=== PATIENT | female | born 1945 | race Caucasian/White ===

== ENCOUNTER → 2017-06-29 08:40 | Outpatient (CLI) | payer MEDICARE, OTHER, SELFPAY ==
--- NOTE | 2017-06-29 09:06 | XR_ITS ---
XR chest 2V Ordering Physician: Adrian Jones MD Patient Age: 72 years: Female HISTORY: ITS.REASON: CHEST PAIN, COPD, HTNPA and lateral chest Short of breath. Chest pain 1.5 week. Smoker. TECHNIQUE: PA and lateral chest COMPARISON :June 02, 2016 CXR also May 2015 & April 2014. Chest wall intact. Scant pleural thickening at the lateral left mid chest. FINDINGS . Overall appearance is very similar to the May 2015 study when today's slightly higher contrast digital technique is considered . I see no definitive focal pneumonia slight interstitial coarsening bilaterally with likely similar to previous chest film. No definitive CHF or definitive interstitial infiltrate. Heart upper normal in size. Calcified aortic knob. Postsurgical changes lower C-spine. IMPRESSION: Stable chest nothing definitely acute,... When technique is considered Mild hyperexpansion with mild chronic changes.
[2017-06-29 09:17] LABS: Basophils % 0.5 % (0.1-2.0); Eosinophils # 0.1 K/mm3 (0.0-0.4); Eosinophils % 1.7 % (0.1-12.0); Hematocrit 49.1 % (37.0-47.0); Hemoglobin 16.1 g/dL (12.2-16.2); Lymphocytes # 2.5 K/mm3 (0.7-4.5); Lymphocytes % 29.8 K/mm3 (10-50); Mean Corpuscular HGB Conc 32.8 g/dL (31.8-35.4); Mean Corpuscular Hemoglobin 30.3 pg (27.0-31.2); Mean Corpuscular Volume 92.5 fl (81-99); Mean Platelet Volume 7.7 fl (7.4-10.4); Monocytes # 0.6 K/mm3 (0.1-1.0); Monocytes % 6.9 % (1.7-9.3); Neutrophils # 5.1 K/mm3 (1.8-7.8); Platelet Count 225 K/mm3 (142-424); Red Blood Count 5.31 M/mm3 (4.20-5.40); Red Cell Distribution Width 13.4 % (11.5-17.5); White Blood Count 8.3 K/mm3 (4.8-10.8)
[2017-06-29 10:35] LABS: Alanine Aminotransferase 22 U/L (12-78); Albumin Level 3.5 gm/dL (3.4-5.0); Albumin/Globulin Ratio 1.1 (1.1-1.8); Alkaline Phosphatase 106 U/L (46-116); Anion Gap 13.3 mEq/L (5-15); Aspartate Amino Transferase 16 U/L (15-37); Bilirubin,Total 0.3 mg/dL (0.2-1.0); Blood Urea Nitrogen 18 mg/dL (7-18); Calcium 8.9 mg/dL (8.5-10.1); Carbon Dioxide 30 mmol/L (21.0-32.0); Chloride 103 mmol/L (98-107); Chol/HDL Ratio 3.4 (1-3.5); Cholesterol 191 mg/dL (140-200); Creatinine,Serum 0.89 mg/dL (0.55-1.02); Estimated Glomerular Filt Rate 62 ml/min (>60); GFR (African American) 75 ML/MIN (>60); Globulin 3.2 gm/dl (1.3-3.2); Glucose 100 mg/dL (74-106); HDL Cholesterol 56 mg/dL (29-89); LDL Cholesterol 117 mg/dL (0-130); Potassium 4.3 mmoL/L (3.5-5.1); Sodium 142 mmol/L (136-145); Thyroid Stimulating Hormone 2.04 uIU/ml (0.358-3.740); Total Protein,Serum 6.7 gm/dL (6.4-8.2); Triglycerides 89 mg/dL (30-200); VLDL Cholesterol 18 mg/dL (0-40)
== END ==
PROVIDERS: PCP Family Medicine; Visit Provider Family Medicine
DX: R07.9 Chest pain, unspecified (principal); E03.9 Hypothyroidism, unspecified; E78.5 Hyperlipidemia, unspecified; I10 Essential (primary) hypertension; J44.9 Chronic obstructive pulmonary disease, unspecified
CPT/HCPCS: 36415; 71046; 80053; 80061; 84443; 85025; 93005

== ENCOUNTER → 2017-07-02 13:29 | Outpatient (CLI) | payer MEDICARE, OTHER, SELFPAY ==
--- NOTE | 2017-07-02 13:39 | CT_ITS ---
EXAM: CT LUNG LOW DOSE WO CONTRAST COMPARISON: None HISTORY: 72-year-old female with 45 pack-year smoking history , asymptomatic ORDERING PHYSICIAN: Adrian Jones MD PATIENT AGE: 72 years TECHNIQUE: The exam was performed on a GE Light Speed [address] scanner using 2.94 mGy CTDI. A low dose helical CT CHEST was performed on a multi-detector scanner The LDCT was performed in a facility that meets the criteria for the screening program. Data regarding this exam was submitted to ACR which is an approved registry. The order for this exam indicates that it came as a result of a lung cancer screening counseling shard decision-making visit that included all the elements required of such a visit including smoking cessation. The radiologist interpreting this exam meets the [facility] criteria for the LDCT lung cancer screening program. The exam is reported using the Lung-RADS classification scale and reported to the ACR registry. NOTE: This study was performed for the specific purposes of lung cancer screening and is not an alternative to diagnostic chest CT. RADIATION DOSE: CTDI vol(CT dose Index-volume) = 2.94mG DLP (Dose Length Product) = 103.20 mGcm FINDINGS: Diffuse centrilobular emphysematous changes are present along with scattered areas of pulmonary fibrosis. Calcified nodule right lower lobe. Volume loss is present along the posterior aspect of the lingula along the major fissure and in the anterior aspect of the lingula. Coronary artery calcifications are present and minimal thickening of the pericardium anteriorly. Adrenal glands are slightly enlarged bilaterally nonspecific IMPRESSION: 1. Lung RADS Category: 2, benign 2. Other findings: Coronary artery disease. Centrilobular emphysema. Bilateral enlarged adrenal glands isodense slightly hypodense and may be due to adenomas or adrenal hyperplasia. Follow-up may confirm stability RECOMMENDATIONS: 12 month screening of the CT
== END ==
PROVIDERS: Family Provider Family Medicine; PCP Family Medicine; Visit Provider Family Medicine
DX: Z12.2 Encounter for screening for malignant neoplasm of respiratory organs (principal); Z87.891 Personal history of nicotine dependence

== ENCOUNTER 2017-09-20 19:49 | Inpatient (IN) ==
[2017-09-20 20:14] LABS: ABG HCO3 24.1 mmhg (22.0-26.0); ABG Oxygen Saturation 86 % (90-100); ABG PCO2 47.9 mmhg (35.0-45.0); ABG PH 7.32 mmol/L (7.35-7.45); ABG PO2 53.1 mmhg (80-100); ABG TCO2 25.6 mmhg (23-27); Allen's Test Y; Oxygen 4 %
[2017-09-20 20:27] LABS: Basophils % 0.3 % (0.1-2.0); Eosinophils % 0.1 % (0.1-12.0); Hematocrit 42.9 % (37.0-47.0); Lymphocytes # 1.1 K/mm3 (0.7-4.5); Lymphocytes % 12.4 K/mm3 (10-50); Mean Corpuscular HGB Conc 32.7 g/dL (31.8-35.4); Mean Corpuscular Hemoglobin 30.6 pg (27.0-31.2); Mean Corpuscular Volume 93.4 fl (81-99); Mean Platelet Volume 8.1 fl (7.4-10.4); Monocytes # 1.1 K/mm3 (0.1-1.0); Monocytes % 11.7 % (1.7-9.3); Neutrophils # 6.9 K/mm3 (1.8-7.8); Neutrophils % 75.6 % (37.0-80.0); Platelet Count 185 K/mm3 (142-424); Red Blood Count 4.59 M/mm3 (4.20-5.40); Red Cell Distribution Width 13.1 % (11.5-17.5); White Blood Count 9.1 K/mm3 (4.8-10.8)
[2017-09-20 20:52] LABS: Anion Gap 13.3 mEq/L (5-15); Blood Urea Nitrogen 19 mg/dL (7-18); Carbon Dioxide 27 mmol/L (21.0-32.0); Chloride 99 mmol/L (98-107); Creatine Kinase 651 U/L (26-192); Glucose 124 mg/dL (74-106); Potassium 4.3 mmoL/L (3.5-5.1); Sodium 135 mmol/L (136-145)
--- NOTE | 2017-09-20 21:33 | Emergency Department Note ---
ED Disposition Clinical Impression: Acute exacerbation of chronic obstructive airways disease CAP (community acquired pneumonia) Qualifiers: Laterality: right Lung location: lower lobe of lung Qualified Code(s): J18.1 - Lobar pneumonia, unspecified organism Disposition: Admitted as Observation Condition on Discharge: Good Referrals: Adrian Jones MD [Primary Care Provider] - - Critical Care Critical Care Time: No Attestation: On 09/20/17, the high probability of a clinically significant, sudden or life threatening deterioration of the following system(s) required my full and direct attention, intervention and personal management. The time I documented below is in addition to time spent performing reported procedures but includes the following listed in this critical care notation. Medical Decision Making - Medical Records Medical records reviewed: Yes: I reviewed the patient's medical records. - Domingo Inquiry Pt receiving controlled substance: No Vital Signs: 09/20/17 19:50 09/20/17 20:00 09/20/17 20:10 Temperature 99.7 F H Temperature Source Oral Pulse Rate 83 85 Pulse Rate [Right Radial] 110 H Respiratory Rate 20 Blood Pressure [Right Arm] 159/72 Blood Pressure Mean [Right Arm] 101 Blood Pressure Source [Right Arm] Automatic Cuff Blood Pressure Position [Right Arm] Supine 02 Sat by Pulse Oximetry 93 L Oxygen Delivery Method Nasal Cannula Oxygen Flow Rate (LPM) 4 - Lab Data Lab results reviewed: Yes: I reviewed the patient's lab results. Lab Results 09/20/17 20:10: WBC 9.1, RBC 4.59, Hgb 14.0, Hct 42.9, MCV 93.4, MCH 30.6, MCHC 32.7, RDW 13.1, Plt Count 185, MPV 8.1, Neut % (Auto) 75.6, Lymph % (Auto) 12.4 , Gilmer % (Auto) 11.7 H, Eos % (Auto) 0.1, Baso % (Auto) 0.3, Neut # (Auto) 6.9, Lymph # (Auto) 1.1, Gilmer # (Auto) 1.1 H, Eos # (Auto) 0.0, Baso # (Auto) 0.0 09/20/17 20:10: Sodium 135 L, Potassium 4.3, Chloride 99, Carbon Dioxide 27, Anion Gap 13.3, BUN 19 H, Creatinine 1.14 H, Estimated Creat Clear 50, Estimated GFR 47 L, Est GFR ( Amer) 57 L, Glucose 124 H, Total Creatine Kinase 651 H*, CK-MB (CK-2) 7.7 H, CK-MB (CK-2) Rel Index 1.2, Troponin I < 0.02 09/20/17 20:10: Lactic Acid 1.6 09/20/17 20:10: B-Natriuretic Peptide 84 09/20/17 20:12: Specimen Source R/r, O2 % 4, ABG pH 7.32 L, ABG pCO2 47.9 H, ABG pO2 53.1 L, ABG HCO3 24.1, ABG Total CO2 25.6, ABG O2 Saturation 86 L*, ABG Base Excess -2.0, Darian Test Y Result diagrams: 09/20/17 20:10 09/20/17 20:10 Orders (Tests/Meds): ED MEDICATIONS Discontinued Medications Generic Name Dose Route Start Last Admin Trade Name Freq PRN Reason Stop Dose Admin Albuterol/Ipratropium 3 ml 09/20/17 20:06 09/20/17 20:00 Duoneb 3ml Neb IH 09/20/17 20:07 3 ml ONCE ONE Administration Methylprednisolone Sodium Succinate 125 mg 09/20/17 20:06 09/20/17 20:10 Solu-Medrol 125mg/2ml Vial IV 09/20/17 20:07 125 mg ONCE ONE Administration ORDERS Category Date Time Status XR chest portable Stat Exams 09/20/17 20:06 Taken Blood Culture Stat Micro 09/20/17 20:10 Received Arterial Blood Gas Stat RT 09/20/17 20:15 Ordered - Radiology Data #1 Image(s): Chest Image Reviewed: Yes I reviewed the patient's radiology image Preliminary Findings: Abnormal (changes rt base) - ECG Data Tracing #1 I reviewed this ECG and interpreted as documented below: Normal Sinus Rhythm: Yes Ischemic changes: non-specific ST-T wave changes - Physician Consults Physician Consulted: abram Reason -: Admission Resp/SOB HPI - General Chief Complaint: Shortness of Breath/Dyspnea Stated Complaint: short of breath Time Seen by Provider: 09/20/17 20:00 Mode of Arrival: EMS Limitations: No Limitations Description of Symptoms (Recalled from ER Triage Doc. by RN): pt reports dx of cold and started on meds by dr valverde, ems transport with no treatment - History of Present Illness pt with copd with hx of tob use and presents with inc sob - saw pcp yesterday but has not responded to op treatment - no hemoptysis MD Complaint: shortness of breath, cough Onset (ago): day(s) Context: recent illness Severity: moderate Consistency/Duration: intermittent Known history of: COPD Treatment prior to arrival: oxygen - Related Data Home oxygen amount: 2 liters Home Medications Medication Instructions Recorded Confirmed albuterol sulfate 2.5 mg/3 mL 2.5 mg INHALATION ONCE 07/27/17 09/20/17 (0.083 %) solution for nebulization amlodipine 10 mg tablet 10 mg PO DAILY 90 Days tab 07/27/17 09/20/17 aspirin 81 mg tablet,delayed 81 mg PO ONCE 07/27/17 09/20/17 release benazepril 20 mg tablet 20 mg PO ONCE 07/27/17 09/20/17 cholecalciferol (vitamin D3) 2,000 2,000 unit PO ONCE 07/27/17 09/20/17 unit capsule diazepam 5 mg tablet 5 mg PO DAILY 30 Days tab 07/27/17 09/20/17 fluoxetine 40 mg capsule 40 mg PO DAILY 90 Days cap 07/27/17 09/20/17 furosemide 40 mg tablet 40 mg PO ONCE 07/27/17 09/20/17 ipratropium-albuterol 0.5 mg-3 3 ml INHALATION Q8H 07/27/17 09/20/17 mg(2.5 mg base)/3 mL nebulization soln levothyroxine 100 mcg tablet 100 mcg PO DAILY 90 Days tab 07/27/17 09/20/17 meclizine 12.5 mg tablet 12.5 mg PO ONCE 07/27/17 09/20/17 metoclopramide 10 mg tablet 10 mg PO QID 30 Days tab 07/27/17 09/20/17 nitroglycerin 0.4 mg sublingual 0.4 mg SUBLINGUAL Q5-15M PRN 07/27/17 09/20/17 tablet potassium chloride ER 10 mEq 2 tab PO DAILY 90 Days #180 07/27/17 09/20/17 tablet,extended release pravastatin 40 mg tablet 40 mg PO QHS 07/27/17 09/20/17 Benzonatate [Benzonatate 200mg Cap] 200 mg PO TID 09/20/17 09/20/17 Cefdinir [Omnicef 300mg Capsule] 1 cap PO BID 09/20/17 09/20/17 predniSONE [Prednisone 5mg 5 mg PO DAILY 09/20/17 09/20/17 Tab] Allergies Allergy/AdvReac Type Severity Reaction Status Date / Time codeine [CODEINE] Allergy Mild Verified 09/20/17 20:05 penicillin G [PENICILLIN G] Allergy Mild Verified 09/20/17 20:05 povidone-iodine Allergy Mild Verified 09/20/17 20:05 [From BETADINE] [facility] History I have reviewed the patient's past medical history: Yes Medical History: Reports:: Chronic Obstructive Pulmonary Disease (COPD), Gastroesophageal Reflux Disease(GERD), Hyperlipidemia, Hypertension Denies:: Cancer, Congestive Heart Failure, Diabetes Mellitus Type 1, Diabetes Mellitus Type 2, Migraine, MRSA, Renal Disease, Renal Insufficiency Other Medical History: Reports: Arthritis, Hypothyroidism. Denies: Thyroid Disease Laterality Cases: Bilateral: Tonsillectomy Other Surgeries: Yes: Tubal Ligation Amputation: No Fractures: No Comment: cholecystectomy, lasik surgery, disk removed and replaced in neck - Social History Smoking Status: Current every day smoker Tobacco Type: cigarettes Alcohol Intake: never Alcohol Intake Frequency:: other Occupational Status: retired - Psychiatric History Expresses thoughts of harming self/others: None Suicide Plan Description: No Plan Family Hx:: Cancer, Diabetes ROS Obtained: Yes All systems reviewed & no additional complaints - Constitutional Constitutional: Denies fever(s) - Eyes Eyes: Denies change in vision - ENT Ears, Nose, Mouth, and Throat: Denies sore throat - Cardiovascular Cardiovascular: Denies chest pain at rest - Respiratory Respiratory: Yes cough, Yes dyspnea, No coughing up blood - Gastrointestinal Gastrointestingal: Denies: diarrhea, vomiting - Genitourinary Female Genitourinary: Denies hematuria - Musculoskeletal Musculoskeletal: Denies joint swelling - Integumentary/Breasts Skin/Breast: Denies rash - Neurologic Neurologic: Denies seizure-like activity Physical Exam - General General appearance: in no apparent distress - Head Head exam: normocephalic - Eye Eye exam: Present: PERRL, EOMI - ENT ENT exam: Present: mucous membranes dry - Neck Neck exam: Present: trachea midline - Respiratory Respiratory exam: Present: wheezes, prolonged expiratory phase. Absent: respiratory distress - Cardiovascular Cardiovascular exam: Present: regular rate, systolic murmur, +S4 - Abdominal Exam Abdominal exam: Present: soft - Extremities Exam Extremities exam: Absent: calf tenderness - Neurological Exam Neurological exam: Present: alert, oriented X3, CN II-XII intact - Psychiatric Psychiatric exam: Present: normal affect - Skin Skin exam: Absent: rash
[2017-09-21 07:47] LABS: Basophils % 0.2 % (0.1-2.0); Eosinophils % 0.2 % (0.1-12.0); Hematocrit 45.3 % (37.0-47.0); Hemoglobin 14.7 g/dL (12.2-16.2); Lymphocytes # 0.7 K/mm3 (0.7-4.5); Mean Corpuscular HGB Conc 32.3 g/dL (31.8-35.4); Mean Corpuscular Hemoglobin 30.6 pg (27.0-31.2); Mean Corpuscular Volume 94.5 fl (81-99); Mean Platelet Volume 8.3 fl (7.4-10.4); Monocytes # 0.2 K/mm3 (0.1-1.0); Monocytes % 3.3 % (1.7-9.3); Neutrophils # 5.4 K/mm3 (1.8-7.8); Neutrophils % 85.3 % (37.0-80.0); Platelet Count 183 K/mm3 (142-424); Red Blood Count 4.79 M/mm3 (4.20-5.40); Red Cell Distribution Width 13.1 % (11.5-17.5); White Blood Count 6.4 K/mm3 (4.8-10.8)
--- NOTE | 2017-09-21 08:07 | Pharmacy Consult Notes ---
[facility] Pharmacy VTE Monitoring - Patient Demographics Admission date: 09/20/17 Report Date: 09/21/17 Time: 08:06 Allergies/Adverse Reactions: Patient Allergies codeine [CODEINE] Allergy (Mild, Verified 09/20/17 20:05) penicillin G [PENICILLIN G] Allergy (Mild, Verified 09/20/17 20:05) povidone-iodine [From BETADINE] Allergy (Mild, Verified 09/20/17 20:05) Height: 1.57 m Weight: 69.456 kg Patient Problems: Current Active Problems Acute exacerbation of chronic obstructive airways disease (Acute) CAP (community acquired pneumonia) (Acute) - VTE Risk Labs: VTE Related Lab Results Hgb 14.7 g/dL (12.2-16.2) 09/21/17 06:20 Hct 45.3 % (37.0-47.0) 09/21/17 06:20 Plt Count 183 K/mm3 (142-424) 09/21/17 06:20 BUN 19 mg/dL (7-18) H 09/20/17 20:10 Creatinine 1.14 mg/dL (0.55-1.02) H 09/20/17 20:10 Estimated Creat Clear 50 mL/min (0-300) 09/20/17 20:10 Was VTE Risk Assessment Performed: Yes VTE Score: 5 VTE Risk Level: Low Risk - Prophylaxis VTE Prophylaxis Ordered?: Yes Types of VTE Prophylaxis: TEDS Knee High Location of Applied Device: Bilateral Lower Extremeties - VTE Diagnosis Confirmed Treatment or plan recommended: Continue Current Treatment
[2017-09-21 08:50] LABS: Anion Gap 16.8 mEq/L (5-15); Blood Urea Nitrogen 19 mg/dL (7-18); Carbon Dioxide 25 mmol/L (21.0-32.0); Chloride 101 mmol/L (98-107); Glucose 145 mg/dL (74-106); Potassium 4.8 mmoL/L (3.5-5.1); Sodium 138 mmol/L (136-145)
[2017-09-21 09:14] LABS: Lymphocytes % 2 % (10-50); Monocytes % 2 % (2-9); Neutrophils % 94 % (42-76); RBC Morphology Normal; Total Cells Counted 100
--- NOTE | 2017-09-21 09:22 | History & Physical Report ---
*Admission Date: 09/20/17 <Brianna Mcleod 09/21/17 09:35> *Chief complaint: Shortness of breath <Brianna Mcleod 09/21/17 09:35> *History of present illness: Ms. Chu is a 72-year-old female with a history of oxygen dependent COPD, hypothyroidism, hypertension, and hiatal hernia who presented to [facility] emergency room with progressive shortness of breath. She was seen in the office of [facility] on 09/19/2017 and started on Ceftinir and Tessalon Perles. CBC at that time showed a white blood cell count of 7100. He was also started on prednisone 5 mg with descending dosages. She states she was having to use her neb treatments for 5 times during the day. She states they did help. Cough was a dry cough. She denies chest pain. She denies fever. She was evaluated in the emergency room and felt to have pneumonia. She was admitted for further evaluation and treatment. This a.m. she does not feel much better. She had little sleep. She denies chest pain. She is still somewhat short of breath. <Brianna Mcleod 09/21/17 09:35> [facility] History Medical History: Reports:: Chronic Obstructive Pulmonary Disease (COPD), Gastroesophageal Reflux Disease(GERD), Hyperlipidemia, Hypertension Denies:: Cancer, Congestive Heart Failure, Diabetes Mellitus Type 1, Diabetes Mellitus Type 2, Migraine, MRSA, Renal Disease, Renal Insufficiency < Brianna Mcleod 09/21/17 09:35> Other Medical History: Reports: Arthritis, Hypothyroidism. Denies: Thyroid Disease <Brianna Mcleod 09/21/17 09:35> Laterality Cases: Bilateral: Tonsillectomy <Brianna Mcleod 09/21/17 09:35> Other Surgeries: Yes: Cholecystectomy, Thyroidectomy, Tubal Ligation, Other ( Neck - bone spur removal) <Brianna Mcleod 09/21/17 09:35> Amputation: No <Brianna Mcleod 09/21/17 09:35> Fractures: No <Brianna Mcleod 09/21/17 09:35> Comment: Parotid gland removed per Dr. Frazier 06/2014; discectomy; Lasix surgery both eyes; cyst removed from eyelids 3. <Brianna Mcleod 09/21/17 09:35> - *Social History Educational Level: Completed High School <Brianna Mcleod 09/21/17 09:35> Smoking Status: Current every day smoker <Brianna Mcleod 09/21/17 09:35> Tobacco Type: cigarettes <Brianna Mcleod 09/21/17 09:35> #Yrs smoked (if former smoker): 50 <ShaniBrianna 09/21/17 09:35> Alcohol Intake: never <ShaniBrianna Johnnie 09/21/17 09:35> Alcohol Intake Frequency:: other <ShaniBrianna Johnnie 09/21/17 09:35> Occupational Status: retired <ShaniBrianna Johnnie 09/21/17 09:35> Housing: house <ShaniBrianna 09/21/17 09:35> Household Members: spouse <ShaniBrianna 09/21/17 09:35> - Psychiatric History Expresses thoughts of harming self/others: None <ShaniBrianna - 09/21/17 09: 35> Suicide Plan Description: No Plan <Brianna Mcleod Johnnie 09/21/17 09:35> *Family Hx:: Cancer, Diabetes <McleodBrianna 09/21/17 09:35> Review of Systems - Constitutional Reports weakness, Denies body ache(s) <McleodBrianna 09/21/17 09:35> - ENT Denies ear pain, Denies headache(s), Denies sore throat <ShaniBrianna Johnnie 09/21 09:35> - *Cardiovascular Denies chest pain <ShaniBrianna 09/21/17 09:35> Comments: Regular rate and rhythm with occasional ectopy. <Mcleod,Brianna 09/21/17 09:35> - *Respiratory Reports cough (Dry), Reports shortness of breath, Denies coughing up blood, Denies pain on inspiration <Brianna Mcleod 09/21/17 09:35> - *Gastrointestinal Denies abdominal pain, Denies constipation, Denies nausea, Denies vomiting < Brianna Mcleod 09/21/17 09:35> - *Genitourinary Denies difficulty urinating <Brianna Mcleod 09/21/17 09:35> - *Musculoskeletal Denies abnormal walking <Brianna cMleod - 09/21/17 09:35> - *Neurologic Denies confusion, Denies headache(s), Denies seizure-like activity <Brianna Mcleod - 09/21/17 09:35> Meds Home Medications Medication Instructions Recorded Confirmed Type albuterol sulfate 2.5 mg/3 mL 2.5 mg INHALATION ONCE 07/27/17 09/21/17 History (0.083 %) solution for nebulization amlodipine 10 mg tablet 10 mg PO DAILY 90 Days tab 07/27/17 09/21/17 History aspirin 81 mg tablet,delayed 81 mg PO ONCE 07/27/17 09/21/17 History release benazepril 20 mg tablet 20 mg PO ONCE 07/27/17 09/21/17 History cholecalciferol (vitamin D3) 2,000 2,000 unit PO ONCE 07/27/17 09/21/17 History unit capsule diazepam 5 mg tablet 5 mg PO DAILY 30 Days tab 07/27/17 09/21/17 History fluoxetine 40 mg capsule 40 mg PO DAILY 90 Days cap 07/27/17 09/21/17 History furosemide 40 mg tablet 40 mg PO ONCE 07/27/17 09/21/17 History ipratropium-albuterol 0.5 mg-3 3 ml INHALATION Q8H 07/27/17 09/21/17 History mg(2.5 mg base)/3 mL nebulization soln levothyroxine 100 mcg tablet 100 mcg PO DAILY 90 Days tab 07/27/17 09/21/17 History meclizine 12.5 mg tablet 12.5 mg PO ONCE 07/27/17 09/21/17 History metoclopramide 10 mg tablet 10 mg PO QID 30 Days tab 07/27/17 09/21/17 History nitroglycerin 0.4 mg sublingual 0.4 mg SUBLINGUAL Q5-15M PRN 07/27/17 09/20/17 History tablet potassium chloride ER 10 mEq 2 tab PO DAILY 90 Days #180 07/27/17 09/21/17 History tablet,extended release pravastatin 40 mg tablet 40 mg PO QHS 07/27/17 09/21/17 History Benzonatate [Benzonatate 200mg Cap] 200 mg PO TID 09/20/17 09/21/17 History Cefdinir [Omnicef 300mg Capsule] 1 cap PO BID 09/20/17 09/21/17 History predniSONE [Prednisone 5mg 5 mg PO DAILY 09/20/17 09/21/17 History Tab] <Adrian Jones - 09/21/17 09:41> Allergies Allergy/AdvReac Type Severity Reaction Status Date / Time codeine [CODEINE] Allergy Mild Verified 09/20/17 20:05 penicillin G [PENICILLIN G] Allergy Mild Verified 09/20/17 20:05 povidone-iodine Allergy Mild Verified 09/20/17 20:05 [From BETADINE] <Adrian Jones - 09/21/17 09:41> Exam Vital signs and Labs for Last 24 Hours: Temp Pulse Resp BP Pulse Ox 98.1 F 112 H 20 127/65 84 L 09/21/17 04:00 09/21/17 06:10 09/21/17 04:00 09/21/17 04:00 09/21/17 06:10 Laboratory Results - last 24 hr 09/20/17 20:10: WBC 9.1, RBC 4.59, Hgb 14.0, Hct 42.9, MCV 93.4, MCH 30.6, MCHC 32.7, RDW 13.1, Plt Count 185, MPV 8.1, Neut % (Auto) 75.6, Lymph % (Auto) 12.4 , Hyde % (Auto) 11.7 H, Eos % (Auto) 0.1, Baso % (Auto) 0.3, Neut # (Auto) 6.9, Lymph # (Auto) 1.1, Hyde # (Auto) 1.1 H, Eos # (Auto) 0.0, Baso # (Auto) 0.0 09/20/17 20:10: Sodium 135 L, Potassium 4.3, Chloride 99, Carbon Dioxide 27, Anion Gap 13.3, BUN 19 H, Creatinine 1.14 H, Estimated Creat Clear 50, Estimated GFR 47 L, Est GFR ( Amer) 57 L, Glucose 124 H, Total Creatine Kinase 651 H*, CK-MB (CK-2) 7.7 H, CK-MB (CK-2) Rel Index 1.2, Troponin I < 0.02 09/20/17 20:10: Lactic Acid 1.6 09/20/17 20:10: B-Natriuretic Peptide 84 09/20/17 20:12: Specimen Source R/r, O2 % 4, ABG pH 7.32 L, ABG pCO2 47.9 H, ABG pO2 53.1 L, ABG HCO3 24.1, ABG Total CO2 25.6, ABG O2 Saturation 86 L*, ABG Base Excess -2.0, Darian Test Y 09/21/17 06:20: WBC 6.4 D, RBC 4.79, Hgb 14.7, Hct 45.3, MCV 94.5, MCH 30.6, MCHC 32.3, RDW 13.1, Plt Count 183, MPV 8.3, Neut % (Auto) 85.3 H, Lymph % (Auto ) 11.0, Hyde % (Auto) 3.3, Eos % (Auto) 0.2, Baso % (Auto) 0.2, Neut # (Auto) 5.4, Lymph # (Auto) 0.7, Hyde # (Auto) 0.2, Eos # (Auto) 0.0, Baso # (Auto) 0.0 , Total Counted 100, Neutrophils % (Manual) 94 H, Band Neutrophils % 2.0, Lymphocytes % (Manual) 2 L, Monocytes % (Manual) 2, Platelet Estimate Normal, RBC Morphology Normal 09/21/17 06:20: Sodium 138, Potassium 4.8, Chloride 101, Carbon Dioxide 25, Anion Gap 16.8 H, BUN 19 H, Creatinine 1.03 H, Estimated Creat Clear 54, Estimated GFR 53 L, Est GFR ( Amer) 64, Glucose 145 H, Magnesium 2.2, Troponin I < 0.02 <RobertAdrian Juan David - 09/21/17 09:41> Temp Pulse Resp BP Pulse Ox 98.1 F 112 H 20 127/65 84 L 09/21/17 04:00 09/21/17 06:10 09/21/17 04:00 09/21/17 04:00 09/21/17 06:10 Laboratory Results - last 24 hr 09/20/17 20:10: WBC 9.1, RBC 4.59, Hgb 14.0, Hct 42.9, MCV 93.4, MCH 30.6, MCHC 32.7, RDW 13.1, Plt Count 185, MPV 8.1, Neut % (Auto) 75.6, Lymph % (Auto) 12.4 , Hyde % (Auto) 11.7 H, Eos % (Auto) 0.1, Baso % (Auto) 0.3, Neut # (Auto) 6.9, Lymph # (Auto) 1.1, Hyde # (Auto) 1.1 H, Eos # (Auto) 0.0, Baso # (Auto) 0.0 09/20/17 20:10: Sodium 135 L, Potassium 4.3, Chloride 99, Carbon Dioxide 27, Anion Gap 13.3, BUN 19 H, Creatinine 1.14 H, Estimated Creat Clear 50, Estimated GFR 47 L, Est GFR ( Amer) 57 L, Glucose 124 H, Total Creatine Kinase 651 H*, CK-MB (CK-2) 7.7 H, CK-MB (CK-2) Rel Index 1.2, Troponin I < 0.02 09/20/17 20:10: Lactic Acid 1.6 09/20/17 20:10: B-Natriuretic Peptide 84 09/20/17 20:12: Specimen Source R/r, O2 % 4, ABG pH 7.32 L, ABG pCO2 47.9 H, ABG pO2 53.1 L, ABG HCO3 24.1, ABG Total CO2 25.6, ABG O2 Saturation 86 L*, ABG Base Excess -2.0, Darian Test Y 09/21/17 06:20: WBC 6.4 D, RBC 4.79, Hgb 14.7, Hct 45.3, MCV 94.5, MCH 30.6, MCHC 32.3, RDW 13.1, Plt Count 183, MPV 8.3, Neut % (Auto) 85.3 H, Lymph % (Auto ) 11.0, Hyde % (Auto) 3.3, Eos % (Auto) 0.2, Baso % (Auto) 0.2, Neut # (Auto) 5.4, Lymph # (Auto) 0.7, Hyde # (Auto) 0.2, Eos # (Auto) 0.0, Baso # (Auto) 0.0 , Total Counted 100, Neutrophils % (Manual) 94 H, Band Neutrophils % 2.0, Lymphocytes % (Manual) 2 L, Monocytes % (Manual) 2, Platelet Estimate Normal, RBC Morphology Normal 09/21/17 06:20: Sodium 138, Potassium 4.8, Chloride 101, Carbon Dioxide 25, Anion Gap 16.8 H, BUN 19 H, Creatinine 1.03 H, Estimated Creat Clear 54, Estimated GFR 53 L, Est GFR ( Amer) 64, Glucose 145 H, Magnesium 2.2, Troponin I < 0.02 <ShaniBrianna 09/21/17 09:35> I & O for Last 24 hours: Intake & Output 09/18/17 09/19/17 09/20/17 09/21/17 11:59 11:59 11:59 11:59 Intake Total 846 / 846 Output Total 600 / 600 Balance 246 / 246 Weight 153 lb 2 oz <RobertAdrian Juan David - 09/21/17 09:41> Intake & Output 09/18/17 09/19/17 09/20/17 09/21/17 11:59 11:59 11:59 11:59 Intake Total 846 / 846 Output Total 600 / 600 Balance 246 / 246 Weight 153 lb 2 oz <Mcleod,Brianna 09/21/17 09:35> Radiology Reports for the Last 24 Hours: 09/20/2017 chest x-ray MPRESSION: No acute finding <ShaniBrianna 09/21/17 09:35> - Constitutional no acute distress <ShaniBrianna - 09/21/17 09:35> - *Routine HEENT Exam Head: Present: normocephalic, atraumatic <Brianna Mcleod 09/21/17 09:35> Eye: Present: PERRL. Absent: conjunctival icterus, scleral injection <Brianna Mcleod 09/21/17 09:35> ENT: Present: mucous membranes moist, oropharynx clear <Brianna Mcleod 09:35> - *Routine Neck Exam Present: supple. Absent: carotid bruit, lymphadenopathy, thyromegaly <Brianna Mcleod 09/21/17 09:35> - *Routine Respiratory Exam Present: decreased breath sounds (Posteriorly) <Brianna Mcleod 09/21/17 09:35 > - *Routine Cardiovascular Exam Present: RRR <Brianna Mcleod - 09/21/17 09:35> - *Routine Abdominal Exam Present: soft, normoactive bowel sounds. Absent: tenderness, guarding < Brianna Mcleod - 09/21/17 09:35> - *Routine Extremities Exam Absent: edema, calf tenderness <Brianna Mcleod - 09/21/17 09:35> - *Routine Neurological Exam Present: alert, oriented X3 <Brianna Mcleod - 09/21/17 09:35> H&P: Result - Labs Labs: Short CBC 09/20/17 09/21/17 Range/Units 20:10 06:20 WBC 9.1 6.4 D (4.8-10.8) K/mm3 Hgb 14.0 14.7 (12.2-16.2) g/dL Hct 42.9 45.3 (37.0-47.0) % Plt Count 185 183 (142-424) K/mm3 [facility] 09/20/17 09/21/17 20:10 06:20 Sodium 135 L 138 Potassium 4.3 4.8 Chloride 99 101 Carbon Dioxide 27 25 BUN 19 H 19 H Creatinine 1.14 H 1.03 H Glucose 124 H 145 H Cardiac Enzymes 09/20/17 09/21/17 Range/Units 20:10 06:20 Total Creatine Kinase 651 H* (26-192) U/L CK-MB (CK-2) 7.7 H (0.0-3.6) ng/ml Troponin I < 0.02 < 0.02 (0.00-0.06) ng/ml <RobertAdrian rivera Juan David - 09/21/17 09:41> Short CBC 09/20/17 09/21/17 Range/Units 20:10 06:20 WBC 9.1 6.4 D (4.8-10.8) K/mm3 Hgb 14.0 14.7 (12.2-16.2) g/dL Hct 42.9 45.3 (37.0-47.0) % Plt Count 185 183 (142-424) K/mm3 [facility] 09/20/17 09/21/17 20:10 06:20 Sodium 135 L 138 Potassium 4.3 4.8 Chloride 99 101 Carbon Dioxide 27 25 BUN 19 H 19 H Creatinine 1.14 H 1.03 H Glucose 124 H 145 H Cardiac Enzymes 09/20/17 09/21/17 Range/Units 20:10 06:20 Total Creatine Kinase 651 H* (26-192) U/L CK-MB (CK-2) 7.7 H (0.0-3.6) ng/ml Troponin I < 0.02 < 0.02 (0.00-0.06) ng/ml <Brianna Mcleod - 09/21/17 09:35> Assessment and Plan (1) Acute exacerbation of chronic obstructive airways disease Current visit: Yes Status: Acute Category: Medical Code(s): J44.1 - Chronic obstructive pulmonary disease with (acute) exacerbation (2) Hypothyroidism Current visit: Yes Status: Chronic Category: Medical Code(s): E03.9 - Hypothyroidism, unspecified (3) Hypertension Current visit: Yes Status: Chronic Category: Medical Code(s): I10 - Essential (primary) hypertension (4) Tobacco use disorder Current visit: Yes Status: Chronic Category: Medical Code(s): F17.200 - Nicotine dependence, unspecified, uncomplicated <Adrian Jones - 09/21/17 09:41> (1) Hypothyroidism Current visit: Yes Status: Chronic Category: Medical Code(s): E03.9 - Hypothyroidism, unspecified (2) Hypertension Current visit: Yes Status: Chronic Category: Medical Code(s): I10 - Essential (primary) hypertension (3) Tobacco use disorder Current visit: Yes Status: Chronic Category: Medical Code(s): F17.200 - Nicotine dependence, unspecified, uncomplicated <Brianna Mcleod - 09/21/17 09:19> - Assessment and plan all Dx Assessment and Plan for all problems:: Patient seen and examined. Still dyspneic with exertion. No chest pain. She is being covered for possible pneumonia although initial CXR was negative. Will repeat CXR today after hydration and check PCR resp panel. <Adrian Jones - 09/21/17 09:41> Will repeat chest x-ray today. Continue with Xopenex nebs and antibiotics. <Brianna Mcleod 09/21/17 09:35>
[2017-09-21 09:53] LABS: Coronavirus 229E Not Detected (NotDetected); Coronavirus NL63 Not Detected (NotDetected); Coronavirus OC43 Not Detected (NotDetected); Coronovirus HKU1,PCR Not Detected (NotDetected)
[2017-09-22 08:00] LABS: Basophils % 0.2 % (0.1-2.0); Eosinophils % 0.4 % (0.1-12.0); Hematocrit 43.8 % (37.0-47.0); Hemoglobin 14.1 g/dL (12.2-16.2); Lymphocytes # 0.7 K/mm3 (0.7-4.5); Lymphocytes % 8.3 K/mm3 (10-50); Mean Corpuscular HGB Conc 32.2 g/dL (31.8-35.4); Mean Corpuscular Hemoglobin 30.3 pg (27.0-31.2); Mean Corpuscular Volume 94.2 fl (81-99); Mean Platelet Volume 8.1 fl (7.4-10.4); Monocytes # 0.5 K/mm3 (0.1-1.0); Monocytes % 6.4 % (1.7-9.3); Neutrophils # 6.7 K/mm3 (1.8-7.8); Neutrophils % 84.6 % (37.0-80.0); Platelet Count 188 K/mm3 (142-424); Red Blood Count 4.65 M/mm3 (4.20-5.40); White Blood Count 7.9 K/mm3 (4.8-10.8)
--- NOTE | 2017-09-22 08:39 | Progress Note ---
<Brianna Mcleod - Last Filed: 09/22/17 08:35> Internal Medicine - PN: Subj *Date: 09/22/17 *Time: 08:35 Interval history: Did not have very good night last night. She was short of breath throughout. O2 sats decreased and she was placed on a Ventimask. She also received extra duo nebs and IV Lasix. She did diurese after this. This a.m. she does not feel any better. She denies chest pain but continues to be short of breath. Currently she is on nasal O2. She denies cough. She is trying to eat. White blood cell count is normal this time. CPK has decreased. Exam Vital signs and Labs for Last 24 Hours: Temp Pulse Resp BP Pulse Ox 97.3 F L 111 H 24 150/66 91 L 09/22/17 08:00 09/22/17 08:00 09/22/17 08:00 09/22/17 08:00 09/22/17 08:00 Laboratory Results - last 24 hr 09/21/17 06:20: Total Counted 100, Neutrophils % (Manual) 94 H, Band Neutrophils % 2.0, Lymphocytes % (Manual) 2 L, Monocytes % (Manual) 2, Platelet Estimate Normal, RBC Morphology Normal 09/21/17 06:20: Sodium 138, Potassium 4.8, Chloride 101, Carbon Dioxide 25, Anion Gap 16.8 H, BUN 19 H, Creatinine 1.03 H, Estimated Creat Clear 54, Estimated GFR 53 L, Est GFR ( Amer) 64, Glucose 145 H, Magnesium 2.2, Troponin I < 0.02 09/21/17 09:30: Chlamy pneumoniae PCR Not detected, Adenovirus (PCR) Not detected, B.parapertussis DNA PCR Not detected, Coronavirus OC43 (PCR) Not detected, Coronavirus HKU1 (PCR) Not detected, Coronavirus 229E (PCR) Not detected, Coronavirus NL63 (PCR) Not detected, Human Metapneumovir PCR Not detected, Influenza A (H1) PCR Not detected, Influ A (H1N1/09) PCR Not detected , Influenza A (H3) PCR Not detected, Influenza Type A (PCR) Not detected, Influenza Type B (PCR) Not detected, M. pneumoniae (PCR) Not detected, Parainfluenza 1 (PCR) Not detected, Parainfluenza 2 (PCR) Not detected, Parainfluenza 3 (PCR) Not detected, Parainfluenza 4 (PCR) Not detected, RSV (PCR ) Not detected, Entero/Rhino (PCR) Not detected 09/22/17 06:55: WBC 7.9, RBC 4.65, Hgb 14.1, Hct 43.8, MCV 94.2, MCH 30.3, MCHC 32.2, RDW 13.0, Plt Count 188, MPV 8.1, Neut % (Auto) 84.6 H, Lymph % (Auto) 8.3 L, Bradford % (Auto) 6.4, Eos % (Auto) 0.4, Baso % (Auto) 0.2, Neut # (Auto) 6.7 , Lymph # (Auto) 0.7, Bradford # (Auto) 0.5, Eos # (Auto) 0.0, Baso # (Auto) 0.0 09/22/17 06:55: Sodium 139, Potassium 4.0, Chloride 101, Carbon Dioxide 30, Anion Gap 12.0, BUN 20 H, Creatinine 0.90, Estimated Creat Clear 55, Estimated GFR 62, Est GFR ( Amer) 74, Glucose 150 H, Total Creatine Kinase 306 H D I & O for Last 24 hours: Intake & Output 09/19/17 09/20/17 09/21/17 09/22/17 11:59 11:59 11:59 11:59 Intake Total 846 / 846 1857 / 1857 Output Total 600 / 600 2049 / 2049 Balance 246 / 246 -193 / -193 Weight 153 lb 2 oz 152 lb Microbiology Reports for the Last 24 Hours: Microbiology 09/21/17 11:00 Sputum - Expectorated Sputum Gram Stain - Final 09/21/17 11:00 Sputum - Expectorated Sputum Sputum Culture - Preliminary 09/20/17 20:10 Blood Blood Culture - Preliminary NO GROWTH AFTER 24 HOURS 09/20/17 20:10 Blood Blood Culture - Preliminary NO GROWTH AFTER 24 HOURS Radiology Reports for the Last 24 Hours: Chest x-ray 09/21/2017 MPRESSION: COPD with possible patchy infiltrate in the right middle lobe - Constitutional Comments: Sitting up in bed trying to eat her breakfast. She is on nasal O2. She short of breath with conversing. - *Routine Respiratory Exam Present: decreased breath sounds, wheezes (Throughout anteriorly and posteriorly ) - *Routine Cardiovascular Exam Present: RRR - *Routine Abdominal Exam Present: soft, normoactive bowel sounds. Absent: tenderness, guarding - *Routine Extremities Exam Absent: edema, calf tenderness - *Routine Neurological Exam Present: alert, oriented X3 Assessment and Plan (1) Acute exacerbation of chronic obstructive airways disease Current visit: Yes Status: Acute Category: Medical Code(s): J44.1 - Chronic obstructive pulmonary disease with (acute) exacerbation (2) Hypothyroidism Current visit: Yes Status: Chronic Category: Medical Code(s): E03.9 - Hypothyroidism, unspecified (3) Hypertension Current visit: Yes Status: Chronic Category: Medical Code(s): I10 - Essential (primary) hypertension (4) Tobacco use disorder Current visit: Yes Status: Chronic Category: Medical Code(s): F17.200 - Nicotine dependence, unspecified, uncomplicated (5) Hypoxia Current visit: Yes Status: Acute Category: Medical Code(s): R09.02 - Hypoxemia (6) CAP (community acquired pneumonia) Current visit: Yes Status: Acute Qualifiers: Laterality: right Lung location: lower lobe of lung Qualified Code(s): J18.1 - Lobar pneumonia, unspecified organism Category: Medical Code(s): J18.9 - Pneumonia, unspecified organism - Assessment and plan all Dx Assessment and Plan for all problems:: Continue with duo nebs and antibiotics. Will increase steroids. <Adrian Jones - Last Filed: 09/22/17 18:46> Internal Medicine - PN: Subj *Date: 09/22/17 *Time: 18:43 Exam Vital signs and Labs for Last 24 Hours: Temp Pulse Resp BP Pulse Ox 99.1 F 89 28 H 162/74 94 L 09/22/17 16:00 09/22/17 18:22 09/22/17 16:00 09/22/17 16:00 09/22/17 16:00 Laboratory Results - last 24 hr 09/22/17 06:55: WBC 7.9, RBC 4.65, Hgb 14.1, Hct 43.8, MCV 94.2, MCH 30.3, MCHC 32.2, RDW 13.0, Plt Count 188, MPV 8.1, Neut % (Auto) 84.6 H, Lymph % (Auto) 8.3 L, Bradford % (Auto) 6.4, Eos % (Auto) 0.4, Baso % (Auto) 0.2, Neut # (Auto) 6.7 , Lymph # (Auto) 0.7, Bradford # (Auto) 0.5, Eos # (Auto) 0.0, Baso # (Auto) 0.0 09/22/17 06:55: Sodium 139, Potassium 4.0, Chloride 101, Carbon Dioxide 30, Anion Gap 12.0, BUN 20 H, Creatinine 0.90, Estimated Creat Clear 55, Estimated GFR 62, Est GFR ( Amer) 74, Glucose 150 H, Total Creatine Kinase 306 H D 09/22/17 18:11: Specimen Source R/r, O2 % 35, ABG pH 7.32 L, ABG pCO2 54.8 H, ABG pO2 65.0 L, ABG HCO3 27.8 H, ABG Total CO2 29.5 H, ABG O2 Saturation 92, ABG Base Excess 1.7, Darian Test Y I & O for Last 24 hours: Intake & Output 09/20/17 09/21/17 09/22/17 09/23/17 11:59 11:59 11:59 11:59 Intake Total 846 / 846 1857 / 1857 120 / 120 Output Total 600 / 600 2275 / 2275 200 / 200 Balance 246 / 246 -418 / -418 -80 / -80 Weight 153 lb 2 oz 152 lb Microbiology Reports for the Last 24 Hours: Microbiology 09/21/17 11:00 Sputum - Expectorated Sputum Gram Stain - Final 09/21/17 11:00 Sputum - Expectorated Sputum Sputum Culture - Preliminary 09/20/17 20:10 Blood Blood Culture - Preliminary NO GROWTH AFTER 24 HOURS 09/20/17 20:10 Blood Blood Culture - Preliminary NO GROWTH AFTER 24 HOURS Assessment and Plan (1) CAP (community acquired pneumonia) Current visit: Yes Status: Acute Qualifiers: Laterality: right Lung location: lower lobe of lung Qualified Code(s): J18.1 - Lobar pneumonia, unspecified organism Category: Medical Code(s): J18.9 - Pneumonia, unspecified organism (2) Acute exacerbation of chronic obstructive airways disease Current visit: Yes Status: Acute Category: Medical Code(s): J44.1 - Chronic obstructive pulmonary disease with (acute) exacerbation (3) Hypothyroidism Current visit: Yes Status: Chronic Category: Medical Code(s): E03.9 - Hypothyroidism, unspecified (4) Hypertension Current visit: Yes Status: Chronic Category: Medical Code(s): I10 - Essential (primary) hypertension (5) Tobacco use disorder Current visit: Yes Status: Chronic Category: Medical Code(s): F17.200 - Nicotine dependence, unspecified, uncomplicated (6) Hypoxia Current visit: Yes Status: Acute Category: Medical Code(s): R09.02 - Hypoxemia - Assessment and plan all Dx Assessment and Plan for all problems:: Patient seen and examined this AM. Clinically about the same. Will increase steroids.
[2017-09-22 18:13] LABS: ABG Base Excess 1.7 mmol/L (-2.4-2.3); ABG HCO3 27.8 mmhg (22.0-26.0); ABG Oxygen Saturation 92 % (90-100); ABG PH 7.32 mmol/L (7.35-7.45); ABG TCO2 29.5 mmhg (23-27); Oxygen 35 %
[2017-09-22 18:14] LABS: ABG PCO2 54.8 mmhg (35.0-45.0); Allen's Test Y
[2017-09-23 07:05] LABS: Basophils % 0.1 % (0.1-2.0); Eosinophils % 0.3 % (0.1-12.0); Hematocrit 43.8 % (37.0-47.0); Hemoglobin 13.9 g/dL (12.2-16.2); Lymphocytes # 0.8 K/mm3 (0.7-4.5); Lymphocytes % 10.1 K/mm3 (10-50); Mean Corpuscular HGB Conc 31.8 g/dL (31.8-35.4); Mean Corpuscular Hemoglobin 30.5 pg (27.0-31.2); Monocytes # 0.4 K/mm3 (0.1-1.0); Monocytes % 5.1 % (1.7-9.3); Neutrophils # 6.8 K/mm3 (1.8-7.8); Neutrophils % 84.5 % (37.0-80.0); Platelet Count 200 K/mm3 (142-424); Red Blood Count 4.56 M/mm3 (4.20-5.40); Red Cell Distribution Width 13.4 % (11.5-17.5)
[2017-09-23 07:20] LABS: Albumin/Globulin Ratio 0.9 (1.1-1.8); Anion Gap 9.4 mEq/L (5-15); Bilirubin,Total 0.1 mg/dL (0.2-1.0); Globulin 3.5 gm/dl (1.3-3.2); Potassium 4.4 mmoL/L (3.5-5.1); Total Protein,Serum 6.5 gm/dL (6.4-8.2)
--- NOTE | 2017-09-23 08:10 | Progress Note ---
<Brianna Mcleod - Last Filed: 09/23/17 08:07> Internal Medicine - PN: Subj *Date: 09/23/17 *Time: 08:07 Interval history: Patient was short of breath most of yesterday. This worsened in the evening. ABG showed a respiratory acidosis with a PO2 in the 60s. She was placed on BiPAP at that time. Patient states she did well during the night and was able to sleep. Per nursing: Patient to sleep. O2 sats remained good while on BiPAP. Exam Vital signs and Labs for Last 24 Hours: Temp Pulse Resp BP Pulse Ox 97.6 F 70 22 109/51 97 09/23/17 04:00 09/23/17 06:44 09/23/17 04:00 09/23/17 04:00 09/23/17 04:00 Laboratory Results - last 24 hr 09/22/17 06:55: Sodium 139, Potassium 4.0, Chloride 101, Carbon Dioxide 30, Anion Gap 12.0, BUN 20 H, Creatinine 0.90, Estimated Creat Clear 55, Estimated GFR 62, Est GFR ( Amer) 74, Glucose 150 H, Total Creatine Kinase 306 H D 09/22/17 18:11: Specimen Source R/r, O2 % 35, ABG pH 7.32 L, ABG pCO2 54.8 H, ABG pO2 65.0 L, ABG HCO3 27.8 H, ABG Total CO2 29.5 H, ABG O2 Saturation 92, ABG Base Excess 1.7, Darian Test Y 09/23/17 06:11: WBC 8.0, RBC 4.56, Hgb 13.9, Hct 43.8, MCV 96.0, MCH 30.5, MCHC 31.8, RDW 13.4, Plt Count 200, MPV 8.0, Neut % (Auto) 84.5 H, Lymph % (Auto) 10.1, [place] % (Auto) 5.1, Eos % (Auto) 0.3, Baso % (Auto) 0.1, Neut # (Auto) 6.8 , Lymph # (Auto) 0.8, [place] # (Auto) 0.4, Eos # (Auto) 0.0, Baso # (Auto) 0.0 09/23/17 06:33: Sodium 140, Potassium 4.4, Chloride 103, Carbon Dioxide 32, Anion Gap 9.4, BUN 28 H D, Creatinine 1.02, Estimated Creat Clear 54, Estimated GFR 53 L, Est GFR ( Amer) 64, Glucose 151 H, Calcium 9.0, Total Bilirubin 0.1 L, AST 29, ALT 35, Alkaline Phosphatase 78, Total Protein 6.5, Albumin 3.0 L, Globulin 3.5 H, Albumin/Globulin Ratio 0.9 L I & O for Last 24 hours: Intake & Output 09/20/17 09/21/17 09/22/17 09/23/17 11:59 11:59 11:59 11:59 Intake Total 846 / 846 1857 / 1857 120 / 120 Output Total 600 / 600 2275 / 2275 400 / 400 Balance 246 / 246 -418 / -418 -280 / -280 Weight 153 lb 2 oz 152 lb 151 lb Microbiology Reports for the Last 24 Hours: Microbiology 09/21/17 11:00 Sputum - Expectorated Sputum Gram Stain - Final 09/21/17 11:00 Sputum - Expectorated Sputum Sputum Culture - Final Normal Respiratory Hannah 09/20/17 20:10 Blood Blood Culture - Preliminary NO GROWTH AFTER 48 HOURS 09/20/17 20:10 Blood Blood Culture - Preliminary NO GROWTH AFTER 48 HOURS - Constitutional no acute distress Comments: Awakened for exam. Patient remains on BiPAP. - *Routine Respiratory Exam Present: wheezes (Minimal: Better air exchange bilaterally). Absent: accessory muscle use - *Routine Cardiovascular Exam Present: RRR Comments: Monitor showing sinus rhythm - *Routine Abdominal Exam Present: soft, normoactive bowel sounds. Absent: tenderness - *Routine Extremities Exam Absent: edema, calf tenderness - *Routine Neurological Exam Present: alert (Oriented) Assessment and Plan (1) CAP (community acquired pneumonia) Current visit: Yes Status: Acute Qualifiers: Laterality: right Lung location: lower lobe of lung Qualified Code(s): J18.1 - Lobar pneumonia, unspecified organism Category: Medical Code(s): J18.9 - Pneumonia, unspecified organism (2) Acute exacerbation of chronic obstructive airways disease Current visit: Yes Status: Acute Category: Medical Code(s): J44.1 - Chronic obstructive pulmonary disease with (acute) exacerbation (3) Hypothyroidism Current visit: Yes Status: Chronic Category: Medical Code(s): E03.9 - Hypothyroidism, unspecified (4) Hypertension Current visit: Yes Status: Chronic Category: Medical Code(s): I10 - Essential (primary) hypertension (5) Tobacco use disorder Current visit: Yes Status: Chronic Category: Medical Code(s): F17.200 - Nicotine dependence, unspecified, uncomplicated (6) Hypoxia Current visit: Yes Status: Acute Category: Medical Code(s): R09.02 - Hypoxemia - Assessment and plan all Dx Assessment and Plan for all problems:: Continue with current care. BiPAP as needed. <Adrian Jones - Last Filed: 09/23/17 10:12> Internal Medicine - PN: Subj *Date: 09/23/17 *Time: 10:10 Exam Vital signs and Labs for Last 24 Hours: Temp Pulse Resp BP Pulse Ox 97.5 F L 87 24 145/61 86 L 09/23/17 08:00 09/23/17 08:00 09/23/17 08:00 09/23/17 08:00 09/23/17 08:00 Laboratory Results - last 24 hr 09/22/17 18:11: Specimen Source R/r, O2 % 35, ABG pH 7.32 L, ABG pCO2 54.8 H, ABG pO2 65.0 L, ABG HCO3 27.8 H, ABG Total CO2 29.5 H, ABG O2 Saturation 92, ABG Base Excess 1.7, Darian Test Y 09/23/17 06:11: WBC 8.0, RBC 4.56, Hgb 13.9, Hct 43.8, MCV 96.0, MCH 30.5, MCHC 31.8, RDW 13.4, Plt Count 200, MPV 8.0, Neut % (Auto) 84.5 H, Lymph % (Auto) 10.1, [place] % (Auto) 5.1, Eos % (Auto) 0.3, Baso % (Auto) 0.1, Neut # (Auto) 6.8 , Lymph # (Auto) 0.8, [place] # (Auto) 0.4, Eos # (Auto) 0.0, Baso # (Auto) 0.0 09/23/17 06:33: Sodium 140, Potassium 4.4, Chloride 103, Carbon Dioxide 32, Anion Gap 9.4, BUN 28 H D, Creatinine 1.02, Estimated Creat Clear 54, Estimated GFR 53 L, Est GFR ( Amer) 64, Glucose 151 H, Calcium 9.0, Total Bilirubin 0.1 L, AST 29, ALT 35, Alkaline Phosphatase 78, Total Protein 6.5, Albumin 3.0 L, Globulin 3.5 H, Albumin/Globulin Ratio 0.9 L I & O for Last 24 hours: Intake & Output 09/20/17 09/21/17 09/22/17 09/23/17 11:59 11:59 11:59 11:59 Intake Total 846 / 846 1857 / 1857 120 / 120 Output Total 600 / 600 2275 / 2275 400 / 400 Balance 246 / 246 -418 / -418 -280 / -280 Weight 153 lb 2 oz 152 lb 151 lb Microbiology Reports for the Last 24 Hours: Microbiology 09/21/17 11:00 Sputum - Expectorated Sputum Gram Stain - Final 09/21/17 11:00 Sputum - Expectorated Sputum Sputum Culture - Final Normal Respiratory Hannah 09/20/17 20:10 Blood Blood Culture - Preliminary NO GROWTH AFTER 48 HOURS 09/20/17 20:10 Blood Blood Culture - Preliminary NO GROWTH AFTER 48 HOURS Assessment and Plan (1) CAP (community acquired pneumonia) Current visit: Yes Status: Acute Qualifiers: Laterality: right Lung location: lower lobe of lung Qualified Code(s): J18.1 - Lobar pneumonia, unspecified organism Category: Medical Code(s): J18.9 - Pneumonia, unspecified organism (2) Acute exacerbation of chronic obstructive airways disease Current visit: Yes Status: Acute Category: Medical Code(s): J44.1 - Chronic obstructive pulmonary disease with (acute) exacerbation (3) Hypothyroidism Current visit: Yes Status: Chronic Category: Medical Code(s): E03.9 - Hypothyroidism, unspecified (4) Hypertension Current visit: Yes Status: Chronic Category: Medical Code(s): I10 - Essential (primary) hypertension (5) Tobacco use disorder Current visit: Yes Status: Chronic Category: Medical Code(s): F17.200 - Nicotine dependence, unspecified, uncomplicated (6) Hypoxia Current visit: Yes Status: Acute Category: Medical Code(s): R09.02 - Hypoxemia - Assessment and plan all Dx Assessment and Plan for all problems:: Patient seen and examined. As noted, she is tolerating the BiPAP OK and seems comfortable and less anxious. VSS improved with less tachycardia. Sputum culture showing normal hannah. Will repeat CXR today
[2017-09-24 06:20] LABS: Anion Gap 8.7 mEq/L (5-15); Potassium 4.7 mmoL/L (3.5-5.1)
--- NOTE | 2017-09-24 09:19 | Progress Note ---
Internal Medicine - PN: Subj *Date: 09/24/17 *Time: 09:18 Exam Vital signs and Labs for Last 24 Hours: Temp Pulse Resp BP Pulse Ox 98.0 F 89 20 157/66 93 L 09/24/17 07:59 09/24/17 07:59 09/24/17 07:59 09/24/17 07:59 09/24/17 07:59 Laboratory Results - last 24 hr 09/24/17 06:00: Sodium 143, Potassium 4.7, Chloride 107, Carbon Dioxide 32, Anion Gap 8.7, BUN 35 H, Creatinine 0.88, Estimated Creat Clear 55, Estimated GFR 63, Est GFR ( Amer) 76, Glucose 160 H I & O for Last 24 hours: Intake & Output 09/21/17 09/22/17 09/23/17 09/24/17 23:59 23:59 23:59 23:59 Intake Total 2078 / 2078 445 / 445 480 / 480 1125 / 1125 Output Total 1600 / 1600 1675 / 1675 750 / 750 300 / 300 Balance 478 / 478 -1230 / -1230 -270 / -270 825 / 825 Weight 69.456 kg 68.946 kg 68.492 kg 68.039 kg Microbiology Reports for the Last 24 Hours: Microbiology 09/20/17 20:10 Blood Blood Culture - Preliminary NO GROWTH AFTER 72 HOURS 09/20/17 20:10 Blood Blood Culture - Preliminary NO GROWTH AFTER 72 HOURS 09/21/17 11:00 Sputum - Expectorated Sputum Gram Stain - Final 09/21/17 11:00 Sputum - Expectorated Sputum Sputum Culture - Final Normal Respiratory [place] Assessment and Plan (1) CAP (community acquired pneumonia) Current visit: Yes Status: Acute Qualifiers: Laterality: right Lung location: lower lobe of lung Qualified Code(s): J18.1 - Lobar pneumonia, unspecified organism Category: Medical Code(s): J18.9 - Pneumonia, unspecified organism (2) Acute exacerbation of chronic obstructive airways disease Current visit: Yes Status: Acute Category: Medical Code(s): J44.1 - Chronic obstructive pulmonary disease with (acute) exacerbation (3) Hypothyroidism Current visit: Yes Status: Chronic Category: Medical Code(s): E03.9 - Hypothyroidism, unspecified (4) Hypertension Current visit: Yes Status: Chronic Category: Medical Code(s): I10 - Essential (primary) hypertension (5) Tobacco use disorder Current visit: Yes Status: Chronic Category: Medical Code(s): F17.200 - Nicotine dependence, unspecified, uncomplicated (6) Hypoxia Current visit: Yes Status: Acute Category: Medical Code(s): R09.02 - Hypoxemia The patient's infection will respond to the chosen ABx?: Yes Is the patient receiving the right drug, dose, and route?: Yes Could a more targeted ABx be ordered?: No
--- NOTE | 2017-09-24 12:21 | Progress Note ---
<LinkTalia - Last Filed: 09/24/17 12:18> Internal Medicine - PN: Subj *Date: 09/24/17 *Time: 12:18 Interval history: Pt still not feeling much better today. Rested off and on last night. Still SOA and still with BIPAP. Exam Vital signs and Labs for Last 24 Hours: Temp Pulse Resp BP Pulse Ox 98.2 F 84 22 158/62 92 L 09/24/17 08:00 09/24/17 11:32 09/24/17 08:00 09/24/17 08:00 09/24/17 11:32 Laboratory Results - last 24 hr 09/24/17 06:00: Sodium 143, Potassium 4.7, Chloride 107, Carbon Dioxide 32, Anion Gap 8.7, BUN 35 H, Creatinine 0.88, Estimated Creat Clear 55, Estimated GFR 63, Est GFR ( Amer) 76, Glucose 160 H I & O for Last 24 hours: Intake & Output 09/22/17 09/23/17 09/24/17 09/25/17 11:59 11:59 11:59 11:59 Intake Total 1857 / 1857 120 / 120 1605 / 1605 Output Total 2275 / 2275 400 / 400 1500 / 1500 Balance -418 / -418 -280 / -280 105 / 105 Weight 152 lb 151 lb 150 lb Microbiology Reports for the Last 24 Hours: Microbiology 09/20/17 20:10 Blood Blood Culture - Preliminary NO GROWTH AFTER 72 HOURS 09/20/17 20:10 Blood Blood Culture - Preliminary NO GROWTH AFTER 72 HOURS - Constitutional no acute distress - *Routine Respiratory Exam Present: wheezes (minimal, better air movement) - *Routine Cardiovascular Exam Present: RRR - *Routine Abdominal Exam Present: soft, normoactive bowel sounds. Absent: tenderness - *Routine Extremities Exam Absent: edema Assessment and Plan (1) CAP (community acquired pneumonia) Current visit: Yes Status: Acute Qualifiers: Laterality: right Lung location: lower lobe of lung Qualified Code(s): J18.1 - Lobar pneumonia, unspecified organism Category: Medical Code(s): J18.9 - Pneumonia, unspecified organism (2) Acute exacerbation of chronic obstructive airways disease Current visit: Yes Status: Acute Category: Medical Code(s): J44.1 - Chronic obstructive pulmonary disease with (acute) exacerbation (3) Hypothyroidism Current visit: Yes Status: Chronic Category: Medical Code(s): E03.9 - Hypothyroidism, unspecified (4) Hypertension Current visit: Yes Status: Chronic Category: Medical Code(s): I10 - Essential (primary) hypertension (5) Tobacco use disorder Current visit: Yes Status: Chronic Category: Medical Code(s): F17.200 - Nicotine dependence, unspecified, uncomplicated (6) Hypoxia Current visit: Yes Status: Acute Category: Medical Code(s): R09.02 - Hypoxemia - Assessment and plan all Dx Assessment and Plan for all problems:: Will try to wean BIPAP today. <Adrian Jones - Last Filed: 09/24/17 13:44> Internal Medicine - PN: Subj *Date: 09/24/17 *Time: 13:42 Exam Vital signs and Labs for Last 24 Hours: Temp Pulse Resp BP Pulse Ox 98.2 F 84 22 158/62 92 L 09/24/17 08:00 09/24/17 11:32 09/24/17 08:00 09/24/17 08:00 09/24/17 11:32 Laboratory Results - last 24 hr 09/24/17 06:00: Sodium 143, Potassium 4.7, Chloride 107, Carbon Dioxide 32, Anion Gap 8.7, BUN 35 H, Creatinine 0.88, Estimated Creat Clear 55, Estimated GFR 63, Est GFR ( Amer) 76, Glucose 160 H I & O for Last 24 hours: Intake & Output 09/22/17 09/23/17 09/24/17 09/25/17 11:59 11:59 11:59 11:59 Intake Total 1857 / 1857 120 / 120 1605 / 1605 Output Total 2275 / 2275 400 / 400 1500 / 1500 Balance -418 / -418 -280 / -280 105 / 105 Weight 152 lb 151 lb 150 lb Microbiology Reports for the Last 24 Hours: Microbiology 09/20/17 20:10 Blood Blood Culture - Preliminary NO GROWTH AFTER 72 HOURS 09/20/17 20:10 Blood Blood Culture - Preliminary NO GROWTH AFTER 72 HOURS Assessment and Plan (1) CAP (community acquired pneumonia) Current visit: Yes Status: Acute Qualifiers: Laterality: right Lung location: lower lobe of lung Qualified Code(s): J18.1 - Lobar pneumonia, unspecified organism Category: Medical Code(s): J18.9 - Pneumonia, unspecified organism (2) Acute exacerbation of chronic obstructive airways disease Current visit: Yes Status: Acute Category: Medical Code(s): J44.1 - Chronic obstructive pulmonary disease with (acute) exacerbation (3) Hypothyroidism Current visit: Yes Status: Chronic Category: Medical Code(s): E03.9 - Hypothyroidism, unspecified (4) Hypertension Current visit: Yes Status: Chronic Category: Medical Code(s): I10 - Essential (primary) hypertension (5) Tobacco use disorder Current visit: Yes Status: Chronic Category: Medical Code(s): F17.200 - Nicotine dependence, unspecified, uncomplicated (6) Hypoxia Current visit: Yes Status: Acute Category: Medical Code(s): R09.02 - Hypoxemia - Assessment and plan all Dx Assessment and Plan for all problems:: Daughter reports to me she slept at intervals last night. She is tolerating the BiPAP and was able to remove it to eat this AM. Gets SOA with minimal exertion and after getting up to BSC, she requested to be put back on the BiPAP. CXR from [facility] shows improvement in her pneumonia. Will begin weaning BiPAP as tolerated today
--- NOTE | 2017-09-25 08:07 | Progress Note ---
<Talia Maza - Last Filed: 09/25/17 08:04> Internal Medicine - PN: Subj *Date: 09/25/17 *Time: 08:04 Interval history: Patient states she slept with BiPAP last night and has been on nasal oxygen at 4 L this a.m. She states she has been short of breath ever since. States she got up to go to the bedside commode and this caused the SOA. She denies any pain. She states she did rest off and on last night. Exam Vital signs and Labs for Last 24 Hours: Temp Pulse Resp BP Pulse Ox 97.7 F 77 16 150/59 91 L 09/25/17 04:00 09/25/17 07:01 09/25/17 04:00 09/25/17 04:00 09/25/17 07:01 I & O for Last 24 hours: Intake & Output 09/22/17 09/23/17 09/24/17 09/25/17 11:59 11:59 11:59 11:59 Intake Total 1857 / 1857 120 / 120 1605 / 1605 525 / 525 Output Total 2275 / 2275 400 / 400 1500 / 1500 Balance -418 / -418 -280 / -280 105 / 105 525 / 525 Weight 152 lb 151 lb 150 lb Microbiology Reports for the Last 24 Hours: Microbiology 09/20/17 20:10 Blood Blood Culture - Preliminary NO GROWTH AFTER 4 DAYS 09/20/17 20:10 Blood Blood Culture - Preliminary NO GROWTH AFTER 4 DAYS - Constitutional no acute distress - *Routine Respiratory Exam Present: decreased breath sounds (but moving air better this am) - *Routine Cardiovascular Exam Present: RRR - *Routine Abdominal Exam Present: soft, normoactive bowel sounds. Absent: tenderness - *Routine Extremities Exam Absent: edema Assessment and Plan (1) CAP (community acquired pneumonia) Current visit: Yes Status: Acute Qualifiers: Laterality: right Lung location: lower lobe of lung Qualified Code(s): J18.1 - Lobar pneumonia, unspecified organism Category: Medical Code(s): J18.9 - Pneumonia, unspecified organism (2) Acute exacerbation of chronic obstructive airways disease Current visit: Yes Status: Acute Category: Medical Code(s): J44.1 - Chronic obstructive pulmonary disease with (acute) exacerbation (3) Hypothyroidism Current visit: Yes Status: Chronic Category: Medical Code(s): E03.9 - Hypothyroidism, unspecified (4) Hypertension Current visit: Yes Status: Chronic Category: Medical Code(s): I10 - Essential (primary) hypertension (5) Tobacco use disorder Current visit: Yes Status: Chronic Category: Medical Code(s): F17.200 - Nicotine dependence, unspecified, uncomplicated (6) Hypoxia Current visit: Yes Status: Acute Category: Medical Code(s): R09.02 - Hypoxemia - Assessment and plan all Dx Assessment and Plan for all problems:: Sputum showed normal respiratory hannah. Will continue current treatment and try to keep patient on nasal oxygen. The BiPAP mask is in the room just in case she needs it. <Adrian Jones - Last Filed: 09/25/17 08:29> Internal Medicine - PN: Subj *Date: 09/25/17 *Time: 08:25 Exam Vital signs and Labs for Last 24 Hours: Temp Pulse Resp BP Pulse Ox 97.4 F L 94 H 24 167/59 90 L 09/25/17 08:00 09/25/17 08:00 09/25/17 08:00 09/25/17 08:00 09/25/17 08:00 I & O for Last 24 hours: Intake & Output 09/22/17 09/23/17 09/24/17 09/25/17 11:59 11:59 11:59 11:59 Intake Total 1857 / 1857 120 / 120 1605 / 1605 825 / 825 Output Total 2275 / 2275 400 / 400 1500 / 1500 Balance -418 / -418 -280 / -280 105 / 105 825 / 825 Weight 152 lb 151 lb 150 lb Microbiology Reports for the Last 24 Hours: Microbiology 09/20/17 20:10 Blood Blood Culture - Preliminary NO GROWTH AFTER 4 DAYS 09/20/17 20:10 Blood Blood Culture - Preliminary NO GROWTH AFTER 4 DAYS Assessment and Plan (1) CAP (community acquired pneumonia) Current visit: Yes Status: Acute Qualifiers: Laterality: right Lung location: lower lobe of lung Qualified Code(s): J18.1 - Lobar pneumonia, unspecified organism Category: Medical Code(s): J18.9 - Pneumonia, unspecified organism (2) Acute exacerbation of chronic obstructive airways disease Current visit: Yes Status: Acute Category: Medical Code(s): J44.1 - Chronic obstructive pulmonary disease with (acute) exacerbation (3) Hypothyroidism Current visit: Yes Status: Chronic Category: Medical Code(s): E03.9 - Hypothyroidism, unspecified (4) Hypertension Current visit: Yes Status: Chronic Category: Medical Code(s): I10 - Essential (primary) hypertension (5) Tobacco use disorder Current visit: Yes Status: Chronic Category: Medical Code(s): F17.200 - Nicotine dependence, unspecified, uncomplicated (6) Hypoxia Current visit: Yes Status: Acute Category: Medical Code(s): R09.02 - Hypoxemia (7) Acute respiratory failure Current visit: Yes Status: Acute Category: Medical Code(s): J96.00 - Acute respiratory failure, unspecified whether with hypoxia or hypercapnia - Assessment and plan all Dx Assessment and Plan for all problems:: Pt seen and examined. She feels weak and is very dyspneic when out of bed. Will encourage increased activity. Begin weaning steroids.
--- NOTE | 2017-09-26 08:34 | Progress Note ---
Internal Medicine - PN: Subj *Date: 09/26/17 *Time: 20:01 Interval history: Had good day yesterday. She tolerated sitting up in chair several hours and ate a little better. SHe slept most of the night without the BiPAP. Got SOA when up to BR early this AM with sats dropping to 84% and is now back on the BiPAP. Exam Vital signs and Labs for Last 24 Hours: Temp Pulse Resp BP Pulse Ox 98.8 F 94 H 20 122/56 90 L 09/26/17 07:52 09/26/17 07:52 09/26/17 07:52 09/26/17 07:52 09/26/17 07:52 I & O for Last 24 hours: Intake & Output 09/23/17 09/24/17 09/25/17 09/26/17 11:59 11:59 11:59 11:59 Intake Total 120 / 120 1605 / 1605 945 / 945 1775 / 1775 Output Total 400 / 400 1500 / 1500 1250 / 1250 Balance -280 / -280 105 / 105 945 / 945 525 / 525 Weight 151 lb 150 lb 159 lb 2 oz Microbiology Reports for the Last 24 Hours: Microbiology 09/20/17 20:10 Blood Blood Culture - Final NO GROWTH AFTER 5 DAYS 09/20/17 20:10 Blood Blood Culture - Final NO GROWTH AFTER 5 DAYS - Constitutional Comments: she is sitting up in chair with BiPAP and is comfortable at present - *Routine Respiratory Exam Comments: coarse BS, no wheezes - *Routine Cardiovascular Exam Present: RRR - *Routine Extremities Exam Absent: edema Assessment and Plan (1) CAP (community acquired pneumonia) Current visit: Yes Status: Acute Qualifiers: Laterality: right Lung location: lower lobe of lung Qualified Code(s): J18.1 - Lobar pneumonia, unspecified organism Category: Medical Code(s): J18.9 - Pneumonia, unspecified organism (2) Acute exacerbation of chronic obstructive airways disease Current visit: Yes Status: Acute Category: Medical Code(s): J44.1 - Chronic obstructive pulmonary disease with (acute) exacerbation (3) Acute respiratory failure Current visit: Yes Status: Acute Category: Medical Code(s): J96.00 - Acute respiratory failure, unspecified whether with hypoxia or hypercapnia (4) Hypothyroidism Current visit: Yes Status: Chronic Category: Medical Code(s): E03.9 - Hypothyroidism, unspecified (5) Hypertension Current visit: Yes Status: Chronic Category: Medical Code(s): I10 - Essential (primary) hypertension (6) Tobacco use disorder Current visit: Yes Status: Chronic Category: Medical Code(s): F17.200 - Nicotine dependence, unspecified, uncomplicated (7) Hypoxia Current visit: Yes Status: Acute Category: Medical Code(s): R09.02 - Hypoxemia - Assessment and plan all Dx Assessment and Plan for all problems:: Continue per orders. Encourage OOB activity. Continue to wean steroids.
--- NOTE | 2017-09-27 08:32 | Progress Note ---
Internal Medicine - PN: Subj *Date: 09/27/17 *Time: 09:30 Interval history: After using BiPAP early yesterday morning, did not requires it any more. Slept with NC. FiO2 weaned to 2 liters this AM. C/o constipation. Still very MOSER Exam Vital signs and Labs for Last 24 Hours: Temp Pulse Resp BP Pulse Ox 98.3 F 79 16 150/56 92 L 09/27/17 08:00 09/27/17 08:00 09/27/17 08:00 09/27/17 08:00 09/27/17 08:00 I & O for Last 24 hours: Intake & Output 09/24/17 09/25/17 09/26/17 09/27/17 11:59 11:59 11:59 11:59 Intake Total 1605 / 1605 945 / 945 1775 / 1775 1196 / 1196 Output Total 1500 / 1500 1250 / 1250 1999 / 1999 Balance 105 / 105 945 / 945 525 / 525 -804 / -804 Weight 150 lb 159 lb 2 oz 161 lb - Constitutional Comments: awakened from sleep. NAD FLat affect - *Routine Respiratory Exam Comments: generally diminished BS. Very faint wheezes - *Routine Extremities Exam Absent: edema Assessment and Plan (1) CAP (community acquired pneumonia) Current visit: Yes Status: Acute Qualifiers: Laterality: right Lung location: lower lobe of lung Qualified Code(s): J18.1 - Lobar pneumonia, unspecified organism Category: Medical Code(s): J18.9 - Pneumonia, unspecified organism (2) Acute exacerbation of chronic obstructive airways disease Current visit: Yes Status: Acute Category: Medical Code(s): J44.1 - Chronic obstructive pulmonary disease with (acute) exacerbation (3) Acute respiratory failure Current visit: Yes Status: Acute Category: Medical Code(s): J96.00 - Acute respiratory failure, unspecified whether with hypoxia or hypercapnia (4) Hypothyroidism Current visit: Yes Status: Chronic Category: Medical Code(s): E03.9 - Hypothyroidism, unspecified (5) Hypertension Current visit: Yes Status: Chronic Category: Medical Code(s): I10 - Essential (primary) hypertension (6) Tobacco use disorder Current visit: Yes Status: Chronic Category: Medical Code(s): F17.200 - Nicotine dependence, unspecified, uncomplicated (7) Hypoxia Current visit: Yes Status: Acute Category: Medical Code(s): R09.02 - Hypoxemia - Assessment and plan all Dx Assessment and Plan for all problems:: Continue to advance activity Wean steroids
--- NOTE | 2017-09-28 08:20 | Progress Note ---
<Brianna Mcleod - Last Filed: 09/28/17 08:17> Internal Medicine - PN: Subj *Date: 09/28/17 *Time: 08:17 Interval history: Patient feels she is improving. She is short of breath with activity. She has a dry nonproductive cough. She is getting up and out of bed. She is eating some but still has no appetite. She did have a large stool yesterday. She is voiding without difficulty. She denies chest pain. States she has swelling her legs. Exam Vital signs and Labs for Last 24 Hours: Temp Pulse Resp BP Pulse Ox 98.5 F 81 22 157/64 92 L 09/28/17 07:27 09/28/17 07:27 09/28/17 07:27 09/28/17 07:27 09/28/17 07:27 I & O for Last 24 hours: Intake & Output 09/25/17 09/26/17 09/27/17 09/28/17 11:59 11:59 11:59 11:59 Intake Total 945 / 945 1775 / 1775 1196 / 1196 1758 / 1758 Output Total 1250 / 1250 1999 / 1999 850 / 850 Balance 945 / 945 525 / 525 -804 / -804 908 / 908 Weight 159 lb 2 oz 161 lb 160 lb - Constitutional no acute distress Comments: Sitting in chair at bedside and appears comfortable. Has just completed breakfast. - *Routine Respiratory Exam Comments: No wheezing noted. Clear to auscultation bilaterally A&P. Breath sounds posteriorly are diminished but improved. - *Routine Cardiovascular Exam Present: RRR - *Routine Abdominal Exam Present: soft, normoactive bowel sounds. Absent: tenderness - *Routine Extremities Exam Present: edema - *Routine Neurological Exam Present: alert, oriented X3 Assessment and Plan (1) CAP (community acquired pneumonia) Current visit: Yes Status: Acute Qualifiers: Laterality: right Lung location: lower lobe of lung Qualified Code(s): J18.1 - Lobar pneumonia, unspecified organism Category: Medical Code(s): J18.9 - Pneumonia, unspecified organism (2) Acute exacerbation of chronic obstructive airways disease Current visit: Yes Status: Acute Category: Medical Code(s): J44.1 - Chronic obstructive pulmonary disease with (acute) exacerbation (3) Acute respiratory failure Current visit: Yes Status: Acute Category: Medical Code(s): J96.00 - Acute respiratory failure, unspecified whether with hypoxia or hypercapnia (4) Hypothyroidism Current visit: Yes Status: Chronic Category: Medical Code(s): E03.9 - Hypothyroidism, unspecified (5) Hypertension Current visit: Yes Status: Chronic Category: Medical Code(s): I10 - Essential (primary) hypertension (6) Tobacco use disorder Current visit: Yes Status: Chronic Category: Medical Code(s): F17.200 - Nicotine dependence, unspecified, uncomplicated (7) Hypoxia Current visit: Yes Status: Acute Category: Medical Code(s): R09.02 - Hypoxemia - Assessment and plan all Dx Assessment and Plan for all problems:: Continue current care. Possibly home soon. <Adrian Jones - Last Filed: 09/28/17 19:00> Internal Medicine - PN: Subj *Date: 09/28/17 *Time: 08:20 Exam Vital signs and Labs for Last 24 Hours: Temp Pulse Resp BP Pulse Ox 98.5 F 80 20 144/70 94 L 09/28/17 15:44 09/28/17 16:47 09/28/17 15:44 09/28/17 15:44 09/28/17 15:44 I & O for Last 24 hours: Intake & Output 09/26/17 09/27/17 09/28/17 09/29/17 11:59 11:59 11:59 11:59 Intake Total 1775 / 1775 1196 / 1196 1758 / 1758 1230 / 1230 Output Total 1250 / 1250 1999 / 1999 850 / 850 1100 / 1100 Balance 525 / 525 -804 / -804 908 / 908 130 / 130 Weight 159 lb 2 oz 161 lb 160 lb 160 lb 0.008 oz Assessment and Plan (1) CAP (community acquired pneumonia) Current visit: Yes Status: Acute Qualifiers: Laterality: right Lung location: lower lobe of lung Qualified Code(s): J18.1 - Lobar pneumonia, unspecified organism Category: Medical Code(s): J18.9 - Pneumonia, unspecified organism (2) Acute exacerbation of chronic obstructive airways disease Current visit: Yes Status: Acute Category: Medical Code(s): J44.1 - Chronic obstructive pulmonary disease with (acute) exacerbation (3) Acute respiratory failure Current visit: Yes Status: Acute Category: Medical Code(s): J96.00 - Acute respiratory failure, unspecified whether with hypoxia or hypercapnia (4) Hypothyroidism Current visit: Yes Status: Chronic Category: Medical Code(s): E03.9 - Hypothyroidism, unspecified (5) Hypertension Current visit: Yes Status: Chronic Category: Medical Code(s): I10 - Essential (primary) hypertension (6) Tobacco use disorder Current visit: Yes Status: Chronic Category: Medical Code(s): F17.200 - Nicotine dependence, unspecified, uncomplicated (7) Hypoxia Current visit: Yes Status: Acute Category: Medical Code(s): R09.02 - Hypoxemia - Assessment and plan all Dx Assessment and Plan for all problems:: Patient seen and examined. SHe has been nearly 48 hours without BiPAP. Spending more time up in chair and tolerating OK. O2 weaned to 2 liters. She is on Day 8 of IV antibiotics. Likely discharge home tomorrow
[2017-09-29 07:49] VITALS: BP 139/59
--- NOTE | 2017-09-29 08:24 | Progress Note ---
<Brianna Mcleod - Last Filed: 09/29/17 08:22> Internal Medicine - PN: Subj *Date: 09/29/17 *Time: 08:22 Interval history: Patient states she is ready to go home. Her breathing is still good. She still continues to have a dry cough. She did well yesterday, set up in a chair , walked in the hallways, and was able to eat a little bit more. She did not sleep last night. She denies chest pain. Bowels did move 2 additional times yesterday. Exam Vital signs and Labs for Last 24 Hours: Temp Pulse Resp BP Pulse Ox 97.6 F 81 20 139/59 97 09/29/17 07:47 09/29/17 07:47 09/29/17 07:47 09/29/17 07:47 09/29/17 07:47 I & O for Last 24 hours: Intake & Output 09/26/17 09/27/17 09/28/17 09/29/17 11:59 11:59 11:59 11:59 Intake Total 1775 / 1775 1196 / 1196 1758 / 1758 1710 / 1710 Output Total 1250 / 1250 1999 / 1999 850 / 850 2150 / 2150 Balance 525 / 525 -804 / -804 908 / 908 -440 / -440 Weight 159 lb 2 oz 161 lb 160 lb 158 lb 3 oz - Constitutional no acute distress Comments: Sitting on the bedside. Appears comfortable. - *Routine Respiratory Exam Present: diminished air movement. Absent: wheezes - *Routine Cardiovascular Exam Present: RRR - *Routine Abdominal Exam Present: soft, normoactive bowel sounds - *Routine Extremities Exam Absent: edema - *Routine Neurological Exam Present: alert, oriented X3 Assessment and Plan (1) CAP (community acquired pneumonia) Status: Acute Qualifiers: Laterality: right Lung location: lower lobe of lung Qualified Code(s): J18.1 - Lobar pneumonia, unspecified organism Category: Medical Code(s): J18.9 - Pneumonia, unspecified organism (2) Acute exacerbation of chronic obstructive airways disease Status: Acute Category: Medical Code(s): J44.1 - Chronic obstructive pulmonary disease with (acute) exacerbation (3) Acute respiratory failure Status: Acute Category: Medical Code(s): J96.00 - Acute respiratory failure , unspecified whether with hypoxia or hypercapnia (4) Hypothyroidism Status: Chronic Category: Medical Code(s): E03.9 - Hypothyroidism, unspecified (5) Hypertension Status: Chronic Category: Medical Code(s): I10 - Essential (primary) hypertension (6) Tobacco use disorder Status: Chronic Category: Medical Code(s): F17.200 - Nicotine dependence, unspecified, uncomplicated (7) Hypoxia Status: Acute Category: Medical Code(s): R09.02 - Hypoxemia - Assessment and plan all Dx Assessment and Plan for all problems:: Patient to be discharged home today. Discussed smoking cessation with patient. She is not going to smoke when she goes home. Family has discarded all cigarettes and smoking materials. She will have a smoke-free environment. <Adrian Jones - Last Filed: 09/29/17 17:49> Internal Medicine - PN: Subj *Date: 09/29/17 *Time: 17:45 Exam Vital signs and Labs for Last 24 Hours: Temp Pulse Resp BP Pulse Ox 97.6 F 81 20 139/59 97 09/29/17 07:47 09/29/17 07:47 09/29/17 07:47 09/29/17 07:47 09/29/17 07:47 I & O for Last 24 hours: Intake & Output 09/27/17 09/28/17 09/29/17 09/30/17 11:59 11:59 11:59 11:59 Intake Total 1196 / 1196 1758 / 1758 1710 / 1710 Output Total 1999 850 / 850 2150 / 2150 Balance -804 / -804 908 / 908 -440 / -440 Weight 161 lb 160 lb 158 lb 3 oz Assessment and Plan (1) CAP (community acquired pneumonia) Status: Acute Qualifiers: Laterality: right Lung location: lower lobe of lung Qualified Code(s): J18.1 - Lobar pneumonia, unspecified organism Category: Medical Code(s): J18.9 - Pneumonia, unspecified organism (2) Acute exacerbation of chronic obstructive airways disease Status: Acute Category: Medical Code(s): J44.1 - Chronic obstructive pulmonary disease with (acute) exacerbation (3) Acute respiratory failure Status: Acute Category: Medical Code(s): J96.00 - Acute respiratory failure , unspecified whether with hypoxia or hypercapnia (4) Hypothyroidism Status: Chronic Category: Medical Code(s): E03.9 - Hypothyroidism, unspecified (5) Hypertension Status: Chronic Category: Medical Code(s): I10 - Essential (primary) hypertension (6) Tobacco use disorder Status: Chronic Category: Medical Code(s): F17.200 - Nicotine dependence, unspecified, uncomplicated (7) Hypoxia Status: Acute Category: Medical Code(s): R09.02 - Hypoxemia (8) Supplemental oxygen dependent Status: Acute Category: Medical Code(s): Z99.81 - Dependence on supplemental oxygen - Assessment and plan all Dx Assessment and Plan for all problems:: Patient seen and examined. Concur with plan for discharge. Her IV has infiltrated and she does not want it restarted, so will give dose of Rocephin IM today and will return as outpt tomorrow for last dose of Rocephin. Will schedule outpt appt with Dr. Mack and f/u with [facility] in 1 week.
--- NOTE | 2017-09-29 11:05 | Discharge Summary ---
General - General Admission date:: 09/21/17 Discharge date: 09/29/17 HPI HPI: Ms. Chu is a 72-year-old female with a history of oxygen dependent COPD, hypothyroidism, hypertension, and hiatal hernia who presented to [facility] emergency room with progressive shortness of breath. She was seen in the office of [facility] on 09/19/2017 and started on Cefdinir and Tessalon Perles. CBC at that time showed a white blood cell count of 7100. She was also started on prednisone 5 mg with descending dosages. She states she was having to use her neb treatments 5 times during the day. She states they did help. Cough was a dry cough. She denies chest pain. She denies fever. She was evaluated in the emergency room and felt to have pneumonia. She was admitted for further evaluation and treatment. Hospital Course Hospital Course: Her initial CXR showed nothing acute, however she was covered for pneumonia with abx and xopenex nebs. A repeat CXR was ordered as was a PCR respiratory panel. The CXR showed COPD with a patchy infiltrate in the RML. The PCR panel was negative. Her Oxygen decreased and she had to be placed on a ventimask. She was given extra nebs and some lasix. Her steroids were increased. Her CPK was initally elevated, but decreased. She became more SOA and her ABG showed a respiratory acidosis with a PO2 in the 60s. She was placed on BiPAP. Her sputum cx showed normal hannah. A repeat CXR showed improvement in her pneumonia. Her BiPAP was weaned and her steroids were weaned. She continued to get SOA when up and moving and had to be placed back on BIPAP when sats dropped into the 80's. Her BIPAP was weaned again and she was able to get up and in the chair. Her nasal O2 was weaned to 2 liters. By 09/29/17, she had improved and was stable to be discharged. Dr. Jones discussed smoking cessation with the patient. She will f/u in the office. Objective Vital signs: Temp Pulse Resp BP Pulse Ox 97.6 F 81 20 139/59 97 09/29/17 07:47 09/29/17 07:47 09/29/17 07:47 09/29/17 07:47 09/29/17 07:47 Narrative: - Constitutional no acute distress - *Routine HEENT Exam Head: Present: normocephalic, atraumatic Eye: Present: PERRL. Absent: conjunctival icterus, scleral injection ENT: Present: mucous membranes moist, oropharynx clear - *Routine Neck Exam Present: supple. Absent: carotid bruit, lymphadenopathy, thyromegaly - *Routine Respiratory Exam Present: decreased breath sounds (Posteriorly) - *Routine Cardiovascular Exam Present: RRR - *Routine Abdominal Exam Present: soft, normoactive bowel sounds. Absent: tenderness, guarding - *Routine Extremities Exam Absent: edema, calf tenderness - *Routine Neurological Exam Present: alert, oriented X3 DS: Diagnosis - Discharge Diagnosis (1) CAP (community acquired pneumonia) Status: Acute (2) Acute exacerbation of chronic obstructive airways disease Status: Acute (3) Acute respiratory failure Status: Acute (4) Hypothyroidism Status: Chronic (5) Hypertension Status: Chronic (6) Tobacco use disorder Status: Chronic (7) Hypoxia Status: Acute Discharge Plan - Patient Discharge Instructions ACTIVITY: Continue current activity DIET: low salt diet Patient Instructions: Pneumonia-Adult, Hypothyroidism, Chronic Obstructive Pulmonary Disease, Nicotine Addiction, High Blood Pressure, DI for Chronic Obstructive Pulmonary Disease, DI for Pneumonia -- Adult, DI for Hypoxia, How to Quit Tobacco Products - Follow up Plan Follow up with: Adrian Jones MD [Primary Care Provider] - 1 week Mehul Mack MD [Consulting Physician] - 2 weeks Disposition: Home, Self-Shelter Medications: Home Medications Medication Instructions Recorded Confirmed Type amlodipine 10 mg tablet 10 mg PO DAILY 90 Days tab 07/27/17 09/21/17 History aspirin 81 mg tablet,delayed 81 mg PO DAILY 07/27/17 09/21/17 History release benazepril 20 mg tablet 20 mg PO DAILY 07/27/17 09/21/17 History diazepam 5 mg tablet 5 mg PO DAILY 30 Days tab 07/27/17 09/21/17 History fluoxetine 40 mg capsule 40 mg PO DAILY 90 Days cap 07/27/17 09/21/17 History furosemide 40 mg tablet 40 mg PO DAILY 07/27/17 09/21/17 History levothyroxine 100 mcg tablet 100 mcg PO DAILY 90 Days tab 07/27/17 09/21/17 History meclizine 12.5 mg tablet 12.5 mg PO TIDP PRN 07/27/17 09/21/17 History metoclopramide 10 mg tablet 10 mg PO ACHS 30 Days tab 07/27/17 09/21/17 History nitroglycerin 0.4 mg sublingual 0.4 mg SUBLINGUAL Q5-15M PRN 07/27/17 09/20/17 History tablet pravastatin 40 mg tablet 40 mg PO HS 07/27/17 09/22/17 History Benzonatate [Benzonatate 200mg Cap] 200 mg PO TIDP PRN 09/20/17 09/21/17 History Albuterol Sulfate [Albuterol 2.5 mg IH NEEDED PRN 09/21/17 09/21/17 History 0.083% 2.5mg/3mL neb] Cholecalciferol (Vitamin D3) 2,000 unit PO DAILY 09/21/17 09/21/17 History [Vitamin D3] Ipratropium/Albuterol Sulfate 3 ml IH TID 09/21/17 09/21/17 History [Duoneb 3mL neb] Lactobacillus Acidophilus 1 cap PO DAILY 09/21/17 09/21/17 History [Probiotic] Potassium Chloride [Klor-Con 10mEq 20 meq PO DAILY 09/21/17 09/21/17 History tab] Prescriptions/Medication Reconciliation: New methylPREDNISolone [Medrol] 4 mg PO DIRECTED #1 tab.ds.pk Ondansetron HCl [Zofran 4mg Tab] 4 mg PO Q6HP PRN #20 tab PRN Reason: Nausea Continue amlodipine 10 mg tablet 10 mg PO DAILY 90 Days tab fluoxetine 40 mg capsule 40 mg PO DAILY 90 Days cap metoclopramide 10 mg tablet 10 mg PO ACHS 30 Days tab pravastatin 40 mg tablet 40 mg PO HS furosemide 40 mg tablet 40 mg PO DAILY diazepam 5 mg tablet 5 mg PO DAILY 30 Days tab nitroglycerin 0.4 mg sublingual tablet 0.4 mg SUBLINGUAL Q5-15M PRN PRN Reason: Chest Pain benazepril 20 mg tablet 20 mg PO DAILY meclizine 12.5 mg tablet 12.5 mg PO TIDP PRN PRN Reason: Dizziness aspirin 81 mg tablet,delayed release 81 mg PO DAILY levothyroxine 100 mcg tablet 100 mcg PO DAILY 90 Days tab Benzonatate [Benzonatate 200mg Cap] 200 mg PO TIDP PRN PRN Reason: Cough Lactobacillus Acidophilus [Probiotic] 1 cap PO DAILY Cholecalciferol (Vitamin D3) [Vitamin D3] 2,000 unit PO DAILY Ipratropium/Albuterol Sulfate [Duoneb 3mL neb] 3 ml IH TID Albuterol Sulfate [Albuterol 0.083% 2.5mg/3mL neb] 2.5 mg IH NEEDED PRN PRN Reason: Shortness Of Breath Potassium Chloride [Klor-Con 10mEq tab] 20 meq PO DAILY Discontinued predniSONE [Prednisone 5mg Tab] 5 mg PO DAILY Cefdinir [Omnicef 300mg Capsule] 1 cap PO BID
== END 2017-09-29 09:41 | disposition home or self-care (01) ==
LOC: ER 19:49 → ICU 19:49 → 2ND 09-24 21:04
PROVIDERS: ADMIT Family Medicine; ATTEND Family Medicine

== ENCOUNTER 2017-09-30 10:50 | Outpatient (CLI) | payer MEDICARE, OTHER, SELFPAY ==
[2017-09-30 11:25] VITALS: BP 142/63; PULSE 75; RESP 20; TEMP 36.4
== END 2017-09-30 11:45 | disposition home or self-care (01) ==
LOC: INF 10:50
PROVIDERS: Family Provider Family Medicine; PCP Family Medicine; Visit Provider Family Medicine
DX: J18.9 Pneumonia, unspecified organism (principal); F17.210 Nicotine dependence, cigarettes, uncomplicated
CPT/HCPCS: 96372

== ENCOUNTER → 2017-10-20 12:58 | Outpatient (CLI) | payer MEDICARE, OTHER, SELFPAY ==
[2017-10-20 14:53] VITALS: PULSE 78; PULSE 83
== END ==
PROVIDERS: Family Provider Family Medicine; PCP Family Medicine; Visit Provider Family Medicine
DX: J44.9 Chronic obstructive pulmonary disease, unspecified (principal)
CPT/HCPCS: 94060; 94640; 94726; 94729

== ENCOUNTER 2017-11-17 09:56 | Outpatient (RCR) | payer MEDICARE, OTHER, SELFPAY | END 2018-01-07 15:07 | disposition home or self-care (01) | LOC: PT 09:56 | PROVIDERS: Family Provider Family Medicine; PCP Family Medicine; Visit Provider Family Medicine | DX: J44.1 Chronic obstructive pulmonary disease with (acute) exacerbation (principal) | CPT/HCPCS: G0424 ==

== ENCOUNTER → 2018-02-02 09:18 | Outpatient (POV) | payer MEDICARE, OTHER, SELFPAY ==
[2018-02-03 10:24] LABS: Alpha-1-Antitrypsin 165 mg/dL (90-200)
== END ==
PROVIDERS: Family Provider Family Medicine; PCP Family Medicine; Visit Provider Internal Medicine
DX: J43.9 Emphysema, unspecified (principal); E27.8 Other specified disorders of adrenal gland
CPT/HCPCS: 36415; 82103; 82104; 82533

== ENCOUNTER → 2018-02-10 09:49 | Outpatient (CLI) | payer MEDICARE, OTHER, SELFPAY ==
[2018-02-10 10:42] LABS: Blood Urea Nitrogen 13 mg/dL (7-18); Creatinine,Serum 0.98 mg/dL (0.55-1.02); Estimated Glomerular Filt Rate 56 ml/min (>60); GFR (African American) 68 ML/MIN (>60)
--- NOTE | 2018-02-10 10:50 | CT_ITS ---
CT abdomen wo/w con CLINICAL INDICATION: Follow-up enlarged adrenal glands ITS.REASON: ADRENAL HYPERPLASIA ORDERING PHYSICIAN: Mehul Mack MD PATIENT AGE: 72 years COMPARISON: 09/25/2017 TECHNIQUE: Axial images are obtained without and with contrast and with routine minimal delayed imaging. Axial images obtained with sagittal and coronal reformats. All CT scans at the facility use one or more dose reduction, viz: automated exposure control, ma/kV adjustment per patient size (including targeted exams where dose is matched to indication, i.e. head), or iterative reconstruction technique. PROCEDURE: Oral Contrast: None IV Contrast: 75 mL of [id number]. FINDINGS: Lung bases: Centrilobular emphysema with some scattered fibrotic changes. There is mild thickening of the pericardium nonspecific Low density changes along the falciform ligament of the liver previously described are not apparent on today's study likely due to focal fatty infiltration. There is an ill-defined low-density lesion within the left hepatic lobe superiorly at 2.2 x 1.5 cm. This shows uniform contrast enhancement on the 1 minute images but is isointense to surrounding liver on the delayed images. A subcentimeter isodense is present in the hepatic dome cyst The liver has an otherwise unremarkable appearance. There is been prior cholecystectomy with ectasia of the biliary tree. There is a small hiatal hernia. The spleen and pancreas have an unremarkable appearance. There is bilateral adrenal enlargement. The density of the right adrenal gland measures up to -15 Hounsfield units and the density of the left adrenal gland measured of the -10 Hounsfield units. This is consistent with bilateral adrenal adenomatous involvement not significant changed. No renal calculi. There is a 1.9 cm isodense lesion projecting off the lateral aspect of the left kidney near 20 Hounsfield units without significant enhancement and may be due to a complex cyst not significantly changed. There is a small umbilical hernia containing fat. Atherosclerotic changes involve the aorta. IMPRESSION: 1. Stable bilateral adrenal enlargement consistent with bilateral adrenal adenomas. 2. Enhancing 2 cm lesion in the left hepatic lobe as described above. Differential diagnosis would include flash filling hemangioma, hepatic adenoma/focal nodular hyperplasia versus hepatocellular carcinoma or metastatic disease. Consider ultrasound for further evaluation. 3. Complex left renal cyst unchanged
== END ==
PROVIDERS: PCP Family Medicine; Visit Provider Internal Medicine
DX: E27.8 Other specified disorders of adrenal gland (principal); J43.9 Emphysema, unspecified
CPT/HCPCS: 36415; 74170; 82565; 84520; Q9967

== ENCOUNTER → 2018-02-25 07:47 | Outpatient (CLI) | payer MEDICARE, OTHER, SELFPAY ==
--- NOTE | 2018-02-25 07:49 | US_ITS ---
US liver HISTORY: Follow-up liver lesion ITS.REASON: LIVER LESION ORDERING PHYSICIAN: Adrian Jones MD PATIENT AGE: 72 years COMPARISON: 02/10/2018 FINDINGS: PANCREAS:Unremarkable. No obvious mass or abnormal fluid collection. No ductal dilatation LIVER:No focal liver lesions demonstrated. Homogeneous echogenicity. No intrahepatic biliary ductal dilatation evident. There is an ill-defined 2.5 x 2.7 cm mostly isoechoic nodule in the left lobe of the liver superiorly corresponding to the CT abdomen. This shows some increase echogenicity with some decreased echogenicity centrally and could represent a small hemangioma. No other liver lesions are evident. Common hepatic duct is prominent at 7 mm. RIGHT KIDNEY:Unremarkable. Normal size and echogenicity. No hydronephrosis GALLBLADDER:Status post cholecystectomy. IMPRESSION: Ill-defined isoechoic lesion of the left hepatic lobe 2.5 x 2.7 cm corresponding to the CT abnormality possibly due to a hemangioma. Consider 3 month follow-up to confirm stability.
== END ==
PROVIDERS: PCP Family Medicine; Visit Provider Family Medicine
DX: K76.9 Liver disease, unspecified (principal)
CPT/HCPCS: 76705

== ENCOUNTER 2018-04-08 22:28 | Inpatient (IN) ==
[2018-04-08 22:53] LABS: ABG Base Excess 4.7 mmol/L (-2.4-2.3); ABG Oxygen Saturation 93 % (90-100); ABG PCO2 44.6 mmhg (35.0-45.0); ABG PH 7.43 mmol/L (7.35-7.45); ABG PO2 61.4 mmhg (80-100); ABG TCO2 30.4 mmhg (23-27)
[2018-04-08 22:54] LABS: Allen's Test Acceptable
[2018-04-08 23:11] LABS: Basophils % 0.4 % (0.1-2.0); Eosinophils # 0.2 K/mm3 (0.0-0.4); Eosinophils % 2.4 % (0.1-12.0); Hematocrit 45.4 % (37.0-47.0); Hemoglobin 14.7 g/dL (12.2-16.2); Lymphocytes # 2.1 K/mm3 (0.7-4.5); Mean Corpuscular HGB Conc 32.3 g/dL (31.8-35.4); Mean Corpuscular Hemoglobin 29.6 pg (27.0-31.2); Mean Corpuscular Volume 91.6 fl (81-99); Mean Platelet Volume 7.2 fl (7.4-10.4); Monocytes # 0.7 K/mm3 (0.1-1.0); Monocytes % 7.5 % (1.7-9.3); Neutrophils # 6.4 K/mm3 (1.8-7.8); Neutrophils % 67.7 % (37.0-80.0); Platelet Count 236 K/mm3 (142-424); Red Blood Count 4.96 M/mm3 (4.20-5.40); Red Cell Distribution Width 13.4 % (11.5-17.5); White Blood Count 9.4 K/mm3 (4.8-10.8)
[2018-04-08 23:23] LABS: Alanine Aminotransferase 21 U/L (12-78); Albumin Level 3.6 gm/dL (3.4-5.0); Alkaline Phosphatase 114 U/L (46-116); Anion Gap 13.5 mEq/L (5-15); Aspartate Amino Transferase 17 U/L (15-37); Bilirubin,Total 0.2 mg/dL (0.2-1.0); Blood Urea Nitrogen 10 mg/dL (7-18); Carbon Dioxide 30 mmol/L (21.0-32.0); Chloride 98 mmol/L (98-107); Globulin 3.7 gm/dl (1.3-3.2); Glucose 132 mg/dL (74-106); Potassium 3.5 mmoL/L (3.5-5.1); Sodium 138 mmol/L (136-145); Total Protein,Serum 7.3 gm/dL (6.4-8.2)
--- NOTE | 2018-04-08 23:42 | Emergency Department Note ---
ED Disposition Clinical Impression: Acute exacerbation of chronic obstructive airways disease, Tobacco use disorder Hypothyroidism Qualifiers: Hypothyroidism type: unspecified Qualified Code(s): E03.9 - Hypothyroidism, unspecified Disposition: Admitted as Observation Condition on Discharge: Good - Critical Care Critical Care Time: No Attestation: On 04/08/18, the high probability of a clinically significant, sudden or life threatening deterioration of the following system(s) required my full and direct attention, intervention and personal management. The time I documented below is in addition to time spent performing reported procedures but includes the following listed in this critical care notation. Medical Decision Making - Medical Records Medical records reviewed: Yes: I reviewed the patient's medical records. - [place] Inquiry Pt receiving controlled substance: No Vital Signs: 04/08/18 22:31 04/08/18 23:07 04/08/18 23:09 Temperature 98.0 F Temperature Source Oral Pulse Rate 112 H Pulse Rate [Right Radial] 129 H 104 H Respiratory Rate 28 H 24 Blood Pressure [Right Arm] 166/118 H 140/60 Blood Pressure Mean [Right Arm] 134 86 Blood Pressure Source [Right Arm] Automatic Cuff Blood Pressure Position [Right Arm] Supine 02 Sat by Pulse Oximetry 85 L 91 L Oxygen Delivery Method Nasal Cannula Nasal Cannula Oxygen Flow Rate (LPM) 3 3 04/08/18 23:30 04/09/18 00:00 Temperature Temperature Source Pulse Rate Pulse Rate [Right Radial] 98 H 110 H Respiratory Rate 18 26 H Blood Pressure [Right Arm] 144/59 H 158/80 H Blood Pressure Mean [Right Arm] 87 106 Blood Pressure Source [Right Arm] Automatic Cuff Automatic Cuff Blood Pressure Position [Right Arm] Supine Supine 02 Sat by Pulse Oximetry 90 L 93 L Oxygen Delivery Method Nasal Cannula Nasal Cannula Oxygen Flow Rate (LPM) 3 3 - Lab Data Lab results reviewed: Yes: I reviewed the patient's lab results. Lab Results 04/08/18 00:05: Specimen Source Left radial, O2 % 32%, 3lpm nc., ABG pH 7.43, ABG pCO2 44.6, ABG pO2 61.4 L, ABG HCO3 29.0 H, ABG Total CO2 30.4 H, ABG O2 Saturation 93, ABG Base Excess 4.7 H, Darian Test Acceptable 04/08/18 22:50: WBC 9.4, RBC 4.96, Hgb 14.7, Hct 45.4, MCV 91.6, MCH 29.6, MCHC 32.3, RDW 13.4, Plt Count 236, MPV 7.2 L, Neut % (Auto) 67.7, Lymph % (Auto) 22.0, [place] % (Auto) 7.5, Eos % (Auto) 2.4, Baso % (Auto) 0.4, Neut # (Auto) 6.4, Lymph # (Auto) 2.1, [place] # (Auto) 0.7, Eos # (Auto) 0.2, Baso # (Auto) 0.0 04/08/18 22:50: Sodium 138, Potassium 3.5, Chloride 98, Carbon Dioxide 30, Anion Gap 13.5, BUN 10, Creatinine 0.96, Estimated Creat Clear 54, Estimated GFR 57 L, Est GFR ( Amer) 69, Glucose 132 H, Calcium 9.0, Total Bilirubin 0.2, AST 17, ALT 21, Alkaline Phosphatase 114, Troponin I < 0.02, Total Protein 7.3, Albumin 3.6, Globulin 3.7 H, Albumin/Globulin Ratio 1.0 L 04/08/18 22:50: Lactate 1.2 Result diagrams: 04/08/18 22:50 04/08/18 22:50 Orders (Tests/Meds): ED MEDICATIONS Discontinued Medications Generic Name Dose Route Start Last Admin Trade Name Freq PRN Reason Stop Dose Admin Albuterol/Ipratropium 3 ml 04/08/18 22:40 04/08/18 22:56 Duoneb 3ml Neb IH 04/08/18 22:41 3 ml ONCE ONE Administration Methylprednisolone Sodium Succinate 125 mg 04/08/18 22:40 04/08/18 22:59 Solu-Medrol 125mg/2ml Vial IV 04/08/18 22:41 125 mg ONCE ONE Administration ORDERS Category Date Time Status XR chest 2V Stat Exams 04/08/18 22:39 Taken Blood Culture Stat Micro 04/09/18 00:05 Ordered Blood Culture Stat Micro 04/09/18 00:05 Ordered Blood Culture Stat Micro 04/09/18 00:05 Ordered Arterial Blood Gas Stat RT 04/09/18 00:05 Ordered Arterial Blood Gas Stat RT 04/09/18 00:05 Ordered - Radiology Data #1 Image(s): Chest Image Reviewed: Yes I reviewed the patient's radiology image Preliminary Findings: Abnormal (copd) - ECG Data Tracing #1 I reviewed this ECG and interpreted as documented below: Normal Sinus Rhythm: Yes Ischemic changes: non-specific ST-T wave changes - Physician Consults Physician Consulted: sound Reason -: Admission Resp/SOB HPI - General Chief Complaint: Shortness of Breath/Dyspnea Stated Complaint: SOB Time Seen by Provider: 04/08/18 22:40 Mode of Arrival: Wheelchair Source of Information: Patient, Relative, Medical Record Limitations: No Limitations Description of Symptoms (Recalled from ER Triage Doc. by RN): pt presents with c/o hypoxia at home with low o2 sats, shortness of breath and severe wheezing. denies fever. pt states she is having a productive cough. - History of Present Illness pt with hx of o2 dep copd and does smoke with inc sob and wheezing tonight despite at home meds and treatments - MD Complaint: shortness of breath Onset (ago): hour(s) Severity: moderate Known history of: COPD Associated symptoms: cough Treatment prior to arrival: oxygen, bronchodilator - Related Data Home oxygen amount: 2 liters Home Medications Medication Instructions Recorded Confirmed amlodipine 10 mg tablet 10 mg PO DAILY 90 Days tab 07/27/17 04/08/18 aspirin 81 mg tablet,delayed 81 mg PO DAILY 07/27/17 04/08/18 release benazepril 20 mg tablet 20 mg PO DAILY 07/27/17 04/08/18 diazepam 5 mg tablet 5 mg PO DAILY 30 Days tab 07/27/17 04/08/18 fluoxetine 40 mg capsule 40 mg PO DAILY 90 Days cap 07/27/17 04/08/18 furosemide 40 mg tablet 40 mg PO DAILY 07/27/17 04/08/18 levothyroxine 100 mcg tablet 100 mcg PO DAILY 90 Days tab 07/27/17 04/08/18 meclizine 12.5 mg tablet 12.5 mg PO TIDP PRN 07/27/17 04/08/18 metoclopramide 10 mg tablet 10 mg PO ACHS 30 Days tab 07/27/17 04/08/18 nitroglycerin 0.4 mg sublingual 0.4 mg SUBLINGUAL Q5-15M PRN 07/27/17 04/08/18 tablet pravastatin 40 mg tablet 40 mg PO HS 07/27/17 04/08/18 Albuterol Sulfate [Albuterol 2.5 mg IH NEEDED PRN 09/21/17 04/08/18 0.083% 2.5mg/3mL neb] Cholecalciferol (Vitamin D3) 2,000 unit PO DAILY 09/21/17 04/08/18 [Vitamin D3] Ipratropium/Albuterol Sulfate 3 ml IH TID 09/21/17 04/08/18 [Duoneb 3mL neb] Lactobacillus Acidophilus 1 cap PO DAILY 09/21/17 04/08/18 [Probiotic] Potassium Chloride [Klor-Con 10mEq 20 meq PO DAILY 09/21/17 04/08/18 tab] Biotin 5,000 mcg PO DAILY 04/08/18 04/08/18 Glycopyrrolate/Formoterol Fum 2 puffs INHALATION BID 04/08/18 04/08/18 [Bevespi Aerosphere Inhaler] Previous Rx's Medication Instructions Recorded Ondansetron HCl [Zofran 4mg Tab] 4 mg PO Q6HP PRN #20 tab 09/29/17 Allergies Allergy/AdvReac Type Severity Reaction Status Date / Time codeine [CODEINE] Allergy Mild Verified 04/08/18 22:39 penicillin G [PENICILLIN G] Allergy Mild Verified 04/08/18 22:39 povidone-iodine Allergy Mild Verified 04/08/18 22:39 [From BETADINE] [facility] [place] History I have reviewed the patient's past medical history: Yes Medical History: Reports:: Chronic Obstructive Pulmonary Disease (COPD), Gastroesophageal Reflux Disease(GERD), Hyperlipidemia, Hypertension Denies:: Cancer, Congestive Heart Failure, Diabetes Mellitus Type 1, Diabetes Mellitus Type 2, Migraine, MRSA, Renal Disease, Renal Insufficiency Other Medical History: Reports: Arthritis, Hypothyroidism. Denies: Thyroid Disease Laterality Cases: Bilateral: Tonsillectomy Other Surgeries: Yes: Cholecystectomy, Thyroidectomy, Tubal Ligation, Other Amputation: No Fractures: No Comment: Parotid gland removed per Dr. Frazier 06/2014; discectomy; Lasix surgery both eyes; cyst removed from eyelids 3. - Social History Smoking Status: Current every day smoker Tobacco Type: cigarettes # Packs/Day (cigarettes): 1 #Yrs smoked (if former smoker): 50 Alcohol Intake: never Alcohol Intake Frequency:: other Occupational Status: retired Housing: house Household Members: spouse - Psychiatric History Expresses thoughts of harming self/others: None Suicide Plan Description: No Plan Family Hx:: Cancer, Diabetes ROS Obtained: Yes All systems reviewed & no additional complaints - Constitutional Constitutional: Denies fever(s) - Eyes Eyes: Denies change in vision - ENT Ears, Nose, Mouth, and Throat: Denies sore throat - Cardiovascular Cardiovascular: Denies chest pain - Respiratory Respiratory: Yes as per HPI, Yes cough, Yes non-productive cough, No coughing up blood, No pain on inspiration - Gastrointestinal Gastrointestingal: Denies: abdominal pain, vomiting - Genitourinary Female Genitourinary: Denies hematuria - Musculoskeletal Musculoskeletal: Denies joint pain, Denies joint swelling - Integumentary/Breasts Skin/Breast: Denies rash - Neurologic Neurologic: Denies headache(s), Denies seizure-like activity Physical Exam - General General appearance: alert, in no apparent distress - Head Head exam: normocephalic - Eye Eye exam: Present: PERRL, EOMI - ENT ENT exam: Present: mucous membranes dry - Neck Neck exam: Present: trachea midline - Respiratory Respiratory exam: Present: wheezes. Absent: respiratory distress - Cardiovascular Cardiovascular exam: Present: regular rate, systolic murmur, +S4 - Abdominal Exam Abdominal exam: Present: soft - Extremities Exam Extremities exam: Absent: calf tenderness - Neurological Exam Neurological exam: Present: alert, oriented X3, CN II-XII intact - Psychiatric Psychiatric exam: Present: normal affect - Skin Skin exam: Absent: rash
[2018-04-09 05:50] LABS: Basophils % 0.1 % (0.1-2.0); Eosinophils % 0.1 % (0.1-12.0); Hematocrit 43.2 % (37.0-47.0); Hemoglobin 13.8 g/dL (12.2-16.2); Lymphocytes # 0.6 K/mm3 (0.7-4.5); Lymphocytes % 6.2 % (10-50); Mean Corpuscular HGB Conc 31.9 g/dL (31.8-35.4); Mean Corpuscular Hemoglobin 29.4 pg (27.0-31.2); Mean Corpuscular Volume 92.1 fl (81-99); Mean Platelet Volume 7.1 fl (7.4-10.4); Monocytes # 0.1 K/mm3 (0.1-1.0); Neutrophils # 8.7 K/mm3 (1.8-7.8); Neutrophils % 92.5 % (37.0-80.0); Platelet Count 229 K/mm3 (142-424); Red Blood Count 4.69 M/mm3 (4.20-5.40); Red Cell Distribution Width 13.4 % (11.5-17.5); White Blood Count 9.4 K/mm3 (4.8-10.8)
[2018-04-09 06:03] LABS: Anion Gap 13.2 mEq/L (5-15); Calcium 8.9 mg/dL (8.5-10.1); Potassium 4.2 mmoL/L (3.5-5.1)
--- NOTE | 2018-04-09 08:43 | Pharmacy Consult Notes ---
[facility] Pharmacy VTE Monitoring - Patient Demographics Admission date: 04/08/18 Report Date: 04/09/18 Time: 08:43 Allergies/Adverse Reactions: Patient Allergies codeine [CODEINE] Allergy (Mild, Verified 04/08/18 22:39) penicillin G [PENICILLIN G] Allergy (Mild, Verified 04/08/18 22:39) povidone-iodine [From BETADINE] Allergy (Mild, Verified 04/08/18 22:39) Height: 1.57 m Weight: 67.67 kg Patient Problems: Current Active Problems Acute exacerbation of chronic obstructive airways disease (Acute) Hypothyroidism (Chronic) Tobacco use disorder (Chronic) - VTE Risk Labs: VTE Related Lab Results Hgb 13.8 g/dL (12.2-16.2) 04/09/18 05:05 Hct 43.2 % (37.0-47.0) 04/09/18 05:05 Plt Count 229 K/mm3 (142-424) 04/09/18 05:05 BUN 10 mg/dL (7-18) 04/09/18 05:05 Creatinine 0.87 mg/dL (0.55-1.02) 04/09/18 05:05 Estimated Creat Clear 54 mL/min (50-200) 04/09/18 05:05 Was VTE Risk Assessment Performed: Yes VTE Risk Level: Low Risk - Prophylaxis VTE Prophylaxis Ordered?: Yes Types of VTE Prophylaxis: TEDS Knee High Location of Applied Device: Bilateral Lower Extremeties - VTE Diagnosis Confirmed Treatment or plan recommended: Continue Current Treatment
--- NOTE | 2018-04-09 09:26 | History & Physical Report ---
*Admission Date: 04/08/18 <Talia Maza 04/09/18 09:29> *Chief complaint: Shortness of breath <Talia Maza 04/09/18 09:29> *History of present illness: Ms. Chu is a 73-year-old female with a history of COPD who continues to smoke. She does have oxygen at home. She states she began having trouble breathing yesterday. She took extra nebulizer treatments and extra puffs off of her inhaler but she continued to remain short of breath. Her brought her to the emergency room. While in the ER, she was given nebs and steroids and began feeling better. She feels slightly better this morning but is still short of breath and wheezing. 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) <Talia Maza 04/09/18 09:29> Laterality Cases: Bilateral: Tonsillectomy <Talia Maza 04/09/18 09:29> Other Surgeries: Yes: Cardiac Catheterization, Cholecystectomy, Colonoscopy, Thyroidectomy, Tubal Ligation, Other <Talia Maza 04/09/18 09:29> Amputation: No <Talia Maza 04/09/18 09:29> Fractures: No <Talia Maza 04/09/18 09:29> Comment: cysts removed from eyelids, Lasik eye surgery, parotid gland removed, discetomy <Talia Maza 04/09/18 09:29> - *Social History Educational Level: Completed High School <Talia Maza 04/09/18 09:29> Smoking Status: Current every day smoker <Talia Maza 04/09/18 09:29> Tobacco Type: cigarettes <Talia Maza 04/09/18 09:29> # Packs/Day (cigarettes): 1 <Talia Maza 04/09/18 09:29> #Yrs smoked (if former smoker): 50 <Talia Maza 04/09/18 09:29> Alcohol Intake: current <Talia Maza 04/09/18 09:29> Alcohol Intake Frequency:: holidays/special occasions only <Talia Maza 04/09/18 09:29> Occupational Status: retired <Talia Maza 04/09/18 09:29> Housing: house <Talia Maza 04/09/18 09:29> Household Members: spouse <Talia Maza 04/09/18 09:29> - Psychiatric History Expresses thoughts of harming self/others: None <Talia Maza 04/09/18 09:29> Suicide Plan Description: No Plan <Talia Maza 04/09/18 09:29> *Family Hx:: Cancer, Diabetes, Hypertension, Stroke <Talia Maza 04/09/18 09:29> Review of Systems - Constitutional Reports weakness, Denies chills, Denies fever(s) <Talia Maza 04/09/18 09:29> - Eyes Denies blurry vision <Talia Maza 04/09/18 09:29> - ENT Reports nasal congestion, Denies sore throat <Talia Maza 04/09/18 09:29> - *Cardiovascular Reports rapid, pounding, or irregular heartbeat, Denies chest pain <Talia Maza 04/09/18 09:29> - *Respiratory Reports cough, Reports shortness of breath, Reports wheezing <Talia Maza 04/09/18 09:29> - *Gastrointestinal Denies abdominal pain, Denies loose stools, Denies nausea, Denies vomiting <Talia Maza 04/09/18 09:29> - *Genitourinary Denies difficulty urinating, Denies painful urination <Talia Maza 04/09/18 09:29> - *Musculoskeletal Reports back pain, Denies joint pain <Talia Maza 04/09/18 09:29> - *Neurologic Reports weakness, Denies headache(s), Denies seizure-like activity, Denies dizziness <Talia Maza - 04/09/18 09:29> Meds Home Medications Medication Instructions Recorded Confirmed Type amlodipine 10 mg tablet 10 mg PO DAILY 90 Days tab 07/27/17 04/08/18 History aspirin 81 mg tablet,delayed 81 mg PO DAILY 07/27/17 04/08/18 History release diazepam 5 mg tablet 5 mg PO HS 30 Days tab 07/27/17 04/09/18 History fluoxetine 40 mg capsule 40 mg PO DAILY 90 Days cap 07/27/17 04/09/18 History furosemide 40 mg tablet 40 mg PO DAILY 07/27/17 04/09/18 History levothyroxine 100 mcg tablet 100 mcg PO DAILY 90 Days tab 07/27/17 04/09/18 History meclizine 12.5 mg tablet 12.5 mg PO TIDP PRN 07/27/17 04/08/18 History metoclopramide 10 mg tablet 10 mg PO ACHS 30 Days tab 07/27/17 04/09/18 History nitroglycerin 0.4 mg sublingual 0.4 mg SUBLINGUAL Q5-15M PRN 07/27/17 04/08/18 History tablet pravastatin 40 mg tablet 40 mg PO HS 07/27/17 04/09/18 History Albuterol Sulfate [Albuterol 2.5 mg IH NEEDED PRN 09/21/17 04/09/18 History 0.083% 2.5mg/3mL neb] Cholecalciferol (Vitamin D3) 2,000 unit PO DAILY 09/21/17 04/08/18 History [Vitamin D3] Ipratropium/Albuterol Sulfate 3 ml IH TID 09/21/17 04/09/18 History [Duoneb 3mL neb] Lactobacillus Acidophilus 1 cap PO DAILY 09/21/17 04/08/18 History [Probiotic] Potassium Chloride [Klor-Con 10mEq 20 meq PO DAILY 09/21/17 04/08/18 History tab] Biotin 5,000 mcg PO DAILY 04/08/18 04/08/18 History Glycopyrrolate/Formoterol Fum 2 puffs INHALATION BID 04/08/18 04/08/18 History [Bevespi Aerosphere Inhaler] Benazepril HCl 20 mg PO DAILY 04/09/18 04/09/18 History <Adrian Jones - 04/09/18 13:26> Allergies Allergy/AdvReac Type Severity Reaction Status Date / Time codeine [CODEINE] Allergy Mild Verified 04/08/18 22:39 penicillin G [PENICILLIN G] Allergy Mild Verified 04/08/18 22:39 povidone-iodine Allergy Mild Verified 04/08/18 22:39 [From BETADINE] <Adrian Jones - 04/09/18 13:26> Exam Vital signs and Labs for Last 24 Hours: Temp Pulse Resp BP Pulse Ox 968.5 F H 98 H 21 154/71 H 90 L 04/09/18 11:59 04/09/18 11:59 04/09/18 11:59 04/09/18 11:59 04/09/18 11:59 Laboratory Results - last 24 hr 04/08/18 00:05: Specimen Source Left radial, O2 % 32%, 3lpm nc., ABG pH 7.43, ABG pCO2 44.6, ABG pO2 61.4 L, ABG HCO3 29.0 H, ABG Total CO2 30.4 H, ABG O2 Saturation 93, ABG Base Excess 4.7 H, Darian Test Acceptable 04/08/18 22:50: WBC 9.4, RBC 4.96, Hgb 14.7, Hct 45.4, MCV 91.6, MCH 29.6, MCHC 32.3, RDW 13.4, Plt Count 236, MPV 7.2 L, Neut % (Auto) 67.7, Lymph % (Auto) 22.0, [place] % (Auto) 7.5, Eos % (Auto) 2.4, Baso % (Auto) 0.4, Neut # (Auto) 6.4, Lymph # (Auto) 2.1, [place] # (Auto) 0.7, Eos # (Auto) 0.2, Baso # (Auto) 0.0 04/08/18 22:50: Sodium 138, Potassium 3.5, Chloride 98, Carbon Dioxide 30, Anion Gap 13.5, BUN 10, Creatinine 0.96, Estimated Creat Clear 54, Estimated GFR 57 L, Est GFR ( Amer) 69, Glucose 132 H, Calcium 9.0, Total Bilirubin 0.2, AST 17, ALT 21, Alkaline Phosphatase 114, Troponin I < 0.02, Total Protein 7.3, Albumin 3.6, Globulin 3.7 H, Albumin/Globulin Ratio 1.0 L 04/08/18 22:50: Lactate 1.2 04/09/18 05:05: Troponin I < 0.02 04/09/18 05:05: WBC 9.4, RBC 4.69, Hgb 13.8, Hct 43.2, MCV 92.1, MCH 29.4, MCHC 31.9, RDW 13.4, Plt Count 229, MPV 7.1 L, Neut % (Auto) 92.5 H, Lymph % (Auto) 6.2 L, [place] % (Auto) 1.0 L, Eos % (Auto) 0.1, Baso % (Auto) 0.1, Neut # (Auto) 8.7 H, Lymph # (Auto) 0.6 L, [place] # (Auto) 0.1, Eos # (Auto) 0.0, Baso # (Auto) 0.0, Total Counted 100, Neutrophils % (Manual) 95 H, Lymphocytes % (Manual) 3 L, Atypical Lymphs % 1.0, Monocytes % (Manual) 1 L, Platelet Estimate Normal 04/09/18 05:05: Sodium 137, Potassium 4.2, Chloride 100, Carbon Dioxide 28, Anion Gap 13.2, BUN 10, Creatinine 0.87, Estimated Creat Clear 54, Estimated GFR 64, Est GFR ( Amer) 77, Glucose 172 H D, Calcium 8.9, Magnesium 2.0 04/09/18 08:00: Troponin I < 0.02 <Adrian Jones - 04/09/18 13:26> Temp Pulse Resp BP Pulse Ox 98.2 F 111 H 19 128/57 L 91 L 04/09/18 08:00 04/09/18 08:00 04/09/18 08:00 04/09/18 08:00 04/09/18 08:00 Laboratory Results - last 24 hr 04/08/18 00:05: Specimen Source Left radial, O2 % 32%, 3lpm nc., ABG pH 7.43, ABG pCO2 44.6, ABG pO2 61.4 L, ABG HCO3 29.0 H, ABG Total CO2 30.4 H, ABG O2 Saturation 93, ABG Base Excess 4.7 H, Darian Test Acceptable 04/08/18 22:50: WBC 9.4, RBC 4.96, Hgb 14.7, Hct 45.4, MCV 91.6, MCH 29.6, MCHC 32.3, RDW 13.4, Plt Count 236, MPV 7.2 L, Neut % (Auto) 67.7, Lymph % (Auto) 22.0, [place] % (Auto) 7.5, Eos % (Auto) 2.4, Baso % (Auto) 0.4, Neut # (Auto) 6.4, Lymph # (Auto) 2.1, [place] # (Auto) 0.7, Eos # (Auto) 0.2, Baso # (Auto) 0.0 04/08/18 22:50: Sodium 138, Potassium 3.5, Chloride 98, Carbon Dioxide 30, Anion Gap 13.5, BUN 10, Creatinine 0.96, Estimated Creat Clear 54, Estimated GFR 57 L, Est GFR ( Amer) 69, Glucose 132 H, Calcium 9.0, Total Bilirubin 0.2, AST 17, ALT 21, Alkaline Phosphatase 114, Troponin I < 0.02, Total Protein 7.3, Albumin 3.6, Globulin 3.7 H, Albumin/Globulin Ratio 1.0 L 04/08/18 22:50: Lactate 1.2 04/09/18 05:05: Troponin I < 0.02 04/09/18 05:05: WBC 9.4, RBC 4.69, Hgb 13.8, Hct 43.2, MCV 92.1, MCH 29.4, MCHC 31.9, RDW 13.4, Plt Count 229, MPV 7.1 L, Neut % (Auto) 92.5 H, Lymph % (Auto) 6.2 L, [place] % (Auto) 1.0 L, Eos % (Auto) 0.1, Baso % (Auto) 0.1, Neut # (Auto) 8.7 H, Lymph # (Auto) 0.6 L, [place] # (Auto) 0.1, Eos # (Auto) 0.0, Baso # (Auto) 0.0 04/09/18 05:05: Sodium 137, Potassium 4.2, Chloride 100, Carbon Dioxide 28, Anion Gap 13.2, BUN 10, Creatinine 0.87, Estimated Creat Clear 54, Estimated GFR 64, Est GFR ( Amer) 77, Glucose 172 H D, Calcium 8.9, Magnesium 2.0 04/09/18 08:00: Troponin I < 0.02 <Talia Maza - 04/09/18 09:29> I & O for Last 24 hours: Intake & Output 04/07/18 04/08/18 04/09/18 04/10/18 11:59 11:59 11:59 11:59 Intake Total 240 / 240 Output Total 1000 / 1000 Balance -760 / -760 Weight 149 lb 3 oz <Adrian Jones - 04/09/18 13:26> Intake & Output 04/06/18 04/07/18 04/08/18 04/09/18 11:59 11:59 11:59 11:59 Intake Total 240 / 240 Output Total 500 / 500 Balance -260 / -260 Weight 149 lb 3 oz <Talia Maza - 04/09/18 09:29> Microbiology Reports for the Last 24 Hours: Microbiology 04/09/18 02:00 Sputum - Expectorated Sputum Gram Stain - Final <Adrian Jones - 04/09/18 13:26> - Constitutional no acute distress <Talia Maza - 04/09/18 09:29> - *Routine HEENT Exam Head: Present: normocephalic <Talia Maza - 04/09/18 09:29> Eye: Present: EOMI, PERRL <Talia Maza - 04/09/18 09:29> ENT: Present: mucous membranes dry <Talia Maza - 04/09/18 09:29> - *Routine Neck Exam Present: supple. Absent: lymphadenopathy <Talia Maza - 04/09/18 09:29> - *Routine Respiratory Exam Present: rhonchi, wheezes, diminished air movement. Absent: crackles <Talia Maza - 04/09/18 09:29> - *Routine Cardiovascular Exam Present: tachycardia <Talia Maza 04/09/18 09:29> - *Routine Abdominal Exam Present: soft, normoactive bowel sounds. Absent: tenderness <Talia Maza - 04/09/18 09:29> - *Routine Extremities Exam Absent: cyanosis, clubbing, edema <Talia Maza - 04/09/18 09:29> - *Routine Skin Exam Present: warm. Absent: rash <Talia Maza 04/09/18 09:29> - *Routine Neurological Exam Present: alert, oriented X3 <Talia Maza - 04/09/18 09:29> H&P: Result - Impressions CXr - COPD with a nodular densities in the right upper lobe and right lower lobe which could be inflammatory/infectious or due to neoplasm. Follow-up recommended. <Talia Maza - 04/09/18 09:29> Assessment and Plan (1) Acute exacerbation of chronic obstructive airways disease Current visit: Yes Status: Acute Category: Medical Code(s): J44.1 - Chronic obstructive pulmonary disease with (acute) exacerbation (2) Abnormal chest xray Current visit: Yes Status: Acute Category: Medical Code(s): R93.89 - Abnormal findings on diagnostic imaging of other specified body structures (3) Hypothyroidism Current visit: Yes Status: Chronic Qualifiers: Hypothyroidism type: unspecified Qualified Code(s): E03.9 - Hypothyroidism, unspecified Category: Medical Code(s): E03.9 - Hypothyroidism, unspecified (4) Tobacco use disorder Current visit: Yes Status: Chronic Category: Medical Code(s): F17.200 - Nicotine dependence, unspecified, uncomplicated (5) Supplemental oxygen dependent Current visit: No Status: Chronic Category: Medical Code(s): Z99.81 - Dependence on supplemental oxygen (6) Hypertension Current visit: No Status: Chronic Category: Medical Code(s): I10 - Essential (primary) hypertension <Talia Maza - 04/09/18 09:23> (1) Acute exacerbation of chronic obstructive airways disease Current visit: Yes Status: Acute Category: Medical Code(s): J44.1 - Chronic obstructive pulmonary disease with (acute) exacerbation (2) Abnormal chest xray Current visit: Yes Status: Acute Category: Medical Code(s): R93.89 - Abnormal findings on diagnostic imaging of other specified body structures (3) Hypothyroidism Current visit: Yes Status: Chronic Qualifiers: Hypothyroidism type: unspecified Qualified Code(s): E03.9 - Hypothyroidism, unspecified Category: Medical Code(s): E03.9 - Hypothyroidism, unspecified (4) Tobacco use disorder Current visit: Yes Status: Chronic Category: Medical Code(s): F17.200 - Nicotine dependence, unspecified, uncomplicated (5) Supplemental oxygen dependent Current visit: No Status: Chronic Category: Medical Code(s): Z99.81 - Dependence on supplemental oxygen (6) Hypertension Current visit: No Status: Chronic Category: Medical Code(s): I10 - Essential (primary) hypertension (7) Tachycardia Current visit: Yes Status: Acute Category: Medical Code(s): R00.0 - Tachycardia, unspecified <Adrian Jones - 04/09/18 13:26> - Assessment and plan all Dx Assessment and Plan for all problems:: Patient seen and examined. She is more comfortable with her breathing. She reports her heart rate has been elevated at home. No chest pain or palpitations. Will obtain CT of chest and start on Bisoprolol. Continue steroids and fluids. <Adrian Jones - 04/09/18 13:26> We will continue oxygen, nebs, and steroids. We will get a CT of the chest today due to her abnormal chest x-ray. <Talia Maza - 04/09/18 09:29>
[2018-04-09 12:43] LABS: Lymphocytes % 3 % (10-50); Monocytes % 1 % (2-9); Neutrophils % 95 % (42-76); Total Cells Counted 100
--- NOTE | 2018-04-10 09:04 | Progress Note ---
<Talia Maza - Last Filed: 04/10/18 09:02> Internal Medicine - PN: Subj *Date: 04/10/18 *Time: 09:02 Interval history: Patient states she is feeling much better today. She is still coughing and short of breath but it has improved slightly. She is still wheezing. She states she was able to rest well last night and ate breakfast this morning. Exam Vital signs and Labs for Last 24 Hours: Temp Pulse Resp BP Pulse Ox 97.8 F 93 H 20 135/55 L 93 L 04/10/18 08:00 04/10/18 08:00 04/10/18 08:00 04/10/18 08:00 04/10/18 08:00 Laboratory Results - last 24 hr 04/09/18 05:05: Total Counted 100, Neutrophils % (Manual) 95 H, Lymphocytes % (Manual) 3 L, Atypical Lymphs % 1.0, Monocytes % (Manual) 1 L, Platelet Estimate Normal I & O for Last 24 hours: Intake & Output 04/07/18 04/08/18 04/09/18 04/10/18 11:59 11:59 11:59 11:59 Intake Total 240 / 240 2137 / 2137 Output Total 1000 / 1000 750 / 750 Balance -760 / -760 1387 / 1387 Weight 149 lb 3 oz 151 lb Microbiology Reports for the Last 24 Hours: Microbiology 04/09/18 02:00 Sputum - Expectorated Sputum Gram Stain - Final 04/09/18 02:00 Sputum - Expectorated Sputum Sputum Culture - Preliminary Gram Negative Rods Gram Negative Rods#2 - Constitutional no acute distress - *Routine Respiratory Exam Present: decreased breath sounds, wheezes - *Routine Cardiovascular Exam Present: RRR - *Routine Abdominal Exam Present: soft, normoactive bowel sounds. Absent: tenderness - *Routine Extremities Exam Absent: cyanosis, clubbing, edema Assessment and Plan (1) Acute exacerbation of chronic obstructive airways disease Current visit: Yes Status: Acute Category: Medical Code(s): J44.1 - Chroni c obstructive pulmonary disease with (acute) exacerbation (2) Abnormal chest xray Current visit: Yes Status: Acute Category: Medical Code(s): R93.89 - Abnormal findings on diagnostic imaging of other specified body structures (3) Hypothyroidism Current visit: Yes Status: Chronic Qualifiers: Hypothyroidism type: unspecified Qualified Code(s): E03.9 - Hypothyroidism, unspecified Category: Medical Code(s): E03.9 - Hypothyroidism, unspecified (4) Tobacco use disorder Current visit: Yes Status: Chronic Category: Medical Code(s): F17.200 - Nicotine dependence, unspecified, uncomplicated (5) Supplemental oxygen dependent Current visit: No Status: Chronic Category: Medical Code(s): Z99.81 - Dependence on supplemental oxygen (6) Hypertension Current visit: No Status: Chronic Category: Medical Code(s): I10 - Essential (primary) hypertension (7) Tachycardia Current visit: Yes Status: Acute Category: Medical Code(s): R00.0 - Tachycardia, unspecified - Assessment and plan all Dx Assessment and Plan for all problems:: Patient's sputum is growing gram-negative rods. Will likely need to add some antibiotics. Will discuss with Dr. Jones. <Adrian Jones - Last Filed: 04/10/18 09:21> Exam Vital signs and Labs for Last 24 Hours: Temp Pulse Resp BP Pulse Ox 97.8 F 93 H 20 135/55 L 93 L 04/10/18 08:00 04/10/18 08:00 04/10/18 08:00 04/10/18 08:00 04/10/18 08:00 Laboratory Results - last 24 hr 04/09/18 05:05: Total Counted 100, Neutrophils % (Manual) 95 H, Lymphocytes % (Manual) 3 L, Atypical Lymphs % 1.0, Monocytes % (Manual) 1 L, Platelet Estimate Normal I & O for Last 24 hours: Intake & Output 04/07/18 04/08/18 04/09/18 04/10/18 11:59 11:59 11:59 11:59 Intake Total 240 / 240 2137 / 2137 Output Total 1000 / 1000 750 / 750 Balance -760 / -760 1387 / 1387 Weight 149 lb 3 oz 151 lb Microbiology Reports for the Last 24 Hours: Microbiology 04/09/18 02:00 Sputum - Expectorated Sputum Gram Stain - Final 04/09/18 02:00 Sputum - Expectorated Sputum Sputum Culture - Preliminary Gram Negative Rods Gram Negative Rods#2 Assessment and Plan (1) Acute exacerbation of chronic obstructive airways disease Current visit: Yes Status: Acute Category: Medical Code(s): J44.1 - Chronic obstructive pulmonary disease with (acute) exacerbation (2) Abnormal chest xray Current visit: Yes Status: Acute Category: Medical Code(s): R93.89 - Abnormal findings on diagnostic imaging of other specified body structures (3) Hypothyroidism Current visit: Yes Status: Chronic Qualifiers: Hypothyroidism type: unspecified Qualified Code(s): E03.9 - Hypothyroidism, unspecified Category: Medical Code(s): E03.9 - Hypothyroidism, unspecified (4) Tobacco use disorder Current visit: Yes Status: Chronic Category: Medical Code(s): F17.200 - Nicotine dependence, unspecified, uncomplicated (5) Supplemental oxygen dependent Current visit: No Status: Chronic Category: Medical Code(s): Z99.81 - Dependence on supplemental oxygen (6) Hypertension Current visit: No Status: Chronic Category: Medical Code(s): I10 - Essential (primary) hypertension (7) Tachycardia Current visit: Yes Status: Acute Category: Medical Code(s): R00.0 - Tachycardia, unspecified - Assessment and plan all Dx Assessment and Plan for all problems:: Patient seen and examined. SHe slept well and feels better but has not been out of bed much. Persists with cough occasionally productive. Still wheezing. Sputum growing Gm(-) dipak. Will start antibiotics pending final culture report.
[2018-04-11 08:40] LABS: Basophils % 0.1 % (0.1-2.0); Eosinophils % 0.1 % (0.1-12.0); Hematocrit 40.5 % (37.0-47.0); Hemoglobin 13.4 g/dL (12.2-16.2); Lymphocytes # 0.7 K/mm3 (0.7-4.5); Lymphocytes % 6.8 % (10-50); Mean Corpuscular Volume 93.8 fl (81-99); Mean Platelet Volume 8.2 fl (7.4-10.4); Monocytes # 0.3 K/mm3 (0.1-1.0); Neutrophils # 9.5 K/mm3 (1.8-7.8); Platelet Count 240 K/mm3 (142-424); Red Blood Count 4.32 M/mm3 (4.20-5.40); Red Cell Distribution Width 13.5 % (11.5-17.5); White Blood Count 10.6 K/mm3 (4.8-10.8)
--- NOTE | 2018-04-11 08:48 | Progress Note ---
Internal Medicine - PN: Subj *Date: 04/11/18 *Time: 08:45 Interval history: Less responsive but does attempt to answer questions. Tolerating tube feedings. Exam Vital signs and Labs for Last 24 Hours: Temp Pulse Resp BP Pulse Ox 98.3 F 90 20 124/67 91 L 04/11/18 04:00 04/11/18 05:39 04/11/18 04:00 04/11/18 04:00 04/11/18 05:39 Laboratory Results - last 24 hr 04/11/18 08:28: WBC 10.6, RBC 4.32, Hgb 13.4, Hct 40.5, MCV 93.8, MCH 31.0, MCHC 33.0, RDW 13.5, Plt Count 240, MPV 8.2, Neut % (Auto) 90.0 H, Lymph % (Auto) 6.8 L, [place] % (Auto) 3.0, Eos % (Auto) 0.1, Baso % (Auto) 0.1, Neut # (Auto) 9.5 H, Lymph # (Auto) 0.7, [place] # (Auto) 0.3, Eos # (Auto) 0.0, Baso # (Auto) 0.0 I & O for Last 24 hours: Intake & Output 04/08/18 04/09/18 04/10/18 04/11/18 11:59 11:59 11:59 11:59 Intake Total 240 / 240 2617 / 2617 2348 / 2348 Output Total 1000 / 1000 1550 / 1550 1800 / 1800 Balance -760 / -760 1067 / 1067 548 / 548 Weight 149 lb 3 oz 151 lb 153 lb 8 oz Microbiology Reports for the Last 24 Hours: Microbiology 04/08/18 00:05 Blood Blood Culture - Preliminary NO GROWTH AFTER 48 HOURS 04/08/18 00:05 Blood Blood Culture - Preliminary NO GROWTH AFTER 48 HOURS 04/09/18 02:00 Sputum - Expectorated Sputum Gram Stain - Final 04/09/18 02:00 Sputum - Expectorated Sputum Sputum Culture - Preliminary Gram Negative Rods Gram Negative Rods#2 - Constitutional Comments: resting with eyes closed. Breathing comfortably. Assessment and Plan (1) Acute exacerbation of chronic obstructive airways disease Current visit: Yes Status: Acute Category: Medical Code(s): J44.1 - Chronic obstructive pulmonary disease with (acute) exacerbation (2) Abnormal chest xray Current visit: Yes Status: Acute Category: Medical Code(s): R93.89 - Abnormal findings on diagnostic imaging of other specified body structures (3) Hypothyroidism Current visit: Yes Status: Chronic Qualifiers: Hypothyroidism type: unspecified Qualified Code(s): E03.9 - Hypothyroidism, unspecified Category: Medical Code(s): E03.9 - Hypothyroidism, unspecified (4) Tobacco use disorder Current visit: Yes Status: Chronic Category: Medical Code(s): F17.200 - Nicotine dependence, unspecified, uncomplicated (5) Supplemental oxygen dependent Current visit: No Status: Chronic Category: Medical Code(s): Z99.81 - Dependence on supplemental oxygen (6) Hypertension Current visit: No Status: Chronic Category: Medical Code(s): I10 - Essential (primary) hypertension (7) Tachycardia Current visit: Yes Status: Acute Category: Medical Code(s): R00.0 - Tachycardia, unspecified
--- NOTE | 2018-04-11 09:12 | Progress Note ---
Internal Medicine - PN: Subj *Date: 04/11/18 *Time: 09:09 Interval history: She slept well again last night. She is still dyspneic on exertion. Cough has decreased. Exam Vital signs and Labs for Last 24 Hours: Temp Pulse Resp BP Pulse Ox 97.6 F 98 H 22 156/61 H 91 L 04/11/18 08:00 04/11/18 08:00 04/11/18 08:00 04/11/18 08:00 04/11/18 08:00 Laboratory Results - last 24 hr 04/11/18 08:28: WBC 10.6, RBC 4.32, Hgb 13.4, Hct 40.5, MCV 93.8, MCH 31.0, MCHC 33.0, RDW 13.5, Plt Count 240, MPV 8.2, Neut % (Auto) 90.0 H, Lymph % (Auto) 6.8 L, [place] % (Auto) 3.0, Eos % (Auto) 0.1, Baso % (Auto) 0.1, Neut # (Auto) 9.5 H, Lymph # (Auto) 0.7, [place] # (Auto) 0.3, Eos # (Auto) 0.0, Baso # (Auto) 0.0 I & O for Last 24 hours: Intake & Output 04/08/18 04/09/18 04/10/18 04/11/18 11:59 11:59 11:59 11:59 Intake Total 240 / 240 2617 / 2617 2348 / 2348 Output Total 1000 / 1000 1550 / 1550 1800 / 1800 Balance -760 / -760 1067 / 1067 548 / 548 Weight 149 lb 3 oz 151 lb 153 lb 8 oz Microbiology Reports for the Last 24 Hours: Microbiology 04/08/18 00:05 Blood Blood Culture - Preliminary NO GROWTH AFTER 48 HOURS 04/08/18 00:05 Blood Blood Culture - Preliminary NO GROWTH AFTER 48 HOURS 04/09/18 02:00 Sputum - Expectorated Sputum Gram Stain - Final 04/09/18 02:00 Sputum - Expectorated Sputum Sputum Culture - Preliminary Gram Negative Rods Gram Negative Rods#2 - Constitutional Comments: resting comfortably in bed. - *Routine Respiratory Exam Comments: BS generally diminished with bilateral faint wheezes - *Routine Cardiovascular Exam Present: RRR - *Routine Extremities Exam Absent: edema Assessment and Plan (1) Acute exacerbation of chronic obstructive airways disease Current visit: Yes Status: Acute Category: Medical Code(s): J44.1 - Chronic obstructive pulmonary disease with (acute) exacerbation (2) Acute bronchitis Current visit: Yes Status: Acute Category: Medical Code(s): J20.9 - Acute bronchitis, unspecified (3) Abnormal chest xray Current visit: Yes Status: Acute Category: Medical Code(s): R93.89 - Abnormal findings on diagnostic imaging of other specified body structures (4) Hypothyroidism Current visit: Yes Status: Chronic Qualifiers: Hypothyroidism type: unspecified Qualified Code(s): E03.9 - Hypothyroidism, unspecified Category: Medical Code(s): E03.9 - Hypothyroidism, unspecified (5) Tobacco use disorder Current visit: Yes Status: Chronic Category: Medical Code(s): F17.200 - Nicotine dependence, unspecified, uncomplicated (6) Supplemental oxygen dependent Current visit: No Status: Chronic Category: Medical Code(s): Z99.81 - Dependence on supplemental oxygen (7) Hypertension Current visit: No Status: Chronic Category: Medical Code(s): I10 - Essential (primary) hypertension (8) Tachycardia Current visit: Yes Status: Acute Category: Medical Code(s): R00.0 - Tachycardia, unspecified - Assessment and plan all Dx Assessment and Plan for all problems:: Still awaiting final culture report. Will d/c IVF and change to oral steroids. Encourage OOB activity. Possible discharge home in AM.
[2018-04-11 09:23] LABS: Lymphocytes % 6 % (10-50); Monocytes % 5 % (2-9); Neutrophils % 86 % (42-76); RBC Morphology Normal; Total Cells Counted 100
--- NOTE | 2018-04-12 08:24 | Progress Note ---
Internal Medicine - PN: Subj Interval history: She tolerated activity in the room yesterday with dyspnea at baseline. Still has some cough. Eager to go home. Exam Vital signs and Labs for Last 24 Hours: Temp Pulse Resp BP Pulse Ox 98.4 F 88 20 157/80 H 95 04/12/18 08:00 04/12/18 08:00 04/12/18 08:00 04/12/18 08:00 04/12/18 05:54 Laboratory Results - last 24 hr 04/11/18 08:28: WBC 10.6, RBC 4.32, Hgb 13.4, Hct 40.5, MCV 93.8, MCH 31.0, MCHC 33.0, RDW 13.5, Plt Count 240, MPV 8.2, Neut % (Auto) 90.0 H, Lymph % (Auto) 6.8 L, [place] % (Auto) 3.0, Eos % (Auto) 0.1, Baso % (Auto) 0.1, Neut # (Auto) 9.5 H, Lymph # (Auto) 0.7, [place] # (Auto) 0.3, Eos # (Auto) 0.0, Baso # (Auto) 0.0, Total Counted 100, Neutrophils % (Manual) 86 H, Band Neutrophils % 2.0, Lymphocytes % (Manual) 6 L, Atypical Lymphs % 1.0, Monocytes % (Manual) 5, Platelet Estimate Normal, RBC Morphology Normal I & O for Last 24 hours: Intake & Output 04/09/18 04/10/18 04/11/18 04/12/18 11:59 11:59 11:59 11:59 Intake Total 240 / 240 2617 / 2617 2828 / 2828 1240 / 1240 Output Total 1000 / 1000 1550 / 1550 1800 / 1800 400 / 400 Balance -760 / -760 1067 / 1067 1028 / 1028 840 / 840 Weight 149 lb 3 oz 151 lb 153 lb 8 oz 153 lb 4 oz Microbiology Reports for the Last 24 Hours: Microbiology 04/09/18 02:00 Sputum - Expectorated Sputum Gram Stain - Final 04/09/18 02:00 Sputum - Expectorated Sputum Sputum Culture - Preliminary Gram Negative Rods Gram Negative Rods#2 - Constitutional no acute distress - *Routine Respiratory Exam Comments: improved breath sounds. Few upper airway wheezes - *Routine Cardiovascular Exam Present: RRR - *Routine Extremities Exam Absent: edema Assessment and Plan (1) Acute exacerbation of chronic obstructive airways disease Status: Acute Category: Medical Code(s): J44.1 - Chronic obstructive pulmonary disease with (acute) exacerbation (2) Acute bronchitis Status: Acute Category: Medical Code(s): J20.9 - Acute bronchitis, unspecified (3) Abnormal chest xray Status: Acute Category: Medical Code(s): R93.89 - Abnormal findings on diagnostic imaging of other specified body structures (4) Hypothyroidism Status: Chronic Qualifiers: Hypothyroidism type: unspecified Qualified Code(s): E03.9 - Hypothyroidism, unspecified Category: Medical Code(s): E03.9 - Hypothyroidism, unspecified (5) Tobacco use disorder Status: Chronic Category: Medical Code(s): F17.200 - Nicotine dependence, unspecified, uncomplicated (6) Supplemental oxygen dependent Status: Chronic Category: Medical Code(s): Z99.81 - Dependence on supplemental oxygen (7) Hypertension Status: Chronic Category: Medical Code(s): I10 - Essential (primary) hypertension (8) Tachycardia Status: Acute Category: Medical Code(s): R00.0 - Tachycardia, unspecified - Assessment and plan all Dx Assessment and Plan for all problems:: Discharge home on continued antibiotic regimen and steroids. F/u in 4 days.
--- NOTE | 2018-04-12 15:26 | Discharge Summary ---
General - General Admission date:: 04/09/18 <RobertAdrian Juan David - 04/23/18 12:48> 04/09/18 <Talia Maza - 04/12/18 15:26> Discharge date: 04/12/18 <Talia Maza - 04/12/18 15:26> HPI HPI: Ms. Chu is a 73-year-old female with a history of COPD who continues to smoke. She does have oxygen at home. She states she began having trouble breathing yesterday. She took extra nebulizer treatments and extra puffs off of her inhaler but she continued to remain short of breath. Her brought her to the emergency room. While in the ER, she was given nebs and steroids and began feeling better. She feels slightly better this morning but is still short of breath and wheezing. <Talia Maza - 04/12/18 15:26> Hospital Course Hospital Course: The patient's CXR showed COPD with a nodular densities in the right upper lobe and right lower lobe which could be inflammatory/infectious or due to neoplasm. A CT of chest was ordered and the patient was started on Bisoprolol d/t tachycardia. The CT showed an atypical appearing nodular density in the right upper lobe posteriorly measuring approximately 9 x 12 mm having a Y shaped and contiguous with the pulmonary artery as well as COPD. The patient was continued on steroids and fluids. Her sputum was growing Gm(-) rods. She was started on antibiotics pending final culture report. Her IVF's were discontinued and she was started on oral steroids. She was stable to be discharged home on continued antibiotics and steroids. She will f/u in the office in 4 days. <Talia Maza - 04/12/18 15:26> Objective Vital signs: Temp Pulse Resp BP Pulse Ox 98.4 F 88 20 157/80 H 96 04/12/18 08:00 04/12/18 08:00 04/12/18 08:00 04/12/18 08:00 04/12/18 08:00 <RobertAdrian french - 04/23/18 12:48> Temp Pulse Resp BP Pulse Ox 98.4 F 88 20 157/80 H 95 04/12/18 08:00 04/12/18 08:00 04/12/18 08:00 04/12/18 08:00 04/12/18 05:54 <Talia Maza - 04/12/18 15:26> Narrative: - Constitutional no acute distress - *Routine HEENT Exam Head: Present: normocephalic Eye: Present: EOMI, PERRL ENT: Present: mucous membranes dry - *Routine Neck Exam Present: supple. Absent: lymphadenopathy - *Routine Respiratory Exam Present: rhonchi, wheezes, diminished air movement. Absent: crackles - *Routine Cardiovascular Exam Present: tachycardia - *Routine Abdominal Exam Present: soft, normoactive bowel sounds. Absent: tenderness - *Routine Extremities Exam Absent: cyanosis, clubbing, edema - *Routine Skin Exam Present: warm. Absent: rash - *Routine Neurological Exam Present: alert, oriented X3 <Talia Maza - 04/12/18 15:26> Results Labs on day of discharge: Preliminary micro results at discharge 04/09/18 02:00 Sputum Culture - Preliminary Sputum - Expectorated Sputum Gram Negative Rods Gram Negative Rods#2 04/08/18 00:05 Blood Culture - Preliminary Blood NO GROWTH AFTER 48 HOURS 04/08/18 00:05 Blood Culture - Preliminary Blood NO GROWTH AFTER 48 HOURS <Talia Maza - 04/12/18 15:26> DS: Diagnosis - Discharge Diagnosis (1) Acute exacerbation of chronic obstructive airways disease Status: Acute (2) Acute bronchitis Status: Acute (3) Abnormal chest xray Status: Acute (4) Hypothyroidism Status: Chronic (5) Tobacco use disorder Status: Chronic (6) Supplemental oxygen dependent Status: Chronic (7) Hypertension Status: Chronic (8) Tachycardia Status: Acute <Talia Maza - 04/12/18 15:16> (1) Acute exacerbation of chronic obstructive airways disease Status: Acute (2) Acute bronchitis Status: Acute (3) Abnormal chest xray Status: Acute (4) Hypothyroidism Status: Chronic (5) Tobacco use disorder Status: Chronic (6) Supplemental oxygen dependent Status: Chronic (7) Hypertension Status: Chronic (8) Tachycardia Status: Acute <Adrian Jones - 04/23/18 12:48> Discharge Plan - Patient Discharge Instructions ACTIVITY: Continue current activity <Talia Maza - 04/12/18 15:26> DIET: continue same diet <Talia Maza - 04/12/18 15:26> Patient Instructions: DI for Chronic Obstructive Pulmonary Disease <Adrian Jones - 04/23/18 12:48> Forms: <Adrian Jones - 04/23/18 12:48> - Follow up Plan Follow up with: Adrian Jones MD [Primary Care Provider] - 04/16/18 <Adrian Jones - 04/23/18 12:48> Disposition: Home, Self-Care <Adrian Jones - 04/23/18 12:48> Home Medications: Home Medications Medication Instructions Recorded Confirmed Type amlodipine 10 mg tablet 10 mg PO DAILY 90 Days tab 07/27/17 04/08/18 History aspirin 81 mg tablet,delayed 81 mg PO DAILY 07/27/17 04/08/18 History release diazepam 5 mg tablet 5 mg PO HS 30 Days tab 07/27/17 04/09/18 History fluoxetine 40 mg capsule 40 mg PO DAILY 90 Days cap 07/27/17 04/09/18 History furosemide 40 mg tablet 40 mg PO DAILY 07/27/17 04/09/18 History levothyroxine 100 mcg tablet 100 mcg PO DAILY 90 Days tab 07/27/17 04/09/18 History meclizine 12.5 mg tablet 12.5 mg PO TIDP PRN 07/27/17 04/08/18 History metoclopramide 10 mg tablet 10 mg PO ACHS 30 Days tab 07/27/17 04/09/18 History nitroglycerin 0.4 mg sublingual 0.4 mg SUBLINGUAL Q5-15M PRN 07/27/17 04/08/18 History tablet pravastatin 40 mg tablet 40 mg PO HS 07/27/17 04/09/18 History RX: Albuterol Sulfate [Albuterol 2.5 mg IH NEEDED PRN 09/21/17 04/09/18 History 0.083% 2.5mg/3mL neb] RX: Cholecalciferol (Vitamin D3) 2,000 unit PO DAILY 09/21/17 04/08/18 History [Vitamin D3] RX: Ipratropium/Albuterol Sulfate 3 ml IH TID 09/21/17 04/09/18 History [Duoneb 3mL neb] RX: Lactobacillus Acidophilus 1 cap PO DAILY 09/21/17 04/08/18 History [Probiotic] RX: Potassium Chloride [Klor-Con 20 meq PO DAILY 09/21/17 04/08/18 History 10mEq tab] RX: Biotin 5,000 mcg PO DAILY 04/08/18 04/08/18 History RX: Glycopyrrolate/Formoterol Fum 2 puffs INHALATION BID 04/08/18 04/08/18 History [Bevespi Aerosphere Inhaler] RX: Benazepril HCl 20 mg PO DAILY 04/09/18 04/09/18 History <Adrian Jones - 04/23/18 12:48> Prescriptions/Medication Reconciliation: New RX: cefUROXime axetil [Ceftin 500mg Tab (GEQ)] 500 mg PO BID #14 tab RX: predniSONE [Deltasone 20mg tablet] 20 mg PO BID #10 tab Azithromycin [Zithromax 500mg Tab] 500 mg PO DAILY #3 tab Continue amlodipine 10 mg tablet 10 mg PO DAILY 90 Days tab fluoxetine 40 mg capsule 40 mg PO DAILY 90 Days cap metoclopramide 10 mg tablet 10 mg PO ACHS 30 Days tab pravastatin 40 mg tablet 40 mg PO HS furosemide 40 mg tablet 40 mg PO DAILY diazepam 5 mg tablet 5 mg PO HS 30 Days tab nitroglycerin 0.4 mg sublingual tablet 0.4 mg SUBLINGUAL Q5-15M PRN PRN Reason: Chest Pain meclizine 12.5 mg tablet 12.5 mg PO TIDP PRN PRN Reason: Dizziness aspirin 81 mg tablet,delayed release 81 mg PO DAILY levothyroxine 100 mcg tablet 100 mcg PO DAILY 90 Days tab RX: Lactobacillus Acidophilus [Probiotic] 1 cap PO DAILY RX: Cholecalciferol (Vitamin D3) [Vitamin D3] 2,000 unit PO DAILY RX: Ondansetron HCl [Zofran 4mg Tab] 4 mg PO Q6HP PRN #20 tab PRN Reason: Nausea RX: Glycopyrrolate/Formoterol Fum [Bevespi Aerosphere Inhaler] 2 puffs INHA LATION BID RX: Ipratropium/Albuterol Sulfate [Duoneb 3mL neb] 3 ml IH TID RX: Albuterol Sulfate [Albuterol 0.083% 2.5mg/3mL neb] 2.5 mg IH NEEDED PRN PRN Reason: Shortness Of Breath RX: Potassium Chloride [Klor-Con 10mEq tab] 20 meq PO DAILY RX: Biotin 5,000 mcg PO DAILY RX: Benazepril HCl 20 mg PO DAILY <Adrian Jones - 04/23/18 12:48> - Additional Information Additional Information: Concur with plan for discharge. <Adrian Jones - 04/23/18 12:48>
== END 2018-04-12 09:04 | disposition home or self-care (01) ==
LOC: ER 22:28 → 2ND 04-09 00:24
PROVIDERS: ADMIT Emergency Medicine; ATTEND Family Medicine
CPT/HCPCS: 36415; 71020; 71046; 71250; 80048; 80053; 82803; 83605; 83735; 84484; 85007; 85025; 87040; 87070; 87077; 87186; 87205; 93005; 94640; 94760; 94761; 96374; 99285; J0456

== ENCOUNTER 2018-05-19 03:45 | Observation (INO) ==
[2018-05-19 04:10] LABS: ABG Base Excess 3.4 mmol/L (-2.4-2.3); ABG HCO3 28.6 mmhg (22.0-26.0); ABG Oxygen Saturation 92 % (90-100); ABG PCO2 50.1 mmhg (35.0-45.0); ABG PH 7.37 mmol/L (7.35-7.45); ABG PO2 59.9 mmhg (80-100); ABG TCO2 30.1 mmhg (23-27); Allen's Test Y; Oxygen 3 %
[2018-05-19 04:13] LABS: Basophils # 0.1 K/mm3 (0-0.2); Basophils % 0.5 % (0.1-2.0); Eosinophils # 0.1 K/mm3 (0.0-0.4); Hematocrit 42.9 % (37.0-47.0); Lymphocytes # 1.3 K/mm3 (0.7-4.5); Lymphocytes % 12.4 % (10-50); Mean Corpuscular HGB Conc 32.5 g/dL (31.8-35.4); Mean Corpuscular Hemoglobin 29.6 pg (27.0-31.2); Mean Corpuscular Volume 91.1 fl (81-99); Mean Platelet Volume 7.7 fl (7.4-10.4); Monocytes # 0.7 K/mm3 (0.1-1.0); Monocytes % 7.2 % (1.7-9.3); Platelet Count 232 K/mm3 (142-424); Red Blood Count 4.71 M/mm3 (4.20-5.40); Red Cell Distribution Width 13.7 % (11.5-17.5); White Blood Count 10.1 K/mm3 (4.8-10.8)
[2018-05-19 04:24] LABS: Albumin Level 3.5 gm/dL (3.4-5.0); Anion Gap 15.3 mEq/L (5-15); Bilirubin,Total 0.2 mg/dL (0.2-1.0); Calcium 8.9 mg/dL (8.5-10.1); Globulin 3.6 gm/dl (1.3-3.2); Potassium 3.3 mmoL/L (3.5-5.1); Total Protein,Serum 7.1 gm/dL (6.4-8.2)
--- NOTE | 2018-05-19 04:59 | Emergency Department Note ---
ED Disposition Clinical Impression: Acute exacerbation of chronic obstructive airways disease Acute bronchitis Qualifiers: Bronchitis organism: unspecified organism Qualified Code(s): J20.9 - Acute bronchitis, unspecified Disposition: Admitted as Observation Condition on Discharge: Good Referrals: Adrian Jones MD [Primary Care Provider] - - Critical Care Critical Care Time: No Attestation: On 05/19/18, the high probability of a clinically significant, sudden or life threatening deterioration of the following system(s) required my full and direct attention, intervention and personal management. The time I documented below is in addition to time spent performing reported procedures but includes the following listed in this critical care notation. Medical Decision Making - Medical Records Medical records reviewed: Yes: I reviewed the patient's medical records. - Domingo Inquiry Pt receiving controlled substance: No Vital Signs: 05/19/18 03:48 05/19/18 04:01 05/19/18 04:04 Temperature 97.7 F Temperature Source Oral Pulse Rate [Right Brachial] 111 H Respiratory Rate 26 H Blood Pressure [Right Arm] 144/65 H Blood Pressure Mean [Right Arm] 91 Blood Pressure Source [Right Arm] Automatic Cuff 02 Sat by Pulse Oximetry 85 L 93 L Oxygen Delivery Method Nasal Cannula Nasal Cannula Oxygen Flow Rate (LPM) 2.5 3 - Lab Data Lab results reviewed: Yes: I reviewed the patient's lab results. Lab Results 05/19/18 04:00: WBC 10.1, RBC 4.71, Hgb 14.0, Hct 42.9, MCV 91.1, MCH 29.6, MCHC 32.5, RDW 13.7, Plt Count 232, MPV 7.7, Neut % (Auto) 79.0, Lymph % (Auto) 12.4, [place] % (Auto) 7.2, Eos % (Auto) 1.0, Baso % (Auto) 0.5, Neut # (Auto) 8.0 H, Lymph # (Auto) 1.3, [place] # (Auto) 0.7, Eos # (Auto) 0.1, Baso # (Auto) 0.1 05/19/18 04:00: Sodium 137, Potassium 3.3 L, Chloride 98, Carbon Dioxide 27, Anion Gap 15.3 H, BUN 13, Creatinine 1.24 H, Estimated Creat Clear 43, Estimated GFR 42 L, Est GFR ( Amer) 51 L, Glucose 161 H, Calcium 8.9, Total Bilirubin 0.2, AST 16, ALT 23, Alkaline Phosphatase 94, Total Protein 7.1, Albumin 3.5, Globulin 3.6 H, Albumin/Globulin Ratio 1.0 L 05/19/18 04:00: Lactate 0.9 05/19/18 04:08: Specimen Source R/r, O2 % 3, ABG pH 7.37, ABG pCO2 50.1 H, ABG pO2 59.9 L, ABG HCO3 28.6 H, ABG Total CO2 30.1 H, ABG O2 Saturation 92, ABG Base Excess 3.4 H, Darian Test Y Result diagrams: 05/19/18 04:00 05/19/18 04:00 Orders (Tests/Meds): ED MEDICATIONS Discontinued Medications Generic Name Dose Route Start Last Admin Trade Name Freq PRN Reason Stop Dose Admin Albuterol/Ipratropium 3 ml 05/19/18 04:01 05/19/18 04:03 Duoneb 3ml Neb IH 05/19/18 04:02 3 ml ONCE ONE Administration Methylprednisolone Sodium Succinate 125 mg 05/19/18 04:01 05/19/18 04:03 Solu-Medrol 125mg/2ml Vial IV 05/19/18 04:02 125 mg ONCE ONE Administration ORDERS Category Date Time Status XR chest portable Stat Exams 05/19/18 04:00 Taken Blood Culture Stat Micro 05/19/18 04:00 Received ABG [Arterial Blood Gas] Stat RT 05/19/18 04:00 Ordered - Radiology Data #1 Image(s): Chest Image Reviewed: Yes I reviewed the patient's radiology image Preliminary Findings: Abnormal (copd) - ECG Data Tracing #1 I reviewed this ECG and interpreted as documented below: Arrhythmias present: wandering atrial pacemaker Ischemic changes: non-specific ST-T wave changes - Physician Consults Physician Consulted: chico Reason -: Admission Resp/SOB HPI - General Chief Complaint: Shortness of Breath/Dyspnea Stated Complaint: SOB Time Seen by Provider: 05/19/18 04:05 Mode of Arrival: Wheelchair Source of Information: Patient, Spouse, Medical Record Limitations: No Limitations Description of Symptoms (Recalled from ER Triage Doc. by RN): SHORTNESS OF BREATH X 2 DAYS WITH PRODUCTIVE COUGH (CLEAR SPUTUM), WHEEZING - History of Present Illness progressive sob over the last 2 days with no fever but has prod sputum - no rash and no hemoptysis and progressive wheezing and son despite home o2 and nebulizer - no chest pain MD Complaint: shortness of breath, cough Onset (ago): day(s) Severity: moderate Known history of: COPD Associated symptoms: denies other symptoms Treatment prior to arrival: oxygen, bronchodilator - Related Data Home oxygen amount: 2 liters Home Medications Medication Instructions Recorded Confirmed amlodipine 10 mg tablet 10 mg PO DAILY 90 Days tab 07/27/17 05/19/18 aspirin 81 mg tablet,delayed 81 mg PO DAILY 07/27/17 05/19/18 release diazepam 5 mg tablet 5 mg PO HS 30 Days tab 07/27/17 05/19/18 fluoxetine 40 mg capsule 40 mg PO DAILY 90 Days cap 07/27/17 05/19/18 furosemide 40 mg tablet 40 mg PO DAILY 07/27/17 05/19/18 levothyroxine 100 mcg tablet 100 mcg PO DAILY 90 Days tab 07/27/17 05/19/18 meclizine 12.5 mg tablet 12.5 mg PO TIDP PRN 07/27/17 05/19/18 metoclopramide 10 mg tablet 10 mg PO BID 30 Days tab 07/27/17 05/19/18 nitroglycerin 0.4 mg sublingual 0.4 mg SUBLINGUAL Q5-15M PRN 07/27/17 05/19/18 tablet pravastatin 40 mg tablet 40 mg PO HS 07/27/17 05/19/18 Cholecalciferol (Vitamin D3) 2,000 unit PO DAILY 09/21/17 05/19/18 [Vitamin D3] Ipratropium/Albuterol Sulfate 3 ml IH TID 09/21/17 05/19/18 [Duoneb 3mL neb] Lactobacillus Acidophilus 1 cap PO DAILY 09/21/17 05/19/18 [Probiotic] Potassium Chloride [Klor-Con 10mEq 20 meq PO DAILY 09/21/17 05/19/18 tab] Biotin 5,000 mcg PO DAILY 04/08/18 05/19/18 Glycopyrrolate/Formoterol Fum 2 puffs INHALATION BID 04/08/18 05/19/18 [Bevespi Aerosphere Inhaler] Benazepril HCl 20 mg PO DAILY 04/09/18 05/19/18 Previous Rx's Medication Instructions Recorded Ondansetron HCl [Zofran 4mg Tab] 4 mg PO Q6HP PRN #20 tab 09/29/17 Allergies Allergy/AdvReac Type Severity Reaction Status Date / Time codeine [CODEINE] Allergy Mild Verified 04/08/18 22:39 penicillin G [PENICILLIN G] Allergy Mild Verified 04/08/18 22:39 povidone-iodine Allergy Mild Verified 04/08/18 22:39 [From BETADINE] [facility] History - Hepatitis A Screen Drug use history?: No High risk sexual behaviors?: No History of sexually transmitted infection?: No Currently employed?: No Childcare worker?: No Do you have indoor plumbing?: Yes Do you have electricity?: Yes Attestation statement:: This patient has been screened for Hepatitis A risk factors. 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) Laterality Cases: Bilateral: Tonsillectomy Other Surgeries: Yes: Cardiac Catheterization, Cholecystectomy, Colonoscopy, Thyroidectomy, Tubal Ligation, Other Amputation: No Fractures: No Comment: cysts removed from eyelids, Lasik eye surgery, parotid gland removed, discetomy - Social History Smoking Status: Current every day smoker Tobacco Type: cigarettes # Packs/Day (cigarettes): 1 #Yrs smoked (if former smoker): 50 Alcohol Intake: never Alcohol Intake Frequency:: holidays/special occasions only Occupational Status: retired Housing: house Household Members: spouse - Psychiatric History Expresses thoughts of harming self/others: None Suicide Plan Description: No Plan Family Hx:: Cancer, Diabetes, Hypertension, Stroke ROS Obtained: Yes All systems reviewed & no additional complaints - Constitutional Constitutional: Denies fever(s) - Eyes Eyes: Denies change in vision - ENT Ears, Nose, Mouth, and Throat: Denies sore throat - Cardiovascular Cardiovascular: Denies chest pain, Reports dyspnea - Respiratory Respiratory: Yes as per HPI, Yes cough, Yes dyspnea, No coughing up blood, Yes wheezing - Gastrointestinal Gastrointestingal: Denies: abdominal pain - Genitourinary Female Genitourinary: Denies dysuria - Musculoskeletal Musculoskeletal: Denies joint pain, Denies neck pain - Integumentary/Breasts Skin/Breast: Denies rash - Neurologic Neurologic: Denies seizure-like activity Physical Exam - General General appearance: alert - Head Head exam: normocephalic - Eye Eye exam: Present: PERRL, EOMI - ENT ENT exam: Present: mucous membranes dry - Neck Neck exam: Present: trachea midline - Respiratory Respiratory exam: Present: wheezes, prolonged expiratory phase. Absent: respiratory distress - Cardiovascular Cardiovascular exam: Present: regular rate, systolic murmur, +S4 - Abdominal Exam Abdominal exam: Present: soft - Extremities Exam Extremities exam: Absent: calf tenderness - Neurological Exam Neurological exam: Present: alert, oriented X3, CN II-XII intact - Psychiatric Psychiatric exam: Present: normal affect - Skin Skin exam: Absent: rash
--- NOTE | 2018-05-19 07:31 | Pharmacy Consult Notes ---
[facility] VTE Monitoring - Patient Demographics Admission date: 05/19/18 Report Date: 05/19/18 Time: 07:31 Allergies/Adverse Reactions: Patient Allergies codeine [CODEINE] Allergy (Mild, Verified 04/08/18 22:39) penicillin G [PENICILLIN G] Allergy (Mild, Verified 04/08/18 22:39) povidone-iodine [From BETADINE] Allergy (Mild, Verified 04/08/18 22:39) Height: 1.57 m Weight: 67.642 kg Patient Problems: Current Active Problems Acute exacerbation of chronic obstructive airways disease (Acute) Acute bronchitis (Acute) - VTE Risk Labs: VTE Related Lab Results Hgb 14.0 g/dL (12.2-16.2) 05/19/18 04:00 Hct 42.9 % (37.0-47.0) 05/19/18 04:00 Plt Count 232 K/mm3 (142-424) 05/19/18 04:00 BUN 13 mg/dL (7-18) 05/19/18 04:00 Creatinine 1.24 mg/dL (0.55-1.02) H 05/19/18 04:00 Estimated Creat Clear 43 mL/min (50-200) 05/19/18 04:00 Was VTE Risk Assessment Performed: Yes VTE Score: 7 VTE Risk Level: Moderate Risk Clinical Trial Participant: No - Prophylaxis VTE Prophylaxis Ordered?: Yes Types of VTE Prophylaxis: TEDS Knee High Location of Applied Device: Refused
--- NOTE | 2018-05-19 08:36 | History & Physical Report ---
*Admission Date: 05/19/18 <Talia Maza 05/19/18 08:41> *Chief complaint: Shortness of breath <Talia Maza 05/19/18 08:41> *History of present illness: Ms. Chu is a 73-year-old female with a history of oxygen dependent COPD who was recently discharged from [facility] after an admission for pneumonia. She states she was doing well until the past few days when she began getting progressively more short of breath. She states she had a nebulizer at home and was using this as well as her inhaler. She states she normally stays on 2-1/2 L of oxygen and thought about turning it up, but decided against this due to CO2 retention. She was unable to breathe this morning and presented to the emergency room for evaluation and treatment. She was felt to have a COPD exacerbation in the ER and was given steroids, nebulizer treatments, abx, and was placed on oxygen at 4 L. She was admitted for further evaluation and treatment. At this time she is feeling slightly better. 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) <Talia Maza 05/19/18 08:41> Laterality Cases: Bilateral: Tonsillectomy <Talia Maza 05/19/18 08:41> Other Surgeries: Yes: Cardiac Catheterization, Cholecystectomy, Colonoscopy, Thyroidectomy, Tubal Ligation, Other <Talia Maza 05/19/18 08:41> Amputation: No <Talia Maza 05/19/18 08:41> Fractures: No <Talia Maza 05/19/18 08:41> - *Social History Educational Level: Completed High School <Talia Maza 05/19/18 08:41> Smoking Status: Current every day smoker <Talia Maza 05/19/18 08:41> Tobacco Type: cigarettes <Talia Maza 05/19/18 08:41> # Packs/Day (cigarettes): 1 <Talia Maza 05/19/18 08:41> #Yrs smoked (if former smoker): 50 <Talia Maza 05/19/18 08:41> Alcohol Intake: never <Talia Maza 05/19/18 08:41> Alcohol Intake Frequency:: holidays/special occasions only <Talia Maza 05/19/18 08:41> Occupational Status: retired <Talia Maza 05/19/18 08:41> Housing: house <Talia Maza 05/19/18 08:41> Household Members: spouse <Talia Maza 05/19/18 08:41> - Psychiatric History Expresses thoughts of harming self/others: None <Talia Maza 05/19/18 08:41> Suicide Plan Description: No Plan <Talia Maza 05/19/18 08:41> *Family Hx:: Cancer, Diabetes, Hyperlipidemia, Hypertension, Stroke, Thyroid Disorder <Talia Maza 05/19/18 08:41> Review of Systems - Constitutional Reports weakness, Denies body ache(s), Denies chills <Talia Maza 05/19/18 08:41> - Eyes Denies blurry vision, Denies double vision <Talia Maza 05/19/18 08:41> - ENT Reports nasal congestion, Denies sore throat <Talia Maza 05/19/18 08:41> - *Cardiovascular Reports shortness of breath, Denies chest pain, Denies rapid, pounding, or irregular heartbeat <Talia Maza 05/19/18 08:41> - *Respiratory Reports chest congestion, Reports cough, Reports shortness of breath <[facility] 05/19/18 08:41> - *Gastrointestinal Denies abdominal pain, Denies loose stools, Denies nausea, Denies vomiting <Talia Maza 05/19/18 08:41> - *Genitourinary Denies difficulty urinating, Denies painful urination <Talia Maza - 05/19/18 08:41> - *Musculoskeletal Denies joint pain, Denies body aches <Talia Maza - 05/19/18 08:41> - *Neurologic Reports weakness, Denies dizziness, Denies headache(s), Denies seizure-like activity, Denies dizziness <Talia Maza - 05/19/18 08:41> Meds Home Medications Medication Instructions Recorded Confirmed Type amlodipine 10 mg tablet 10 mg PO DAILY 90 Days tab 07/27/17 05/19/18 History aspirin 81 mg tablet,delayed 81 mg PO DAILY 07/27/17 05/19/18 History release diazepam 5 mg tablet 5 mg PO HS 30 Days tab 07/27/17 05/19/18 History fluoxetine 40 mg capsule 40 mg PO DAILY 90 Days cap 07/27/17 05/19/18 History furosemide 40 mg tablet 40 mg PO DAILY 07/27/17 05/19/18 History levothyroxine 100 mcg tablet 100 mcg PO DAILY 90 Days tab 07/27/17 05/19/18 History meclizine 12.5 mg tablet 12.5 mg PO TIDP PRN 07/27/17 05/19/18 History metoclopramide 10 mg tablet 10 mg PO BID 30 Days tab 07/27/17 05/19/18 History nitroglycerin 0.4 mg sublingual 0.4 mg SUBLINGUAL Q5-15M PRN 07/27/17 05/19/18 History tablet pravastatin 40 mg tablet 40 mg PO HS 07/27/17 05/19/18 History Cholecalciferol (Vitamin D3) 2,000 unit PO DAILY 09/21/17 05/19/18 History [Vitamin D3] Ipratropium/Albuterol Sulfate 3 ml IH TID 09/21/17 05/19/18 History [Duoneb 3mL neb] Lactobacillus Acidophilus 1 cap PO DAILY 09/21/17 05/19/18 History [Probiotic] Potassium Chloride [Klor-Con 10mEq 20 meq PO DAILY 09/21/17 05/19/18 History tab] Biotin 5,000 mcg PO DAILY 04/08/18 05/19/18 History Glycopyrrolate/Formoterol Fum 2 puffs INHALATION BID 04/08/18 05/19/18 History [Bevespi Aerosphere Inhaler] Benazepril HCl 20 mg PO DAILY 04/09/18 05/19/18 History <Adrian Jones - 05/19/18 10:02> Allergies Allergy/AdvReac Type Severity Reaction Status Date / Time codeine [CODEINE] Allergy Mild Verified 04/08/18 22:39 penicillin G [PENICILLIN G] Allergy Mild Verified 04/08/18 22:39 povidone-iodine Allergy Mild Verified 04/08/18 22:39 [From BETADINE] <Adrian Jones - 05/19/18 10:02> Exam Vital signs and Labs for Last 24 Hours: Temp Pulse Resp BP Pulse Ox 98.0 F 100 H 18 140/61 91 L 05/19/18 07:56 05/19/18 09:07 05/19/18 07:56 05/19/18 07:56 05/19/18 09:07 Laboratory Results - last 24 hr 05/19/18 04:00: WBC 10.1, RBC 4.71, Hgb 14.0, Hct 42.9, MCV 91.1, MCH 29.6, MCHC 32.5, RDW 13.7, Plt Count 232, MPV 7.7, Neut % (Auto) 79.0, Lymph % (Auto) 12.4, [place] % (Auto) 7.2, Eos % (Auto) 1.0, Baso % (Auto) 0.5, Neut # (Auto) 8.0 H, Lymph # (Auto) 1.3, [place] # (Auto) 0.7, Eos # (Auto) 0.1, Baso # (Auto) 0.1 05/19/18 04:00: Sodium 137, Potassium 3.3 L, Chloride 98, Carbon Dioxide 27, Anion Gap 15.3 H, BUN 13, Creatinine 1.24 H, Estimated Creat Clear 43, Estimated GFR 42 L, Est GFR ( Amer) 51 L, Glucose 161 H, Calcium 8.9, Total Bilirubin 0.2, AST 16, ALT 23, Alkaline Phosphatase 94, Total Protein 7.1, Albumin 3.5, Globulin 3.6 H, Albumin/Globulin Ratio 1.0 L 05/19/18 04:00: Lactate 0.9 05/19/18 04:00: Troponin I < 0.02 05/19/18 04:08: Specimen Source R/r, O2 % 3, ABG pH 7.37, ABG pCO2 50.1 H, ABG pO2 59.9 L, ABG HCO3 28.6 H, ABG Total CO2 30.1 H, ABG O2 Saturation 92, ABG Base Excess 3.4 H, Darian Test Y <Adrian Jones - 05/19/18 10:02> Temp Pulse Resp BP Pulse Ox 98.0 F 117 H 18 140/61 91 L 05/19/18 07:56 05/19/18 07:56 05/19/18 07:56 05/19/18 07:56 05/19/18 07:56 Laboratory Results - last 24 hr 05/19/18 04:00: WBC 10.1, RBC 4.71, Hgb 14.0, Hct 42.9, MCV 91.1, MCH 29.6, MCHC 32.5, RDW 13.7, Plt Count 232, MPV 7.7, Neut % (Auto) 79.0, Lymph % (Auto) 12.4, [place] % (Auto) 7.2, Eos % (Auto) 1.0, Baso % (Auto) 0.5, Neut # (Auto) 8.0 H, Lymph # (Auto) 1.3, [place] # (Auto) 0.7, Eos # (Auto) 0.1, Baso # (Auto) 0.1 05/19/18 04:00: Sodium 137, Potassium 3.3 L, Chloride 98, Carbon Dioxide 27, Anion Gap 15.3 H, BUN 13, Creatinine 1.24 H, Estimated Creat Clear 43, Estimated GFR 42 L, Est GFR ( Amer) 51 L, Glucose 161 H, Calcium 8.9, Total Bilirubin 0.2, AST 16, ALT 23, Alkaline Phosphatase 94, Total Protein 7.1, Albumin 3.5, Globulin 3.6 H, Albumin/Globulin Ratio 1.0 L 05/19/18 04:00: Lactate 0.9 05/19/18 04:00: Troponin I < 0.02 05/19/18 04:08: Specimen Source R/r, O2 % 3, ABG pH 7.37, ABG pCO2 50.1 H, ABG pO2 59.9 L, ABG HCO3 28.6 H, ABG Total CO2 30.1 H, ABG O2 Saturation 92, ABG Base Excess 3.4 H, Darian Test Y <Talia Maza 05/19/18 08:41> I & O for Last 24 hours: Intake & Output 05/16/18 05/17/18 05/18/18 05/19/18 11:59 11:59 11:59 11:59 Weight 149 lb 2 oz <Adrian Jones - 05/19/18 10:02> Intake & Output 05/16/18 05/17/18 05/18/18 05/19/18 11:59 11:59 11:59 11:59 Weight 149 lb 2 oz <Talia Maza 05/19/18 08:41> - Constitutional no acute distress <ShermanvaniTalia 05/19/18 08:41> - *Routine HEENT Exam Head: Present: normocephalic <LinkTalia 05/19/18 08:41> Eye: Present: EOMI, PERRL <LinkTalia 05/19/18 08:41> ENT: Present: mucous membranes moist <ShermanvaniTalia 05/19/18 08:41> - *Routine Neck Exam Present: supple. Absent: lymphadenopathy <LinkTalia 05/19/18 08:41> - *Routine Respiratory Exam Present: diminished air movement <ShermanvaniTalia 05/19/18 08:41> - *Routine Cardiovascular Exam Present: RRR <LinkTalia 05/19/18 08:41> - *Routine Abdominal Exam Present: soft, normoactive bowel sounds. Absent: tenderness <LinkTalia 05/19/18 08:41> - *Routine Extremities Exam Absent: cyanosis, clubbing, edema <LinkTalia 05/19/18 08:41> - *Routine Skin Exam Present: warm. Absent: rash <LinkTalia 05/19/18 08:41> - *Routine Neurological Exam Present: alert, oriented X3 <LinkTalia 05/19/18 08:41> H&P: Result - Impressions Awaiting CXR report <Talia Maza 05/19/18 08:41> Assessment and Plan (1) Acute exacerbation of chronic obstructive airways disease Current visit: Yes Status: Acute Category: Medical Code(s): J44.1 - Chronic obstructive pulmonary disease with (acute) exacerbation (2) Hypokalemia Current visit: Yes Status: Acute Category: Medical Code(s): E87.6 - Hypokalemia (3) Hypertension Current visit: No Status: Chronic Category: Medical Code(s): I10 - Essential (primary) hypertension (4) Hypothyroidism Current visit: No Status: Chronic Qualifiers: Hypothyroidism type: unspecified Qualified Code(s): E03.9 - Hypothyroidism, unspecified Category: Medical Code(s): E03.9 - Hypothyroidism, unspecified (5) Supplemental oxygen dependent Current visit: No Status: Chronic Category: Medical Code(s): Z99.81 - Dependence on supplemental oxygen (6) Tobacco use disorder Current visit: No Status: Chronic Category: Medical Code(s): F17.200 - Nicotine dependence, unspecified, uncomplicated <Talia Maza - 05/19/18 08:33> (1) Acute exacerbation of chronic obstructive airways disease Current visit: Yes Status: Acute Category: Medical Code(s): J44.1 - Chronic obstructive pulmonary disease with (acute) exacerbation (2) Hypokalemia Current visit: Yes Status: Acute Category: Medical Code(s): E87.6 - Hypokalemia (3) Hypertension Current visit: No Status: Chronic Category: Medical Code(s): I10 - Essential (primary) hypertension (4) Hypothyroidism Current visit: No Status: Chronic Qualifiers: Hypothyroidism type: unspecified Qualified Code(s): E03.9 - Hypothyroidism, unspecified Category: Medical Code(s): E03.9 - Hypothyroidism, unspecified (5) Supplemental oxygen dependent Current visit: No Status: Chronic Category: Medical Code(s): Z99.81 - Dependence on supplemental oxygen (6) Tobacco use disorder Current visit: No Status: Chronic Category: Medical Code(s): F17.200 - Nicotine dependence, unspecified, uncomplicated <Adrian Jones - 05/19/18 10:02> - Assessment and plan all Dx Assessment and Plan for all problems:: Patient seen and examined. She is already feeling much better. Will d/c IVF and continue current plan pending review of CXR. Will attempt to wean to her home FiO2 of 2liters <Adrian Jones - 05/19/18 10:02> Some of her home medications have been continued. We will continue steroids, nebs, antibiotics, and supplemental oxygen. Will try to wean her oxygen back down to 2-1/2 L. Will await chest x-ray report. Will saline lock today. <Talia Maza - 05/19/18 08:41>
--- NOTE | 2018-05-20 22:13 | Discharge Summary ---
General - General Admission date:: 05/19/18 Discharge date: 05/19/18 HPI HPI: Ms. Chu is a 73-year-old female with a history of oxygen dependent COPD who was recently discharged from [facility] after an admission for pneumonia. She states she was doing well until the past few days when she began getting progressively more short of breath. She states she had a nebulizer at home and was using this as well as her inhaler. She states she normally stays on 2-1/2 L of oxygen and thought about turning it up, but decided against this due to CO2 retention. She was unable to breathe this morning and presented to the emergency room for evaluation and treatment. She was felt to have a COPD exacerbation in the ER and was given steroids, nebulizer treatments, abx, and was placed on oxygen at 4 L. She was admitted for further evaluation and treatment. At this time she is feeling slightly better. Hospital Course Hospital Course: The patient was saline locked and her oxygen was weaned down to 2.5L of nasal oxygen with sats in the mid 90's. Her CXR showed COPD with obscuration of the right lung base that could be related to underlying infiltrate. It also showed an increasing parenchymal opacity in the right midline. Radiology felt the patient would need a chest CT. She felt better and was adamant about going home. Her WBC was normal. She had received abx, nebs, and steroids while in the hospital. She was stable to be discharged home on steroids. She has nebs at home. She will need close f/u in 2 days and an outpatient chest CT. Objective Vital signs: Temp Pulse Resp BP Pulse Ox 98.0 F 100 H 18 140/61 91 L 05/19/18 07:56 05/19/18 09:07 05/19/18 07:56 05/19/18 07:56 05/19/18 09:07 Narrative: - Constitutional no acute distress - *Routine HEENT Exam Head: Present: normocephalic Eye: Present: EOMI, PERRL ENT: Present: mucous membranes moist - *Routine Neck Exam Present: supple. Absent: lymphadenopathy - *Routine Respiratory Exam Present: diminished air movement - *Routine Cardiovascular Exam Present: RRR - *Routine Abdominal Exam Present: soft, normoactive bowel sounds. Absent: tenderness - *Routine Extremities Exam Absent: cyanosis, clubbing, edema - *Routine Skin Exam Present: warm. Absent: rash - *Routine Neurological Exam Present: alert, oriented X3 Results Labs on day of discharge: Preliminary micro results at discharge 05/19/18 09:30 Sputum Culture - Preliminary Sputum - Expectorated Sputum DS: Diagnosis - Discharge Diagnosis (1) Acute exacerbation of chronic obstructive airways disease Status: Acute (2) Hypokalemia Status: Acute (3) Hypertension Status: Chronic (4) Hypothyroidism Status: Chronic (5) Supplemental oxygen dependent Status: Chronic (6) Tobacco use disorder Status: Chronic Discharge Plan - Patient Discharge Instructions ACTIVITY: Limited activity DIET: continue same diet Patient Instructions: DI for Chronic Obstructive Pulmonary Disease - Follow up Plan Follow up with: Adrian Jones MD [Primary Care Provider] - 05/21/18 Disposition: Home, Self-Skilled Nursing Medications: Home Medications Medication Instructions Recorded Confirmed Type amlodipine 10 mg tablet 10 mg PO DAILY 90 Days tab 07/27/17 05/19/18 History aspirin 81 mg tablet,delayed 81 mg PO DAILY 07/27/17 05/19/18 History release diazepam 5 mg tablet 5 mg PO BID 30 Days tab 07/27/17 05/19/18 History fluoxetine 40 mg capsule 40 mg PO DAILY 90 Days cap 07/27/17 05/19/18 History furosemide 40 mg tablet 40 mg PO DAILY 07/27/17 05/19/18 History levothyroxine 100 mcg tablet 100 mcg PO DAILY 90 Days tab 07/27/17 05/19/18 History meclizine 12.5 mg tablet 12.5 mg PO TIDP PRN 07/27/17 05/19/18 History metoclopramide 10 mg tablet 10 mg PO ACHS 30 Days tab 07/27/17 05/19/18 History nitroglycerin 0.4 mg sublingual 0.4 mg SUBLINGUAL Q5MINP PRN 07/27/17 05/20/18 History tablet pravastatin 40 mg tablet 40 mg PO HS 07/27/17 05/19/18 History Cholecalciferol (Vitamin D3) 2,000 unit PO DAILY 09/21/17 05/19/18 History [Vitamin D3] Ipratropium/Albuterol Sulfate 3 ml IH TID 09/21/17 05/19/18 History [Duoneb 3mL neb] Lactobacillus Acidophilus 1 cap PO DAILY 09/21/17 05/19/18 History [Probiotic] Potassium Chloride [Klor-Con 10mEq 20 meq PO DAILY 09/21/17 05/19/18 History tab] Ondansetron HCl [Zofran 4mg Tab] 4 mg PO Q6HP PRN #20 tab 09/29/17 05/19/18 Rx Biotin 5,000 mcg PO DAILY 04/08/18 05/19/18 History Glycopyrrolate/Formoterol Fum 2 puffs INHALATION BID 04/08/18 05/19/18 History [Bevespi Aerosphere Inhaler] Benazepril HCl 20 mg PO DAILY 04/09/18 05/19/18 History predniSONE [Prednisone 20mg 20 mg PO BID 05/19/18 05/19/18 History Tab] Prescriptions/Medication Reconciliation: Continue amlodipine 10 mg tablet 10 mg PO DAILY 90 Days tab fluoxetine 40 mg capsule 40 mg PO DAILY 90 Days cap metoclopramide 10 mg tablet 10 mg PO ACHS 30 Days tab pravastatin 40 mg tablet 40 mg PO HS furosemide 40 mg tablet 40 mg PO DAILY diazepam 5 mg tablet 5 mg PO BID 30 Days tab nitroglycerin 0.4 mg sublingual tablet 0.4 mg SUBLINGUAL Q5MINP PRN PRN Reason: Chest Pain meclizine 12.5 mg tablet 12.5 mg PO TIDP PRN PRN Reason: Dizziness aspirin 81 mg tablet,delayed release 81 mg PO DAILY levothyroxine 100 mcg tablet 100 mcg PO DAILY 90 Days tab Lactobacillus Acidophilus [Probiotic] 1 cap PO DAILY Cholecalciferol (Vitamin D3) [Vitamin D3] 2,000 unit PO DAILY Ondansetron HCl [Zofran 4mg Tab] 4 mg PO Q6HP PRN #20 tab PRN Reason: Nausea Glycopyrrolate/Formoterol Fum [Bevespi Aerosphere Inhaler] 2 puffs INHALATION BID Ipratropium/Albuterol Sulfate [Duoneb 3mL neb] 3 ml IH TID Potassium Chloride [Klor-Con 10mEq tab] 20 meq PO DAILY Biotin 5,000 mcg PO DAILY Benazepril HCl 20 mg PO DAILY No Action predniSONE [Prednisone 20mg Tab] 20 mg PO BID
== END 2018-05-19 11:45 | disposition home or self-care (01) ==
LOC: ER 03:45 → 2ND 03:45
PROVIDERS: ADMIT Family Medicine; ATTEND Family Medicine
DX: J44.1 Chronic obstructive pulmonary disease with (acute) exacerbation
CPT/HCPCS: 71010; 71045; 80053; 82803; 83605; 84484; 85025; 87040; 87070; 87205; 93005; 94640; 96365; 96375; 99284; G0378; J1956

== ENCOUNTER 2018-05-19 21:57 | Inpatient (IN) ==
[2018-05-19 22:18] LABS: Basophils % 0.2 % (0.1-2.0); Eosinophils % 0.5 % (0.1-12.0); Hematocrit 43.5 % (37.0-47.0); Hemoglobin 14.2 g/dL (12.2-16.2); Lymphocytes # 0.8 K/mm3 (0.7-4.5); Mean Corpuscular HGB Conc 32.6 g/dL (31.8-35.4); Mean Corpuscular Hemoglobin 29.6 pg (27.0-31.2); Mean Corpuscular Volume 90.8 fl (81-99); Mean Platelet Volume 7.6 fl (7.4-10.4); Monocytes # 0.4 K/mm3 (0.1-1.0); Neutrophils # 5.7 K/mm3 (1.8-7.8); Neutrophils % 82.3 % (37.0-80.0); Platelet Count 260 K/mm3 (142-424); Red Blood Count 4.78 M/mm3 (4.20-5.40); Red Cell Distribution Width 13.7 % (11.5-17.5)
[2018-05-19 22:31] LABS: Albumin Level 3.6 gm/dL (3.4-5.0); Albumin/Globulin Ratio 0.9 (1.1-1.8); Anion Gap 15.8 mEq/L (5-15); Bilirubin,Total 0.2 mg/dL (0.2-1.0); Calcium 9.1 mg/dL (8.5-10.1); Globulin 3.8 gm/dl (1.3-3.2); Potassium 3.8 mmoL/L (3.5-5.1); Total Protein,Serum 7.4 gm/dL (6.4-8.2)
--- NOTE | 2018-05-20 00:03 | Emergency Department Note ---
ED Disposition Clinical Impression: Acute exacerbation of chronic obstructive airways disease CAP (community acquired pneumonia) Qualifiers: Laterality: right Lung location: lower lobe of lung Qualified Code(s): J18.1 - Lobar pneumonia, unspecified organism Disposition: Admitted as Observation Condition on Discharge: Good Referrals: Adrian Jones MD [Primary Care Provider] - - Critical Care Critical Care Time: No Attestation: On 05/19/18, the high probability of a clinically significant, sudden or life threatening deterioration of the following system(s) required my full and direct attention, intervention and personal management. The time I documented below is in addition to time spent performing reported procedures but includes the following listed in this critical care notation. Medical Decision Making - Medical Records Medical records reviewed: Yes: I reviewed the patient's medical records. - Domingo Inquiry Pt receiving controlled substance: No Vital Signs: 05/19/18 21:57 05/19/18 22:03 05/19/18 22:13 Temperature 98.2 F Temperature Source Oral Pulse Rate 118 H Pulse Rate [Right Brachial] 125 H 130 H Respiratory Rate 22 24 Blood Pressure [Right Arm] 181/76 H 181/76 H Blood Pressure Mean [Right Arm] 111 111 Blood Pressure Source [Right Arm] Automatic Cuff Automatic Cuff Blood Pressure Position [Right Arm] Sitting Sitting 02 Sat by Pulse Oximetry 88 L 85 L Oxygen Delivery Method Nasal Cannula Nasal Cannula Oxygen Flow Rate (LPM) 3 2 05/19/18 22:27 05/19/18 22:57 05/19/18 23:45 Temperature Temperature Source Pulse Rate Pulse Rate [Right Brachial] 122 H 109 H 113 H Respiratory Rate 22 24 22 Blood Pressure [Right Arm] 144/67 H 142/77 H 170/92 H Blood Pressure Mean [Right Arm] 92 98 118 Blood Pressure Source [Right Arm] Automatic Cuff Automatic Cuff Automatic Cuff Blood Pressure Position [Right Arm] Sitting Sitting Sitting 02 Sat by Pulse Oximetry 88 L 88 L 90 L Oxygen Delivery Method Nasal Cannula Nasal Cannula Nasal Cannula Oxygen Flow Rate (LPM) 2 2 2 - Lab Data Lab results reviewed: Yes: I reviewed the patient's lab results. Lab Results 05/19/18 22:05: WBC 7.0 D, RBC 4.78, Hgb 14.2, Hct 43.5, MCV 90.8, MCH 29.6, MCHC 32.6, RDW 13.7, Plt Count 260, MPV 7.6, Neut % (Auto) 82.3 H, Lymph % (Auto) 12.0, Dent % (Auto) 5.0, Eos % (Auto) 0.5, Baso % (Auto) 0.2, Neut # (Auto) 5.7, Lymph # (Auto) 0.8, Dent # (Auto) 0.4, Eos # (Auto) 0.0, Baso # (Auto) 0.0 05/19/18 22:05: Sodium 137, Potassium 3.8, Chloride 99, Carbon Dioxide 26, Anion Gap 15.8 H, BUN 16, Creatinine 1.10 H, Estimated Creat Clear 49, Estimated GFR 49 L, Est GFR ( Amer) 59, Glucose 181 H, Calcium 9.1, Total Bilirubin 0.2, AST 13 L, ALT 24, Alkaline Phosphatase 96, Total Protein 7.4, Albumin 3.6, Globulin 3.8 H, Albumin/Globulin Ratio 0.9 L 05/19/18 22:05: Lactate 2.0 Result diagrams: 05/19/18 22:05 05/19/18 22:05 Orders (Tests/Meds): ED MEDICATIONS Generic Name Dose Route Start Last Admin Trade Name Freq PRN Reason Stop Dose Admin Sodium Chloride 10 ml 05/19/18 22:05 Saline Flush 10ml Syringe IV 06/18/18 22:04 NEEDED PRN Maintain IV Site Discontinued Medications Generic Name Dose Route Start Last Admin Trade Name Freq PRN Reason Stop Dose Admin Albuterol/Ipratropium 3 ml 05/19/18 22:06 05/19/18 22:12 Duoneb 3ml Neb IH 05/19/18 22:07 3 ml ONCE ONE Administration ORDERS Category Date Time Status XR chest 2V Stat Exams 05/19/18 22:04 Taken - Radiology Data #1 Image(s): Chest Image Reviewed: Yes I reviewed the patient's radiology image Preliminary Findings: Abnormal (copd) - Physician Consults Physician Consulted: abram Reason -: Admission Resp/SOB HPI - General Chief Complaint: Shortness of Breath/Dyspnea Stated Complaint: SOA Time Seen by Provider: 05/19/18 23:57 Mode of Arrival: Family Vehicle Source of Information: Patient, Spouse, Medical Record Limitations: No Limitations Description of Symptoms (Recalled from ER Triage Doc. by RN): Pt states she is having SOA, no other symptoms at this time. - History of Present Illness pt was seen earlier today and admitted but felt better and was d/c around noon but started with sob and no relief with o2 and home nebulizer and presented back to ed this pm - no fever or hemoptysis- has used meds but inc ward - Complaint: shortness of breath, cough Onset (ago): hour(s) Context: recent illness Severity: moderate Known history of: COPD Associated symptoms: cough Treatment prior to arrival: oxygen, bronchodilator - Related Data Home oxygen amount: 2 liters Home Medications Medication Instructions Recorded Confirmed amlodipine 10 mg tablet 10 mg PO DAILY 90 Days tab 07/27/17 05/19/18 aspirin 81 mg tablet,delayed 81 mg PO DAILY 07/27/17 05/19/18 release diazepam 5 mg tablet 5 mg PO BID 30 Days tab 07/27/17 05/19/18 fluoxetine 40 mg capsule 40 mg PO DAILY 90 Days cap 07/27/17 05/19/18 furosemide 40 mg tablet 40 mg PO DAILY 07/27/17 05/19/18 levothyroxine 100 mcg tablet 100 mcg PO DAILY 90 Days tab 07/27/17 05/19/18 meclizine 12.5 mg tablet 12.5 mg PO TIDP PRN 07/27/17 05/19/18 metoclopramide 10 mg tablet 10 mg PO ACHS 30 Days tab 07/27/17 05/19/18 nitroglycerin 0.4 mg sublingual 0.4 mg SUBLINGUAL Q5-15M PRN 07/27/17 05/19/18 tablet pravastatin 40 mg tablet 40 mg PO HS 07/27/17 05/19/18 Cholecalciferol (Vitamin D3) 2,000 unit PO DAILY 09/21/17 05/19/18 [Vitamin D3] Ipratropium/Albuterol Sulfate 3 ml IH TID 09/21/17 05/19/18 [Duoneb 3mL neb] Lactobacillus Acidophilus 1 cap PO DAILY 09/21/17 05/19/18 [Probiotic] Potassium Chloride [Klor-Con 10mEq 20 meq PO DAILY 09/21/17 05/19/18 tab] Biotin 5,000 mcg PO DAILY 04/08/18 05/19/18 Glycopyrrolate/Formoterol Fum 2 puffs INHALATION BID 04/08/18 05/19/18 [Bevespi Aerosphere Inhaler] Benazepril HCl 20 mg PO DAILY 04/09/18 05/19/18 predniSONE [Prednisone 20mg 20 mg PO BID 05/19/18 05/19/18 Tab] Previous Rx's Medication Instructions Recorded Ondansetron HCl [Zofran 4mg Tab] 4 mg PO Q6HP PRN #20 tab 09/29/17 Allergies Allergy/AdvReac Type Severity Reaction Status Date / Time codeine [CODEINE] Allergy Mild Verified 05/19/18 22:02 penicillin G [PENICILLIN G] Allergy Mild Verified 05/19/18 22:02 povidone-iodine Allergy Mild Verified 05/19/18 22:02 [From BETADINE] [facility] History - Hepatitis A Screen Drug use history?: No High risk sexual behaviors?: No History of sexually transmitted infection?: No Currently employed?: No Childcare worker?: No Do you have indoor plumbing?: Yes Do you have electricity?: Yes Attestation statement:: This patient has been screened for Hepatitis A risk factors. 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) Laterality Cases: Bilateral: Tonsillectomy Other Surgeries: Yes: Cardiac Catheterization, Cholecystectomy, Colonoscopy, Thy roidectomy, Tubal Ligation, Other Amputation: No Fractures: No Comment: cysts removed from eyelids, Lasik eye surgery, parotid gland removed, discetomy - Social History Smoking Status: Current every day smoker Tobacco Type: cigarettes # Packs/Day (cigarettes): 1 #Yrs smoked (if former smoker): 50 Alcohol Intake: never Alcohol Intake Frequency:: holidays/special occasions only Occupational Status: retired Housing: house Household Members: spouse - Psychiatric History Expresses thoughts of harming self/others: None Suicide Plan Description: No Plan Family Hx:: Cancer, Diabetes, Hyperlipidemia, Hypertension, Stroke, Thyroid Disorder ROS Obtained: Yes All systems reviewed & no additional complaints - Constitutional Constitutional: Denies fever(s) - Eyes Eyes: Denies change in vision - ENT Ears, Nose, Mouth, and Throat: Denies sore throat - Cardiovascular Cardiovascular: Denies chest pain, Denies dyspnea - Respiratory Respiratory: Yes as per HPI, Yes cough, Yes non-productive cough, No coughing up blood - Gastrointestinal Gastrointestingal: Denies: abdominal pain - Genitourinary Female Genitourinary: Denies dysuria - Musculoskeletal Musculoskeletal: Denies joint pain, Denies joint swelling - Integumentary/Breasts Skin/Breast: Denies rash - Neurologic Neurologic: Denies dizziness, Denies seizure-like activity Physical Exam - General General appearance: alert - Head Head exam: normocephalic - Eye Eye exam: Present: PERRL, EOMI. Absent: scleral icterus - ENT ENT exam: Present: mucous membranes dry - Neck Neck exam: Present: trachea midline - Respiratory Respiratory exam: Absent: respiratory distress - Cardiovascular Cardiovascular exam: Present: systolic murmur, +S4. Absent: regular rate - Abdominal Exam Abdominal exam: Present: soft - Extremities Exam Extremities exam: Absent: calf tenderness - Neurological Exam Neurological exam: Present: oriented X3, CN II-XII intact - Psychiatric Psychiatric exam: Present: normal affect - Skin Skin exam: Absent: rash
[2018-05-20 05:36] LABS: ABG Base Excess 3.9 mmol/L (-2.4-2.3); ABG HCO3 28.5 mmhg (22.0-26.0); ABG Oxygen Saturation 95 % (90-100); ABG PCO2 45.4 mmhg (35.0-45.0); ABG PH 7.42 mmol/L (7.35-7.45); ABG PO2 70.2 mmhg (80-100); ABG TCO2 29.9 mmhg (23-27)
[2018-05-20 05:38] LABS: Allen's Test Acceptable; Oxygen 35% %
[2018-05-20 06:50] LABS: Basophils % 0.1 % (0.1-2.0); Hemoglobin 13.8 g/dL (12.2-16.2); Lymphocytes # 0.7 K/mm3 (0.7-4.5); Lymphocytes % 8.3 % (10-50); Mean Corpuscular HGB Conc 32.8 g/dL (31.8-35.4); Mean Corpuscular Hemoglobin 29.8 pg (27.0-31.2); Mean Corpuscular Volume 90.9 fl (81-99); Mean Platelet Volume 7.6 fl (7.4-10.4); Monocytes # 0.3 K/mm3 (0.1-1.0); Monocytes % 3.6 % (1.7-9.3); Neutrophils # 7.3 K/mm3 (1.8-7.8); Platelet Count 250 K/mm3 (142-424); Red Blood Count 4.62 M/mm3 (4.20-5.40); Red Cell Distribution Width 13.7 % (11.5-17.5); White Blood Count 8.3 K/mm3 (4.8-10.8)
[2018-05-20 06:55] LABS: Anion Gap 15.7 mEq/L (5-15); Blood Urea Nitrogen 16 mg/dL (7-18); Calcium 8.9 mg/dL (8.5-10.1); Carbon Dioxide 27 mmol/L (21.0-32.0); Chloride 100 mmol/L (98-107); Glucose 168 mg/dL (74-106); Potassium 3.7 mmoL/L (3.5-5.1); Sodium 139 mmol/L (136-145)
--- NOTE | 2018-05-20 07:58 | Pharmacy Consult Notes ---
[facility] Pharmacy VTE Monitoring - Patient Demographics Admission date: 05/19/18 Report Date: 05/20/18 Time: 07:58 Allergies/Adverse Reactions: Patient Allergies codeine [CODEINE] Allergy (Mild, Verified 05/19/18 22:02) penicillin G [PENICILLIN G] Allergy (Mild, Verified 05/19/18 22:02) povidone-iodine [From BETADINE] Allergy (Mild, Verified 05/19/18 22:02) Height: 1.6 m Weight: 65.317 kg Patient Problems: Current Active Problems Acute exacerbation of chronic obstructive airways disease (Acute) CAP (community acquired pneumonia) (Acute) - VTE Risk Labs: VTE Related Lab Results Hgb 13.8 g/dL (12.2-16.2) 05/20/18 06:16 Hct 42.0 % (37.0-47.0) 05/20/18 06:16 Plt Count 250 K/mm3 (142-424) 05/20/18 06:16 BUN 16 mg/dL (7-18) 05/20/18 06:16 Creatinine 0.99 mg/dL (0.55-1.02) 05/20/18 06:16 Estimated Creat Clear 52 mL/min (50-200) 05/20/18 06:16 Was VTE Risk Assessment Performed: Yes VTE Score: 7 VTE Risk Level: Moderate Risk - Prophylaxis VTE Prophylaxis Ordered?: Yes Types of VTE Prophylaxis: TEDS Knee High Location of Applied Device: Bilateral Lower Extremeties - VTE Diagnosis Confirmed Treatment or plan recommended: Continue Current Treatment
--- NOTE | 2018-05-20 08:20 | History & Physical Report ---
*Admission Date: 05/19/18 <Talia Maza 05/20/18 08:24> *Chief complaint: Shortness of breath <Talia Maza 05/20/18 08:24> *History of present illness: Ms. Chu is a 73-year-old female who was just discharged from [facility] yesterday after a COPD exacerbation. She states she got home and was feeling well until about 4 PM when she began getting more short of breath. She used her home nebulizer and her inhaler with no relief. She had her bring her back to [facility] ER. Her oxygen was in the 80s and her chest x-ray showed an indeterminate nodular density in the right upper lobe and COPD with suspected pneumonia in the right lower lobe. She was therefore admitted and started on antibiotics, oxygen, nebs, and steroids. 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) <Talia Maza 05/20/18 08:24> Laterality Cases: Bilateral: Tonsillectomy <Talia Maza 05/20/18 08:24> Other Surgeries: Yes: Cardiac Catheterization, Cholecystectomy, Colonoscopy, Thyroidectomy, Tubal Ligation, Other <Talia Maza 05/20/18 08:24> Amputation: No <Talia Maza 05/20/18 08:24> Fractures: No <Talia Maza 05/20/18 08:24> - *Social History Educational Level: Completed High School <Talia Maza 05/20/18 08:24> Smoking Status: Current every day smoker <Talia Mzaa 05/20/18 08:24> Tobacco Type: cigarettes <Talia Maza 05/20/18 08:24> # Packs/Day (cigarettes): 1 <Talia Maza 05/20/18 08:24> #Yrs smoked (if former smoker): 60 <Alex Mazaa 05/20/18 08:24> Alcohol Intake: never <Alex Mazaa 05/20/18 08:24> Alcohol Intake Frequency:: holidays/special occasions only <Talia Maza 05/20/18 08:24> Occupational Status: retired <Talia Maza 05/20/18 08:24> Housing: house <Alex Mazaa 05/20/18 08:24> Household Members: spouse <LinkTalia 05/20/18 08:24> - Psychiatric History Expresses thoughts of harming self/others: None <Talia Maza 05/20/18 08:24> Suicide Plan Description: No Plan <Talia Maza 05/20/18 08:24> *Family Hx:: Cancer, Diabetes, Hyperlipidemia, Hypertension, Stroke, Thyroid Disorder <Talia Maza 05/20/18 08:24> Review of Systems - Constitutional Reports weakness, Denies body ache(s), Denies chills, Denies headache(s) <LinkTalia - 05/20/18 08:24> - Eyes Denies blurry vision, Denies double vision [facility] 05/20/18 08:24> - ENT Denies nasal congestion, Denies sore throat <Alex Mazaa 05/20/18 08:24> - *Cardiovascular Reports fast heart rate, Denies chest pain <Alex Mazaa 05/20/18 08:24> - *Respiratory Reports cough, Reports shortness of breath <[facility] 05/20/18 08:24> - *Gastrointestinal Reports nausea, Denies abdominal pain, Denies loose stools, Denies vomiting <[facility] 05/20/18 08:24> - *Genitourinary Denies difficulty urinating, Denies painful urination <LinkTalia 05/20/18 08:24> - *Musculoskeletal Denies joint pain, Denies body aches <Alex Mazaa 05/20/18 08:24> - *Neurologic Denies dizziness, Denies headache(s), Denies seizure-like activity <Talia Maza - 05/20/18 08:24> Meds Home Medications Medication Instructions Recorded Confirmed Type amlodipine 10 mg tablet 10 mg PO DAILY 90 Days tab 07/27/17 05/19/18 History aspirin 81 mg tablet,delayed 81 mg PO DAILY 07/27/17 05/19/18 History release diazepam 5 mg tablet 5 mg PO BID 30 Days tab 07/27/17 05/19/18 History fluoxetine 40 mg capsule 40 mg PO DAILY 90 Days cap 07/27/17 05/19/18 History furosemide 40 mg tablet 40 mg PO DAILY 07/27/17 05/19/18 History levothyroxine 100 mcg tablet 100 mcg PO DAILY 90 Days tab 07/27/17 05/19/18 History meclizine 12.5 mg tablet 12.5 mg PO TIDP PRN 07/27/17 05/19/18 History metoclopramide 10 mg tablet 10 mg PO ACHS 30 Days tab 07/27/17 05/19/18 History nitroglycerin 0.4 mg sublingual 0.4 mg SUBLINGUAL Q5MINP PRN 07/27/17 05/20/18 History tablet pravastatin 40 mg tablet 40 mg PO HS 07/27/17 05/19/18 History Cholecalciferol (Vitamin D3) 2,000 unit PO DAILY 09/21/17 05/19/18 History [Vitamin D3] Ipratropium/Albuterol Sulfate 3 ml IH TID 09/21/17 05/19/18 History [Duoneb 3mL neb] Lactobacillus Acidophilus 1 cap PO DAILY 09/21/17 05/19/18 History [Probiotic] Potassium Chloride [Klor-Con 10mEq 20 meq PO DAILY 09/21/17 05/19/18 History tab] Ondansetron HCl [Zofran 4mg Tab] 4 mg PO Q6HP PRN #20 tab 09/29/17 05/19/18 Rx Biotin 5,000 mcg PO DAILY 04/08/18 05/19/18 History Glycopyrrolate/Formoterol Fum 2 puffs INHALATION BID 04/08/18 05/19/18 History [Bevespi Aerosphere Inhaler] Benazepril HCl 20 mg PO DAILY 04/09/18 05/19/18 History predniSONE [Prednisone 20mg 20 mg PO BID 05/19/18 05/19/18 History Tab] <Adrian Jones - 05/20/18 17:46> Allergies Allergy/AdvReac Type Severity Reaction Status Date / Time codeine [CODEINE] Allergy Mild Verified 05/19/18 22:02 penicillin G [PENICILLIN G] Allergy Mild Verified 05/19/18 22:02 povidone-iodine Allergy Mild Verified 05/19/18 22:02 [From BETADINE] <Adrian Jones - 05/20/18 17:46> Exam Vital signs and Labs for Last 24 Hours: Temp Pulse Resp BP Pulse Ox 98.6 F 100 H 22 145/61 H 95 05/20/18 16:00 05/20/18 16:00 05/20/18 16:00 05/20/18 16:00 05/20/18 16:00 Laboratory Results - last 24 hr 05/19/18 22:05: WBC 7.0 D, RBC 4.78, Hgb 14.2, Hct 43.5, MCV 90.8, MCH 29.6, MCHC 32.6, RDW 13.7, Plt Count 260, MPV 7.6, Neut % (Auto) 82.3 H, Lymph % (Auto) 12.0, Weakley % (Auto) 5.0, Eos % (Auto) 0.5, Baso % (Auto) 0.2, Neut # (Auto) 5.7, Lymph # (Auto) 0.8, Weakley # (Auto) 0.4, Eos # (Auto) 0.0, Baso # (Auto) 0.0 05/19/18 22:05: Sodium 137, Potassium 3.8, Chloride 99, Carbon Dioxide 26, Anion Gap 15.8 H, BUN 16, Creatinine 1.10 H, Estimated Creat Clear 49, Estimated GFR 49 L, Est GFR ( Amer) 59, Glucose 181 H, Calcium 9.1, Total Bilirubin 0.2, AST 13 L, ALT 24, Alkaline Phosphatase 96, Total Protein 7.4, Albumin 3.6, Globulin 3.8 H, Albumin/Globulin Ratio 0.9 L 05/19/18 22:05: Lactate 2.0 05/19/18 22:05: Troponin I < 0.02 05/20/18 03:15: Troponin I < 0.02 05/20/18 05:10: Specimen Source Left radial, O2 % 35%, ABG pH 7.42, ABG pCO2 45.4 H, ABG pO2 70.2 L, ABG HCO3 28.5 H, ABG Total CO2 29.9 H, ABG O2 Saturation 95, ABG Base Excess 3.9 H, Darian Test Acceptable 05/20/18 06:16: WBC 8.3, RBC 4.62, Hgb 13.8, Hct 42.0, MCV 90.9, MCH 29.8, MCHC 32.8, RDW 13.7, Plt Count 250, MPV 7.6, Neut % (Auto) 88.0 H, Lymph % (Auto) 8.3 L, Weakley % (Auto) 3.6, Eos % (Auto) 0.0 L, Baso % (Auto) 0.1, Neut # (Auto) 7.3, Lymph # (Auto) 0.7, Weakley # (Auto) 0.3, Eos # (Auto) 0.0, Baso # (Auto) 0.0, Total Counted 100, Neutrophils % (Manual) 89 H, Lymphocytes % (Manual) 7 L, Atypical Lymphs % 1.0, Monocytes % (Manual) 3, Platelet Estimate Normal 05/20/18 06:16: Sodium 139, Potassium 3.7, Chloride 100, Carbon Dioxide 27, Anion Gap 15.7 H, BUN 16, Creatinine 0.99, Estimated Creat Clear 52, Estimated GFR 55 L, Est GFR ( Amer) 67, Glucose 168 H, Calcium 8.9, Magnesium 1.8, Troponin I < 0.02 <Adrian Jones - 05/20/18 17:46> Temp Pulse Resp BP Pulse Ox 97.5 F L 124 H 26 H 167/89 H 94 L 05/20/18 04:00 05/20/18 04:00 05/20/18 04:00 05/20/18 04:00 05/20/18 04:00 Laboratory Results - last 24 hr 05/19/18 22:05: WBC 7.0 D, RBC 4.78, Hgb 14.2, Hct 43.5, MCV 90.8, MCH 29.6, MCHC 32.6, RDW 13.7, Plt Count 260, MPV 7.6, Neut % (Auto) 82.3 H, Lymph % (Auto) 12.0, Weakley % (Auto) 5.0, Eos % (Auto) 0.5, Baso % (Auto) 0.2, Neut # (Auto) 5.7, Lymph # (Auto) 0.8, Weakley # (Auto) 0.4, Eos # (Auto) 0.0, Baso # (Auto) 0.0 05/19/18 22:05: Sodium 137, Potassium 3.8, Chloride 99, Carbon Dioxide 26, Anion Gap 15.8 H, BUN 16, Creatinine 1.10 H, Estimated Creat Clear 49, Estimated GFR 49 L, Est GFR ( Amer) 59, Glucose 181 H, Calcium 9.1, Total Bilirubin 0.2, AST 13 L, ALT 24, Alkaline Phosphatase 96, Total Protein 7.4, Albumin 3.6, Globulin 3.8 H, Albumin/Globulin Ratio 0.9 L 05/19/18 22:05: Lactate 2.0 05/19/18 22:05: Troponin I < 0.02 05/20/18 03:15: Troponin I < 0.02 05/20/18 05:10: Specimen Source Left radial, O2 % 35%, ABG pH 7.42, ABG pCO2 45.4 H, ABG pO2 70.2 L, ABG HCO3 28.5 H, ABG Total CO2 29.9 H, ABG O2 Saturation 95, ABG Base Excess 3.9 H, Darian Test Acceptable 05/20/18 06:16: WBC 8.3, RBC 4.62, Hgb 13.8, Hct 42.0, MCV 90.9, MCH 29.8, MCHC 32.8, RDW 13.7, Plt Count 250, MPV 7.6, Neut % (Auto) 88.0 H, Lymph % (Auto) 8.3 L, Weakley % (Auto) 3.6, Eos % (Auto) 0.0 L, Baso % (Auto) 0.1, Neut # (Auto) 7.3, Lymph # (Auto) 0.7, Weakley # (Auto) 0.3, Eos # (Auto) 0.0, Baso # (Auto) 0.0 05/20/18 06:16: Sodium 139, Potassium 3.7, Chloride 100, Carbon Dioxide 27, Anion Gap 15.7 H, BUN 16, Creatinine 0.99, Estimated Creat Clear 52, Estimated GFR 55 L, Est GFR ( Amer) 67, Glucose 168 H, Calcium 8.9, Magnesium 1.8, Troponin I < 0.02 <Talia Maza - 05/20/18 08:24> I & O for Last 24 hours: Intake & Output 05/18/18 05/19/18 05/20/18 05/21/18 11:59 11:59 11:59 11:59 Intake Total 501 / 501 Output Total 1275 / 1275 Balance -774 / -774 Weight 144 lb <Adrian Jones - 05/20/18 17:46> Intake & Output 05/17/18 05/18/18 05/19/18 05/20/18 11:59 11:59 11:59 11:59 Intake Total 381 / 381 Output Total 775 / 775 Balance -394 / -394 Weight 144 lb <ShermanvaniTalia 05/20/18 08:24> - Constitutional no acute distress <Alex [facility] 05/20/18 08:24> - *Routine HEENT Exam Head: Present: normocephalic <[facility] 05/20/18 08:24> Eye: Present: EOMI, PERRL <ShermanvaniTalia 05/20/18 08:24> ENT: Present: mucous membranes moist <ShermanvaniTalia 05/20/18 08:24> - *Routine Neck Exam Present: supple. Absent: lymphadenopathy <LinkTalia 05/20/18 08:24> - *Routine Respiratory Exam Present: wheezes (on the left), diminished air movement <LinkTalia 05/20/18 08:24> - *Routine Cardiovascular Exam Present: tachycardia <LinkTalia 05/20/18 08:24> - *Routine Abdominal Exam Present: soft, normoactive bowel sounds. Absent: tenderness <LinkTalia 05/20/18 08:24> - *Routine Extremities Exam Absent: cyanosis, clubbing, edema <LinkTalia 05/20/18 08:24> - *Routine Skin Exam Present: warm. Absent: rash <Talia Maza - 05/20/18 08:24> - *Routine Neurological Exam Present: alert, oriented X3 <Talia Maza 05/20/18 08:24> H&P: Result - Impressions CXR 1. Indeterminate nodular density right upper lobe. 2. COPD with suspected pneumonia in the right lower lobe overall not significantly changed <Alex Mazaa 05/20/18 08:24> Assessment and Plan (1) Acute exacerbation of chronic obstructive airways disease Current visit: Yes Status: Acute Category: Medical Code(s): J44.1 - Chronic obstructive pulmonary disease with (acute) exacerbation (2) Abnormal chest xray Current visit: No Status: Acute Category: Medical Code(s): R93.89 - Abnormal findings on diagnostic imaging of other specified body structures (3) Tachycardia Current visit: No Status: Acute Category: Medical Code(s): R00.0 - Tachycardia, unspecified (4) Hypertension Current visit: No Status: Chronic Category: Medical Code(s): I10 - Essential (primary) hypertension (5) Hypothyroidism Current visit: No Status: Chronic Qualifiers: Hypothyroidism type: unspecified Qualified Code(s): E03.9 - Hypothyroidism, unspecified Category: Medical Code(s): E03.9 - Hypothyroidism, unspecified (6) Supplemental oxygen dependent Current visit: No Status: Chronic Category: Medical Code(s): Z99.81 - Dependence on supplemental oxygen (7) Tobacco use disorder Current visit: No Status: Chronic Category: Medical Code(s): F17.200 - Nicotine dependence, unspecified, uncomplicated <Talia Maza - 05/20/18 08:17> (1) Acute exacerbation of chronic obstructive airways disease Current visit: Yes Status: Acute Category: Medical Code(s): J44.1 - Chronic obstructive pulmonary disease with (acute) exacerbation (2) Abnormal chest xray Current visit: No Status: Acute Category: Medical Code(s): R93.89 - Abnormal findings on diagnostic imaging of other specified body structures (3) Tachycardia Current visit: No Status: Acute Category: Medical Code(s): R00.0 - Tachycardia, unspecified (4) Hypertension Current visit: No Status: Chronic Category: Medical Code(s): I10 - Essential (primary) hypertension (5) Hypothyroidism Current visit: No Status: Chronic Qualifiers: Hypothyroidism type: unspecified Qualified Code(s): E03.9 - Hypothyroidism, unspecified Category: Medical Code(s): E03.9 - Hypothyroidism, unspecified (6) Supplemental oxygen dependent Current visit: No Status: Chronic Category: Medical Code(s): Z99.81 - Dependence on supplemental oxygen (7) Tobacco use disorder Current visit: No Status: Chronic Category: Medical Code(s): F17.200 - Nicotine dependence, unspecified, uncomplicated <Adrian Jones - 05/20/18 17:46> - Assessment and plan all Dx Assessment and Plan for all problems:: Patient seen and examined. Concur with assessment and plan. <Adrian Jones - 05/20/18 17:46> Patient will be started on bisoprolol for her tachycardia. We will get an echo and will also get a chest CT due to her abnormal chest x-ray. Will continue antibiotics, oxygen, nebs, and steroids. <Talia Maza - 05/20/18 08:24>
[2018-05-20 08:36] LABS: Lymphocytes % 7 % (10-50); Monocytes % 3 % (2-9); Neutrophils % 89 % (42-76); Total Cells Counted 100
[2018-05-21 07:14] LABS: Anion Gap 8.9 mEq/L (5-15); Basophils % 0.1 % (0.1-2.0); Calcium 8.2 mg/dL (8.5-10.1); Hematocrit 39.4 % (37.0-47.0); Hemoglobin 12.3 g/dL (12.2-16.2); Lymphocytes # 0.9 K/mm3 (0.7-4.5); Lymphocytes % 6.6 % (10-50); Mean Corpuscular HGB Conc 31.3 g/dL (31.8-35.4); Mean Corpuscular Hemoglobin 29.4 pg (27.0-31.2); Mean Platelet Volume 7.4 fl (7.4-10.4); Monocytes # 0.6 K/mm3 (0.1-1.0); Monocytes % 4.6 % (1.7-9.3); Neutrophils # 11.6 K/mm3 (1.8-7.8); Neutrophils % 88.6 % (37.0-80.0); Platelet Count 248 K/mm3 (142-424); Potassium 3.9 mmoL/L (3.5-5.1); Red Blood Count 4.19 M/mm3 (4.20-5.40); Red Cell Distribution Width 13.8 % (11.5-17.5)
--- NOTE | 2018-05-21 08:03 | Progress Note ---
<Talia Maza - Last Filed: 05/21/18 08:01> Internal Medicine - PN: Subj *Date: 05/21/18 *Time: 08:01 Interval history: Patient states she is tired this morning, she was still sleeping. She denies any pain. She states she is still short of breath. She has not eaten any breakfast yet this morning. Exam Vital signs and Labs for Last 24 Hours: Temp Pulse Resp BP Pulse Ox 97.3 F L 84 22 137/71 95 05/21/18 04:00 05/21/18 06:30 05/21/18 04:00 05/21/18 04:00 05/21/18 06:30 Laboratory Results - last 24 hr 05/20/18 06:16: Total Counted 100, Neutrophils % (Manual) 89 H, Lymphocytes % (Manual) 7 L, Atypical Lymphs % 1.0, Monocytes % (Manual) 3, Platelet Estimate Normal 05/21/18 06:46: WBC 13.0 H D, RBC 4.19 L, Hgb 12.3, Hct 39.4, MCV 94.0, MCH 29.4, MCHC 31.3 L, RDW 13.8, Plt Count 248, MPV 7.4, Neut % (Auto) 88.6 H, Lymph % (Auto) 6.6 L, [place] % (Auto) 4.6, Eos % (Auto) 0.0 L, Baso % (Auto) 0.1, Neut # (Auto) 11.6 H, Lymph # (Auto) 0.9, Lee # (Auto) 0.6, Eos # (Auto) 0.0, Baso # (Auto) 0.0 05/21/18 06:46: Sodium 138, Potassium 3.9, Chloride 103, Carbon Dioxide 30, Anion Gap 8.9, BUN 22 H D, Creatinine 0.89, Estimated Creat Clear 53, Estimated GFR 62, Est GFR ( Amer) 75, Glucose 156 H, Calcium 8.2 L I & O for Last 24 hours: Intake & Output 05/18/18 05/19/18 05/20/18 05/21/18 11:59 11:59 11:59 11:59 Intake Total 501 / 501 1122 / 1122 Output Total 1275 / 1275 200 / 200 Balance -774 / -774 922 / 922 Weight 144 lb 148 lb 4 oz Radiology Reports for the Last 24 Hours: Chest CT 1. The right upper lobe nodule is slightly larger compared to 04/09/2018 the nodule has somewhat unusual shape and there is some minimal enhancement but not as intense enhancement as one would expect for a varix however, delayed imaging was not performed as suggested on the CT chest of 04/09/2018. Neoplasm cannot be excluded based on these imaging findings. Would recommend CT angiogram with dynamic imaging through this area to ensure this does not represent a varix before any type of biopsy biopsy is contemplated. 2. COPD/centrilobular emphysema. Atelectatic changes are present in the lower lobes and lingula - Constitutional no acute distress - *Routine Respiratory Exam Present: decreased breath sounds, wheezes - *Routine Cardiovascular Exam Present: RRR - *Routine Abdominal Exam Present: soft, normoactive bowel sounds. Absent: tenderness - *Routine Extremities Exam Absent: cyanosis, clubbing, edema Assessment and Plan (1) Acute exacerbation of chronic obstructive airways disease Current visit: Yes Status: Acute Category: Medical Code(s): J44.1 - Chronic obstructive pulmonary disease with (acute) exacerbation (2) Abnormal chest xray Current visit: No Status: Acute Category: Medical Code(s): R93.89 - Abnormal findings on diagnostic imaging of other specified body structures (3) Tachycardia Current visit: No Status: Acute Category: Medical Code(s): R00.0 - Tachycardia, unspecified (4) Hypertension Current visit: No Status: Chronic Category: Medical Code(s): I10 - Essential (primary) hypertension (5) Hypothyroidism Current visit: No Status: Chronic Qualifiers: Hypothyroidism type: unspecified Qualified Code(s): E03.9 - Hypothyroidism, unspecified Category: Medical Code(s): E03.9 - Hypothyroidism, unspecified (6) Supplemental oxygen dependent Current visit: No Status: Chronic Category: Medical Code(s): Z99.81 - Dependence on supplemental oxygen (7) Tobacco use disorder Current visit: No Status: Chronic Category: Medical Code(s): F17.200 - Nicotine dependence, unspecified, uncomplicated - Assessment and plan all Dx Assessment and Plan for all problems:: Will continue current treatment. Patient's heart rate has improved. She does have slightly better air movement today. Will discuss chest CT and further imaging with Dr. Jones. <Adrian Jones - Last Filed: 05/21/18 08:44> Exam Vital signs and Labs for Last 24 Hours: Temp Pulse Resp BP Pulse Ox 97.2 F L 85 18 123/51 L 96 05/21/18 08:00 05/21/18 08:00 05/21/18 08:00 05/21/18 08:00 05/21/18 08:00 Laboratory Results - last 24 hr 05/21/18 06:46: WBC 13.0 H D, RBC 4.19 L, Hgb 12.3, Hct 39.4, MCV 94.0, MCH 29.4, MCHC 31.3 L, RDW 13.8, Plt Count 248, MPV 7.4, Neut % (Auto) 88.6 H, Lymph % (Auto) 6.6 L, [place] % (Auto) 4.6, Eos % (Auto) 0.0 L, Baso % (Auto) 0.1, Neut # (Auto) 11.6 H, Lymph # (Auto) 0.9, Lee # (Auto) 0.6, Eos # (Auto) 0.0, Baso # (Auto) 0.0 05/21/18 06:46: Sodium 138, Potassium 3.9, Chloride 103, Carbon Dioxide 30, Anion Gap 8.9, BUN 22 H D, Creatinine 0.89, Estimated Creat Clear 53, Estimated GFR 62, Est GFR ( Amer) 75, Glucose 156 H, Calcium 8.2 L I & O for Last 24 hours: Intake & Output 05/18/18 05/19/18 05/20/18 05/21/18 11:59 11:59 11:59 11:59 Intake Total 501 / 501 1122 / 1122 Output Total 1275 / 1275 200 / 200 Balance -774 / -774 922 / 922 Weight 144 lb 148 lb 4 oz Assessment and Plan (1) Acute exacerbation of chronic obstructive airways disease Current visit: Yes Status: Acute Category: Medical Code(s): J44.1 - Chronic obstructive pulmonary disease with (acute) exacerbation (2) Abnormal chest xray Current visit: No Status: Acute Category: Medical Code(s): R93.89 - Abnor mal findings on diagnostic imaging of other specified body structures (3) Tachycardia Current visit: No Status: Acute Category: Medical Code(s): R00.0 - Tachycardia, unspecified (4) Hypertension Current visit: No Status: Chronic Category: Medical Code(s): I10 - Essential (primary) hypertension (5) Hypothyroidism Current visit: No Status: Chronic Qualifiers: Hypothyroidism type: unspecified Qualified Code(s): E03.9 - Hypothyroidism, unspecified Category: Medical Code(s): E03.9 - Hypothyroidism, unspecified (6) Supplemental oxygen dependent Current visit: No Status: Chronic Category: Medical Code(s): Z99.81 - Dependence on supplemental oxygen (7) Tobacco use disorder Current visit: No Status: Chronic Category: Medical Code(s): F17.200 - Nicotine dependence, unspecified, uncomplicated - Assessment and plan all Dx Assessment and Plan for all problems:: Patient seen and examined. She is still very dyspneic with slightest exertion. Minimal cough. No chest pain. Appetite fair. Discussed findings on CT scan. Will consider additional imaging as outpt. Sputum culture from initial 05/19/18 admission showing no growth. Will continue current antibiotics and steroids.
[2018-05-21 10:50] LABS: Lymphocytes % 7 % (10-50); Monocytes % 4 % (2-9); Neutrophils % 89 % (42-76); RBC Morphology Normal; Total Cells Counted 100
--- NOTE | 2018-05-22 08:45 | Progress Note ---
Internal Medicine - PN: Subj Interval history: She rested fairly well through the night. However, she was up to the bathroom early this morning and while getting back to bed states that she started having a funny feeling in her throat and then developed a coughing spell. She became extremely short of breath and dropped her sats to the mid 80s. She described a burning type pain in her chest. She coughed up very little. At the time of my exam she is no longer coughing but remains short of breath. Her sats are in the low 90s. She appears dyspneic and anxious. Exam Vital signs and Labs for Last 24 Hours: Temp Pulse Resp BP Pulse Ox 97.5 F L 84 26 H 170/68 H 85 L 05/22/18 08:00 05/22/18 08:26 05/22/18 08:00 05/22/18 08:00 05/22/18 08:26 Laboratory Results - last 24 hr 05/21/18 06:46: Total Counted 100, Neutrophils % (Manual) 89 H, Lymphocytes % (Manual) 7 L, Monocytes % (Manual) 4, Platelet Estimate Normal, RBC Morphology Normal I & O for Last 24 hours: Intake & Output 05/19/18 05/20/18 05/21/18 05/22/18 11:59 11:59 11:59 11:59 Intake Total 501 / 501 1222 / 1222 2256 / 2256 Output Total 1275 / 1275 200 / 200 Balance -774 / -774 1022 / 1022 2256 / 2256 Weight 144 lb 148 lb 3.997 oz 153 lb 2 oz Narrative: She is lying in bed with O2 in place. She is anxious and dyspneic. Chest reveals bilateral tight wheezes. Heart is regular with no ectopy. No chest wall tenderness. Abdomen is soft and slightly distended. No unusual masses. Extremities show no edema. Assessment and Plan (1) Acute exacerbation of chronic obstructive airways disease Current visit: Yes Status: Acute Category: Medical Code(s): J44.1 - Chronic obstructive pulmonary disease with (acute) exacerbation (2) Abnormal chest xray Current visit: No Status: Acute Category: Medical Code(s): R93.89 - Abnormal findings on diagnostic imaging of other specified body structures (3) Tachycardia Current visit: No Status: Acute Category: Medical Code(s): R00.0 - Tachycardia, unspecified (4) Hypertension Current visit: No Status: Chronic Category: Medical Code(s): I10 - Essential (primary) hypertension (5) Hypothyroidism Current visit: No Status: Chronic Qualifiers: Hypothyroidism type: unspecified Qualified Code(s): E03.9 - Hypothyroidism, unspecified Category: Medical Code(s): E03.9 - Hypothyroidism, unspecified (6) Supplemental oxygen dependent Current visit: No Status: Chronic Category: Medical Code(s): Z99.81 - Dependence on supplemental oxygen (7) Tobacco use disorder Current visit: No Status: Chronic Category: Medical Code(s): F17.200 - Nicotine dependence, unspecified, uncomplicated - Assessment and plan all Dx Assessment and Plan for all problems:: Because of the chest pain, will check an EKG and cardiac enzymes. We will get a stat chest x-ray and ABGs.
[2018-05-22 09:17] LABS: Basophils % 0.1 % (0.1-2.0); Eosinophils % 0.3 % (0.1-12.0); Hematocrit 40.8 % (37.0-47.0); Lymphocytes # 0.6 K/mm3 (0.7-4.5); Lymphocytes % 5.4 % (10-50); Mean Corpuscular HGB Conc 31.8 g/dL (31.8-35.4); Mean Corpuscular Hemoglobin 29.7 pg (27.0-31.2); Mean Corpuscular Volume 93.4 fl (81-99); Mean Platelet Volume 7.6 fl (7.4-10.4); Monocytes # 0.3 K/mm3 (0.1-1.0); Neutrophils # 10.4 K/mm3 (1.8-7.8); Neutrophils % 91.3 % (37.0-80.0); Platelet Count 254 K/mm3 (142-424); Red Blood Count 4.37 M/mm3 (4.20-5.40); Red Cell Distribution Width 13.7 % (11.5-17.5); White Blood Count 11.4 K/mm3 (4.8-10.8)
[2018-05-22 09:20] LABS: ABG Base Excess -0.5 mmol/L (-2.4-2.3); ABG Oxygen Saturation 93 % (90-100); ABG PO2 69.3 mmhg (80-100); ABG TCO2 27.6 mmhg (23-27)
[2018-05-22 09:22] LABS: ABG PCO2 54.2 mmhg (35.0-45.0); Allen's Test Acceptable; Oxygen 32% %
[2018-05-22 09:26] LABS: Anion Gap 8.1 mEq/L (5-15); Blood Urea Nitrogen 20 mg/dL (7-18); Carbon Dioxide 28 mmol/L (21.0-32.0); Chloride 103 mmol/L (98-107); Sodium 139 mmol/L (136-145)
[2018-05-22 09:27] LABS: Calcium 7.9 mg/dL (8.5-10.1); Glucose 223 mg/dL (74-106)
[2018-05-22 09:40] LABS: Lymphocytes % 5 % (10-50); Monocytes % 3 % (2-9); Neutrophils % 92 % (42-76); Total Cells Counted 100
[2018-05-22 09:41] LABS: Creatine Kinase 76 U/L (26-192)
--- NOTE | 2018-05-22 12:45 | Progress Note ---
Internal Medicine - PN: Subj *Date: 05/22/18 *Time: 12:43 Interval history: Further to my note from this morning, she breath. She is sitting on the side of the bed eating her lunch. EKG and cardiac enzymes showed no acute changes. Chest x-ray also was unchanged. ABGs showed acidosis with a pH of 7 30. Her O2 sats are running in the upper 80s. Exam Vital signs and Labs for Last 24 Hours: Temp Pulse Resp BP Pulse Ox 97.7 F 87 24 152/74 H 90 L 05/22/18 11:04 05/22/18 11:09 05/22/18 11:04 05/22/18 11:04 05/22/18 11:09 Laboratory Results - last 24 hr 05/22/18 08:44: Specimen Source Left radial, O2 % 32%, ABG pH 7.30 L, ABG pCO2 54.2 H, ABG pO2 69.3 L, ABG HCO3 26.0, ABG Total CO2 27.6 H, ABG O2 Saturation 93, ABG Base Excess -0.5, Darian Test Acceptable 05/22/18 09:10: WBC 11.4 H, RBC 4.37, Hgb 13.0, Hct 40.8, MCV 93.4, MCH 29.7, MCHC 31.8, RDW 13.7, Plt Count 254, MPV 7.6, Neut % (Auto) 91.3 H, Lymph % (Auto) 5.4 L, [place] % (Auto) 3.0, Eos % (Auto) 0.3, Baso % (Auto) 0.1, Neut # (Auto) 10.4 H, Lymph # (Auto) 0.6 L, [place] # (Auto) 0.3, Eos # (Auto) 0.0, Baso # (Auto) 0.0, Total Counted 100, Neutrophils % (Manual) 92 H, Lymphocytes % (Manual) 5 L, Monocytes % (Manual) 3, Platelet Estimate Normal 05/22/18 09:10: Sodium 139, Potassium 4.0, Chloride 103, Carbon Dioxide 28, Anion Gap 8.1, BUN 20 H, Creatinine 1.00, Estimated Creat Clear 55, Estimated GFR 54 L, Est GFR ( Amer) 66, Glucose 223 H, Calcium 7.9 L, Total Creatine Kinase 76, CK-MB (CK-2) 2.9 D, CK-MB (CK-2) Rel Index 3.8, Troponin I < 0.02 I & O for Last 24 hours: Intake & Output 05/20/18 05/21/18 05/22/18 05/23/18 11:59 11:59 11:59 11:59 Intake Total 501 / 501 1222 / 1222 2256 / 2256 360 / 360 Output Total 1275 / 1275 200 / 200 Balance -774 / -774 1022 / 1022 2256 / 2256 360 / 360 Weight 144 lb 148 lb 3.997 oz 153 lb 2 oz Assessment and Plan (1) Acute exacerbation of chronic obstructive airways disease Current visit: Yes Status: Acute Category: Medical Code(s): J44.1 - [employer] jennifer obstructive pulmonary disease with (acute) exacerbation (2) Abnormal chest xray Current visit: No Status: Acute Category: Medical Code(s): R93.89 - Abnormal findings on diagnostic imaging of other specified body structures (3) Tachycardia Current visit: No Status: Acute Category: Medical Code(s): R00.0 - Tachycardia, unspecified (4) Hypertension Current visit: No Status: Chronic Category: Medical Code(s): I10 - Essential (primary) hypertension (5) Hypothyroidism Current visit: No Status: Chronic Qualifiers: Hypothyroidism type: unspecified Qualified Code(s): E03.9 - Hypothyroidism, unspecified Category: Medical Code(s): E03.9 - Hypothyroidism, unspecified (6) Supplemental oxygen dependent Current visit: No Status: Chronic Category: Medical Code(s): Z99.81 - Dependence on supplemental oxygen (7) Tobacco use disorder Current visit: No Status: Chronic Category: Medical Code(s): F17.200 - Nicotine dependence, unspecified, uncomplicated - Assessment and plan all Dx Assessment and Plan for all problems:: We will give a trial of Vapotherm.
--- NOTE | 2018-05-23 08:22 | Progress Note ---
Internal Medicine - PN: Subj *Date: 05/23/18 *Time: 08:19 Interval history: She is breathing better since initiating the Vapotherm yesterday. She slept well last night. No further chest pain. Exam Vital signs and Labs for Last 24 Hours: Temp Pulse Resp BP Pulse Ox 98.0 F 79 17 123/54 L 96 05/23/18 07:58 05/23/18 07:58 05/23/18 07:58 05/23/18 07:58 05/23/18 08:00 Laboratory Results - last 24 hr 05/22/18 08:44: Specimen Source Left radial, O2 % 32%, ABG pH 7.30 L, ABG pCO2 54.2 H, ABG pO2 69.3 L, ABG HCO3 26.0, ABG Total CO2 27.6 H, ABG O2 Saturation 93, ABG Base Excess -0.5, Darian Test Acceptable 05/22/18 09:10: WBC 11.4 H, RBC 4.37, Hgb 13.0, Hct 40.8, MCV 93.4, MCH 29.7, MCHC 31.8, RDW 13.7, Plt Count 254, MPV 7.6, Neut % (Auto) 91.3 H, Lymph % (Auto) 5.4 L, [place] % (Auto) 3.0, Eos % (Auto) 0.3, Baso % (Auto) 0.1, Neut # (Auto) 10.4 H, Lymph # (Auto) 0.6 L, [place] # (Auto) 0.3, Eos # (Auto) 0.0, Baso # (Auto) 0.0, Total Counted 100, Neutrophils % (Manual) 92 H, Lymphocytes % (Manual) 5 L, Monocytes % (Manual) 3, Platelet Estimate Normal 05/22/18 09:10: Sodium 139, Potassium 4.0, Chloride 103, Carbon Dioxide 28, Anion Gap 8.1, BUN 20 H, Creatinine 1.00, Estimated Creat Clear 55, Estimated GFR 54 L, Est GFR ( Amer) 66, Glucose 223 H, Calcium 7.9 L, Total Creatine Kinase 76, CK-MB (CK-2) 2.9 D, CK-MB (CK-2) Rel Index 3.8, Troponin I < 0.02 I & O for Last 24 hours: Intake & Output 05/20/18 05/21/18 05/22/18 05/23/18 11:59 11:59 11:59 11:59 Intake Total 501 / 501 1222 / 1222 2356 / 2356 1324 / 1324 Output Total 1275 / 1275 200 / 200 600 / 600 Balance -774 / -774 1022 / 1022 2356 / 2356 724 / 724 Weight 144 lb 148 lb 3.997 oz 153 lb 2 oz 155 lb Narrative: Breathing is much less labored this morning. Color is good. Breath sounds are more clear with much fewer wheezes heart is regular. Extremities no edema. Assessment and Plan (1) Acute exacerbation of chronic obstructive airways disease Current visit: Yes Status: Acute Category: Medical Code(s): J44.1 - Chronic obstructive pulmonary disease with (acute) exacerbation (2) Acute bronchitis Current visit: Yes Status: Acute Category: Medical Code(s): J20.9 - Acute bronchitis, unspecified (3) Tachycardia Current visit: No Status: Acute Category: Medical Code(s): R00.0 - Tachycardia, unspecified (4) Hypertension Current visit: No Status: Chronic Category: Medical Code(s): I10 - Essent ial (primary) hypertension (5) Hypothyroidism Current visit: No Status: Chronic Qualifiers: Hypothyroidism type: unspecified Qualified Code(s): E03.9 - Hypothyroidism, unspecified Category: Medical Code(s): E03.9 - Hypothyroidism, unspecified (6) Supplemental oxygen dependent Current visit: No Status: Chronic Category: Medical Code(s): Z99.81 - Dependence on supplemental oxygen (7) Tobacco use disorder Current visit: No Status: Chronic Category: Medical Code(s): F17.200 - Nicotine dependence, unspecified, uncomplicated - Assessment and plan all Dx Assessment and Plan for all problems:: Continue Vapotherm today. Discontinue primary IV fluids. Begin weaning steroids. Encourage out of bed activity.
--- NOTE | 2018-05-23 09:47 | Progress Note ---
Internal Medicine - PN: Subj *Date: 05/23/18 *Time: 09:46 Exam Vital signs and Labs for Last 24 Hours: Temp Pulse Resp BP Pulse Ox 98.0 F 79 17 123/54 L 96 05/23/18 07:58 05/23/18 07:58 05/23/18 07:58 05/23/18 07:58 05/23/18 08:00 I & O for Last 24 hours: Intake & Output 05/20/18 05/21/18 05/22/18 05/23/18 23:59 23:59 23:59 23:59 Intake Total 841 / 841 2275 / 2275 2286 / 2286 0 / 0 Output Total 1475 / 1475 200 / 200 400 / 400 Balance -634 / -634 6 / 6 2086 / 208 -400 / -400 Weight 65.317 kg 67.245 kg 69.456 kg 70.307 kg Assessment and Plan (1) Acute exacerbation of chronic obstructive airways disease Current visit: Yes Status: Acute Category: Medical Code(s): J44.1 - Chronic obstructive pulmonary disease with (acute) exacerbation (2) Acute bronchitis Current visit: Yes Status: Acute Category: Medical Code(s): J20.9 - Acute bronchitis, unspecified (3) Tachycardia Current visit: No Status: Acute Category: Medical Code(s): R00.0 - Tachycardia, unspecified (4) Hypertension Current visit: No Status: Chronic Category: Medical Code(s): I10 - Essential (primary) hypertension (5) Hypothyroidism Current visit: No Status: Chronic Qualifiers: Hypothyroidism type: unspecified Qualified Code(s): E03.9 - Hypothyroidism, unspecified Category: Medical Code(s): E03.9 - Hypothyroidism, unspecified (6) Supplemental oxygen dependent Current visit: No Status: Chronic Category: Medical Code(s): Z99.81 - Dependence on supplemental oxygen (7) Tobacco use disorder Current visit: No Status: Chronic Category: Medical Code(s): F17.200 - Nicotine dependence, unspecified, uncomplicated The patient's infection will respond to the chosen ABx?: Yes Is the patient receiving the right drug, dose, and route?: Yes Could a more targeted ABx be ordered?: No
--- NOTE | 2018-05-24 08:21 | Progress Note ---
<Lauren Perez - Last Filed: 05/24/18 08:18> Internal Medicine - PN: Subj *Date: 05/24/18 *Time: 08:00 Interval history: The patient is sitting up at the side of bed eating breakfast. She denies any complaint, denies pain. She reports she does have increased SOB when up to the bathroom with assist. Exam Vital signs and Labs for Last 24 Hours: Temp Pulse Resp BP Pulse Ox 98.1 F 79 18 139/59 L 98 05/24/18 07:51 05/24/18 07:51 05/24/18 07:51 05/24/18 07:51 05/24/18 07:59 I & O for Last 24 hours: Intake & Output 05/21/18 05/22/18 05/23/18 05/24/18 11:59 11:59 11:59 11:59 Intake Total 1222 / 1222 2356 / 2356 1324 / 1324 1160 / 1160 Output Total 200 / 200 600 / 600 800 / 800 Balance 1022 / 1022 2356 / 2356 724 / 724 360 / 360 Weight 148 lb 3.997 oz 153 lb 2 oz 155 lb 156 lb - Constitutional no acute distress - *Routine Respiratory Exam Comments: diminished throughout with bibasilar rales, mildly increased WOB - *Routine Cardiovascular Exam Present: RRR - *Routine Abdominal Exam Present: soft, normoactive bowel sounds. Absent: tenderness, distended, rebound, guarding, organomegaly, mass - *Routine Extremities Exam Present: full ROM, pulses intact. Absent: calf tenderness Comments: trace bilateral pedal/ankle edema - *Routine Neurological Exam Present: alert, oriented X3, moving all extremities, normal speech Assessment and Plan (1) Acute exacerbation of chronic obstructive airways disease Current visit: Yes Status: Acute Category: Medical Code(s): J44.1 - Chronic obstructive pulmonary disease with (acute) exacerbation (2) Acute bronchitis Current visit: Yes Status: Acute Category: Medical Code(s): J20.9 - Acute bronchitis, unspecified (3) Tachycardia Current visit: No Status: Acute Category: Medical Code(s): R00.0 - Tachycardia, unspecified (4) Hypertension Current visit: No Status: Chronic Category: Medical Code(s): I10 - Essential (primary) hypertension (5) Hypothyroidism Current visit: No Status: Chronic Qualifiers: Hypothyroidism type: unspecified Qualified Code(s): E03.9 - Hypothyroidism, unspecified Category: Medical Code(s): E03.9 - Hypothyroidism, unspecified (6) Supplemental oxygen dependent Current visit: No Status: Chronic Category: Medical Code(s): Z99.81 - Dependence on supplemental oxygen (7) Tobacco use disorder Current visit: No Status: Chronic Category: Medical Code(s): F17.200 - Nicotine dependence, unspecified, uncomplicated - Assessment and plan all Dx Assessment and Plan for all problems:: Plan to wean vapotherm today. <Adrian Jones - Last Filed: 05/24/18 08:36> Exam Vital signs and Labs for Last 24 Hours: Temp Pulse Resp BP Pulse Ox 98.1 F 79 18 139/59 L 98 05/24/18 07:51 05/24/18 07:51 05/24/18 07:51 05/24/18 07:51 05/24/18 07:59 I & O for Last 24 hours: Intake & Output 05/21/18 05/22/18 05/23/18 05/24/18 11:59 11:59 11:59 11:59 Intake Total 1222 / 1222 2356 / 2356 1324 / 1324 1160 / 1160 Output Total 200 / 200 600 / 600 800 / 800 Balance 1022 / 1022 2356 / 2356 724 / 724 360 / 360 Weight 148 lb 3.997 oz 153 lb 2 oz 155 lb 156 lb Assessment and Plan (1) Acute exacerbation of chronic obstructive airways disease Current visit: Yes Status: Acute Category: Medical Code(s): J44.1 - Chronic obstructive pulmonary disease with (acute) exacerbation (2) Acute bronchitis Current visit: Yes Status: Acute Category: Medical Code(s): J20.9 - Acute bronchitis, unspecified (3) Tachycardia Current visit: No Status: Acute Category: Medical Code(s): R00.0 - Tachycardia, unspecified (4) Hypertension Current visit: No Status: Chronic Category: Medical Code(s): I10 - Essential (primary) hypertension (5) Hypothyroidism Current visit: No Status: Chronic Qualifiers: Hypothyroidism type: unspecified Qualified Code(s): E03.9 - Hypothyroidism, unspecified Category: Medical Code(s): E03.9 - Hypothyroidism, unspecified (6) Supplemental oxygen dependent Current visit: No Status: Chronic Category: Medical Code(s): Z99.81 - Dependence on supplemental oxygen (7) Tobacco use disorder Current visit: No Status: Chronic Category: Medical Code(s): F17.200 - Nicotine dependence, unspecified, uncomplicated - Assessment and plan all Dx Assessment and Plan for all problems:: She was up in chair all afternoon yesterday and tolerated well. SHe has done well on Vapotherm. Slept well last night. Plan to wean Vapotherm to nasal cannula and discharge home tomorrow.
--- NOTE | 2018-05-25 10:53 | Discharge Summary ---
General - General Admission date:: 05/20/18 Discharge date: 05/25/18 HPI HPI: Ms. Chu is a 73-year-old female who was just discharged from [facility] yesterday after a COPD exacerbation. She states she got home and was feeling well until about 4 PM when she began getting more short of breath. She used her home nebulizer and her inhaler with no relief. She had her bring her back to [facility] ER. Her oxygen was in the 80s and her chest x-ray showed an indeterminate nodular density in the right upper lobe and COPD with suspected pneumonia in the right lower lobe. She was therefore admitted and started on antibiotics, oxygen, nebs, and steroids. Hospital Course Hospital Course: Patient was admitted to the hospital for COPD exacerbation. Patient was started on Vapotherm for her acute on chronic hypoxic respiratory failure. Over the weekend and her hospital stay patient stabilized back to 2.5 L of oxygen, which is what she is on at home. It is important to note that patient also had elevated blood pressure during the hospital stay. She was started on bisoprolol 5 mg p.o. daily which controlled her blood pressure in the hospital. She was also getting a Levaquin 500 mg p.o. daily and steroids during her hospital stay. On 05/25/2018, patient was tolerating her baseline oxygen of 2.5 L at rest and upon exertion. So she was discharged home with the antibiotics (Levaquin), prednisone 40 mg daily, bisoprolol 5 mg p.o. daily, and DuoNeb treatments. She was advised to follow-up with Dr. Jones in 2-3 days in clinic. As today is [place], all of patient's today's medication was given to her in the hospital prior to discharge. Paper scripts were given to her to get her medications either today but no later than tomorrow morning. Objective Vital signs: Temp Pulse Resp BP Pulse Ox 98.2 F 80 18 149/56 H 92 L 05/25/18 07:46 05/25/18 07:46 05/25/18 10:08 05/25/18 07:46 05/25/18 10:27 - *Routine HEENT Exam Head: Present: normocephalic Eye: Present: EOMI, PERRL ENT: Present: mucous membranes moist - *Routine Neck Exam Present: supple - *Routine Respiratory Exam Present: CTA bilaterally (On 2.5 L of oxygen via nasal cannula) - *Routine Cardiovascular Exam Present: RRR - *Routine Abdominal Exam Present: soft, normoactive bowel sounds - *Routine Extremities Exam Absent: edema - *Routine Skin Exam Present: intact. Absent: dry - *Routine Neurological Exam Present: alert, oriented X3 DS: Diagnosis - Discharge Diagnosis (1) Acute and chronic respiratory failure with hypoxia Status: Acute (2) Acute exacerbation of chronic obstructive airways disease Status: Acute (3) Acute bronchitis Status: Acute (4) Tachycardia Status: Acute (5) Hypertension Status: Chronic (6) Hypothyroidism Status: Chronic (7) Supplemental oxygen dependent Status: Chronic (8) Tobacco use disorder Status: Chronic Discharge Plan - Patient Discharge Instructions ACTIVITY: Continue current activity DIET: continue same diet Patient Instructions: DI for Chronic Obstructive Pulmonary Disease - Follow up Plan Follow up with: Adrian Jones MD [Primary Care Provider] - 2 days Disposition: Home, Self-Long Term Medications: Home Medications Medication Instructions Recorded Confirmed Type amlodipine 10 mg tablet 10 mg PO DAILY 90 Days tab 07/27/17 05/19/18 History aspirin 81 mg tablet,delayed 81 mg PO DAILY 07/27/17 05/19/18 History release diazepam 5 mg tablet 5 mg PO BID 30 Days tab 07/27/17 05/19/18 History fluoxetine 40 mg capsule 40 mg PO DAILY 90 Days cap 07/27/17 05/19/18 History furosemide 40 mg tablet 40 mg PO DAILY 07/27/17 05/19/18 History levothyroxine 100 mcg tablet 100 mcg PO DAILY 90 Days tab 07/27/17 05/19/18 History meclizine 12.5 mg tablet 12.5 mg PO TIDP PRN 07/27/17 05/19/18 History metoclopramide 10 mg tablet 10 mg PO ACHS 30 Days tab 07/27/17 05/19/18 History nitroglycerin 0.4 mg sublingual 0.4 mg SUBLINGUAL Q5MINP PRN 07/27/17 05/20/18 History tablet pravastatin 40 mg tablet 40 mg PO HS 07/27/17 05/19/18 History Cholecalciferol (Vitamin D3) 2,000 unit PO DAILY 09/21/17 05/19/18 History [Vitamin D3] Ipratropium/Albuterol Sulfate 3 ml IH TID 09/21/17 05/19/18 History [Duoneb 3mL neb] Lactobacillus Acidophilus 1 cap PO DAILY 09/21/17 05/19/18 History [Probiotic] Potassium Chloride [Klor-Con 10mEq 20 meq PO DAILY 09/21/17 05/19/18 History tab] Ondansetron HCl [Zofran 4mg Tab] 4 mg PO Q6HP PRN #20 tab 09/29/17 05/19/18 Rx Biotin 5,000 mcg PO DAILY 04/08/18 05/19/18 History Glycopyrrolate/Formoterol Fum 2 puffs INHALATION BID 04/08/18 05/19/18 History [Bevespi Aerosphere Inhaler] Benazepril HCl 20 mg PO DAILY 04/09/18 05/19/18 History predniSONE [Prednisone 20mg 20 mg PO BID 05/19/18 05/19/18 History Tab] Bisoprolol Fumarate [Zebeta 5mg 5 mg PO DAILY 30 Days tab 05/25/18 Rx tablet] Ipratropium/Albuterol Sulfate 3 ml IH Q4RT 30 Days ampul.neb 05/25/18 Rx [Duoneb 3mL neb] Nicotine [Nicoderm 21mg/24hr 21 mg TD DAILYP PRN 30 Days 05/25/18 Rx patch] patch.td24 levoFLOXacin [Levaquin 500mg 500 mg PO 1100 2 Days tab 05/25/18 Rx tab] predniSONE [Prednisone 20mg 40 mg PO DAILY 5 Days #10 tab 05/25/18 Rx Tab] Prescriptions/Medication Reconciliation: New Ipratropium/Albuterol Sulfate [Duoneb 3mL neb] 3 ml IH Q4RT 30 Days ampul.neb levoFLOXacin [Levaquin 500mg tab] 500 mg PO 1100 2 Days tab Nicotine [Nicoderm 21mg/24hr patch] 21 mg TD DAILYP PRN 30 Days patch.td24 PRN Reason: Nicotine Cravings predniSONE [Prednisone 20mg Tab] 40 mg PO DAILY 5 Days #10 tab Bisoprolol Fumarate [Zebeta 5mg tablet] 5 mg PO DAILY 30 Days tab Continue amlodipine 10 mg tablet 10 mg PO DAILY 90 Days tab fluoxetine 40 mg capsule 40 mg PO DAILY 90 Days cap metoclopramide 10 mg tablet 10 mg PO ACHS 30 Days tab pravastatin 40 mg tablet 40 mg PO HS furosemide 40 mg tablet 40 mg PO DAILY diazepam 5 mg tablet 5 mg PO BID 30 Days tab nitroglycerin 0.4 mg sublingual tablet 0.4 mg SUBLINGUAL Q5MINP PRN PRN Reason: Chest Pain meclizine 12.5 mg tablet 12.5 mg PO TIDP PRN PRN Reason: Dizziness aspirin 81 mg tablet,delayed release 81 mg PO DAILY levothyroxine 100 mcg tablet 100 mcg PO DAILY 90 Days tab Lactobacillus Acidophilus [Probiotic] 1 cap PO DAILY Cholecalciferol (Vitamin D3) [Vitamin D3] 2,000 unit PO DAILY Ondansetron HCl [Zofran 4mg Tab] 4 mg PO Q6HP PRN #20 tab PRN Reason: Nausea Glycopyrrolate/Formoterol Fum [Bevespi Aerosphere Inhaler] 2 puffs INHALATION BID Ipratropium/Albuterol Sulfate [Duoneb 3mL neb] 3 ml IH TID Potassium Chloride [Klor-Con 10mEq tab] 20 meq PO DAILY Biotin 5,000 mcg PO DAILY Benazepril HCl 20 mg PO DAILY Discontinued predniSONE [Prednisone 20mg Tab] 20 mg PO BID
== END 2018-05-25 11:31 | disposition home or self-care (01) | DRG 192 ==
LOC: ER 21:57 → ICU 05-20 00:12 → 2ND 05-20 11:57
PROVIDERS: ADMIT Family Medicine; ATTEND Family Medicine
CPT/HCPCS: 36415; 71010; 71020; 71045; 71046; 71270; 80048; 80053; 82550; 82553; 82803; 83605; 83735; 84484; 85007; 85025; 87040; 87070; 87205; 93005; 93306; 94640; 94760; 94761; 96365; 96375; 99284; G0378; J1956; Q9967

== ENCOUNTER → 2018-05-31 07:35 | Outpatient (CLI) | payer MEDICARE, OTHER, SELFPAY ==
--- NOTE | 2018-05-31 08:00 | US_ITS ---
US liver HISTORY: ITS.REASON: 3 MO FU LIVER LESIONS ORDERING PHYSICIAN: Adrian Jones MD PATIENT AGE: 73 years COMPARISON: Right upper quadrant ultrasound 02/25/2018. Prior CT abdomen pelvis February 10, [address] chest without contrast April 09, 2018 & August 2017 FINDINGS: PANCREAS:Unremarkable. No obvious mass or abnormal fluid collection. No ductal dilatation LIVER:We again see the vague near isoechoic lesion at left lobe of liver. It measures up to 2.7 cm transverse x 2.2 cm AP, 1.9 cm length. It appears stable & has Is not enlarged since previous study. It shows a primarily peripheral color Doppler vascular pattern by ultrasound I would tend to favor a subtle hepatic hemangioma but CT appearance shows very early enhancement relevant delayed filling typically seen with hemangioma and thus warrants ongoing follow-up.. Differential diagnoses were noted on Jan 2018 CT. I would expect to see some change for the more significant processes however this area does appear ultrasound and actually appears fairly stable on CT chest without contrast back from August 2017. This would support benign nature I would suggest a follow-Up CT Hemangioma Protocol, (or possibly follow-up MRI abdomen with contrast) 4 months to further ensure stability At this most likely benign liver lesion.. . The liver shows no intrahepatic ductal dilatation.. The portal vein normal direction and flow in caliber.. The hepatic veins unremarkable. GALLBLADDER has been removed With this the common duct is generous in caliber as seen on previous CT. It measures up to 8 mm. Fairly Stable since prior CT studies and most likely reflects postcholecystectomy changes.. But would benefit from interval LFTs/bilirubin follow-up to verify particularly if RUQ symptoms. RIGHT KIDNEY:Satisfactory.. Normal size and echogenicity. No hydronephrosis nor mass . 10.5 cm length normal size with stable modest cortex . IMPRESSION:... 1. Stable vague isoechoic area again seen at left lobe of LIVER Given its stability, patterns on CT and today's peripheral color Doppler flow pattern most likely; this more likely reflects a benign hemangioma liver.... However since it did demonstrate a unusually early enhancement by CT, thus I would suggest a follow-up CT (hemangioma protocol) or MRI in 4 months further demonstrate & ensure stability. . 2. Cholecystectomy. Prominent common duct measurement 8 mm mostly reflecting postcholecystectomy changes. Similar appearance seen on CT study from January. May benefit from bilirubin/LFT follow-up particularly if right upper quadrant symptoms develop 3. Pancreas & right kidney satisfactory
== END ==
PROVIDERS: PCP Family Medicine; Visit Provider Family Medicine
DX: K76.9 Liver disease, unspecified (principal)
CPT/HCPCS: 76705

== ENCOUNTER → 2018-06-18 14:25 | Outpatient (CLI) | payer MEDICARE, OTHER, SELFPAY ==
--- NOTE | 2018-06-18 | NVE_ITS ---
Venous Exam IMPRESSIONS No evidence of deep or superficial vein thrombosis involving the right lower extremity and left lower extremity History: Dyspnea. Risk factors: Current tobacco use. Hypertension. Excessive bruising left lower extremity. Medications: Aspirin, 81 mg daily. Complete lower extremity venous duplex evaluation. Doppler flow study including spectral analysis, color and soriano scale imaging. Location: Vascular laboratory. Patient status: Outpatient. Tables: Venous flow and imaging: + +-------+ + Location Overall Flow properties + +-------+ + Right common femoral Patent Normal phasicity; spontaneous; normal augmentation; compressible + +-------+ + Right saphenofemoral junction Patent Compressible + +-------+ + Right profunda femoral Patent Compressible + +-------+ + Right femoral Patent Normal phasicity; spontaneous; normal augmentation; compressible; no reflux + +-------+ + Right greater saphenous Patent Normal phasicity; spontaneous; normal augmentation; compressible + +-------+ + Right popliteal Patent Normal phasicity; spontaneous; normal augmentation; compressible + +-------+ + Right posterior tibial Patent Compressible + +-------+ + Right peroneal Patent Compressible + +-------+ + Right gastrocnemius Patent Compressible + +-------+ + Right soleal Patent Compressible + +-------+ + Left common femoral Patent Normal phasicity; spontaneous; normal augmentation; compressible + +-------+ + Left saphenofemoral junction Patent Compressible + +-------+ + Left profunda femoral Patent Compressible + +-------+ + Left femoral Patent Normal phasicity; spontaneous; normal augmentation; compressible + +-------+ + Left greater saphenous Patent Normal phasicity; spontaneous; normal augmentation; compressible + +-------+ + Left popliteal Patent Normal phasicity; spontaneous; normal augmentation; c
[2018-06-18 17:02] LABS: D-Dimer 534 ng/mL (0-400)
== END ==
PROVIDERS: PCP Family Medicine; Visit Provider Internal Medicine
DX: M79.89 Other specified soft tissue disorders (principal); J44.1 Chronic obstructive pulmonary disease with (acute) exacerbation; R79.1 Abnormal coagulation profile
CPT/HCPCS: 36415; 85378; 93970

== ENCOUNTER → 2018-10-12 12:49 | Outpatient (POV) | payer MEDICARE, OTHER, SELFPAY | PROVIDERS: Visit Provider Internal Medicine | DX: Z00.00 Encounter for general adult medical examination without abnormal findings (principal) ==

== ENCOUNTER → 2018-10-30 11:15 | Outpatient (CLI) | payer MEDICARE, OTHER, SELFPAY ==
[2018-10-30 13:50] LABS: Blood Urea Nitrogen 11 mg/dL (7-18); Creatinine,Serum 0.84 mg/dL (0.55-1.02); Estimated Glomerular Filt Rate 66 ml/min (>60); GFR (African American) 80 ML/MIN (>60)
== END ==
PROVIDERS: Visit Provider Internal Medicine
DX: R93.89 Abnormal findings on diagnostic imaging of other specified body structures (principal); E27.8 Other specified disorders of adrenal gland; J96.10 Chronic respiratory failure, unspecified whether with hypoxia or hypercapnia
CPT/HCPCS: 36415; 82565; 84520

== ENCOUNTER → 2018-11-01 10:25 | Outpatient (CLI) | payer MEDICARE, OTHER, SELFPAY ==
--- NOTE | 2018-11-01 10:36 | CT_ITS ---
CT angio chest HISTORY: Follow-up abnormal chest CT, pulmonary nodule ITS.REASON: ABN CT CHEST ORDERING PHYSICIAN: Mehul Mack MD PATIENT AGE: 73 years COMPARISON: None TECHNIQUE: Dynamic axial images obtained following the administration of 75 mL of Optiray 350 . Sagittal, and coronal reformatted images are also generated and reviewed. All CT scans at the facility use one or more dose reduction, viz: automated exposure control, ma/kV adjustment per patient size (including targeted exams where dose is matched to indication, i.e. head), or iterative reconstruction technique. FINDINGS: There is been interval development of an enlarged right paratracheal lymph node measuring 2.9 x 2.7 x 4 cm. Adenopathy is also developed in the right hilum 2 x 1.4 cm. There are coronary artery calcifications. There is normal heart size. There are small subcarinal lymph nodes. There is mild pericardial thickening measuring up to 9 mm. There are changes of COPD with centrilobular emphysema. The previously noted nodular lesion in the right upper lobe is somewhat less apparent. There is some residual density in this region which may be due to some scarring. There are however new lobular pleural-based densities in the right mid to lower chest laterally measuring up to 2.3 x 1 cm evident nodular configuration. No pleural effusion is evident. There is chronic volume loss within the lingula. New atelectatic changes are present in the right middle lobe medially. There are old left-sided rib fractures. Upper abdominal images show an irregular area of enhancement within the left hepatic lobe may represent a hemangioma which is similar density as the aorta on all 3 phases. There is an isodensity in the hepatic dome which may be due to a small cyst at 1 cm. The adrenal glands aren't enlarged on both sides not significantly changed. There is a small hiatal hernia. There are coronary artery calcifications. Atheromatous changes involve the thoracic aorta. IMPRESSION: 1. Interval development of mediastinal and right hilar adenopathy and pleural-based nodules in the right mid hemithorax laterally suspicious for neoplasm such as metastasis. 2. Previously noted nodular density in the right upper lobe is less apparent. The remaining some residual density in this region although smaller. 3. COPD with centrilobular emphysema. 4. Chronic volume loss within the lingula with new area of atelectasis within the right middle lobe medially. 5. Enhancing area within the dome of the liver at 2.8 x 1.7 cm and the left hepatic lobe which may represent a hemangioma
== END ==
PROVIDERS: PCP Family Medicine; Visit Provider Internal Medicine
DX: R93.89 Abnormal findings on diagnostic imaging of other specified body structures (principal)
CPT/HCPCS: 71275; Q9967

== ENCOUNTER → 2019-01-20 10:41 | Outpatient (CLI) | payer MEDICARE, OTHER, SELFPAY ==
--- NOTE | 2019-01-20 10:55 | MR_ITS ---
PROCEDURE: MR HEAD/BRAIN WO/W CON CLINICAL INDICATION: SMALL CELL LUNG CARCINOMA, BRONCHOGENIC LUNG CANCER Dizziness, memory loss, lung cancer, small cell lung carcinoma COMPARISON: CHESTW CT chest w con from 11/01/2018 TECHNIQUE: Routine multiplanar multi echo sequences are performed without and with gadolinium enhancement. FINDINGS: No midline shift, mass effect, intracranial hemorrhage, or hydrocephalus is evident. There are scattered periventricular and subcortical T2 white matter hyperintensities consistent with ischemic gliotic change from microvascular disease. No enhancing lesions are evident that would indicate metastatic disease. There are some mild encephalomalacia changes the in in the parieto-occipital region bilaterally with some prominent perivascular dilated spaces in this region as well. No enhancing lesions are apparent. No evidence of acute infarction. The pituitary, optic chiasm, corpus callosum, and craniocervical junction have an unremarkable appearance. There is generalized atrophy with periventricular ischemic gliotic change. The cerebellopontine angles, cerebellum, and brainstem are unremarkable. No mastoid effusion or sinus air-fluid level. Unremarkable appearing calvarium. IMPRESSION: 1. No evidence of metastatic disease 2. Atrophy with chronic ischemic gliotic changes Dictated by: Darian Quezada MD 01/21/2019 07:03 Signed by: <Electronically signed by Darian Quezada MD in [place]> 01/21/2019 07:03
[2019-01-20 11:18] LABS: Blood Urea Nitrogen 14 mg/dL (7-18); Creatinine,Serum 0.98 mg/dL (0.55-1.02); Estimated Glomerular Filt Rate 56 ml/min (>60); GFR (African American) 67 ML/MIN (>60)
--- NOTE | 2019-01-20 11:47 | HMH.ITSHM ---
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 []PROBOTICS POTASSIUM CHLORIDE LEVOTHYROXIN AMLODIPINE FUNOSEMIDE FLUOXETINE BENAZEPRIL METOCLOPRAMIDE PRAVASTIN DIAZEPAM DIPHEN MECLIZINE VITAMIN D3 IPMATROPIUM ALBUTEROL BIOTIN BISOPROLOL FUMARATE
[2019-01-20 19:08] LABS: Basophils % 0.4 % (0.1-2.0); Eosinophils # 0.1 K/mm3 (0.0-0.4); Eosinophils % 0.8 % (0.1-12.0); Hematocrit 42.1 % (37.0-47.0); Hemoglobin 13.1 g/dL (12.2-16.2); Lymphocytes # 1.7 K/mm3 (0.7-4.5); Lymphocytes % 22.7 % (10-50); Mean Corpuscular HGB Conc 31.2 g/dL (31.8-35.4); Mean Corpuscular Hemoglobin 30.1 pg (27.0-31.2); Mean Corpuscular Volume 96.4 fl (81-99); Monocytes # 0.5 K/mm3 (0.1-1.0); Monocytes % 6.8 % (1.7-9.3); Neutrophils % 69.3 % (37.0-80.0); Platelet Count 258 K/mm3 (142-424); Red Blood Count 4.36 M/mm3 (4.20-5.40); Red Cell Distribution Width 13.3 % (11.5-17.5); White Blood Count 7.3 K/mm3 (4.8-10.8)
[2019-01-20 19:14] LABS: Alanine Aminotransferase 19 U/L (12-78); Albumin Level 3.7 gm/dL (3.4-5.0); Albumin/Globulin Ratio 1.4 (1.1-1.8); Alkaline Phosphatase 87 U/L (46-116); Anion Gap 9.6 mEq/L (5-15); Aspartate Amino Transferase 16 U/L (15-37); Bilirubin,Total 0.2 mg/dL (0.2-1.0); Blood Urea Nitrogen 13 mg/dL (7-18); Calcium 8.7 mg/dL (8.5-10.1); Carbon Dioxide 31 mmol/L (21.0-32.0); Chloride 102 mmol/L (98-107); Estimated Glomerular Filt Rate 54 ml/min (>60); GFR (African American) 66 ML/MIN (>60); Globulin 2.7 gm/dl (1.3-3.2); Glucose 117 mg/dL (74-106); Potassium 3.6 mmoL/L (3.5-5.1); Sodium 139 mmol/L (136-145); Total Protein,Serum 6.4 gm/dL (6.4-8.2)
== END ==
PROVIDERS: Internal Medicine Medical Oncology; PCP Family Medicine; Visit Provider Internal Medicine
DX: D64.9 Anemia, unspecified (principal); C34.90 Malignant neoplasm of unspecified part of unspecified bronchus or lung
CPT/HCPCS: 36415; 70553; 80053; 82565; 84520; 85025; A9576

== ENCOUNTER 2019-01-26 08:30 | Outpatient (CLI) | payer MEDICARE, OTHER, SELFPAY ==
[2019-01-26] VITALS (21 sets, daily range): BP systolic 123–157; BP diastolic 56–98; PULSE 65–83; RESP 18–22; TEMP 36.7; O2SAT 92–95
== END 2019-01-26 16:40 | disposition home or self-care (01) ==
LOC: INF 08:39
PROVIDERS: PCP Family Medicine; Visit Provider Internal Medicine Medical Oncology
DX: C34.90 Malignant neoplasm of unspecified part of unspecified bronchus or lung (principal)
CPT/HCPCS: 94640; 96413; 96415; 96417; J8501; J9060; J9181; Q0166

== ENCOUNTER 2019-01-27 09:50 | Outpatient (CLI) | payer MEDICARE, OTHER, SELFPAY ==
[2019-01-27] VITALS (8 sets, daily range): BP systolic 135–171; BP diastolic 61–79; PULSE 70–74; RESP 18–20; TEMP 36.3; O2SAT 93
== END 2019-01-27 12:40 | disposition home or self-care (01) ==
LOC: INF 10:06
PROVIDERS: Visit Provider Internal Medicine Medical Oncology
DX: Z51.11 Encounter for antineoplastic chemotherapy (principal); C34.90 Malignant neoplasm of unspecified part of unspecified bronchus or lung
CPT/HCPCS: 96413; 96415; J9181; Q0166

== ENCOUNTER 2019-01-28 12:25 | Outpatient (CLI) | payer MEDICARE, OTHER, SELFPAY ==
[2019-01-28] VITALS (7 sets, daily range): BP systolic 138–175; BP diastolic 58–86; PULSE 71–84; RESP 18–20; TEMP 36.3; O2SAT 92–94
== END 2019-01-28 14:55 | disposition home or self-care (01) ==
LOC: INF 12:29
PROVIDERS: Visit Provider Internal Medicine Medical Oncology
DX: C34.91 Malignant neoplasm of unspecified part of right bronchus or lung (principal)
CPT/HCPCS: 94640; 96413; 96415; J9181; Q0166

== ENCOUNTER 2019-02-10 13:15 | Outpatient (CLI) | payer MEDICARE, OTHER, SELFPAY ==
[2019-02-10 13:15] VITALS: PULSE 76; O2SAT 96
[2019-02-10 13:16] VITALS: BMI 27.8
[2019-02-10 13:42] LABS: Basophils % 0.4 % (0.1-2.0); Eosinophils % 1.8 % (0.1-12.0); Hematocrit 35.5 % (37.0-47.0); Hemoglobin 11.8 g/dL (12.2-16.2); Lymphocytes # 1.3 K/mm3 (0.7-4.5); Mean Corpuscular HGB Conc 33.2 g/dL (31.8-35.4); Mean Corpuscular Hemoglobin 30.6 pg (27.0-31.2); Mean Corpuscular Volume 92.3 fl (81-99); Mean Platelet Volume 8.1 fl (7.4-10.4); Monocytes # 0.2 K/mm3 (0.1-1.0); Neutrophils # 0.6 K/mm3 (1.8-7.8); Neutrophils % 27.9 % (37.0-80.0); Platelet Count 154 K/mm3 (142-424); Red Blood Count 3.85 M/mm3 (4.20-5.40); Red Cell Distribution Width 13.2 % (11.5-17.5); White Blood Count 2.1 K/mm3 (4.8-10.8)
[2019-02-10 13:44] LABS: MANUAL DIFFERENTIAL MANUAL DIFFERENTIAL (MANUAL DIFF)
[2019-02-10 13:54] LABS: Alanine Aminotransferase 21 U/L (12-78); Albumin Level 3.6 gm/dL (3.4-5.0); Albumin/Globulin Ratio 1.1 (1.1-1.8); Alkaline Phosphatase 99 U/L (46-116); Anion Gap 11.8 mEq/L (5-15); Aspartate Amino Transferase 16 U/L (15-37); Bilirubin,Total 0.2 mg/dL (0.2-1.0); Blood Urea Nitrogen 11 mg/dL (7-18); Calcium 8.7 mg/dL (8.5-10.1); Carbon Dioxide 31 mmol/L (21.0-32.0); Chloride 101 mmol/L (98-107); Creatinine Clearance Estimated 55 mL/min (50-200); Creatinine,Serum 0.78 mg/dL (0.55-1.02); Estimated Glomerular Filt Rate 72 ml/min (>60); GFR (African American) 88 ML/MIN (>60); Globulin 3.4 gm/dl (1.3-3.2); Glucose 144 mg/dL (74-106); Potassium 3.8 mmoL/L (3.5-5.1); Sodium 140 mmol/L (136-145)
[2019-02-10 14:25] LABS: Lymphocytes % 63 % (10-50); Monocytes % 2 % (2-9); Neutrophils % 35 % (42-76); Platelet Estimate Normal; RBC Morphology Normal; Total Cells Counted 100
--- NOTE | 2019-02-10 17:48 | PC.NURSE ---
1315-pt arrived to outpt infusion clinic per wc with nurse jessica gray rn and pt . pt brought for breathing tx and lab draw. rt contacted and at pt chair side to perform duoneb per md order at this time. [facility] lab staff notified to obtain blood from pt per venipuncture. Once tasks completed, pt escorted per nursing staff to car via wc.
== END 2019-02-10 13:20 | disposition home or self-care (01) ==
LOC: INF 13:15
PROVIDERS: Visit Provider Internal Medicine Medical Oncology
DX: C34.91 Malignant neoplasm of unspecified part of right bronchus or lung (principal)
CPT/HCPCS: 36415; 80053; 85007; 85025; 94640

== ENCOUNTER 2019-02-14 08:15 | Outpatient (CLI) | payer MEDICARE, OTHER, SELFPAY ==
[2019-02-14] VITALS (16 sets, daily range): BP systolic 129–153; BP diastolic 52–70; PULSE 72–86; RESP 18; TEMP 36.1; O2SAT 96–97; BMI 28.1
[2019-02-14 08:47] LABS: Basophils % 0.7 % (0.1-2.0); Eosinophils % 1.9 % (0.1-12.0); Hematocrit 36.6 % (37.0-47.0); Hemoglobin 11.9 g/dL (12.2-16.2); Lymphocytes % 46.5 % (10-50); Mean Corpuscular HGB Conc 32.6 g/dL (31.8-35.4); Mean Corpuscular Hemoglobin 30.4 pg (27.0-31.2); Mean Corpuscular Volume 93.5 fl (81-99); Monocytes # 0.3 K/mm3 (0.1-1.0); Monocytes % 11.9 % (1.7-9.3); Neutrophils # 0.9 K/mm3 (1.8-7.8); Neutrophils % 39.1 % (37.0-80.0); Platelet Count 276 K/mm3 (142-424); Red Blood Count 3.92 M/mm3 (4.20-5.40); Red Cell Distribution Width 14.1 % (11.5-17.5); White Blood Count 2.2 K/mm3 (4.8-10.8)
== END 2019-02-14 16:40 | disposition home or self-care (01) ==
LOC: INF 08:47
PROVIDERS: Visit Provider Internal Medicine Medical Oncology
DX: Z51.11 Encounter for antineoplastic chemotherapy (principal); C34.11 Malignant neoplasm of upper lobe, right bronchus or lung
CPT/HCPCS: 85025; 94640; 96413; 96415; 96417; J9060; J9181; Q0166

== ENCOUNTER 2019-02-15 09:28 | Outpatient (CLI) | payer MEDICARE, OTHER, SELFPAY ==
[2019-02-15 10:16] VITALS: BP 137/55; PULSE 82; RESP 22; TEMP 36.5; O2SAT 93
[2019-02-15 10:46] VITALS: BP 132/57; PULSE 84; RESP 20; O2SAT 94
[2019-02-15 11:16] VITALS: BP 134/59; PULSE 83; RESP 20; O2SAT 94
[2019-02-15 11:45] VITALS: BP 140/54; PULSE 85; RESP 20; O2SAT 93
== END 2019-02-15 11:45 | disposition home or self-care (01) ==
LOC: INF 09:28
PROVIDERS: Visit Provider Internal Medicine Medical Oncology
DX: C34.11 Malignant neoplasm of upper lobe, right bronchus or lung (principal); Z51.11 Encounter for antineoplastic chemotherapy
CPT/HCPCS: 96413; 96415; J9181; Q0166

== ENCOUNTER 2019-02-16 09:44 | Outpatient (CLI) | payer MEDICARE, OTHER, SELFPAY ==
[2019-02-16] VITALS (8 sets, daily range): BP systolic 140–156; BP diastolic 65–76; PULSE 76–96; RESP 20–22; O2SAT 92–94
== END 2019-02-16 12:28 | disposition home or self-care (01) ==
LOC: INF 09:44
PROVIDERS: Visit Provider Internal Medicine Medical Oncology
DX: Z51.11 Encounter for antineoplastic chemotherapy (principal); C34.11 Malignant neoplasm of upper lobe, right bronchus or lung
CPT/HCPCS: 96413; 96415; J9181; Q0166

== ENCOUNTER → 2019-02-28 09:14 | Outpatient (CLI) | payer MEDICARE, OTHER, SELFPAY ==
[2019-02-28 09:42] LABS: Basophils % 0.4 % (0.1-2.0); Eosinophils % 0.1 % (0.1-12.0); Hematocrit 28.9 % (37.0-47.0); Hemoglobin 9.2 g/dL (12.2-16.2); Lymphocytes # 0.5 K/mm3 (0.7-4.5); Lymphocytes % 42.3 % (10-50); Mean Corpuscular HGB Conc 31.8 g/dL (31.8-35.4); Mean Corpuscular Hemoglobin 29.7 pg (27.0-31.2); Mean Corpuscular Volume 93.5 fl (81-99); Mean Platelet Volume 9.4 fl (7.4-10.4); Monocytes # 0.2 K/mm3 (0.1-1.0); Monocytes % 14.2 % (1.7-9.3); Neutrophils # 0.5 K/mm3 (1.8-7.8); Red Blood Count 3.09 M/mm3 (4.20-5.40); Red Cell Distribution Width 14.6 % (11.5-17.5); White Blood Count 1.1 K/mm3 (4.8-10.8)
[2019-02-28 11:02] LABS: Alanine Aminotransferase 13 U/L (12-78); Albumin Level 3.2 gm/dL (3.4-5.0); Albumin/Globulin Ratio 1.1 (1.1-1.8); Alkaline Phosphatase 77 U/L (46-116); Anion Gap 12.3 mEq/L (5-15); Aspartate Amino Transferase 9 U/L (15-37); Bilirubin,Total 0.3 mg/dL (0.2-1.0); Blood Urea Nitrogen 15 mg/dL (7-18); Calcium 8.5 mg/dL (8.5-10.1); Carbon Dioxide 31 mmol/L (21.0-32.0); Chloride 100 mmol/L (98-107); Creatinine,Serum 0.96 mg/dL (0.55-1.02); Estimated Glomerular Filt Rate 57 ml/min (>60); GFR (African American) 69 ML/MIN (>60); Glucose 123 mg/dL (74-106); Potassium 4.3 mmoL/L (3.5-5.1); Sodium 139 mmol/L (136-145); Total Protein,Serum 6.2 gm/dL (6.4-8.2)
[2019-02-28 12:50] LABS: Platelet Count 43 K/mm3 (142-424)
== END ==
PROVIDERS: Visit Provider Internal Medicine Medical Oncology
DX: C34.91 Malignant neoplasm of unspecified part of right bronchus or lung (principal)
CPT/HCPCS: 36415; 80053; 85025

== ENCOUNTER 2019-03-03 14:36 | Outpatient (CLI) | payer MEDICARE, OTHER, SELFPAY ==
[2019-03-03 14:43] VITALS: BMI 27.2
[2019-03-03 15:00] VITALS: BP 133/59; PULSE 81; RESP 20; TEMP 36.2; O2SAT 95
[2019-03-03 15:08] LABS: Basophils # 0.1 K/mm3 (0-0.2); Basophils % 1.7 % (0.1-2.0); Eosinophils % 0.2 % (0.1-12.0); Hematocrit 30.9 % (37.0-47.0); Hemoglobin 9.9 g/dL (12.2-16.2); Lymphocytes # 0.6 K/mm3 (0.7-4.5); Lymphocytes % 18.3 % (10-50); Mean Corpuscular HGB Conc 31.9 g/dL (31.8-35.4); Mean Corpuscular Hemoglobin 29.4 pg (27.0-31.2); Monocytes # 0.4 K/mm3 (0.1-1.0); Monocytes % 12.5 % (1.7-9.3); Neutrophils # 2.3 K/mm3 (1.8-7.8); Platelet Count 89 K/mm3 (142-424); Red Blood Count 3.36 M/mm3 (4.20-5.40); Red Cell Distribution Width 14.5 % (11.5-17.5); White Blood Count 3.3 K/mm3 (4.8-10.8)
[2019-03-03 15:18] LABS: Alanine Aminotransferase 18 U/L (12-78); Albumin Level 2.9 gm/dL (3.4-5.0); Albumin/Globulin Ratio 0.8 (1.1-1.8); Alkaline Phosphatase 68 U/L (46-116); Anion Gap 13.1 mEq/L (5-15); Aspartate Amino Transferase 18 U/L (15-37); Bilirubin,Total 0.2 mg/dL (0.2-1.0); Blood Urea Nitrogen 11 mg/dL (7-18); Calcium 9.1 mg/dL (8.5-10.1); Carbon Dioxide 28 mmol/L (21.0-32.0); Chloride 101 mmol/L (98-107); Creatinine Clearance Estimated 53 mL/min (50-200); Creatinine,Serum 0.99 mg/dL (0.55-1.02); Estimated Glomerular Filt Rate 55 ml/min (>60); GFR (African American) 67 ML/MIN (>60); Globulin 3.8 gm/dl (1.3-3.2); Glucose 104 mg/dL (74-106); Potassium 4.1 mmoL/L (3.5-5.1); Sodium 138 mmol/L (136-145); Total Protein,Serum 6.7 gm/dL (6.4-8.2)
[2019-03-03 15:30] VITALS: BP 139/66; PULSE 86; RESP 20
[2019-03-03 16:00] VITALS: BP 145/67; PULSE 91; RESP 20
== END 2019-03-03 16:15 | disposition home or self-care (01) ==
LOC: INF 14:36
PROVIDERS: PCP Family Medicine; Visit Provider Internal Medicine Medical Oncology
DX: Z51.11 Encounter for antineoplastic chemotherapy (principal); C34.11 Malignant neoplasm of upper lobe, right bronchus or lung
CPT/HCPCS: 80053; 85025; 96360; 96375; J2405

== ENCOUNTER 2019-03-04 14:06 | Outpatient (CLI) | payer MEDICARE, OTHER, SELFPAY ==
[2019-03-04 14:00] VITALS: BP 112/74; PULSE 77; RESP 20; TEMP 36.9
[2019-03-04 14:30] VITALS: BP 123/74; PULSE 68; RESP 20; TEMP 36.9; O2SAT 95
[2019-03-04 15:00] VITALS: BP 126/74; PULSE 68; RESP 20; TEMP 36.9; O2SAT 95
== END 2019-03-04 15:10 | disposition home or self-care (01) ==
LOC: INF 14:06
PROVIDERS: Visit Provider Internal Medicine Medical Oncology
DX: C34.11 Malignant neoplasm of upper lobe, right bronchus or lung (principal); F17.210 Nicotine dependence, cigarettes, uncomplicated
CPT/HCPCS: 96365; 96375

== ENCOUNTER 2019-03-07 11:10 | Outpatient (CLI) | payer MEDICARE, OTHER, SELFPAY ==
[2019-03-07 11:30] VITALS: BP 113/60; PULSE 78; RESP 20; O2SAT 2
[2019-03-07 12:30] VITALS: BP 140/63; PULSE 81; RESP 20
== END 2019-03-07 12:33 | disposition home or self-care (01) ==
LOC: INF 11:10
PROVIDERS: Visit Provider Internal Medicine Medical Oncology
DX: C34.11 Malignant neoplasm of upper lobe, right bronchus or lung (principal); Z72.0 Tobacco use
CPT/HCPCS: 96360; 96374; 96375; J2405

== ENCOUNTER 2019-03-10 11:02 | Outpatient (CLI) | payer MEDICARE, OTHER, SELFPAY ==
[2019-03-10 11:15] VITALS: BP 133/48; PULSE 68; RESP 20; BMI 25.9
[2019-03-10 11:46] LABS: Basophils % 0.4 % (0.1-2.0); Eosinophils # 0.1 K/mm3 (0.0-0.4); Eosinophils % 0.5 % (0.1-12.0); Hematocrit 31.8 % (37.0-47.0); Hemoglobin 9.6 g/dL (12.2-16.2); Lymphocytes # 0.9 K/mm3 (0.7-4.5); Mean Corpuscular HGB Conc 30.3 g/dL (31.8-35.4); Mean Corpuscular Hemoglobin 29.5 pg (27.0-31.2); Mean Corpuscular Volume 97.2 fl (81-99); Monocytes % 9.7 % (1.7-9.3); Neutrophils # 8.7 K/mm3 (1.8-7.8); Neutrophils % 81.4 % (37.0-80.0); Platelet Count 220 K/mm3 (142-424); Red Blood Count 3.28 M/mm3 (4.20-5.40); Red Cell Distribution Width 16.7 % (11.5-17.5); White Blood Count 10.7 K/mm3 (4.8-10.8)
[2019-03-10 12:20] VITALS: BP 140/56; PULSE 72; RESP 20
[2019-03-10 12:29] LABS: Alanine Aminotransferase 12 U/L (12-78); Albumin Level 2.7 gm/dL (3.4-5.0); Albumin/Globulin Ratio 0.8 (1.1-1.8); Alkaline Phosphatase 62 U/L (46-116); Anion Gap 10.5 mEq/L (5-15); Aspartate Amino Transferase 7 U/L (15-37); Bilirubin,Total 0.2 mg/dL (0.2-1.0); Blood Urea Nitrogen 9 mg/dL (7-18); Carbon Dioxide 30 mmol/L (21.0-32.0); Chloride 103 mmol/L (98-107); Creatinine Clearance Estimated 50 mL/min (50-200); Creatinine,Serum 0.79 mg/dL (0.55-1.02); Estimated Glomerular Filt Rate 71 ml/min (>60); GFR (African American) 86 ML/MIN (>60); Globulin 3.4 gm/dl (1.3-3.2); Glucose 87 mg/dL (74-106); Potassium 4.5 mmoL/L (3.5-5.1); Sodium 139 mmol/L (136-145); Total Protein,Serum 6.1 gm/dL (6.4-8.2)
== END 2019-03-10 12:20 | disposition home or self-care (01) ==
LOC: INF 11:02
PROVIDERS: Visit Provider Internal Medicine Medical Oncology
DX: C34.11 Malignant neoplasm of upper lobe, right bronchus or lung (principal)
CPT/HCPCS: 36415; 80053; 85025; 96360

== ENCOUNTER 2019-03-17 12:23 | Outpatient (CLI) | payer MEDICARE, OTHER, SELFPAY ==
[2019-03-17 12:25] VITALS: BMI 27.2
[2019-03-17 12:37] LABS: Basophils % 0.4 % (0.1-2.0); Eosinophils % 0.1 % (0.1-12.0); Hemoglobin 10.7 g/dL (12.2-16.2); Lymphocytes # 0.9 K/mm3 (0.7-4.5); Lymphocytes % 10.1 % (10-50); Mean Corpuscular HGB Conc 31.4 g/dL (31.8-35.4); Mean Corpuscular Hemoglobin 30.5 pg (27.0-31.2); Mean Corpuscular Volume 97.2 fl (81-99); Mean Platelet Volume 8.4 fl (7.4-10.4); Monocytes # 0.7 K/mm3 (0.1-1.0); Monocytes % 8.4 % (1.7-9.3); Neutrophils # 7.1 K/mm3 (1.8-7.8); Neutrophils % 80.8 % (37.0-80.0); Platelet Count 295 K/mm3 (142-424); Red Blood Count 3.49 M/mm3 (4.20-5.40); Red Cell Distribution Width 15.9 % (11.5-17.5); White Blood Count 8.7 K/mm3 (4.8-10.8)
[2019-03-17 12:48] LABS: Alanine Aminotransferase 16 U/L (12-78); Albumin Level 3.2 gm/dL (3.4-5.0); Albumin/Globulin Ratio 0.8 (1.1-1.8); Alkaline Phosphatase 75 U/L (46-116); Anion Gap 15.3 mEq/L (5-15); Aspartate Amino Transferase 11 U/L (15-37); Bilirubin,Total 0.2 mg/dL (0.2-1.0); Blood Urea Nitrogen 11 mg/dL (7-18); Calcium 8.8 mg/dL (8.5-10.1); Carbon Dioxide 28 mmol/L (21.0-32.0); Chloride 101 mmol/L (98-107); Creatinine Clearance Estimated 48 mL/min (50-200); Creatinine,Serum 1.09 mg/dL (0.55-1.02); Estimated Glomerular Filt Rate 49 ml/min (>60); GFR (African American) 59 ML/MIN (>60); Globulin 3.8 gm/dl (1.3-3.2); Glucose 134 mg/dL (74-106); Potassium 4.3 mmoL/L (3.5-5.1); Sodium 140 mmol/L (136-145)
[2019-03-17 13:45] VITALS: BP 132/51; PULSE 71; RESP 18
[2019-03-17 15:10] VITALS: BP 154/68; PULSE 79; RESP 18
== END 2019-03-17 15:15 | disposition home or self-care (01) ==
LOC: INF 12:23
PROVIDERS: Visit Provider Internal Medicine Medical Oncology
DX: C34.91 Malignant neoplasm of unspecified part of right bronchus or lung (principal)
CPT/HCPCS: 80053; 85025; 96360; 96374; 96375; J2405

== ENCOUNTER 2019-03-18 11:00 | Outpatient (CLI) | payer MEDICARE, OTHER, SELFPAY ==
[2019-03-18 11:13] VITALS: BP 136/54; PULSE 75; RESP 20; O2SAT 96
[2019-03-18 12:20] VITALS: BP 143/64; PULSE 86; RESP 20; O2SAT 94
== END 2019-03-18 12:20 | disposition home or self-care (01) ==
LOC: INF 11:00
PROVIDERS: Visit Provider Internal Medicine Medical Oncology
DX: E86.0 Dehydration; C34.11 Malignant neoplasm of upper lobe, right bronchus or lung; R53.1 Weakness
CPT/HCPCS: 96360; 96374; 96375; J2405

== ENCOUNTER → 2019-03-24 08:55 | Outpatient (CLI) | payer MEDICARE, OTHER, SELFPAY ==
[2019-03-24 09:10] LABS: Basophils % 0.4 % (0.1-2.0); Eosinophils # 0.1 K/mm3 (0.0-0.4); Eosinophils % 1.5 % (0.1-12.0); Hematocrit 33.8 % (37.0-47.0); Hemoglobin 10.4 g/dL (12.2-16.2); Lymphocytes # 0.7 K/mm3 (0.7-4.5); Lymphocytes % 8.3 % (10-50); Mean Corpuscular HGB Conc 30.8 g/dL (31.8-35.4); Mean Corpuscular Hemoglobin 30.7 pg (27.0-31.2); Mean Corpuscular Volume 99.7 fl (81-99); Mean Platelet Volume 9.2 fl (7.4-10.4); Monocytes # 0.8 K/mm3 (0.1-1.0); Monocytes % 9.6 % (1.7-9.3); Neutrophils # 6.7 K/mm3 (1.8-7.8); Neutrophils % 80.1 % (37.0-80.0); Platelet Count 166 K/mm3 (142-424); Red Blood Count 3.39 M/mm3 (4.20-5.40); Red Cell Distribution Width 16.2 % (11.5-17.5); White Blood Count 8.3 K/mm3 (4.8-10.8)
[2019-03-24 09:24] LABS: Alanine Aminotransferase 16 U/L (12-78); Albumin/Globulin Ratio 0.9 (1.1-1.8); Alkaline Phosphatase 74 U/L (46-116); Anion Gap 10.4 mEq/L (5-15); Aspartate Amino Transferase 8 U/L (15-37); Bilirubin,Total 0.3 mg/dL (0.2-1.0); Blood Urea Nitrogen 12 mg/dL (7-18); Carbon Dioxide 31 mmol/L (21.0-32.0); Chloride 100 mmol/L (98-107); Creatinine,Serum 0.93 mg/dL (0.55-1.02); Estimated Glomerular Filt Rate 59 ml/min (>60); GFR (African American) 71 ML/MIN (>60); Globulin 3.5 gm/dl (1.3-3.2); Glucose 169 mg/dL (74-106); Potassium 4.4 mmoL/L (3.5-5.1); Sodium 137 mmol/L (136-145); Total Protein,Serum 6.5 gm/dL (6.4-8.2)
--- NOTE | 2019-03-24 13:33 | CT_ITS ---
PROCEDURE: CT CHEST W CON CLINCAL INDICATION: LUNG CA Lung cancer follow-up COMPARISON: LUNGSCREEN CT lung screening from 07/02/[address] chest w con from 11/01/2018 TECHNIQUE: IV Contrast: 75ml Optiray 350 Axial images obtained with sagittal and coronal reformats. All CT scans at the facility use one or more dose reduction, viz: automated exposure control, ma/kV adjustment per patient size (including targeted exams where dose is matched to indication, i.e. head), or iterative reconstruction technique. FINDINGS: Previously noted mediastinal adenopathy has shown marked improvement with no adenopathy evident at this time. Normal heart size. There are atherosclerotic changes of the thoracic aorta with a several small penetrating ulcers of the descending thoracic aorta noted. No evidence of pulmonary embolus. COPD with centrilobular emphysema and scattered areas of scarring. No suspicious pulmonary nodule apparent. There is some mild subpleural atelectatic change along the left major fissure. No effusions or infiltrates. No acute bony findings. There is an old 9 ununited fracture of the left the 8th rib as well as an old left 9th rib fracture. Previously noted pleural-based nodular densities in the right upper and lower lobe are no longer apparent Upper abdominal images once again shows an area of irregular enhancement in the left hepatic lobe possibly due to a hemangioma. There is a cyst in the hepatic dome on the left. The adrenal glands are enlarged as before. There is a small hiatal hernia. IMPRESSION: 1. Marked improvement in the mediastinal adenopathy. The hilar adenopathy is also improved. This was not mentioned in the body of the report. Pleural-based nodular densities on the right have also resolved. 2. COPD/emphysema with chronic changes as described above. 3. Enlarged bilateral adrenal glands left more so than right which appears stable Dictated by: Darian Quezada MD 03/25/2019 11:57 Electronically signed by Darian Quezada MD in [place] 03/25/2019 11:57
== END ==
PROVIDERS: PCP Family Medicine; Visit Provider Internal Medicine Medical Oncology
DX: C34.90 Malignant neoplasm of unspecified part of unspecified bronchus or lung (principal)
CPT/HCPCS: 36415; 71260; 80053; 85025; Q9967

== ENCOUNTER 2019-03-28 08:36 | Outpatient (CLI) | payer MEDICARE, OTHER, SELFPAY ==
[2019-03-28] VITALS (22 sets, daily range): BP systolic 117–185; BP diastolic 42–82; PULSE 64–82; RESP 18–20; TEMP 35.9–36.3; O2SAT 92–93
== END 2019-03-28 16:25 | disposition home or self-care (01) ==
LOC: INF 08:36
PROVIDERS: Visit Provider Internal Medicine Medical Oncology
DX: Z51.11 Encounter for antineoplastic chemotherapy (principal); C34.11 Malignant neoplasm of upper lobe, right bronchus or lung
CPT/HCPCS: 96413; 96415; 96417; J9060; J9181; Q0166

== ENCOUNTER 2019-03-29 09:33 | Outpatient (CLI) | payer MEDICARE, OTHER, SELFPAY ==
[2019-03-29] VITALS (8 sets, daily range): BP systolic 134–164; BP diastolic 56–82; PULSE 67–85; RESP 20; TEMP 36.1; O2SAT 91–95
== END 2019-03-29 12:05 | disposition home or self-care (01) ==
LOC: INF 09:33
PROVIDERS: Visit Provider Internal Medicine Medical Oncology
DX: Z51.11 Encounter for antineoplastic chemotherapy (principal); C34.11 Malignant neoplasm of upper lobe, right bronchus or lung
CPT/HCPCS: 96413; 96415; J9181; Q0166

== ENCOUNTER 2019-03-30 09:15 | Outpatient (CLI) | payer MEDICARE, OTHER, SELFPAY ==
[2019-03-30] VITALS (8 sets, daily range): BP systolic 120–163; BP diastolic 50–74; PULSE 67–76; RESP 18–20; TEMP 36.3; O2SAT 95
== END 2019-03-30 11:55 | disposition home or self-care (01) ==
LOC: INF 09:24
PROVIDERS: Visit Provider Internal Medicine Medical Oncology
DX: Z51.11 Encounter for antineoplastic chemotherapy (principal); C34.90 Malignant neoplasm of unspecified part of unspecified bronchus or lung
CPT/HCPCS: 96413; 96415; J9181; Q0166

== ENCOUNTER → 2019-04-15 11:50 | Outpatient (CLI) | payer MEDICARE, OTHER, SELFPAY ==
[2019-04-15 12:10] LABS: Basophils % 1.3 % (0.1-2.0); Eosinophils % 2.6 % (0.1-12.0); Hematocrit 28.1 % (37.0-47.0); Hemoglobin 8.9 g/dL (12.2-16.2); Lymphocytes # 0.6 K/mm3 (0.7-4.5); Lymphocytes % 52.7 % (10-50); Mean Corpuscular HGB Conc 31.7 g/dL (31.8-35.4); Mean Corpuscular Hemoglobin 31.9 pg (27.0-31.2); Mean Corpuscular Volume 100.4 fl (81-99); Mean Platelet Volume 10.3 fl (7.4-10.4); Monocytes # 0.2 K/mm3 (0.1-1.0); Monocytes % 19.9 % (1.7-9.3); Neutrophils # 0.3 K/mm3 (1.8-7.8); Neutrophils % 23.6 % (37.0-80.0); Platelet Count 60 K/mm3 (142-424); Red Cell Distribution Width 16.6 % (11.5-17.5); White Blood Count 1.2 K/mm3 (4.8-10.8)
[2019-04-15 12:14] LABS: MANUAL DIFFERENTIAL MANUAL DIFFERENTIAL (MANUAL DIFF)
[2019-04-15 12:49] LABS: Alanine Aminotransferase 17 U/L (12-78); Albumin Level 3.6 gm/dL (3.4-5.0); Albumin/Globulin Ratio 1.2 (1.1-1.8); Alkaline Phosphatase 91 U/L (46-116); Anion Gap 12.6 mEq/L (5-15); Aspartate Amino Transferase 16 U/L (15-37); Bilirubin,Total 0.2 mg/dL (0.2-1.0); Blood Urea Nitrogen 10 mg/dL (7-18); Calcium 8.4 mg/dL (8.5-10.1); Carbon Dioxide 28 mmol/L (21.0-32.0); Chloride 98 mmol/L (98-107); Creatinine,Serum 0.85 mg/dL (0.55-1.02); Estimated Glomerular Filt Rate 65 ml/min (>60); GFR (African American) 79 ML/MIN (>60); Glucose 78 mg/dL (74-106); Potassium 3.6 mmoL/L (3.5-5.1); Sodium 135 mmol/L (136-145); Total Protein,Serum 6.6 gm/dL (6.4-8.2)
[2019-04-15 18:45] LABS: Eosinophils % 1 % (0-3); Lymphocytes % 49 % (10-50); Monocytes % 2 % (2-9); Neutrophils % 48 % (42-76); Platelet Estimate Normal; RBC Morphology Normal; Total Cells Counted 100
== END ==
PROVIDERS: Visit Provider Internal Medicine Medical Oncology
DX: C34.90 Malignant neoplasm of unspecified part of unspecified bronchus or lung (principal)
CPT/HCPCS: 36415; 80053; 85007; 85025

== ENCOUNTER → 2019-05-05 12:09 | Outpatient (CLI) | payer MEDICARE, OTHER, SELFPAY ==
[2019-05-05 12:27] LABS: Basophils % 0.4 % (0.1-2.0); Eosinophils % 0.5 % (0.1-12.0); Hematocrit 35.1 % (37.0-47.0); Hemoglobin 10.7 g/dL (12.2-16.2); Lymphocytes # 0.9 K/mm3 (0.7-4.5); Lymphocytes % 12.2 % (10-50); Mean Corpuscular HGB Conc 30.6 g/dL (31.8-35.4); Mean Corpuscular Hemoglobin 31.3 pg (27.0-31.2); Mean Corpuscular Volume 102.2 fl (81-99); Mean Platelet Volume 8.9 fl (7.4-10.4); Monocytes # 0.7 K/mm3 (0.1-1.0); Monocytes % 9.3 % (1.7-9.3); Neutrophils # 5.8 K/mm3 (1.8-7.8); Neutrophils % 77.6 % (37.0-80.0); Platelet Count 233 K/mm3 (142-424); Red Blood Count 3.43 M/mm3 (4.20-5.40); Red Cell Distribution Width 16.5 % (11.5-17.5); White Blood Count 7.4 K/mm3 (4.8-10.8)
[2019-05-05 13:03] LABS: Alanine Aminotransferase 16 U/L (12-78); Albumin Level 3.3 gm/dL (3.4-5.0); Albumin/Globulin Ratio 0.9 (1.1-1.8); Alkaline Phosphatase 90 U/L (46-116); Anion Gap 12.9 mEq/L (5-15); Aspartate Amino Transferase 16 U/L (15-37); Bilirubin,Total 0.2 mg/dL (0.2-1.0); Blood Urea Nitrogen 10 mg/dL (7-18); Calcium 8.8 mg/dL (8.5-10.1); Carbon Dioxide 30 mmol/L (21.0-32.0); Chloride 101 mmol/L (98-107); Creatinine,Serum 1.03 mg/dL (0.55-1.02); Estimated Glomerular Filt Rate 52 ml/min (>60); GFR (African American) 63 ML/MIN (>60); Globulin 3.5 gm/dl (1.3-3.2); Glucose 95 mg/dL (74-106); Potassium 4.9 mmoL/L (3.5-5.1); Sodium 139 mmol/L (136-145); Total Protein,Serum 6.8 gm/dL (6.4-8.2)
== END ==
PROVIDERS: Visit Provider Internal Medicine Medical Oncology
DX: C34.90 Malignant neoplasm of unspecified part of unspecified bronchus or lung (principal)
CPT/HCPCS: 36415; 80053; 85025

== ENCOUNTER 2019-05-09 08:24 | Outpatient (CLI) | payer MEDICARE, OTHER, SELFPAY ==
[2019-05-09] VITALS (17 sets, daily range): BP systolic 114–152; BP diastolic 49–67; PULSE 68–81; RESP 20; TEMP 35.8–36.1; O2SAT 93–95
== END 2019-05-09 16:43 | disposition home or self-care (01) ==
LOC: INF 08:24
PROVIDERS: Visit Provider Internal Medicine Medical Oncology
DX: C34.91 Malignant neoplasm of unspecified part of right bronchus or lung (principal); Z51.11 Encounter for antineoplastic chemotherapy
CPT/HCPCS: 94640; 96413; 96415; 96417; J9060; J9181; Q0166

== ENCOUNTER 2019-05-10 08:53 | Outpatient (CLI) | payer MEDICARE, OTHER, SELFPAY ==
[2019-05-10 09:33] VITALS: BP 134/54; PULSE 77; RESP 18; TEMP 36.6; O2SAT 98
[2019-05-10 10:03] VITALS: BP 130/55; PULSE 79; RESP 18; O2SAT 97
[2019-05-10 10:33] VITALS: BP 129/51; PULSE 74; RESP 18; O2SAT 97
[2019-05-10 11:03] VITALS: BP 137/50; PULSE 76; RESP 18; O2SAT 97
[2019-05-10 11:20] VITALS: BP 140/58; PULSE 71; RESP 18; O2SAT 97
== END 2019-05-10 11:20 | disposition home or self-care (01) ==
LOC: INF 08:53
PROVIDERS: Visit Provider Internal Medicine Medical Oncology
DX: Z51.11 Encounter for antineoplastic chemotherapy (principal); C34.91 Malignant neoplasm of unspecified part of right bronchus or lung
CPT/HCPCS: 96413; 96415; J9181; Q0166

== ENCOUNTER 2019-05-11 08:55 | Outpatient (CLI) | payer MEDICARE, OTHER, SELFPAY ==
[2019-05-11 09:36] VITALS: BP 121/56; PULSE 66; RESP 18; TEMP 36.6; O2SAT 96
[2019-05-11 10:06] VITALS: BP 117/60; PULSE 69; RESP 18; O2SAT 96
[2019-05-11 10:36] VITALS: BP 119/59; PULSE 67; RESP 18; O2SAT 95
[2019-05-11 11:06] VITALS: BP 120/57; PULSE 67; RESP 18; O2SAT 96
[2019-05-11 11:45] VITALS: BP 132/59; PULSE 78; RESP 18; TEMP 36.6; O2SAT 97
== END 2019-05-11 11:45 | disposition home or self-care (01) ==
LOC: INF 08:55
PROVIDERS: Visit Provider Internal Medicine Medical Oncology
DX: Z51.11 Encounter for antineoplastic chemotherapy (principal); C34.91 Malignant neoplasm of unspecified part of right bronchus or lung
CPT/HCPCS: 96413; 96415; J9181; Q0166

== ENCOUNTER 2019-05-19 11:00 | Outpatient (RCR) | payer MEDICARE, OTHER, SELFPAY ==
--- NOTE | 2019-03-22 10:03 | HMH.PTOPEV ---
PT Outpatient Evaluation Rehab PT Outpatient Evaluation Start: 03/22/19 09:45 Freq: Status: Active Protocol: Document 03/22/19 09:45 ELOY (Rec: 03/22/19 10:01 ELOY [id number]) Electronically Signed By John Sapp PT 03/22/19 09:45 Outpatient Therapy Subjective History Subjective History THis is the initial Physical Therapy evaluation for Lashon Chu. Pt is a 74 y/ o female referred to PT for c/ o weakness, decreased endurance and poor balance s/p chemotherapy. Pt reports she was diagnosed w/ R lung cancer in Jul of this year. Pt reports she was told Stage 3 Lung cancer. Pt reports she has 1 more round of chemo, and her last round was ~ a few weeks ago. PMH include COPD, empysema, pt is a current smoker. Pt uses 3L supp O2 at home. Chief Complaint Weakness Symptom Type Other Symptoms Relieved By Rest/Positioning Symptoms Aggravated By Physical Activity Prior Functional Limitations None Current Functional Limitations Housework,Standing,Recreation Activity,Walking,Stairs, Balance Symptom Description Constant and Continuous Level of pain today (0-10) 0 Pain scale - at its best (0-10) 0 Pain scale - at its worst (0-10) 0 Balance Eval Subjective Hx of Complaint Comment c/o weakness and decreased balance Chief Complaint vertigo No Did you feel dizzy, unsteady or faint? Yes Prior Functional Limitations Prior Functional Elma Level I Current Functional Limitations Comment Supp O2, decreased endurance and strength Hx of Falls Hx Falls No Gait/Posture Asssessment General Gait Observation Wide Based Gait,Shuffling Step ,Decrease Stride Lngth (R), Decrease Stride Lngth (L) Assistive Devices None / NA Level of Transfer Assist Standby Assistance Hip Observation in Gait Swing Decreased Flexion Hip Observation in Gait Stance Decreased Flexion Ankle/Foot Observation in Gait Swing Decreased Foot Clearance Body Alignment Posture Thoracic Kyphosis Timed Up and Go Test 1. Is the Timed Up and Go test result > yes or = to 12 seconds?
== END 2019-05-19 11:05 | disposition home or self-care (01) ==
LOC: PT 11:00
PROVIDERS: PCP Family Medicine; Visit Provider Internal Medicine Medical Oncology
DX: M62.81 Muscle weakness (generalized) (principal); C34.90 Malignant neoplasm of unspecified part of unspecified bronchus or lung
CPT/HCPCS: 97110; 97112; 97163; 97164

== ENCOUNTER → 2019-05-26 09:28 | Outpatient (CLI) | payer MEDICARE, OTHER, SELFPAY ==
[2019-05-26 09:49] LABS: Basophils % 1.3 % (0.1-2.0); Eosinophils % 3.4 % (0.1-12.0); Hematocrit 27.9 % (37.0-47.0); Lymphocytes # 0.6 K/mm3 (0.7-4.5); Lymphocytes % 66.4 % (10-50); Mean Corpuscular HGB Conc 32.2 g/dL (31.8-35.4); Mean Corpuscular Hemoglobin 31.5 pg (27.0-31.2); Mean Corpuscular Volume 97.7 fl (81-99); Mean Platelet Volume 9.7 fl (7.4-10.4); Monocytes # 0.1 K/mm3 (0.1-1.0); Monocytes % 13.2 % (1.7-9.3); Neutrophils # 0.1 K/mm3 (1.8-7.8); Neutrophils % 15.7 % (37.0-80.0); Red Blood Count 2.86 M/mm3 (4.20-5.40); Red Cell Distribution Width 15.4 % (11.5-17.5)
[2019-05-26 09:59] LABS: Alanine Aminotransferase 15 U/L (12-78); Albumin Level 3.1 gm/dL (3.4-5.0); Alkaline Phosphatase 89 U/L (46-116); Anion Gap 15.4 mEq/L (5-15); Aspartate Amino Transferase 10 U/L (15-37); Bilirubin,Total 0.2 mg/dL (0.2-1.0); Blood Urea Nitrogen 11 mg/dL (7-18); Calcium 8.5 mg/dL (8.5-10.1); Carbon Dioxide 27 mmol/L (21.0-32.0); Chloride 102 mmol/L (98-107); Creatinine,Serum 0.98 mg/dL (0.55-1.02); Estimated Glomerular Filt Rate 55 ml/min (>60); GFR (African American) 67 ML/MIN (>60); Globulin 3.2 gm/dl (1.3-3.2); Glucose 192 mg/dL (74-106); Potassium 3.4 mmoL/L (3.5-5.1); Sodium 141 mmol/L (136-145); Total Protein,Serum 6.3 gm/dL (6.4-8.2)
[2019-05-26 10:18] LABS: Platelet Count 39 K/mm3 (142-424); White Blood Count 0.9 K/mm3 (4.8-10.8)
[2019-05-26 10:20] LABS: MANUAL DIFFERENTIAL MANUAL DIFFERENTIAL (MANUAL DIFF)
[2019-05-26 10:43] LABS: Eosinophils % 4 % (0-3); Lymphocytes % 64 % (10-50); Monocytes % 12 % (2-9); Neutrophils % 16 % (42-76); Total Cells Counted 25
[2019-05-26 10:44] LABS: Platelet Estimate Marked Decrease
[2019-05-26 10:45] LABS: RBC Morphology Normal
== END ==
PROVIDERS: Visit Provider Internal Medicine Medical Oncology
DX: C34.91 Malignant neoplasm of unspecified part of right bronchus or lung (principal)
CPT/HCPCS: 80053; 85007; 85025

== ENCOUNTER 2019-08-02 23:22 | Inpatient (IN) ==
[2019-08-03 00:08] LABS: Microscopic, Urine URINE MICROSCOPIC (MICROSCOPIC)
[2019-08-03 00:09] LABS: Appearance,Urine CLEAR (Clear); Bilirubin,Urine Negative (Negative); Blood, Urine Negative (Negative); Color,Urine YELLOW (Yellow); Glucose,Urine (UA) Negative (Negative); Ketones,Urine Negative (Negative); Leukocyte Esterase,Urine TRACE (Negative); PH,Urine 6.5 (5.0-8.5); Protein,Urine Negative (Negative); Specific Gravity, Urine 1.015 (1.005-1.030); Urobilinogen,Urine 0.2 EU/dl (0.2)
[2019-08-03 00:29] LABS: Bacteria,Urine 1+ /lpf; Mucus,Urine 1+ /lpf
[2019-08-03 00:41] LABS: Basophils % 0.4 % (0.1-2.0); Eosinophils % 0.4 % (0.1-12.0); Hematocrit 37.2 % (37.0-47.0); Hemoglobin 12.2 g/dL (12.2-16.2); Lymphocytes # 0.5 K/mm3 (0.7-4.5); Lymphocytes % 7.2 % (10-50); Mean Corpuscular HGB Conc 32.9 g/dL (31.8-35.4); Mean Corpuscular Volume 95.9 fl (81-99); Mean Platelet Volume 8.5 fl (7.4-10.4); Monocytes # 0.5 K/mm3 (0.1-1.0); Monocytes % 7.6 % (1.7-9.3); Neutrophils # 5.9 K/mm3 (1.8-7.8); Neutrophils % 84.4 % (37.0-80.0); Platelet Count 133 K/mm3 (142-424); Red Blood Count 3.88 M/mm3 (4.20-5.40); Red Cell Distribution Width 14.9 % (11.5-17.5)
[2019-08-03 00:47] LABS: Albumin Level 4.4 g/dl (3.5-5.0); Albumin/Globulin Ratio 1.5 (1.1-1.8); Anion Gap 14.1 mEq/L (5-15); Bilirubin,Total 0.2 mg/dl (0.2-1.3); Calcium 9.8 mg/dl (8.4-10.2); Total Protein,Serum 7.4 g/dl (6.3-8.2)
--- NOTE | 2019-08-03 02:48 | Emergency Department Note ---
ED Disposition Clinical Impression: Altered mental status Disposition: Admitted as Observation Condition on Discharge: Good Instructions: DI for Altered Mental Status Additional Instructions: Dr. Pozo agreed to admit this patient as observation for acute alteration in mental status and urinary tract infection. Referrals: Adrian Jones MD [Primary Care Provider] - - Critical Care Critical Care Time: No Attestation: On 08/02/19, the high probability of a clinically significant, sudden or life threatening deterioration of the following system(s) required my full and direct attention, intervention and personal management. The time I documented below is in addition to time spent performing reported procedures but includes the follo wing listed in this critical care notation. Medical Decision Making - Medical Records Medical records reviewed: Yes: I reviewed the patient's medical records. - [place]ingo Inquiry Pt receiving controlled substance: No Vital Signs: 08/02/19 23:43 Pulse Rate [Right Brachial] 93 H Respiratory Rate 18 Blood Pressure [Right Arm] 155/79 H Blood Pressure Mean [Right Arm] 104 Blood Pressure Source [Right Arm] Automatic Cuff Blood Pressure Position [Right Arm] Sitting 02 Sat by Pulse Oximetry 93 L Oxygen Delivery Method Nasal Cannula - Lab Data Lab results reviewed: Yes: I reviewed the patient's lab results. Lab Results 08/03/19 00:02: Urine Color Yellow, Urine Appearance Clear, Urine pH 6.5, Ur Specific [place] 1.015, Urine Protein Negative, Urine Glucose (UA) Negative, Urine Ketones Negative, Urine Blood Negative, Urine Nitrate Negative, Urine Bilirubin Negative, Urine Urobilinogen 0.2, Ur Leukocyte Esterase Trace, Urine WBC 3-5, Ur Squamous Epith Cells 3-5, Urine Bacteria 1+, Urine Mucus 1+ 08/03/19 00:25: WBC 7.0, RBC 3.88 L, Hgb 12.2, Hct 37.2, MCV 95.9, MCH 31.5 H, MCHC 32.9, RDW 14.9, Plt Count 133 L, MPV 8.5, Neut % (Auto) 84.4 H, Lymph % (Auto) 7.2 L, [place] % (Auto) 7.6, Eos % (Auto) 0.4, Baso % (Auto) 0.4, Neut # (Auto) 5.9, Lymph # (Auto) 0.5 L, [place] # (Auto) 0.5, Eos # (Auto) 0.0, Baso # (Auto) 0.0 08/03/19 00:25: Sodium 137, Potassium 4.1, Chloride 97 L, Carbon Dioxide 30, Anion Gap 14.1, BUN 19 H D, Creatinine 1.00, Estimated Creat Clear 49, Estimated GFR 54 L, Est GFR ( Amer) 66, Glucose 141 H, Calcium 9.8, Total Bilirubin 0.2, AST 26, ALT 17, Alkaline Phosphatase 92, Total Protein 7.4, Albumin 4.4, Globulin 3.0, Albumin/Globulin Ratio 1.5 08/03/19 00:25: Lactate 1.0 08/03/19 00:25: Troponin I < 0.01 Result diagrams: 08/03/19 00:25 08/03/19 00:25 Orders (Tests/Meds): ORDERS Category Date Time Status XR chest portable Stat Exams 08/03/19 01:29 Taken Troponin I Q3H Lab 08/03/19 04:30 Ordered Troponin I Q3H Lab 08/03/19 07:30 Ordered Blood Culture Stat Micro 08/03/19 00:25 Received - Radiology Data #1 Image(s): Chest Preliminary Findings: Normal/NAD - ECG Data Tracing #1 Normal Sinus Rhythm: No Altered Mental Status HPI - General Chief Complaint: Altered Mental Status Stated Complaint: AMS Time Seen by Provider: 08/03/19 02:00 Mode of Arrival: Wheelchair Source of Information: Patient, Relative Limitations: No Limitations Description of Symptoms (Recalled from ER Triage Doc. by RN): Patient brought back into ED by daughter with report of AMS. Daughter reports around 1800 she became figity and talking out of her head. - History of Present Illness HPI narrative: 74-year-old female presents to the ED with an acute mental status change. Patient's daughter stated that earlier today she was talking to 1 of her sisters that had been for several years and also she does have emphysema and was doing a breathing treatment but could not remember how to use the nebulizer machine. As of note patient was seen here last night in the emergency department after a fall in her kitchen she was making chili last night and she fell and when she presented here to the ED she was complaining of head pain neck pain and lower back pain. CTs were done of the head cervical lumbar and thoracic spine. It was noted that in L1 she did have a 10% compression fracture that was possible subacute. However today patient does have a noticeable difference in mentation compared to yesterday when I examined her. Patient denies any symptoms today. Patient denies any recent fever shakes or chills. However upon questioning her she has had increased frequency in urination. Patient denies any other symptoms patient's family denies any other symptoms with this patient. - Related Data Home Medications Medication Instructions Recorded Confirmed amlodipine 10 mg tablet 10 mg PO DAILY 90 Days tab 07/27/17 08/03/19 aspirin 81 mg tablet,delayed 81 mg PO DAILY 07/27/17 08/03/19 release diazepam 5 mg tablet 5 mg PO BID 30 Days tab 07/27/17 08/03/19 fluoxetine 40 mg capsule 40 mg PO DAILY 90 Days cap 07/27/17 08/03/19 furosemide 40 mg tablet 40 mg PO DAILY 07/27/17 08/03/19 levothyroxine 100 mcg tablet 100 mcg PO DAILY 90 Days tab 07/27/17 08/03/19 meclizine 12.5 mg tablet 12.5 mg PO TIDP PRN 07/27/17 08/03/19 metoclopramide HCl 10 mg tablet 10 mg PO ACHS 30 Days tab 07/27/17 08/03/19 pravastatin 40 mg tablet 40 mg PO HS 07/27/17 08/03/19 Cholecalciferol (Vitamin D3) 2,000 unit PO DAILY 09/21/17 08/03/19 [Vitamin D3] Lactobacillus Acidophilus 1 cap PO DAILY 09/21/17 08/03/19 [Probiotic] Potassium Chloride [Klor-Con 10mEq 20 meq PO DAILY 09/21/17 08/03/19 tab] Biotin 5,000 mcg PO DAILY 04/08/18 08/03/19 Glycopyrrolate/Formoterol Fum 2 puffs INHALATION BID 04/08/18 08/03/19 [Bevespi Aerosphere Inhaler] Benazepril HCl 20 mg PO DAILY 04/09/18 08/03/19 Docusate Sodium [Colace] 100 mg PO DAILY 01/26/19 08/03/19 Ipratropium/Albuterol Sulfate 3 ml IH Q4H 02/14/19 08/03/19 [Duoneb 3mL neb] Baclofen 20 mg PO TID 08/03/19 08/03/19 Nabumetone 500 mg PO BID 08/03/19 08/03/19 bisoproloL fumarate [Bisoprolol 5 mg PO DAILY 08/03/19 08/03/19 Fumarate] Allergies Allergy/AdvReac Type Severity Reaction Status Date / Time codeine [CODEINE] Allergy Mild Verified 08/02/19 23:53 penicillin G [PENICILLIN G] Allergy Mild Verified 08/02/19 23:53 povidone-iodine Allergy Mild Verified 08/02/19 23:53 [From BETADINE] [facility] History - Hepatitis A Screen Drug use history?: No High risk sexual behaviors?: No History of sexually transmitted infection?: No Currently employed?: No Childcare worker?: No Do you have indoor plumbing?: Yes Do you have electricity?: Yes Attestation statement:: This patient has been screened for Hepatitis A risk factors. I have reviewed the patient's past medical history: Yes Medical History: Reports:: Cancer, Chronic Obstructive Pulmonary Disease (COPD), Gastroesophageal Reflux Disease(GERD), Hyperlipidemia, Hypertension Denies:: Congestive Heart Failure, Diabetes Mellitus Type 1, Diabetes Mellitus Type 2, Migraine, MRSA, Renal Disease, Renal Insufficiency Other Medical History: Reports: Arthritis, Cataracts, Hypothyroidism, Liver Disease, Thyroid Disease Laterality Cases: Bilateral: Tonsillectomy, Other Other Surgeries: Yes: Cardiac Catheterization, Cholecystectomy, Colonoscopy, Thyroidectomy, Tubal Ligation, Other Amputation: No Fractures: No Comment: cysts removed from eyelids, Lasik eye surgery, parotid gland removed, discetomy - Social History Smoking Status: Current some day smoker Tobacco Type: cigarettes # Packs/Day (cigarettes): 1 #Yrs smoked (if former smoker): 60 Alcohol Intake: never Alcohol Intake Frequency:: other Substance Use Type: denies use Occupational Status: retired Housing: house Household Members: spouse Family Hx:: Cancer, Diabetes, Hyperlipidemia, Hypertension, Stroke, Thyroid Disorder ROS Obtained: Yes All systems reviewed & no additional complaints - Constitutional Constitutional: Reports system reviewed and no additional complaints, except as docu - Eyes Eyes: Reports system reviewed and no additional complaints, except as docu - ENT Ears, Nose, Mouth, and Throat: Reports system reviewed and no additional complaints, except as docu - Cardiovascular Cardiovascular: Reports system reviewed and no additional complaints, except as docu - Respiratory Respiratory: Yes system reviewed and no additional complaints, except as docu - Gastrointestinal Gastrointestingal: Reports: system reviewed and no additional complaints, except as docu - Genitourinary Male Genitourinary: Reports system reviewed and no additional complaints, except as docu Female Genitourinary: Reports system reviewed and no additional complaints, except as docu - Musculoskeletal Musculoskeletal: Reports system reviewed and no additional complaints, except as docu - Integumentary/Breasts Skin/Breast: Reports system reviewed and no additional complaints, except as docu - Neurologic Neurologic: Reports system reviewed and no additional complaints, except as docu - Endocrine Endocrine: Reports system reviewed and no additional complaints, except as docu - Hematologic/Lymphatic Henatologic/Lymphatic: Reports system reviewed and no additional complaints, except as docu - Allergic/Immunologic Allergic/Immunologic: Reports system reviewed and no additional complaints, except as docu Physical Exam - General General appearance: alert, in no apparent distress - Head Head exam: atraumatic, normocephalic - Eye Eye exam: Present: normal appearance, PERRL - ENT ENT exam: Present: normal exam, normal oropharynx - Neck Neck exam: Present: normal inspection - Chest Chest inspection: Present: normal inspection, symmetric chest wall rise - Respiratory Respiratory exam: Present: normal lung sounds bilaterally - Cardiovascular Cardiovascular exam: Present: regular rate, normal rhythm - Abdominal Exam Abdominal exam: Present: soft. Absent: distention - Extremities Exam Extremities exam: Present: normal inspection - Back Exam Back exam: Present: normal inspection - Neurological Exam Neurological exam: Present: alert, oriented X3 - Psychiatric Psychiatric exam: Present: normal affect, normal mood - Skin Skin exam: Present: warm, dry, intact - Lymphatic Lymphatic Findings: no adenopathy
--- NOTE | 2019-08-03 07:28 | Pharmacy Consult Notes ---
[facility] Pharmacy VTE Monitoring - Patient Demographics Admission date: 08/03/19 Report Date: 08/03/19 Time: 07:27 Allergies/Adverse Reactions: Patient Allergies codeine [CODEINE] Allergy (Mild, Verified 08/03/19 04:05) penicillin G [PENICILLIN G] Allergy (Mild, Verified 08/03/19 04:05) povidone-iodine [From BETADINE] Allergy (Mild, Verified 08/03/19 04:05) Height: 1.57 m Weight: 127 kg Patient Problems: Current Active Problems Altered mental status (Acute) - VTE Risk Labs: VTE Related Lab Results Hgb 12.2 g/dL (12.2-16.2) 08/03/19 00:25 Hct 37.2 % (37.0-47.0) 08/03/19 00:25 Plt Count 133 K/mm3 (142-424) L 08/03/19 00:25 BUN 19 mg/dl (7-17) H D 08/03/19 00:25 Creatinine 1.00 mg/dl (0.52-1.04) 08/03/19 00:25 Estimated Creat Clear 49 mL/min (50-200) 08/03/19 00:25 VTE Score: 5 VTE Risk Level: Low Risk - Prophylaxis VTE Prophylaxis Ordered?: Yes Types of VTE Prophylaxis: TEDS Knee High Location of Applied Device: Bilateral Lower Extremeties
--- NOTE | 2019-08-03 08:56 | History & Physical Report ---
*Admission Date: 08/03/19 <Talia Maza 08/03/19 09:02> *Chief complaint: AMS <Talia Maza 08/03/19 09:02> *History of present illness: Ms. Chu is a 74-year-old female with a history of hypertension, COPD, and small cell lung cancer. She states 2 nights ago she fell landing on her back. She has had mid back pain since that time. She did have scans done in the emergency room after the fall which did show a compression fracture in the lumbar spine as well as the thoracic spine. Her head CT at that time showed nothing acute. She states she continued to have back pain after the fall and was prescribed baclofen and nabumetone. According to her family members, she took 3 baclofen yesterday without any food. By last night around 6 PM, she became very fidgety and her mental status became altered. Her family brought her to the emergency room for evaluation. The emergency room physician felt she had a urinary tract infection and admitted her and started her on IV antibiotics. This a.m., her mental status is much better. She does not remember much of last night but does remember the previous few days. <Talia Maza 08/03/19 09:02> [facility] History I have reviewed the patient's past medical history: Yes <Talia Maza 08/03/19 09:02> Medical History: Reports:: Cancer (LUNG CANCER), Chronic Obstructive Pulmonary Disease (COPD), Gastroesophageal Reflux Disease(GERD), Hyperlipidemia, Hypertension Denies:: Congestive Heart Failure, Diabetes Mellitus Type 1, Diabetes Mellitus Type 2, Migraine, MRSA, Renal Disease, Renal Insufficiency <Talia Maza 08/03/19 09:02> *Have you ever received a pneumonia vaccine?: No <Talia Maza 08/03/19 09:02> *Have you received a flu vaccine this season?: Yes <Talia Maza 08/03/19 09:02> Other Medical History: Reports: Arthritis, Cataracts, Hypothyroidism, Liver Disease, Thyroid Disease <Talia Maza 08/03/19 09:02> Laterality Cases: Bilateral: Tonsillectomy, Other <Talia Maza 08/03/19 09:02> Other Surgeries: Yes: Cardiac Catheterization, Cholecystectomy, Colonoscopy, Thyroidectomy, Tubal Ligation, Other (parotid gland removed, discectomy) <Talia Maza 08/03/19 09:02> Amputation: No <Talia Maza 08/03/19 09:02> Fractures: No <Talia Maza 08/03/19 09:02> - *Social History Educational Level: Completed High School <Talia Maza 08/03/19 09:02> Smoking Status: Current every day smoker <Talia Maza 08/03/19 09:02> Tobacco Type: cigarettes <Talia Maza 08/03/19 09:02> # Packs/Day (cigarettes): 1 <Talia Maza 08/03/19 09:02> #Yrs smoked (if former smoker): 60 <Talia Maza 08/03/19 09:02> Alcohol Intake: never <Talia Maza 08/03/19 09:02> Alcohol Intake Frequency:: other <Talia Maza 08/03/19 09:02> Substance Use Type: denies use <Talia Maza 08/03/19 09:02> *Occupational Status:: retired <Talia Maza 08/03/19 09:02> Housing: house <Talia Maza 08/03/19 09:02> Household Members: spouse <Talia Maza 08/03/19 09:02> *Travel in the last 8 weeks: Outside the [facility] <Talia Maza 08/03/19 09:02> Family Hx:: Cancer, Diabetes, Hyperlipidemia, Hypertension, Stroke, Thyroid Dis order <Talia Maza 08/03/19 09:02> Review of Systems - Constitutional Reports weakness, Denies chills, Denies fever(s) <Talia Maza 08/03/19 09:02> - Eyes Denies blurry vision, Denies double vision <Talia Maza 08/03/19 09:02> - ENT Reports nasal congestion, Denies sore throat <Talia Maza 08/03/19 09:02> - *Cardiovascular Reports chest pain (took a nitro 2 days ago before her fall), Reports shortness of breath <Talia Maza - 08/03/19 09:02> - *Respiratory Reports cough, Reports shortness of breath, Denies wheezing <Talia Maza 08/03/19 09:02> - *Gastrointestinal Reports nausea, Denies abdominal pain, Denies loose stools, Denies vomiting <Talia Maza 08/03/19 09:02> - *Genitourinary Denies difficulty urinating, Denies painful urination <Talia Maza 08/03/19 09:02> - *Musculoskeletal Reports back pain (low back), Denies joint pain <Talia Maza 08/03/19 09:02> - *Neurologic Reports dizziness, Reports weakness, Denies headache(s) <Talia Maza 08/03/19 09:02> Meds Home Medications Medication Instructions Recorded Confirmed Type amlodipine 10 mg tablet 10 mg PO DAILY 90 Days tab 07/27/17 08/03/19 History aspirin 81 mg tablet,delayed 81 mg PO DAILY 07/27/17 08/03/19 History release diazepam 5 mg tablet 5 mg PO BID 30 Days tab 07/27/17 08/03/19 History fluoxetine 40 mg capsule 40 mg PO DAILY 90 Days cap 07/27/17 08/03/19 History furosemide 40 mg tablet 40 mg PO DAILY 07/27/17 08/03/19 History levothyroxine 100 mcg tablet 100 mcg PO DAILY 90 Days tab 07/27/17 08/03/19 History metoclopramide HCl 10 mg tablet 10 mg PO ACHS 30 Days tab 07/27/17 08/03/19 History pravastatin 40 mg tablet 40 mg PO HS 07/27/17 08/03/19 History Cholecalciferol (Vitamin D3) 2,000 unit PO DAILY 09/21/17 08/03/19 History [Vitamin D3] Lactobacillus Acidophilus 1 cap PO DAILY 09/21/17 08/03/19 History [Probiotic] Potassium Chloride [Klor-Con 10mEq 20 meq PO DAILY 09/21/17 08/03/19 History tab] Biotin 5,000 mcg PO DAILY 04/08/18 08/03/19 History Glycopyrrolate/Formoterol Fum 2 puffs INHALATION BID 04/08/18 08/03/19 History [Bevespi Aerosphere Inhaler] Benazepril HCl 20 mg PO DAILY 04/09/18 08/03/19 History Docusate Sodium [Colace] 100 mg PO DAILY 01/26/19 08/03/19 History Ipratropium/Albuterol Sulfate 3 ml IH TIDP PRN 02/14/19 08/03/19 History [Duoneb 3mL neb] Baclofen 20 mg PO TID 08/03/19 08/03/19 History Diphenoxylate HCl/Atropine 1 each PO NEEDED PRN 08/03/19 08/03/19 History [Lomotil 2.5-0.025 mg Tablet] Lactobacillus Combo No.10 1 each PO DAILY 08/03/19 08/03/19 History [Probiotic] Meclizine HCl 12.5 mg PO TIDP PRN 08/03/19 08/03/19 History Nabumetone 500 mg PO BID 08/03/19 08/03/19 History bisoproloL fumarate [Bisoprolol 5 mg PO DAILY 08/03/19 08/03/19 History Fumarate] <Adrian Jones - 08/03/19 10:55> Allergies Allergy/AdvReac Type Severity Reaction Status Date / Time codeine [CODEINE] Allergy Mild Verified 08/03/19 04:05 penicillin G [PENICILLIN G] Allergy Mild Verified 08/03/19 04:05 povidone-iodine Allergy Mild Verified 08/03/19 04:05 [From BETADINE] <Adrian Jones - 08/03/19 10:55> Exam Vital signs and Labs for Last 24 Hours: Temp Pulse Resp BP Pulse Ox 98.5 F 88 19 133/63 93 L 08/03/19 08:00 08/03/19 10:27 08/03/19 08:00 08/03/19 08:00 08/03/19 08:00 Laboratory Results - last 24 hr 08/03/19 00:02: Urine Color Yellow, Urine Appearance Clear, Urine pH 6.5, Ur Specific [place] 1.015, Urine Protein Negative, Urine Glucose (UA) Negative, Urine Ketones Negative, Urine Blood Negative, Urine Nitrate Negative, Urine Bilirubin Negative, Urine Urobilinogen 0.2, Ur Leukocyte Esterase Trace, Urine WBC 3-5, Ur Squamous Epith Cells 3-5, Urine Bacteria 1+, Urine Mucus 1+ 08/03/19 00:25: WBC 7.0, RBC 3.88 L, Hgb 12.2, Hct 37.2, MCV 95.9, MCH 31.5 H, MCHC 32.9, RDW 14.9, Plt Count 133 L, MPV 8.5, Neut % (Auto) 84.4 H, Lymph % (Auto) 7.2 L, [place] % (Auto) 7.6, Eos % (Auto) 0.4, Baso % (Auto) 0.4, Neut # (Auto) 5.9, Lymph # (Auto) 0.5 L, [place] # (Auto) 0.5, Eos # (Auto) 0.0, Baso # (Auto) 0.0 08/03/19 00:25: Sodium 137, Potassium 4.1, Chloride 97 L, Carbon Dioxide 30, Anion Gap 14.1, BUN 19 H D, Creatinine 1.00, Estimated Creat Clear 49, Estimated GFR 54 L, Est GFR ( Amer) 66, Glucose 141 H, Calcium 9.8, Total Bilirubin 0.2, AST 26, ALT 17, Alkaline Phosphatase 92, Total Protein 7.4, Albumin 4.4, Globulin 3.0, Albumin/Globulin Ratio 1.5 08/03/19 00:25: Lactate 1.0 08/03/19 00:25: Troponin I < 0.01 <Adrian Jones - 08/03/19 10:55> Temp Pulse Resp BP Pulse Ox 98.1 F 90 18 130/67 90 L 08/03/19 04:00 08/03/19 05:58 08/03/19 04:00 08/03/19 04:00 08/03/19 05:58 Laboratory Results - last 24 hr 08/03/19 00:02: Urine Color Yellow, Urine Appearance Clear, Urine pH 6.5, Ur Specific [place] 1.015, Urine Protein Negative, Urine Glucose (UA) Negative, Urine Ketones Negative, Urine Blood Negative, Urine Nitrate Negative, Urine Bilirubin Negative, Urine Urobilinogen 0.2, Ur Leukocyte Esterase Trace, Urine WBC 3-5, Ur Squamous Epith Cells 3-5, Urine Bacteria 1+, Urine Mucus 1+ 08/03/19 00:25: WBC 7.0, RBC 3.88 L, Hgb 12.2, Hct 37.2, MCV 95.9, MCH 31.5 H, MCHC 32.9, RDW 14.9, Plt Count 133 L, MPV 8.5, Neut % (Auto) 84.4 H, Lymph % (Auto) 7.2 L, [place] % (Auto) 7.6, Eos % (Auto) 0.4, Baso % (Auto) 0.4, Neut # (Auto) 5.9, Lymph # (Auto) 0.5 L, [place] # (Auto) 0.5, Eos # (Auto) 0.0, Baso # (Auto) 0.0 08/03/19 00:25: Sodium 137, Potassium 4.1, Chloride 97 L, Carbon Dioxide 30, Anion Gap 14.1, BUN 19 H D, Creatinine 1.00, Estimated Creat Clear 49, Estimated GFR 54 L, Est GFR ( Amer) 66, Glucose 141 H, Calcium 9.8, Total Bilirubin 0.2, AST 26, ALT 17, Alkaline Phosphatase 92, Total Protein 7.4, Albumin 4.4, Globulin 3.0, Albumin/Globulin Ratio 1.5 08/03/19 00:25: Lactate 1.0 08/03/19 00:25: Troponin I < 0.01 <Talia Maza - 08/03/19 09:02> I & O for Last 24 hours: Intake & Output 07/31/19 08/01/19 08/02/19 08/03/19 11:59 11:59 11:59 11:59 Intake Total 360 / 360 Balance 360 / 360 Weight 279 lb 15.793 oz <Adrian Jones - 08/03/19 10:55> Intake & Output 07/31/19 08/01/19 08/02/19 08/03/19 11:59 11:59 11:59 11:59 Weight 279 lb 15.793 oz <Talia Maza - 08/03/19 09:02> - Constitutional no acute distress <Talia Maza 08/03/19 09:02> - *Routine HEENT Exam Head: Present: normocephalic <Talia Maza 08/03/19 09:02> Eye: Present: EOMI, PERRL <Talia Maza 08/03/19 09:02> ENT: Present: mucous membranes dry <[facility] 08/03/19 09:02> - *Routine Neck Exam Present: supple. Absent: lymphadenopathy <[facility] 08/03/19 09:02> - *Routine Respiratory Exam Present: CTA bilaterally <[facility] 08/03/19 09:02> - *Routine Cardiovascular Exam Present: RRR <[facility] 08/03/19 09:02> - *Routine Abdominal Exam Present: soft, normoactive bowel sounds. Absent: tenderness <[facility] 08/03/19 09:02> - *Routine Extremities Exam Absent: cyanosis, clubbing, edema <[facility] 08/03/19 09:02> - *Routine Skin Exam Present: warm. Absent: rash <[facility] 08/03/19 09:02> - *Routine Neurological Exam Present: alert, oriented X3 <[facility] 08/03/19 09:02> H&P: Result - Impressions CXR - chronic changes with improved right basilar infiltrate <[facility] 08/03/19 09:02> Assessment and Plan (1) Altered mental status Current visit: Yes Status: Acute Category: Medical Code(s): R41.82 - Altered mental status, unspecified (2) Abnormal chest xray Current visit: No Status: Acute Category: Medical Code(s): R93.89 - Abnormal findings on diagnostic imaging of other specified body structures (3) Compression fracture Current visit: No Status: Acute Category: Medical (4) History of lung cancer Current visit: No Status: Chronic Category: Medical Code(s): Z85.118 - Personal history of other malignant neoplasm of bronchus and lung (5) Hypertension Current visit: No Status: Chronic Category: Medical Code(s): I10 - Essential (primary) hypertension (6) Hypothyroidism Current visit: No Status: Chronic Qualifiers: Hypothyroidism type: unspecified Qualified Code(s): E03.9 - Hypothyroidism, unspecified Category: Medical Code(s): E03.9 - Hypothyroidism, unspecified (7) Tobacco use disorder Current visit: No Status: Chronic Category: Medical Code(s): F17.200 - Nicotine dependence, unspecified, uncomplicated <[facility] 08/03/19 08:52> (1) Altered mental status Current visit: Yes Status: Acute Category: Medical Code(s): R41.82 - Altered mental status, unspecified (2) Medication side effect Current visit: Yes Status: Acute Category: Medical Code(s): T88.7XXA - Unspecified adverse effect of drug or medicament, initial encounter (3) Abnormal chest xray Current visit: No Status: Acute Category: Medical Code(s): R93.89 - Abnormal findings on diagnostic imaging of other specified body structures (4) Compression fracture Current visit: No Status: Acute Category: Medical (5) History of lung cancer Current visit: No Status: Chronic Category: Medical Code(s): Z85.118 - Personal history of other malignant neoplasm of bronchus and lung (6) Hypertension Current visit: No Status: Chronic Category: Medical Code(s): I10 - Essential (primary) hypertension (7) Hypothyroidism Current visit: No Status: Chronic Qualifiers: Hypothyroidism type: unspecified Qualified Code(s): E03.9 - Hypothyroidism, unspecified Category: Medical Code(s): E03.9 - Hypothyroidism, unspecified (8) Tobacco use disorder Current visit: No Status: Chronic Category: Medical Code(s): F17.200 - Nicotine dependence, unspecified, uncomplicated (9) Compression fracture of L1 lumbar vertebra Current visit: Yes Status: Acute Category: Medical Code(s): S32.010A - Wedge compression fracture of first lumbar vertebra, initial encounter for closed fracture (10) Fall Current visit: Yes Status: Acute Category: Medical Code(s): W19.XXXA - Unspecified fall, initial encounter <Adrian Jones - 08/03/19 10:55> - Assessment and plan all Dx Assessment and Plan for all problems:: Will obtain urine culture to rule out a UTI but I concur that her altered mental status symptoms are most likely related to the baclofen which is now beginning to clear her system. She is alert and oriented this morning. Will order a PT evaluation because of her recent fall and L1 compression fracture. <Adrian Jones - 08/03/19 10:55> Patient's urinalysis does not appear to indicate a urinary tract infection. Her symptoms sound more consistent with altered mental status due to the baclofen. Baclofen has been discontinued on her medications today. Her mental status has improved. Will discuss further care with Dr. Jones. <Talia Maza - 08/03/19 09:02>
--- NOTE | 2019-08-04 09:12 | Progress Note ---
<Talia Maza - Last Filed: 08/04/19 09:10> Internal Medicine - PN: Subj *Date: 08/04/19 *Time: 09:10 Interval history: Patient is feeling better this morning. She is awake and alert. She states she slept well last night and is trying to eat some breakfast this morning. She still continues with back pain but is also having some right knee pain. She thinks she did hit her knee in her fall and would like an x-ray. Exam Vital signs and Labs for Last 24 Hours: Temp Pulse Resp BP Pulse Ox 97.6 F 103 H 18 128/60 92 L 08/04/19 08:00 08/04/19 08:00 08/04/19 08:00 08/04/19 08:00 08/04/19 08:00 Laboratory Results - last 24 hr 08/02/19 23:52: POC Glucose 141 H I & O for Last 24 hours: Intake & Output 08/01/19 08/02/19 08/03/19 08/04/19 11:59 11:59 11:59 11:59 Intake Total 410 / 410 2540 / 2540 Output Total 1560 / 1560 Balance 410 / 410 980 / 980 Weight 279 lb 15.793 oz 141 lb 2 oz - Constitutional no acute distress - *Routine Respiratory Exam Present: rhonchi, wheezes - *Routine Cardiovascular Exam Present: RRR - *Routine Abdominal Exam Present: soft, normoactive bowel sounds. Absent: tenderness - *Routine Extremities Exam Absent: cyanosis, clubbing, edema Comments: ttp along right anterior knee, no swelling or ecchymosis - *Routine Skin Exam Present: warm. Absent: rash - *Routine Neurological Exam Present: alert, oriented X3 Assessment and Plan (1) Altered mental status Current visit: Yes Status: Acute Category: Medical Code(s): R41.82 - Altered mental status, unspecified (2) Medication side effect Current visit: Yes Status: Acute Category: Medical Code(s): T88.7XXA - Unspecified adverse effect of drug or medicament, initial encounter (3) Abnormal chest xray Current visit: No Status: Acute Category: Medical Code(s): R93.89 - Abnormal findings on diagnostic imaging of other specified body structures (4) Compression fracture Current visit: No Status: Acute Category: Medical (5) History of lung cancer Current visit: No Status: Chronic Category: Medical Code(s): Z85.118 - Personal history of other malignant neoplasm of bronchus and lung (6) Hypertension Current visit: No Status: Chronic Category: Medical Code(s): I10 - Essential (primary) hypertension (7) Hypothyroidism Current visit: No Status: Chronic Qualifiers: Hypothyroidism type: unspecified Qualified Code(s): E03.9 - Hypothyroidism, unspecified Category: Medical Code(s): E03.9 - Hypothyroidism, unspecified (8) Tobacco use disorder Current visit: No Status: Chronic Category: Medical Code(s): F17.200 - Nicotine dependence, unspecified, uncomplicated (9) Compression fracture of L1 lumbar vertebra Current visit: Yes Status: Acute Category: Medical Code(s): S32.010A - Wedge compression fracture of first lumbar vertebra, initial encounter for closed fracture (10) Fall Current visit: Yes Status: Acute Category: Medical Code(s): W19.XXXA - Unspecified fall, initial encounter (11) Right knee pain Current visit: Yes Status: Acute Category: Medical Code(s): M25.561 - Pain in right knee (12) Wheezing Current visit: Yes Status: Acute Category: Medical Code(s): R06.2 - Wheezing - Assessment and plan all Dx Assessment and Plan for all problems:: We will get an x-ray of the right knee as well as the chest due to some wheezing. We will continue current medications. <Adrian Jones - Last Filed: 08/04/19 14:02> Internal Medicine - PN: Subj *Date: 08/04/19 *Time: 13:54 Exam Vital signs and Labs for Last 24 Hours: Temp Pulse Resp BP Pulse Ox 97.6 F 103 H 18 128/60 92 L 08/04/19 08:00 08/04/19 08:00 08/04/19 08:00 08/04/19 08:00 08/04/19 08:00 Laboratory Results - last 24 hr 08/02/19 23:52: POC Glucose 141 H I & O for Last 24 hours: Intake & Output 08/02/19 08/03/19 08/04/19 08/05/19 11:59 11:59 11:59 11:59 Intake Total 410 / 410 2540 / 2540 Output Total 1810 / 1810 650 / 650 Balance 410 / 410 730 / 730 -650 / -650 Weight 279 lb 15.793 oz 141 lb 2 oz Microbiology Reports for the Last 24 Hours: Microbiology 08/04/19 09:35 Sputum - Expectorated Sputum Gram Stain - Final Assessment and Plan (1) Altered mental status Current visit: Yes Status: Acute Category: Medical Code(s): R41.82 - Altered mental status, unspecified (2) Medication side effect Current visit: Yes Status: Acute Category: Medical Code(s): T88.7XXA - Unspecified adverse effect of drug or medicament, initial encounter (3) Abnormal chest xray Current visit: No Status: Acute Category: Medical Code(s): R93.89 - Abnormal findings on diagnostic imaging of other specified body structures (4) Compression fracture Current visit: No Status: Acute Category: Medical (5) History of lung cancer Current visit: No Status: Chronic Category: Medical Code(s): Z85.118 - Personal history of other malignant neoplasm of bronchus and lung (6) Hypertension Current visit: No Status: Chronic Category: Medical Code(s): I10 - Essential (primary) hypertension (7) Hypothyroidism Current visit: No Status: Chronic Qualifiers: Hypothyroidism type: unspecified Qualified Code(s): E03.9 - Hypothyroidism, unspecified Category: Medical Code(s): E03.9 - Hypothyroidism, unspecified (8) Tobacco use disorder Current visit: No Status: Chronic Category: Medical Code(s): F17.200 - Nicotine dependence, unspecified, uncomplicated (9) Compression fracture of L1 lumbar vertebra Current visit: Yes Status: Acute Category: Medical Code(s): S32.010A - Wedge compression fracture of first lumbar vertebra, initial encounter for closed fracture (10) Fall Current visit: Yes Status: Acute Category: Medical Code(s): W19.XXXA - Unspecified fall, initial encounter (11) Right knee pain Current visit: Yes Status: Acute Category: Medical Code(s): M25.561 - Pain in right knee (12) Wheezing Current visit: Yes Status: Acute Category: Medical Code(s): R06.2 - Wheezing - Assessment and plan all Dx Assessment and Plan for all problems:: Patient seen and examined this morning. She rested fairly well. Her altered mental status is mostly clear. Today she is complaining of some pain in her right knee that is limiting her mobility somewhat. This was not x-rayed after her fall the other night. She has also been more hypoxic requiring 4 L of nasal oxygen to maintain her sats. She appears in no respiratory distress but has some increased wheezing on exam. Will check a chest x-ray
--- NOTE | 2019-08-05 08:31 | Progress Note ---
<Talia Maza - Last Filed: 08/05/19 08:24> Internal Medicine - PN: Subj *Date: 08/05/19 *Time: 08:24 Interval history: Patient states she feels about the same today. Her knee pain has improved but she continues to hurt in her back. She is alert and oriented and slept off and on last night. She is eating breakfast today. Exam Vital signs and Labs for Last 24 Hours: Temp Pulse Resp BP Pulse Ox 97.8 F 83 18 123/52 L 91 L 08/05/19 04:00 08/05/19 06:33 08/05/19 04:00 08/05/19 04:00 08/05/19 06:33 I & O for Last 24 hours: Intake & Output 08/02/19 08/03/19 08/04/19 08/05/19 11:59 11:59 11:59 11:59 Intake Total 410 / 410 2590 / 2590 2051 / 2051 Output Total 1810 / 1810 1750 / 1750 Balance 410 / 410 780 / 780 301 / 301 Weight 279 lb 15.793 oz 141 lb 2 oz 141 lb 1.992 oz Microbiology Reports for the Last 24 Hours: Microbiology 08/03/19 00:25 Blood Blood Culture - Preliminary NO GROWTH AFTER 48 HOURS 08/03/19 00:25 Blood Blood Culture - Preliminary NO GROWTH AFTER 48 HOURS 08/03/19 00:02 Urine,Clean Catch Urine Culture - Preliminary NO GROWTH AFTER 24 HOURS 08/04/19 09:35 Sputum - Expectorated Sputum Gram Stain - Final Radiology Reports for the Last 24 Hours: CXR - COPD with chronic changes. No acute finding Knee x-ray - nothing acute - Constitutional no acute distress - *Routine Respiratory Exam Present: wheezes. Absent: rales, crackles - *Routine Cardiovascular Exam Present: RRR - *Routine Abdominal Exam Present: soft, normoactive bowel sounds. Absent: tenderness - *Routine Extremities Exam Absent: cyanosis, clubbing, edema - *Routine Skin Exam Present: warm. Absent: rash - *Routine Neurological Exam Present: alert, oriented X3 Assessment and Plan (1) Altered mental status Status: Acute Category: Medical Code(s): R41.82 - Altered mental status, unspecified (2) Medication side effect Status: Acute Category: Medical Code(s): T88.7XXA - Unspecified adverse effect of drug or medicament, initial encounter (3) Abnormal chest xray Status: Acute Category: Medical Code(s): R93.89 - Abnormal findings on diagnostic imaging of other specified body structures (4) Compression fracture Status: Acute Category: Medical (5) History of lung cancer Status: Chronic Category: Medical Code(s): Z85.118 - Personal history of other malignant neoplasm of bronchus and lung (6) Hypertension Status: Chronic Category: Medical Code(s): I10 - Essential (primary) hypertension (7) Hypothyroidism Status: Chronic Qualifiers: Hypothyroidism type: unspecified Qualified Code(s): E03.9 - Hypothyroidism, unspecified Category: Medical Code(s): E03.9 - Hypothyroidism, unspecified (8) Tobacco use disorder Status: Chronic Category: Medical Code(s): F17.200 - Nicotine dependence, unspecified, uncomplicated (9) Compression fracture of L1 lumbar vertebra Status: Acute Category: Medical Code(s): S32.010A - Wedge compression fracture of first lumbar vertebra, initial encounter for closed fracture (10) Fall Status: Acute Category: Medical Code(s): W19.XXXA - Unspecified fall, initial encounter (11) Right knee pain Status: Acute Category: Medical Code(s): M25.561 - Pain in right knee (12) Wheezing Status: Acute Category: Medical Code(s): R06.2 - Wheezing - Assessment and plan all Dx Assessment and Plan for all problems:: Patient can be discharged home today. Her mental status has returned to normal. <Adrian Jones - Last Filed: 08/05/19 12:47> Internal Medicine - PN: Subj *Date: 08/05/19 *Time: 12:46 Exam Vital signs and Labs for Last 24 Hours: Temp Pulse Resp BP Pulse Ox 98.0 F 102 H 16 142/63 H 85 L 08/05/19 08:00 08/05/19 08:00 08/05/19 08:00 08/05/19 08:00 08/05/19 08:00 I & O for Last 24 hours: Intake & Output 08/03/19 08/04/19 08/05/19 08/06/19 11:59 11:59 11:59 11:59 Intake Total 410 / 410 2590 / 2590 2171 / 2171 Output Total 1810 / 1810 1750 / 1750 Balance 410 / 410 780 / 780 421 / 421 Weight 279 lb 15.793 oz 141 lb 2 oz 141 lb 1.992 oz Microbiology Reports for the Last 24 Hours: Microbiology 08/04/19 09:35 Sputum - Expectorated Sputum Gram Stain - Final 08/04/19 09:35 Sputum - Expectorated Sputum Sputum Culture - Preliminary 08/03/19 00:02 Urine,Clean Catch Urine Culture - Final Multiple organisms, suggests contamination. 08/03/19 00:25 Blood Blood Culture - Preliminary NO GROWTH AFTER 48 HOURS 08/03/19 00:25 Blood Blood Culture - Preliminary NO GROWTH AFTER 48 HOURS Assessment and Plan (1) Altered mental status Status: Acute Category: Medical Code(s): R41.82 - Altered mental status, unspecified (2) Medication side effect Status: Acute Category: Medical Code(s): T88.7XXA - Unspecified adverse effect of drug or medicament, initial encounter (3) Abnormal chest xray Status: Acute Category: Medical Code(s): R93.89 - Abnormal findings on diagnostic imaging of other specified body structures (4) Compression fracture Status: Acute Category: Medical (5) History of lung cancer Status: Chronic Category: Medical Code(s): Z85.118 - Personal history of other malignant neoplasm of bronchus and lung (6) Hypertension Status: Chronic Category: Medical Code(s): I10 - Essential (primary) hypertension (7) Hypothyroidism Status: Chronic Qualifiers: Hypothyroidism type: unspecified Qualified Code(s): E03.9 - Hypothyroidism, unspecified Category: Medical Code(s): E03.9 - Hypothyroidism, unspecified (8) Tobacco use disorder Status: Chronic Category: Medical Code(s): F17.200 - Nicotine dependence, unspecified, uncomplicated (9) Compression fracture of L1 lumbar vertebra Status: Acute Category: Medical Code(s): S32.010A - Wedge compression fracture of first lumbar vertebra, initial encounter for closed fracture (10) Fall Status: Acute Category: Medical Code(s): W19.XXXA - Unspecified fall, initial encounter (11) Right knee pain Status: Acute Category: Medical Code(s): M25.561 - Pain in right knee (12) Wheezing Status: Acute Category: Medical Code(s): R06.2 - Wheezing - Assessment and plan all Dx Assessment and Plan for all problems:: Patient seen and examined this morning. She is stable for discharge. She understands not to take any more baclofen. She will be discharged home with a few Dequincy to use as needed. Follow-up in 1 week.
--- NOTE | 2019-08-05 08:51 | Electrocardiograph Report ---
APPROVED REPORT Exam: Resting ECG HR:89 bpm ECG Measurements Heart Rate 89 AXES WY 162 P 94 QRSd 68 QRS 42 QT 382 T82 QTc 464 <Conclusion> Normal sinus rhythm Nonspecific ST and T wave abnormality Abnormal ECG Electronically signed by : Luis Diaz, 08/05/2019 08:51:03
--- NOTE | 2019-08-08 12:16 | Discharge Summary ---
General - General Admission date:: 08/03/19 <Adrian Jones - 08/13/19 08:51> 08/03/19 <Talia Maza - 08/08/19 12:20> Discharge date: 08/05/19 <LinkTalia - 08/08/19 12:20> HPI HPI: Ms. Chu is a 74-year-old female with a history of hypertension, COPD, and small cell lung cancer. She states 2 nights ago she fell landing on her back. She has had mid back pain since that time. She did have scans done in the emergency room after the fall which did show a compression fracture in the lumbar spine as well as the thoracic spine. Her head CT at that time showed not rosendo acute. She states she continued to have back pain after the fall and was prescribed baclofen and nabumetone. According to her family members, she took 3 baclofen yesterday without any food. By last night around 6 PM, she became very fidgety and her mental status became altered. Her family brought her to the emergency room for evaluation. The emergency room physician felt she had a urinary tract infection and admitted her and started her on IV antibiotics. <LinkTalia - 08/08/19 12:20> Hospital Course Hospital Course: Patient's initial chest x-ray showed chronic changes with an improved right basilar infiltrate. The ER felt she had a UTI and started her on IV antibiotics. By the morning of H&P, her mental status was much better, although she had no memory of the previous day. Her urinalysis did not appear to indicate a urinary tract infection and it was felt her symptoms were most consistent with altered mental status due to the baclofen. Baclofen was discontinued and a urine culture was ordered to rule out a UTI. A PT evaluation was ordered due to her recent fall and L1 compression fracture. Physical therapy saw the patient and felt she could return home with her spouse. She had a repeat chest x-ray on 08/04/2019 after some hypoxia and wheezing which showed COPD but nothing acute. She began having some right knee pain and a knee x-ray was ordered, which showed nothing acute. Her mental status continued to improve and she was able to sleep and eat. She continued with back pain due to her compression fractures. By 08/05/2019, her knee pain had improved and her only pain was in her back. Her blood and sputum cultures showed no growth. Her urine culture showed mixed organisms suggesting contamination. She was stable to be discharged home and was told not to take anymore baclofen. She was discharged home with a few Froid to use as needed and will follow up with Dr. Jones in a week. <Talia Maza - 08/08/19 12:20> Objective Vital signs: Temp Pulse Resp BP Pulse Ox 98.0 F 102 H 16 142/63 H 85 L 08/05/19 08:00 08/05/19 08:00 08/05/19 08:00 08/05/19 08:00 08/05/19 08:00 <Adrian Jones - 08/13/19 08:51> Temp Pulse Resp BP Pulse Ox 98.0 F 102 H 16 142/63 H 85 L 08/05/19 08:00 08/05/19 08:00 08/05/19 08:00 08/05/19 08:00 08/05/19 08:00 <Talia Maza - 08/08/19 12:20> Narrative: - Constitutional no acute distress - *Routine Respiratory Exam Present: wheezes. Absent: rales, crackles - *Routine Cardiovascular Exam Present: RRR - *Routine Abdominal Exam Present: soft, normoactive bowel sounds. Absent: tenderness - *Routine Extremities Exam Absent: cyanosis, clubbing, edema - *Routine Skin Exam Present: warm. Absent: rash - *Routine Neurological Exam Present: alert, oriented X3 <Talia Maza - 08/08/19 12:20> DS: Diagnosis - Discharge Diagnosis (1) Altered mental status Status: Acute (2) Medication side effect Status: Acute (3) Abnormal chest xray Status: Acute (4) Compression fracture Status: Acute (5) History of lung cancer Status: Chronic (6) Hypertension Status: Chronic (7) Hypothyroidism Status: Chronic (8) Tobacco use disorder Status: Chronic (9) Compression fracture of L1 lumbar vertebra Status: Acute (10) Fall Status: Acute (11) Right knee pain Status: Acute (12) Wheezing Status: Acute <Talia Maza - 08/08/19 10:08> (1) Altered mental status Status: Acute (2) Medication side effect Status: Acute (3) Abnormal chest xray Status: Acute (4) Compression fracture Status: Acute (5) History of lung cancer Status: Chronic (6) Hypertension Status: Chronic (7) Hypothyroidism Status: Chronic (8) Tobacco use disorder Status: Chronic (9) Compression fracture of L1 lumbar vertebra Status: Acute (10) Fall Status: Acute (11) Right knee pain Status: Acute (12) Wheezing Status: Acute <Adrian Jones - 08/13/19 08:51> Discharge Plan - Patient Discharge Instructions Patient Instructions: Chronic Obstructive Pulmonary Disease, DI for Chronic Obstructive Pulmonary Disease, DI for Altered Mental Status <Adrian Jones - 08/13/19 08:51> Forms: <Adrian Jones - 08/13/19 08:51> - Follow up Plan Follow up with: Adrian Jones MD [Primary Care Provider] - 08/12/19 10:45 am <Adrian Jones - 08/13/19 08:51> Disposition: Home, Self-Care <Adrian Jones - 08/13/19 08:51> Home Medications: Home Medications Medication Instructions Recorded Confirmed Type amlodipine 10 mg tablet 10 mg PO DAILY 90 Days tab 07/27/17 08/08/19 History aspirin 81 mg tablet,delayed 81 mg PO DAILY 07/27/17 08/08/19 History release fluoxetine 40 mg capsule 40 mg PO DAILY 90 Days cap 07/27/17 08/08/19 History furosemide 40 mg tablet 40 mg PO DAILY 07/27/17 08/08/19 History levothyroxine 100 mcg tablet 100 mcg PO DAILY 90 Days tab 07/27/17 08/08/19 History metoclopramide HCl 10 mg tablet 10 mg PO ACHS 30 Days tab 07/27/17 08/08/19 History pravastatin 40 mg tablet 40 mg PO HS 07/27/17 08/08/19 History Cholecalciferol (Vitamin D3) 5,000 unit PO DAILY 09/21/17 08/08/19 History [Vitamin D3] Lactobacillus Acidophilus 1 cap PO DAILY 09/21/17 08/08/19 History [Probiotic] Potassium Chloride [Klor-Con 10mEq 20 meq PO DAILY 09/21/17 08/08/19 History tab] Biotin 10,000 mcg PO DAILY 04/08/18 08/08/19 History Glycopyrrolate/Formoterol Fum 2 puffs INHALATION BID 04/08/18 08/08/19 History [Bevespi Aerosphere Inhaler] Benazepril HCl 20 mg PO DAILY 04/09/18 08/08/19 History Docusate Sodium [Colace] 100 mg PO DAILY 01/26/19 08/08/19 History Ipratropium/Albuterol Sulfate 3 ml IH TIDP PRN 02/14/19 08/08/19 History [Duoneb 3mL neb] Diphenoxylate HCl/Atropine 1 each PO NEEDED PRN 08/03/19 08/08/19 History [Lomotil 2.5-0.025 mg Tablet] Lactobacillus Combo No.10 1 each PO DAILY 08/03/19 08/08/19 History [Probiotic] bisoproloL fumarate [Bisoprolol 5 mg PO DAILY 08/03/19 08/08/19 History Fumarate] Hydrocodone/Acetaminophen [Froid 1 each PO Q6HP PRN #20 tab 08/12/19 Rx 5-325 Tablet] cefUROXime axetiL [Ceftin 500mg 500 mg PO BID #6 tab 08/12/19 Rx Tab (GEQ)] diazePAM [Valium] 5 mg PO BID 30 Days tab 08/12/19 Rx methylPREDNISolone [Medrol 4mg 4 mg PO DIRECTED #21 tab 08/12/19 Rx tab] polyethylene glycoL 3350 [Miralax 17 gm PO DAILY powd.pack 08/12/19 Rx 17gm Packet] <Adrian Jones - 08/13/19 08:51> Prescriptions/Medication Reconciliation: Continued amlodipine 10 mg tablet 10 mg PO DAILY 90 Days tab fluoxetine 40 mg capsule 40 mg PO DAILY 90 Days cap metoclopramide HCl 10 mg tablet 10 mg PO ACHS 30 Days tab pravastatin 40 mg tablet 40 mg PO HS furosemide 40 mg tablet 40 mg PO DAILY aspirin 81 mg tablet,delayed release 81 mg PO DAILY levothyroxine 100 mcg tablet 100 mcg PO DAILY 90 Days tab Lactobacillus Acidophilus [Probiotic] 1 cap PO DAILY Cholecalciferol (Vitamin D3) [Vitamin D3] 5,000 unit PO DAILY Glycopyrrolate/Formoterol Fum [Bevespi Aerosphere Inhaler] 2 puffs INHALATION BID Docusate Sodium [Colace] 100 mg PO DAILY Ipratropium/Albuterol Sulfate [Duoneb 3mL neb] 3 ml IH TIDP PRN PRN Reason: COPD Lactobacillus Combo No.10 [Probiotic] 1 each PO DAILY Potassium Chloride [Klor-Con 10mEq tab] 20 meq PO DAILY Biotin 10,000 mcg PO DAILY Benazepril HCl 20 mg PO DAILY bisoproloL fumarate [Bisoprolol Fumarate] 5 mg PO DAILY Diphenoxylate HCl/Atropine [Lomotil 2.5-0.025 mg Tablet] 1 each PO NEEDED PRN PRN Reason: Diarrhea Discontinued Nabumetone 500 mg PO BID Baclofen 20 mg PO TID No Action polyethylene glycoL 3350 [Miralax 17gm Packet] 17 gm PO DAILY powd.pack Hydrocodone/Acetaminophen [Froid 5-325 Tablet] 1 each PO Q6HP PRN #20 tab PRN Reason: Moderate To Severe Pain cefUROXime axetiL [Ceftin 500mg Tab (GEQ)] 500 mg PO BID #6 tab diazePAM [Valium] 5 mg PO BID 30 Days tab methylPREDNISolone [Medrol 4mg tab] 4 mg PO DIRECTED #21 tab <Adrian Jones - 08/13/19 08:51> - Problem Reconciliation Problems Reviewed?: Yes <Adrian Jones - 08/13/19 08:51> Yes <Talia Maza - 08/08/19 12:20> - Additional Information Additional Information: Concur with plan for discharge as outlined above. <Adrian Jones - 08/13/19 08:51>
== END 2019-08-05 10:05 | disposition home or self-care (01) | DRG 690 ==
LOC: 2ND 23:22 → ER 23:22 → OBSVTOIN 08-03 03:30 → 2ND 08-03 03:32
PROVIDERS: ADMIT Family Medicine; ATTEND Family Medicine
CPT/HCPCS: 70450; 71010; 71020; 71045; 71046; 72125; 72128; 72131; 72170; 73560; 80048; 80053; 81001; 82962; 83605; 84484; 85007; 85025; 87040; 87070; 87086; 87205; 93005; 94640; 94761; 96375; 97161; 97530; 99283; 99285; J1956; J2405

== ENCOUNTER 2019-08-08 14:04 | Inpatient (IN) ==
[2019-08-08 15:01] LABS: Chloride 99 mmol/L (98-107); Sodium 142 mmol/L (136-145)
[2019-08-08 15:04] LABS: Anion Gap 12.2 mEq/L (5-15); Blood Urea Nitrogen 16 mg/dl (7-17); Carbon Dioxide 35 mmol/L (22.0-30.0)
[2019-08-08 15:05] LABS: Calcium 9.5 mg/dl (8.4-10.2); Glucose 129 mg/dl (74-100)
[2019-08-08 15:26] LABS: Basophils % 0.4 % (0.1-2.0); Eosinophils % 0.2 % (0.1-12.0); Hematocrit 35.4 % (37.0-47.0); Hemoglobin 11.2 g/dL (12.2-16.2); Lymphocytes # 0.4 K/mm3 (0.7-4.5); Lymphocytes % 8.5 % (10-50); Mean Corpuscular HGB Conc 31.7 g/dL (31.8-35.4); Mean Corpuscular Volume 98.2 fl (81-99); Mean Platelet Volume 8.4 fl (7.4-10.4); Monocytes # 0.3 K/mm3 (0.1-1.0); Monocytes % 5.7 % (1.7-9.3); Neutrophils % 85.2 % (37.0-80.0); Platelet Count 149 K/mm3 (142-424); Red Cell Distribution Width 14.6 % (11.5-17.5); White Blood Count 4.7 K/mm3 (4.8-10.8)
[2019-08-08 15:49] LABS: Lymphocytes % 10 % (10-50); Monocytes % 5 % (2-9); Neutrophils % 85 % (42-76); RBC Morphology Normal; Total Cells Counted 100
[2019-08-08 16:05] LABS: Coronavirus 229E Not Detected (NotDetected); Coronavirus NL63 Not Detected (NotDetected); Coronavirus OC43 Not Detected (NotDetected); Coronovirus HKU1,PCR Not Detected (NotDetected)
--- NOTE | 2019-08-08 16:07 | Emergency Department Note ---
ED Disposition Clinical Impression: Right lower lobe pulmonary infiltrate Disposition: Admitted as Observation Condition on Discharge: Good Additional Instructions: Spoke to Dr. Jones for admission for pneumonia. Referrals: Adrian Jones MD [Primary Care Provider] - - Critical Care Critical Care Time: No Attestation: On 08/08/19, the high probability of a clinically significant, sudden or life threatening deterioration of the following system(s) required my full and direct attention, intervention and personal management. The time I documented below is in addition to time spent performing reported procedures but includes the following listed in this critical care notation. Medical Decision Making - Medical Records Medical records reviewed: Yes: I reviewed the patient's medical records. - Domingo Inquiry Pt receiving controlled substance: No Vital Signs: 08/08/19 14:05 Temperature 98.4 F Temperature Source Oral Pulse Rate [Radial] 89 Respiratory Rate 20 Blood Pressure [Right Arm] 120/45 L Blood Pressure Mean [Right Arm] 70 Blood Pressure Source [Right Arm] Automatic Cuff Blood Pressure Position [Right Arm] Sitting 02 Sat by Pulse Oximetry 87 L Oxygen Delivery Method Nasal Cannula Oxygen Flow Rate (LPM) 3 - Lab Data Lab results reviewed: Yes: I reviewed the patient's lab results. Lab Results 08/08/19 14:41: WBC 4.7 L, RBC 3.60 L, Hgb 11.2 L, Hct 35.4 L, MCV 98.2, MCH 31.1, MCHC 31.7 L, RDW 14.6, Plt Count 149, MPV 8.4, Neut % (Auto) 85.2 H, Lymph % (Auto) 8.5 L, [place] % (Auto) 5.7, Eos % (Auto) 0.2, Baso % (Auto) 0.4, Neut # (Auto) 4.0, Lymph # (Auto) 0.4 L, [place] # (Auto) 0.3, Eos # (Auto) 0.0, Baso # (Auto) 0.0, Total Counted 100, Neutrophils % (Manual) 85 H, Lymphocytes % (Manual) 10, Monocytes % (Manual) 5, Platelet Estimate Normal, RBC Morphology Normal 08/08/19 14:41: Sodium 142, Potassium 4.2, Chloride 99, Carbon Dioxide 35 H, Anion Gap 12.2, BUN 16, Creatinine 0.80, Estimated Creat Clear 42, Estimated GFR 70, Est GFR ( Amer) 85, Glucose 129 H, Calcium 9.5, Troponin I < 0.01 08/08/19 14:41: Lactate 1.2 Result diagrams: 08/08/19 14:41 08/08/19 14:41 Orders (Tests/Meds): ORDERS Category Date Time Status Troponin I Q3H Lab 08/08/19 17:30 Ordered Troponin I Q3H Lab 08/08/19 20:30 Ordered Upper Respiratory Panel, PCR Routine Lab 08/08/19 14:00 Received Blood Culture Stat Micro 08/08/19 14:41 Received - Radiology Data #1 Image(s): Chest Preliminary Findings: Abnormal (Right lower lobe infiltrate) Resp/SOB HPI - General Chief Complaint: Shortness of Breath/Dyspnea Stated Complaint: back pain; Time Seen by Provider: 08/08/19 15:00 Mode of Arrival: Wheelchair Source of Information: Patient Limitations: No Limitations Description of Symptoms (Recalled from ER Triage Doc. by RN): Dr. Xiong sent patient to be evaluated for pneumonia. - History of Present Illness 74-year-old female presents the ED with a 2-day history of shortness of breath and productive cough. Patient states that she was at home when this started. She denies any recent fever shakes or chills. Patient also denies any body aches or myalgias. Patient was originally seen here a week ago Thursday for a fall. At that time she had a CT of the head cervical thoracic and lumbar spine. Patient did have a subacute compression fracture of L1 with a 10% loss of height. The following day patient was seen here in the ED for acute altered mental status. Patient was talking to her sister and was extremely confused. At that time I did decide to admit the patient to the facility for altered mental status and urinary tract infection. What complicates the picture is that the patient was here on the same day as patient 0 for the coronavirus and here in the ED at the same time and treated by the same physician that treated the original patient with a coronavirus as well. Patient's chest x-ray does not indicate any bronchiolitis or a pneumonitis that would be indicative of coronavirus. Also patient has not had any fever shakes or chills and the patient has not had any nasal congestion, myalgias, or generalized malaise. Her risk of infection of the coronavirus is extremely low. - Related Data Home Medications Medication Instructions Recorded Confirmed amlodipine 10 mg tablet 10 mg PO DAILY 90 Days tab 07/27/17 08/03/19 aspirin 81 mg tablet,delayed 81 mg PO DAILY 07/27/17 08/03/19 release diazepam 5 mg tablet 5 mg PO BID 30 Days tab 07/27/17 08/03/19 fluoxetine 40 mg capsule 40 mg PO DAILY 90 Days cap 07/27/17 08/03/19 furosemide 40 mg tablet 40 mg PO DAILY 07/27/17 08/03/19 levothyroxine 100 mcg tablet 100 mcg PO DAILY 90 Days tab 07/27/17 08/03/19 metoclopramide HCl 10 mg tablet 10 mg PO ACHS 30 Days tab 07/27/17 08/03/19 pravastatin 40 mg tablet 40 mg PO HS 07/27/17 08/03/19 Cholecalciferol (Vitamin D3) 2,000 unit PO DAILY 09/21/17 08/03/19 [Vitamin D3] Lactobacillus Acidophilus 1 cap PO DAILY 09/21/17 08/03/19 [Probiotic] Potassium Chloride [Klor-Con 10mEq 20 meq PO DAILY 09/21/17 08/03/19 tab] Biotin 5,000 mcg PO DAILY 04/08/18 08/03/19 Glycopyrrolate/Formoterol Fum 2 puffs INHALATION BID 04/08/18 08/03/19 [Bevespi Aerosphere Inhaler] Benazepril HCl 20 mg PO DAILY 04/09/18 08/03/19 Docusate Sodium [Colace] 100 mg PO DAILY 01/26/19 08/03/19 Ipratropium/Albuterol Sulfate 3 ml IH TIDP PRN 02/14/19 08/03/19 [Duoneb 3mL neb] Diphenoxylate HCl/Atropine 1 each PO NEEDED PRN 08/03/19 08/03/19 [Lomotil 2.5-0.025 mg Tablet] Lactobacillus Combo No.10 1 each PO DAILY 08/03/19 08/03/19 [Probiotic] Meclizine HCl 12.5 mg PO TIDP PRN 08/03/19 08/03/19 bisoproloL fumarate [Bisoprolol 5 mg PO DAILY 08/03/19 08/03/19 Fumarate] Previous Rx's Medication Instructions Recorded Hydrocodone/Acetaminophen [[place] 1 each PO Q6HP PRN #20 tab 08/05/19 5-325 Tablet] Allergies Allergy/AdvReac Type Severity Reaction Status Date / Time codeine [CODEINE] Allergy Mild Verified 08/03/19 04:05 penicillin G [PENICILLIN G] Allergy Mild Verified 08/03/19 04:05 povidone-iodine Allergy Mild Verified 08/03/19 04:05 [From BETADINE] [facility] History - Hepatitis A Screen Drug use history?: No High risk sexual behaviors?: No History of sexually transmitted infection?: No Currently employed?: No Childcare worker?: No Do you have indoor plumbing?: Yes Do you have electricity?: Yes Attestation statement:: This patient has been screened for Hepatitis A risk factors. I have reviewed the patient's past medical history: Yes Medical History: Reports:: Cancer (LUNG CANCER), Chronic Obstructive Pulmonary Disease (COPD), Gastroesophageal Reflux Disease(GERD), Hyperlipidemia, Hypertension Denies:: Congestive Heart Failure, Diabetes Mellitus Type 1, Diabetes Mellitus Type 2, Migraine, MRSA, Renal Disease, Renal Insufficiency Other Medical History: Reports: Arthritis, Cataracts, Hypothyroidism, Liver Disease, Thyroid Disease Laterality Cases: Bilateral: Tonsillectomy, Other Other Surgeries: Yes: Cardiac Catheterization, Cholecystectomy, Colonoscopy, Thyroidectomy, Tubal Ligation, Other (parotid gland removed, discectomy) Amputation: No Fractures: No Comment: cysts removed from eyelids, Lasik eye surgery, parotid gland removed, discetomy - Social History Educational Level: Completed High School Smoking Status: Current every day smoker Tobacco Type: cigarettes # Packs/Day (cigarettes): 1 #Yrs smoked (if former smoker): 60 Alcohol Intake: never Alcohol Intake Frequency:: other Substance Use Type: denies use Occupational Status: disabled Housing: house Household Members: spouse Family Hx:: Cancer, Diabetes, Hyperlipidemia, Hypertension, Stroke, Thyroid Disorder ROS Obtained: Yes All systems reviewed & no additional complaints - Constitutional Constitutional: Reports system reviewed and no additional complaints, except as docu - Eyes Eyes: Reports system reviewed and no additional complaints, except as docu - ENT Ears, Nose, Mouth, and Throat: Reports system reviewed and no additional complaints, except as docu - Cardiovascular Cardiovascular: Reports system reviewed and no additional complaints, except as docu - Respiratory Respiratory: Yes system reviewed and no additional complaints, except as docu - Gastrointestinal Gastrointestingal: Reports: system reviewed and no additional complaints, except as docu - Genitourinary Male Genitourinary: Reports system reviewed and no additional complaints, except as docu Female Genitourinary: Reports system reviewed and no additional complaints, except as docu - Musculoskeletal Musculoskeletal: Reports system reviewed and no additional complaints, except as docu - Integumentary/Breasts Skin/Breast: Reports system reviewed and no additional complaints, except as docu - Neurologic Neurologic: Reports system reviewed and no additional complaints, except as docu - Endocrine Endocrine: Reports system reviewed and no additional complaints, except as docu - Hematologic/Lymphatic Henatologic/Lymphatic: Reports system reviewed and no additional complaints, except as docu - Allergic/Immunologic Allergic/Immunologic: Reports system reviewed and no additional complaints, except as docu Physical Exam - General General appearance: alert, in no apparent distress - Head Head exam: atraumatic, normocephalic - Eye Eye exam: Present: normal appearance, PERRL - ENT ENT exam: Present: normal exam, normal oropharynx - Neck Neck exam: Present: normal inspection, full ROM - Chest Chest inspection: Present: normal inspection, symmetric chest wall rise - Respiratory Respiratory exam: Present: normal lung sounds bilaterally - Cardiovascular Cardiovascular exam: Present: regular rate, normal rhythm - Abdominal Exam Abdominal exam: Present: soft - Extremities Exam Extremities exam: Present: normal inspection, full ROM - Neurological Exam Neurological exam: Present: alert - Psychiatric Psychiatric exam: Present: normal affect - Skin Skin exam: Present: warm, dry, intact - Lymphatic Lymphatic Findings: no adenopathy
--- NOTE | 2019-08-08 17:52 | History & Physical Report ---
*Admission Date: 08/08/19 *Chief complaint: Weak, short of breath *History of present illness: Ms. Chu is a 74-year-old white female with a history of lung cancer, COPD, and continued tobacco use who has not been doing well for the past week. She fell about a week ago and was seen in the emergency room. X-rays at that time were negative except for a subacute fracture of L1. She was discharged from the ER that day with a prescription for baclofen and nabumetone. She returned to the ER 2 days later with altered mental status and possible UTI but ultimately her mental status changes were felt to be due to the baclofen. Her mental status cleared during that admission. She had serial chest x-rays because of noted congestion but these were negative for infection. Her contacted me today stating that she had not been doing well at home. She has not been eating or drinking well and seems to be getting weaker by the day. She has been more hypoxic at home despite using her nebulizers. She is having great difficulty getting around the house because of pain from her recent fall. Because of her progressive weakness, shortness of breath, and noted productive cough, she was directed back to the emergency room for further evaluation. She was seen in the ER. Repeat chest x-ray suggested right lower lobe infiltrate although her white blood cell count is normal. She has had no fever. She was hypoxemic on arrival to the ER. She has been admitted at this time for treatment of pneumonia. It should be noted that she was in the ER and treated by the same ER physician as was patient 0 for the recent case of coronavirus here at [facility] last week but clinically does not present with the COVID 19 syndrome. [facility] History Medical History: Reports:: Cancer (LUNG CANCER), Chronic Obstructive Pulmonary Disease (COPD), Gastroesophageal Reflux Disease(GERD), Hyperlipidemia, Hypertension Denies:: Congestive Heart Failure, Diabetes Mellitus Type 1, Diabetes Mellitus Type 2, Migraine, MRSA, Renal Disease, Renal Insufficiency *Have you ever received a pneumonia vaccine?: Yes *Have you received a flu vaccine this season?: Yes Other Medical History: Reports: Arthritis, Cataracts, Hypothyroidism, Liver Disease, Thyroid Disease Laterality Cases: Bilateral: Tonsillectomy, Other Other Surgeries: Yes: Cardiac Catheterization, Cholecystectomy, Colonoscopy, Thyroidectomy, Tubal Ligation, Other (parotid gland removed, discectomy) Amputation: No Fractures: No - *Social History Educational Level: Completed High School Smoking Status: Current some day smoker Tobacco Type: cigarettes # Packs/Day (cigarettes): 1 #Yrs smoked (if former smoker): 60 Alcohol Intake: never Alcohol Intake Frequency:: other Substance Use Type: denies use *Occupational Status:: disabled Housing: house Household Members: spouse *Travel in the last 8 weeks: None Family Hx:: Cancer, Diabetes, Hyperlipidemia, Hypertension, Stroke, Thyroid Disorder Review of Systems - Constitutional Reports anorexia, Reports fatigue, Reports lack of energy, Reports weight loss, Denies chills, Denies fever(s) - Eyes Denies change in vision - ENT Reports dry mouth, Denies abnormal hearing, Denies bleeding gums, Denies nasal congestion, Denies sore throat - *Cardiovascular Reports shortness of breath with activity, Denies chest pain, Denies generalized swelling, Denies fast heart rate - *Respiratory Reports cough, Reports shortness of breath, Reports shortness of breath with activity, Denies excessive phlegm production, Denies coughing up blood, Denies pain on inspiration, Denies pain with cough - *Gastrointestinal Reports constipation, Reports nausea, Denies difficulty swallowing, Denies vomiting - *Genitourinary Denies difficulty urinating, Denies painful urination - *Musculoskeletal Reports back pain - Integumentary/Breasts Reports hair loss (related to chemotherapy) - *Neurologic Reports abnormal walking, Reports unsteadiness, Reports weakness - Psychiatric Reports abnormal sleep pattern - Endocrine Denies excessive sweating, Denies increased thirst - Hematologic/Lymphatic Denies easy bruising Meds Home Medications Medication Instructions Recorded Confirmed Type amlodipine 10 mg tablet 10 mg PO DAILY 90 Days tab 07/27/17 08/08/19 History aspirin 81 mg tablet,delayed 81 mg PO DAILY 07/27/17 08/08/19 History release diazepam 5 mg tablet 5 mg PO BID 30 Days tab 07/27/17 08/08/19 History fluoxetine 40 mg capsule 40 mg PO DAILY 90 Days cap 07/27/17 08/08/19 History furosemide 40 mg tablet 40 mg PO DAILY 07/27/17 08/08/19 History levothyroxine 100 mcg tablet 100 mcg PO DAILY 90 Days tab 07/27/17 08/08/19 History metoclopramide HCl 10 mg tablet 10 mg PO ACHS 30 Days tab 07/27/17 08/08/19 History pravastatin 40 mg tablet 40 mg PO HS 07/27/17 08/08/19 History Cholecalciferol (Vitamin D3) 5,000 unit PO DAILY 09/21/17 08/08/19 History [Vitamin D3] Lactobacillus Acidophilus 1 cap PO DAILY 09/21/17 08/08/19 History [Probiotic] Potassium Chloride [Klor-Con 10mEq 20 meq PO DAILY 09/21/17 08/08/19 History tab] Biotin 10,000 mcg PO DAILY 04/08/18 08/08/19 History Glycopyrrolate/Formoterol Fum 2 puffs INHALATION BID 04/08/18 08/08/19 History [Bevespi Aerosphere Inhaler] Benazepril HCl 20 mg PO DAILY 04/09/18 08/08/19 History Docusate Sodium [Colace] 100 mg PO DAILY 01/26/19 08/08/19 History Ipratropium/Albuterol Sulfate 3 ml IH TIDP PRN 02/14/19 08/08/19 History [Duoneb 3mL neb] Diphenoxylate HCl/Atropine 1 each PO NEEDED PRN 08/03/19 08/08/19 History [Lomotil 2.5-0.025 mg Tablet] Lactobacillus Combo No.10 1 each PO DAILY 08/03/19 08/08/19 History [Probiotic] Meclizine HCl 12.5 mg PO TIDP PRN 08/03/19 08/08/19 History bisoproloL fumarate [Bisoprolol 5 mg PO DAILY 08/03/19 08/08/19 History Fumarate] Hydrocodone/Acetaminophen [[place] 1 each PO Q6HP PRN #20 tab 08/05/19 08/08/19 Rx 5-325 Tablet] Allergies Allergy/AdvReac Type Severity Reaction Status Date / Time codeine [CODEINE] Allergy Mild Verified 08/03/19 04:05 penicillin G [PENICILLIN G] Allergy Mild Verified 08/03/19 04:05 povidone-iodine Allergy Mild Verified 08/03/19 04:05 [From BETADINE] Exam Vital signs and Labs for Last 24 Hours: Temp Pulse Resp BP Pulse Ox 98.4 F 80 20 120/45 L 93 L 08/08/19 16:31 08/08/19 16:59 08/08/19 16:31 08/08/19 16:31 08/08/19 16:10 Laboratory Results - last 24 hr 08/08/19 14:41: WBC 4.7 L, RBC 3.60 L, Hgb 11.2 L, Hct 35.4 L, MCV 98.2, MCH 31.1, MCHC 31.7 L, RDW 14.6, Plt Count 149, MPV 8.4, Neut % (Auto) 85.2 H, Lymph % (Auto) 8.5 L, [place] % (Auto) 5.7, Eos % (Auto) 0.2, Baso % (Auto) 0.4, Neut # (Auto) 4.0, Lymph # (Auto) 0.4 L, [place] # (Auto) 0.3, Eos # (Auto) 0.0, Baso # (Auto) 0.0, Total Counted 100, Neutrophils % (Manual) 85 H, Lymphocytes % (Manual) 10, Monocytes % (Manual) 5, Platelet Estimate Normal, RBC Morphology Normal 08/08/19 14:41: Sodium 142, Potassium 4.2, Chloride 99, Carbon Dioxide 35 H, Anion Gap 12.2, BUN 16, Creatinine 0.80, Estimated Creat Clear 42, Estimated GFR 70, Est GFR ( Amer) 85, Glucose 129 H, Calcium 9.5, Troponin I < 0.01 08/08/19 14:41: Lactate 1.2 I & O for Last 24 hours: Intake & Output 08/06/19 08/07/19 08/08/19 08/09/19 10:59 11:59 11:59 11:59 Output Total 400 / 400 Balance -400 / -400 Weight 132 lb Narrative: She is sitting up in bed wearing supplemental oxygen and appears dyspneic. Color is adequate. Her head is shaved. Sclera and conjunctive are clear. Nares patent. Oropharynx shows slightly dry mucous membranes. Neck is supple with no masses, thyromegaly, or bruits. Chest with generally diminished breath sounds in bilateral wheezes with rales in the bases. Heart is regular. Abdomen is soft and nondistended with no unusual masses or tenderness. Extremities show no edema. Assessment and Plan (1) Right lower lobe pulmonary infiltrate Current visit: Yes Status: Acute Category: Medical Code(s): R91.8 - Other nonspecific abnormal finding of lung field (2) Compression fracture of L1 lumbar vertebra Current visit: No Status: Acute Category: Medical Code(s): S32.010A - Wedge compression fracture of first lumbar vertebra, initial encounter for closed fracture (3) Hypoxia Current visit: No Status: Acute Category: Medical Code(s): R09.02 - Hypoxemia (4) History of lung cancer Current visit: No Status: Chronic Category: Medical Code(s): Z85.118 - Personal history of other malignant neoplasm of bronchus and lung (5) Hypertension Current visit: No Status: Chronic Category: Medical Code(s): I10 - Essential (primary) hypertension (6) Hypothyroidism Current visit: No Status: Chronic Qualifiers: Hypothyroidism type: unspecified Qualified Code(s): E03.9 - Hypothyroidism, unspecified Category: Medical Code(s): E03.9 - Hypothyroidism, unspecified (7) Supplemental oxygen dependent Current visit: No Status: Chronic Category: Medical Code(s): Z99.81 - Dependence on supplemental oxygen (8) Tobacco use disorder Current visit: No Status: Chronic Category: Medical Code(s): F17.200 - Nicotine dependence, unspecified, uncomplicated (9) Depression with anxiety Current visit: Yes Status: Acute Category: Medical Code(s): F41.8 - Other specified anxiety disorders (10) Constipation Current visit: Yes Status: Acute Category: Medical Code(s): K59.00 - Constipation, unspecified - Assessment and plan all Dx Assessment and Plan for all problems:: She is admitted with pneumonia protocol for community-acquired pneumonia. I think she had a low risk for exposure to COVID 19. Respiratory PCR panel is pending. White blood cell count and lactate are normal. She is empirically started on Rocephin and Zithromax along with IV steroids. She will receive DuoNeb aerosol treatments. Currently her sats are 93% on 3 L of nasal oxygen. We will continue some of her home medications.
[2019-08-08 18:55] LABS: Microscopic, Urine URINE MICROSCOPIC (MICROSCOPIC)
[2019-08-08 18:58] LABS: Appearance,Urine CLEAR (Clear); Bilirubin,Urine Negative (Negative); Blood, Urine Negative (Negative); Color,Urine YELLOW (Yellow); Glucose,Urine (UA) Negative (Negative); Ketones,Urine Negative (Negative); Leukocyte Esterase,Urine Negative (Negative); Protein,Urine Negative (Negative); Specific Gravity, Urine 1.015 (1.005-1.030); Urobilinogen,Urine 0.2 EU/dl (0.2)
[2019-08-08 19:11] LABS: Bacteria,Urine Trace /lpf; Squamous Epithelial Cell,Urine Occasional #/hpf (0-5); WBC,Urine Occasional #/hpf (0-3)
[2019-08-08 19:13] LABS: ABG Base Excess 6.5 mmol/L (-2.4-2.3); ABG HCO3 31.4 mmhg (22.0-26.0); ABG Oxygen Saturation 92 % (90-100); ABG PH 7.39 mmol/L (7.35-7.45); ABG TCO2 33.1 mmhg (23-27)
[2019-08-09 06:23] LABS: Basophils % 0.2 % (0.1-2.0); Eosinophils % 0.3 % (0.1-12.0); Hematocrit 33.4 % (37.0-47.0); Hemoglobin 10.4 g/dL (12.2-16.2); Lymphocytes # 0.2 K/mm3 (0.7-4.5); Lymphocytes % 10.7 % (10-50); Mean Corpuscular HGB Conc 31.1 g/dL (31.8-35.4); Mean Corpuscular Volume 97.9 fl (81-99); Mean Platelet Volume 8.3 fl (7.4-10.4); Monocytes % 1.7 % (1.7-9.3); Neutrophils # 1.8 K/mm3 (1.8-7.8); Neutrophils % 87.1 % (37.0-80.0); Platelet Count 153 K/mm3 (142-424); Red Blood Count 3.41 M/mm3 (4.20-5.40); Red Cell Distribution Width 14.8 % (11.5-17.5); White Blood Count 2.1 K/mm3 (4.8-10.8)
[2019-08-09 06:26] LABS: Calcium 9.3 mg/dl (8.4-10.2)
[2019-08-09 07:34] LABS: Eosinophils % 1 % (0-3); Lymphocytes % 12 % (10-50); Monocytes % 3 % (2-9); Neutrophils % 84 % (42-76); Total Cells Counted 100
[2019-08-09 07:35] LABS: RBC Morphology Normal
--- NOTE | 2019-08-09 07:45 | Pharmacy Consult Notes ---
[facility] Pharmacy VTE Monitoring - Patient Demographics Admission date: 08/09/19 Report Date: 08/09/19 Time: 07:44 Allergies/Adverse Reactions: Patient Allergies codeine [CODEINE] Allergy (Mild, Verified 08/03/19 04:05) penicillin G [PENICILLIN G] Allergy (Mild, Verified 08/03/19 04:05) povidone-iodine [From BETADINE] Allergy (Mild, Verified 08/03/19 04:05) Height: 1.57 m Weight: 61.717 kg Patient Problems: Current Active Problems Right lower lobe pulmonary infiltrate (Acute) Depression with anxiety (Acute) Constipation (Acute) - VTE Risk Labs: VTE Related Lab Results Hgb 10.4 g/dL (12.2-16.2) L 08/09/19 05:21 Hct 33.4 % (37.0-47.0) L 08/09/19 05:21 Plt Count 153 K/mm3 (142-424) 08/09/19 05:21 BUN 20 mg/dl (7-17) H 08/09/19 05:21 Creatinine 0.70 mg/dl (0.52-1.04) 08/09/19 05:21 Estimated Creat Clear 48 mL/min (50-200) 08/09/19 05:21 Was VTE Risk Assessment Performed: Yes Clinical Trial Participant: No - Prophylaxis VTE Prophylaxis Ordered?: Yes Types of VTE Prophylaxis: TEDS Knee High
--- NOTE | 2019-08-09 08:35 | Progress Note ---
Internal Medicine - PN: Subj *Date: 08/09/19 *Time: 09:00 Interval history: States she still does not feel well. She did get some sleep last night. She is dyspneic at rest and with exertion. Persists with cough that is mostly nonproductive. Appetite remains poor. Exam Vital signs and Labs for Last 24 Hours: Temp Pulse Resp BP Pulse Ox 97.5 F L 80 20 144/64 H 94 L 08/09/19 07:54 08/09/19 07:54 08/09/19 07:54 08/09/19 07:54 08/09/19 07:54 Laboratory Results - last 24 hr 08/08/19 14:00: Chlamy pneumoniae PCR Not detected, Adenovirus (PCR) Not detected, B. pertussis DNA (PCR) Not detected, Coronavirus OC43 (PCR) Not detected, Coronavirus HKU1 (PCR) Not detected, Coronavirus 229E (PCR) Not detected, Coronavirus NL63 (PCR) Not detected, Human Metapneumovir PCR Detected A, Influenza A (H1) PCR Not detected, Influ A (H1N1/09) PCR Not detected, Influenza A (H3) PCR Not detected, Influenza Type A (PCR) Not detected, Influenza Type B (PCR) Not detected, M. pneumoniae (PCR) Not detected, Parainfluenza 1 (PCR) Not detected, Parainfluenza 2 (PCR) Not detected, Parainfluenza 3 (PCR) Not detected, Parainfluenza 4 (PCR) Not detected, RSV (PCR) Not detected, Entero/Rhino (PCR) Not detected 08/08/19 14:41: WBC 4.7 L, RBC 3.60 L, Hgb 11.2 L, Hct 35.4 L, MCV 98.2, MCH 31.1, MCHC 31.7 L, RDW 14.6, Plt Count 149, MPV 8.4, Neut % (Auto) 85.2 H, Lymph % (Auto) 8.5 L, [place] % (Auto) 5.7, Eos % (Auto) 0.2, Baso % (Auto) 0.4, Neut # (Auto) 4.0, Lymph # (Auto) 0.4 L, [place] # (Auto) 0.3, Eos # (Auto) 0.0, Baso # (Auto) 0.0, Total Counted 100, Neutrophils % (Manual) 85 H, Lymphocytes % (Manual) 10, Monocytes % (Manual) 5, Platelet Estimate Normal, RBC Morphology Normal 08/08/19 14:41: Sodium 142, Potassium 4.2, Chloride 99, Carbon Dioxide 35 H, Anion Gap 12.2, BUN 16, Creatinine 0.80, Estimated Creat Clear 42, Estimated GFR 70, Est GFR ( Amer) 85, Glucose 129 H, Calcium 9.5, Troponin I < 0.01 08/08/19 14:41: Lactate 1.2 08/08/19 18:38: Urine Color Yellow, Urine Appearance Clear, Urine pH 6.0, Ur Specific [place] 1.015, Urine Protein Negative, Urine Glucose (UA) Negative, Urine Ketones Negative, Urine Blood Negative, Urine Nitrate Negative, Urine Bilirubin Negative, Urine Urobilinogen 0.2, Ur Leukocyte Esterase Negative, Urine WBC Occasional, Ur Squamous Epith Cells Occasional, Urine Bacteria Trace 08/08/19 19:05: ABG pH 7.39, ABG pCO2 53.0 H, ABG pO2 65.0 L, ABG HCO3 31.4 H, ABG Total CO2 33.1 H, ABG O2 Saturation 92, ABG Base Excess 6.5 H 08/09/19 05:21: WBC 2.1 L D, RBC 3.41 L, Hgb 10.4 L, Hct 33.4 L, MCV 97.9, MCH 30.4, MCHC 31.1 L, RDW 14.8, Plt Count 153, MPV 8.3, Neut % (Auto) 87.1 H, Lymph % (Auto) 10.7, [place] % (Auto) 1.7, Eos % (Auto) 0.3, Baso % (Auto) 0.2, Neut # (Auto) 1.8, Lymph # (Auto) 0.2 L, [place] # (Auto) 0.0 L, Eos # (Auto) 0.0, Baso # (Auto) 0.0, Total Counted 100, Neutrophils % (Manual) 84 H, Lymphocytes % (Manual) 12, Monocytes % (Manual) 3, Eosinophils % (Manual) 1, Platelet Estimate Normal, RBC Morphology Normal 08/09/19 05:21: Sodium 140, Potassium 4.0, Chloride 99, Carbon Dioxide 33 H, Anion Gap 12.0, BUN 20 H, Creatinine 0.70, Estimated Creat Clear 48, Estimated GFR 82, Est GFR ( Amer) 99, Glucose 161 H D, Calcium 9.3 I & O for Last 24 hours: Intake & Output 08/06/19 08/07/19 08/08/19 08/09/19 10:59 11:59 11:59 11:59 Output Total 800 / 800 Balance -800 / -800 Weight 136 lb 1 oz Microbiology Reports for the Last 24 Hours: Microbiology 08/08/19 17:25 Sputum - Expectorated Sputum Gram Stain - Final Narrative: She is sitting on the edge of the bed. Appears not to feel well. She is dyspneic at rest. Chest reveals bilateral rhonchi and wheezes. Extremities no edema. Assessment and Plan (1) Human metapneumovirus (hMPV) pneumonia Current visit: Yes Status: Acute Category: Medical Code(s): J12.3 - Human metapneumovirus pneumonia (2) Compression fracture of L1 lumbar vertebra Current visit: No Status: Acute Category: Medical Code(s): S32.010A - Wedge compression fracture of first lumbar vertebra, initial encounter for closed fracture (3) Hypoxia Current visit: No Status: Acute Category: Medical Code(s): R09.02 - Hypoxemia (4) History of lung cancer Current visit: No Status: Chronic Category: Medical Code(s): Z85.118 - Personal history of other malignant neoplasm of bronchus and lung (5) Hypertension Current visit: No Status: Chronic Category: Medical Code(s): I10 - Essential (primary) hypertension (6) Hypothyroidism Current visit: No Status: Chronic Qualifiers: Hypothyroidism type: unspecified Qualified Code(s): E03.9 - Hypothyroidism, unspecified Category: Medical Code(s): E03.9 - Hypothyroidism, unspecified (7) Supplemental oxygen dependent Current visit: No Status: Chronic Category: Medical Code(s): Z99.81 - Dependence on supplemental oxygen (8) Tobacco use disorder Current visit: No Status: Chronic Category: Medical Code(s): F17.200 - Nicotine dependence, unspecified, uncomplicated (9) Depression with anxiety Current visit: Yes Status: Acute Category: Medical Code(s): F41.8 - Other specified anxiety disorders (10) Constipation Current visit: Yes Status: Acute Category: Medical Code(s): K59.00 - Constipation, unspecified - Assessment and plan all Dx Assessment and Plan for all problems:: Subjectively feels about the same. Her O2 sats have remained above 90% throu ghout the night. PCR panel has returned showing human metapneumovirus. Her CBC shows a leukopenia consistent with viral infection although she does have a left shift on her differential. Sputum culture is pending. We will continue IV antibiotics to cover any potential secondary bacterial infections.
[2019-08-09 08:58] LABS: Allen's Test Y; Oxygen NC AT 3.5 %
--- NOTE | 2019-08-10 08:39 | Progress Note ---
Internal Medicine - PN: Subj *Date: 08/10/19 *Time: 09:42 Interval history: She sat up in the chair several hours yesterday and tolerated fairly well. She is still quite dyspneic with exertion. She was able to sleep some last night. Appetite remains poor. She is still having pain in her back radiating around to the right side with movement. Exam Vital signs and Labs for Last 24 Hours: Temp Pulse Resp BP Pulse Ox 97.9 F 114 H 24 183/73 H 91 L 08/10/19 08:00 08/10/19 08:00 08/10/19 08:00 08/10/19 08:00 08/10/19 08:00 Laboratory Results - last 24 hr 08/08/19 19:05: Specimen Source Right radial, O2 % Nc at 3.5, Darian Test Y I & O for Last 24 hours: Intake & Output 08/07/19 08/08/19 08/09/19 08/10/19 11:59 11:59 11:59 11:59 Intake Total 1080 / 1080 Output Total 800 / 800 950 / 950 Balance -800 / -800 130 / 130 Weight 136 lb 1 oz 133 lb 1 oz Microbiology Reports for the Last 24 Hours: Microbiology 08/08/19 17:25 Sputum - Expectorated Sputum Gram Stain - Final 08/08/19 17:25 Sputum - Expectorated Sputum Sputum Culture - Preliminary Narrative: She is sitting up in bed. Respirations are slightly labored. Chest with bilateral faint wheezes and upper airway rhonchi. Heart is regular. Extremities no edema. Assessment and Plan (1) Human metapneumovirus (hMPV) pneumonia Current visit: Yes Status: Acute Category: Medical Code(s): J12.3 - Human metapneumovirus pneumonia (2) Compression fracture of L1 lumbar vertebra Current visit: No Status: Acute Category: Medical Code(s): S32.010A - Wedge compression fracture of first lumbar vertebra, initial encounter for closed fracture (3) Hypoxia Current visit: No Status: Acute Category: Medical Code(s): R09.02 - Hypoxemia (4) History of lung cancer Current visit: No Status: Chronic Category: Medical Code(s): Z85.118 - Personal history of other malignant neoplasm of bronchus and lung (5) Hypertension Current visit: No Status: Chronic Category: Medical Code(s): I10 - Essential (primary) hypertension (6) Hypothyroidism Current visit: No Status: Chronic Qualifiers: Hypothyroidism type: unspecified Qualified Code(s): E03.9 - Hypothyroidism, unspecified Category: Medical Code(s): E03.9 - Hypothyroidism, unspecified (7) Supplemental oxygen dependent Current visit: No Status: Chronic Category: Medical Code(s): Z99.81 - Dependence on supplemental oxygen (8) Tobacco use disorder Current visit: No Status: Chronic Category: Medical Code(s): F17.200 - Nicotine dependence, unspecified, uncomplicated (9) Depression with anxiety Current visit: Yes Status: Acute Category: Medical Code(s): F41.8 - Other specified anxiety disorders (10) Constipation Current visit: Yes Status: Acute Category: Medical Code(s): K59.00 - Constipation, unspecified - Assessment and plan all Dx Assessment and Plan for all problems:: Slight improvement. O2 sats are consistently staying above 90%. She is still limited in activity because of her dyspnea and back pain. Will get PT eval today. We will have care management investigate options for disposition at time of discharge. She may require transfer to a skilled care facility for rehab if she is agreeable.
--- NOTE | 2019-08-11 08:33 | Progress Note ---
Internal Medicine - PN: Subj *Date: 08/11/19 *Time: 08:33 Interval history: She rested better last night and feels a little better this morning. Still very weak and dyspneic with exertion but tolerating activity a little better. PT evaluation noted. Exam Vital signs and Labs for Last 24 Hours: Temp Pulse Resp BP Pulse Ox 97.5 F L 90 18 148/59 H 92 L 08/11/19 08:00 08/11/19 08:00 08/11/19 08:00 08/11/19 08:00 08/11/19 08:00 I & O for Last 24 hours: Intake & Output 08/08/19 08/09/19 08/10/19 08/11/19 11:59 11:59 11:59 11:59 Intake Total 1080 / 1080 1413 / 1413 Output Total 800 / 800 950 / 950 700 / 700 Balance -800 / -800 130 / 130 713 / 713 Weight 136 lb 1 oz 133 lb 1 oz 138 lb 7 oz Microbiology Reports for the Last 24 Hours: Microbiology 08/08/19 14:41 Blood Blood Culture - Preliminary NO GROWTH AFTER 48 HOURS 08/08/19 14:41 Blood Blood Culture - Preliminary NO GROWTH AFTER 48 HOURS 08/08/19 17:25 Sputum - Expectorated Sputum Gram Stain - Final 08/08/19 17:25 Sputum - Expectorated Sputum Sputum Culture - Preliminary Narrative: She is sitting up in the chair for breakfast this morning. She is picking at her plate. No respiratory distress. Lungs with only minimal wheezes in the upper chest. Extremities no edema. Assessment and Plan (1) Human metapneumovirus (hMPV) pneumonia Current visit: Yes Status: Acute Category: Medical Code(s): J12.3 - Human metapneumovirus pneumonia (2) Acute exacerbation of chronic obstructive airways disease Current visit: No Status: Acute Category: Medical Code(s): J44.1 - Chronic obstructive pulmonary disease with (acute) exacerbation (3) Compression fracture of L1 lumbar vertebra Current visit: No Status: Acute Category: Medical Code(s): S32.010A - Wedge compression fracture of first lumbar vertebra, initial encounter for closed fracture (4) Hypoxia Current visit: No Status: Acute Category: Medical Code(s): R09.02 - Hypoxemia (5) History of lung cancer Current visit: No Status: Chronic Category: Medical Code(s): Z85.118 - Personal history of other malignant neoplasm of bronchus and lung (6) Hypertension Current visit: No Status: Chronic Category: Medical Code(s): I10 - Essential (primary) hypertension (7) Hypothyroidism Current visit: No Status: Chronic Qualifiers: Hypothyroidism type: unspecified Qualified Code(s): E03.9 - Hypothyroidism, unspecified Category: Medical Code(s): E03.9 - Hypothyroidism, unspecified (8) Supplemental oxygen dependent Current visit: No Status: Chronic Category: Medical Code(s): Z99.81 - Dependence on supplemental oxygen (9) Tobacco use disorder Current visit: No Status: Chronic Category: Medical Code(s): F17.200 - N icotine dependence, unspecified, uncomplicated (10) Depression with anxiety Current visit: Yes Status: Acute Category: Medical Code(s): F41.8 - Other specified anxiety disorders (11) Constipation Current visit: Yes Status: Acute Category: Medical Code(s): K59.00 - Constipation, unspecified - Assessment and plan all Dx Assessment and Plan for all problems:: Clinically improving but will need acute rehab. Care management is investigating available options. We will plan to repeat her chest x-ray today. Begin weaning her steroids.
--- NOTE | 2019-08-11 08:51 | Progress Note ---
Internal Medicine - PN: Subj *Date: 08/11/19 *Time: 08:50 Exam Vital signs and Labs for Last 24 Hours: Temp Pulse Resp BP Pulse Ox 97.5 F L 90 18 148/59 H 92 L 08/11/19 08:00 08/11/19 08:00 08/11/19 08:00 08/11/19 08:00 08/11/19 08:00 I & O for Last 24 hours: Intake & Output 08/08/19 08/09/19 08/10/19 08/11/19 23:59 23:59 23:59 23:59 Intake Total 840 / 840 1040 / 1040 613 / 613 Output Total 400 / 400 900 / 900 750 / 950 400 / 400 Balance -400 / -400 -60 / -60 290 / 90 213 / 213 Weight 59.874 kg 61.717 kg 60 kg 62.794 kg Microbiology Reports for the Last 24 Hours: Microbiology 08/08/19 14:41 Blood Blood Culture - Preliminary NO GROWTH AFTER 48 HOURS 08/08/19 14:41 Blood Blood Culture - Preliminary NO GROWTH AFTER 48 HOURS 08/08/19 17:25 Sputum - Expectorated Sputum Gram Stain - Final 08/08/19 17:25 Sputum - Expectorated Sputum Sputum Culture - Preliminary Assessment and Plan (1) Human metapneumovirus (hMPV) pneumonia Current visit: Yes Status: Acute Category: Medical Code(s): J12.3 - Human metapneumovirus pneumonia (2) Compression fracture of L1 lumbar vertebra Current visit: No Status: Acute Category: Medical Code(s): S32.010A - Wedge compression fracture of first lumbar vertebra, initial encounter for closed fracture (3) Hypoxia Current visit: No Status: Acute Category: Medical Code(s): R09.02 - Hypoxemia (4) History of lung cancer Current visit: No Status: Chronic Category: Medical Code(s): Z85.118 - Personal history of other malignant neoplasm of bronchus and lung (5) Hypertension Current visit: No Status: Chronic Category: Medical Code(s): I10 - Essential (primary) hypertension (6) Hypothyroidism Current visit: No Status: Chronic Qualifiers: Hypothyroidism type: unspecified Qualified Code(s): E03.9 - Hypothyroidism, unspecified Category: Medical Code(s): E03.9 - Hypothyroidism, unspecified (7) Supplemental oxygen dependent Current visit: No Status: Chronic Category: Medical Code(s): Z99.81 - Dependence on supplemental oxygen (8) Tobacco use disorder Current visit: No Status: Chronic Category: Medical Code(s): F17.200 - Nicotine dependence, unspecified, uncomplicated (9) Depression with anxiety Current visit: Yes Status: Acute Category: Medical Code(s): F41.8 - Other specified anxiety disorders (10) Constipation Current visit: Yes Status: Acute Category: Medical Code(s): K59.00 - Constipation, unspecified The patient's infection will respond to the chosen ABx?: Yes Is the patient receiving the right drug, dose, and route?: Yes Could a more targeted ABx be ordered?: No (PATIENT AFEBRILE, WBC-WNL, NO GROWTH IN CULTURES YET.)
[2019-08-11 09:06] LABS: Basophils % 0.1 % (0.1-2.0); Eosinophils % 0.4 % (0.1-12.0); Hematocrit 35.3 % (37.0-47.0); Hemoglobin 11.1 g/dL (12.2-16.2); Lymphocytes # 0.2 K/mm3 (0.7-4.5); Lymphocytes % 6.5 % (10-50); Mean Corpuscular HGB Conc 31.5 g/dL (31.8-35.4); Mean Corpuscular Volume 98.3 fl (81-99); Mean Platelet Volume 8.8 fl (7.4-10.4); Monocytes # 0.2 K/mm3 (0.1-1.0); Monocytes % 4.2 % (1.7-9.3); Neutrophils # 3.3 K/mm3 (1.8-7.8); Neutrophils % 88.8 % (37.0-80.0); Platelet Count 185 K/mm3 (142-424); Red Blood Count 3.59 M/mm3 (4.20-5.40); White Blood Count 3.7 K/mm3 (4.8-10.8)
[2019-08-11 09:07] LABS: Anion Gap 13.5 mEq/L (5-15); Calcium 9.5 mg/dl (8.4-10.2)
[2019-08-11 11:23] LABS: Lymphocytes % 1 % (10-50); Neutrophils % 99 % (42-76); RBC Morphology Normal; Total Cells Counted 100
[2019-08-12 06:58] LABS: Lymphocytes # 0.3 K/mm3 (0.7-4.5); Mean Corpuscular Volume 94.8 fl (81-99); Monocytes # 0.3 K/mm3 (0.1-1.0); Monocytes % 7.7 % (1.7-9.3)
[2019-08-12 07:06] LABS: Basophils % 0.1 % (0.1-2.0); Eosinophils % 0.1 % (0.1-12.0); Hematocrit 29.6 % (37.0-47.0); Lymphocytes % 9.2 % (10-50); Mean Corpuscular HGB Conc 32.3 g/dL (31.8-35.4); Mean Platelet Volume 8.6 fl (7.4-10.4); Neutrophils # 2.9 K/mm3 (1.8-7.8); Neutrophils % 82.9 % (37.0-80.0); Platelet Count 172 K/mm3 (142-424); Red Blood Count 3.12 M/mm3 (4.20-5.40); White Blood Count 3.5 K/mm3 (4.8-10.8)
[2019-08-12 07:11] LABS: Hemoglobin 9.6 g/dL (12.2-16.2)
[2019-08-12 08:27] VITALS: BP 145/64
--- NOTE | 2019-08-12 09:30 | Discharge Summary ---
General - General Admission date:: 08/08/19 Discharge date: 08/12/19 HPI HPI: Ms. Chu is a 74-year-old white female with a history of lung cancer, COPD, and continued tobacco use who has not been doing well for the past week. She fell about 10 days ago and was seen in the ER. X-rays at that time were negative except for a subacute fracture of L1. She was discharged from the ER that day with a prescription for baclofen and nabumetone. She returned to the ER 2 days later with altered mental status and possible UTI but ultimately her mental status changes were felt to be due to the baclofen. Her mental status cleared during that admission. She had serial chest x-rays because of noted congestion but these were negative for infection. Her contacted me on the day of this admission stating that she had not been doing well at home. She had not been eating or drinking well and seemed to be getting weaker by the day. She had been more hypoxic at home despite using her nebulizers. She was having great difficulty getting around the house because of pain from her recent fall. Because of her progressive weakness, shortness of breath, and noted productive cough, she was directed back to the emergency room for further evaluation. She was seen in the ER. Repeat chest x-ray suggested right lower lobe infiltrate although her white blood cell count is normal. She has had no fever. She was hypoxemic on arrival to the ER. She was then admitted for treatment of pneumonia. Hospital Course Hospital Course: She was admitted and started on pneumonia protocol with Rocephin and Zithromax pending results of cultures. She was treated with supportive measures of IV fluids, supplemental oxygen, and steroids. A PCR panel was obtained and returned positive for human metapneumovirus. Her sputum culture eventually returned growing normal hannah. Clinically she responded well to the supportive measures. Her hypoxia improved and her O2 sats have been running in the low to mid 90s with her supplemental oxygen. A repeat chest x-ray showed resolution of the right lower lobe infiltrate. Appetite has improved some but still not eating well. She has been supplemented with Breeze which she prefers rather than Ensure. Mobility has been limited by her respiratory status but also related to her recent fall and L1 compression fracture. Physical therapy has seen the patient and recommended skilled care placement for a course of physical rehab. A bed has been found available at [facility] and she is agreeable for admission there for physical therapy. Objective Vital signs: Temp Pulse Resp BP Pulse Ox 97.5 F L 95 H 16 145/64 H 93 L 08/12/19 08:00 08/12/19 08:31 08/12/19 08:00 08/12/19 08:00 08/12/19 08:00 Narrative: Exam on discharge reveals that she is much more comfortable with her breathing. Still has some dyspnea with activity. Her color is normal. HEENT reveals shaved head related to her recent chemotherapy. Mucous membranes are slightly dry. Lungs reveal generally diminished breath sounds but no rales or wheezes. Heart is regular. Abdomen is soft and nondistended with no unusual masses or tenderness. Extremities show no edema. Results Labs on day of discharge: Labs from last 24 hours 08/12/19 08/11/19 06:02 08:48 WBC 3.5 L RBC 3.12 L Hgb 9.6 L D Hct 29.6 L MCV 94.8 MCH 30.6 MCHC 32.3 RDW 15.0 Plt Count 172 MPV 8.6 Neut % (Auto) 82.9 H Lymph % (Auto) 9.2 L [place] % (Auto) 7.7 Eos % (Auto) 0.1 Baso % (Auto) 0.1 Neut # (Auto) 2.9 Lymph # (Auto) 0.3 L [place] # (Auto) 0.3 Eos # (Auto) 0.0 Baso # (Auto) 0.0 Total Counted 100 Neutrophils % (Manual) 99 H Lymphocytes % (Manual) 1 L Platelet Estimate Normal RBC Morphology Normal Preliminary micro results at discharge 08/08/19 14:41 Blood Culture - Preliminary Blood NO GROWTH AFTER 48 HOURS 08/08/19 14:41 Blood Culture - Preliminary Blood NO GROWTH AFTER 48 HOURS DS: Diagnosis - Discharge Diagnosis (1) Human metapneumovirus (hMPV) pneumonia Status: Acute (2) Acute exacerbation of chronic obstructive airways disease Status: Acute (3) Compression fracture of L1 lumbar vertebra Status: Acute (4) Hypoxia Status: Acute (5) History of lung cancer Status: Chronic (6) Hypertension Status: Chronic (7) Hypothyroidism Status: Chronic (8) Supplemental oxygen dependent Status: Chronic (9) Tobacco use disorder Status: Chronic (10) Depression with anxiety Status: Acute (11) Constipation Status: Acute Discharge Plan - Patient Discharge Instructions ACTIVITY: Continue current activity DIET: continue same diet, other (Breeze supplement) Patient Instructions: DI for Pneumonia -- Adult, DI for Constipation, Vertebral Compression Fracture - Follow up Plan Disposition: [facility] Home Medications: Home Medications Medication Instructions Recorded Confirmed Type amlodipine 10 mg tablet 10 mg PO DAILY 90 Days tab 07/27/17 08/08/19 History aspirin 81 mg tablet,delayed 81 mg PO DAILY 07/27/17 08/08/19 History release fluoxetine 40 mg capsule 40 mg PO DAILY 90 Days cap 07/27/17 08/08/19 History furosemide 40 mg tablet 40 mg PO DAILY 07/27/17 08/08/19 History levothyroxine 100 mcg tablet 100 mcg PO DAILY 90 Days tab 07/27/17 08/08/19 History metoclopramide HCl 10 mg tablet 10 mg PO ACHS 30 Days tab 07/27/17 08/08/19 History pravastatin 40 mg tablet 40 mg PO HS 07/27/17 08/08/19 History Cholecalciferol (Vitamin D3) 5,000 unit PO DAILY 09/21/17 08/08/19 History [Vitamin D3] Lactobacillus Acidophilus 1 cap PO DAILY 09/21/17 08/08/19 History [Probiotic] Potassium Chloride [Klor-Con 10mEq 20 meq PO DAILY 09/21/17 08/08/19 History tab] Biotin 10,000 mcg PO DAILY 04/08/18 08/08/19 History Glycopyrrolate/Formoterol Fum 2 puffs INHALATION BID 04/08/18 08/08/19 History [Bevespi Aerosphere Inhaler] Benazepril HCl 20 mg PO DAILY 04/09/18 08/08/19 History Docusate Sodium [Colace] 100 mg PO DAILY 01/26/19 08/08/19 History Ipratropium/Albuterol Sulfate 3 ml IH TIDP PRN 02/14/19 08/08/19 History [Duoneb 3mL neb] Diphenoxylate HCl/Atropine 1 each PO NEEDED PRN 08/03/19 08/08/19 History [Lomotil 2.5-0.025 mg Tablet] Lactobacillus Combo No.10 1 each PO DAILY 08/03/19 08/08/19 History [Probiotic] bisoproloL fumarate [Bisoprolol 5 mg PO DAILY 08/03/19 08/08/19 History Fumarate] Hydrocodone/Acetaminophen [[place] 1 each PO Q6HP PRN #20 tab 08/12/19 Rx 5-325 Tablet] cefUROXime axetiL [Ceftin 500mg 500 mg PO BID #6 tab 08/12/19 Rx Tab (GEQ)] diazePAM [Valium] 5 mg PO BID 30 Days tab 08/12/19 Rx methylPREDNISolone [Medrol 4mg 4 mg PO DIRECTED #21 tab 08/12/19 Rx tab] polyethylene glycoL 3350 [Miralax 17 gm PO DAILY powd.pack 08/12/19 Rx 17gm Packet] Prescriptions/Medication Reconciliation: New polyethylene glycoL 3350 [Miralax 17gm Packet] 17 gm PO DAILY powd.pack cefUROXime axetiL [Ceftin 500mg Tab (GEQ)] 500 mg PO BID #6 tab methylPREDNISolone [Medrol 4mg tab] 4 mg PO DIRECTED #21 tab Continued amlodipine 10 mg tablet 10 mg PO DAILY 90 Days tab fluoxetine 40 mg capsule 40 mg PO DAILY 90 Days cap metoclopramide HCl 10 mg tablet 10 mg PO ACHS 30 Days tab pravastatin 40 mg tablet 40 mg PO HS furosemide 40 mg tablet 40 mg PO DAILY aspirin 81 mg tablet,delayed release 81 mg PO DAILY levothyroxine 100 mcg tablet 100 mcg PO DAILY 90 Days tab Lactobacillus Acidophilus [Probiotic] 1 cap PO DAILY Cholecalciferol (Vitamin D3) [Vitamin D3] 5,000 unit PO DAILY Glycopyrrolate/Formoterol Fum [Bevespi Aerosphere Inhaler] 2 puffs INHALATION BID Docusate Sodium [Colace] 100 mg PO DAILY Ipratropium/Albuterol Sulfate [Duoneb 3mL neb] 3 ml IH TIDP PRN PRN Reason: COPD Lactobacillus Combo No.10 [Probiotic] 1 each PO DAILY Hydrocodone/Acetaminophen [[place] 5-325 Tablet] 1 each PO Q6HP PRN #20 tab PRN Reason: Moderate To Severe Pain Potassium Chloride [Klor-Con 10mEq tab] 20 meq PO DAILY Biotin 10,000 mcg PO DAILY Benazepril HCl 20 mg PO DAILY bisoproloL fumarate [Bisoprolol Fumarate] 5 mg PO DAILY Diphenoxylate HCl/Atropine [Lomotil 2.5-0.025 mg Tablet] 1 each PO NEEDED PRN PRN Reason: Diarrhea diazePAM [Valium] 5 mg PO BID 30 Days tab Discontinued Meclizine HCl 12.5 mg PO TIDP PRN PRN Reason: Dizziness - Problem Reconciliation Problems Reviewed?: Yes
== END 2019-08-12 11:35 | DRG 194 ==
LOC: 2ND 14:04 → ER 14:04 → OBSVTOIN 16:32 → 2ND 16:33
PROVIDERS: ADMIT Family Medicine; ATTEND Family Medicine
CPT/HCPCS: 36415; 71020; 71046; 80048; 81001; 82803; 83605; 84484; 85007; 85025; 87040; 87070; 87205; 87486; 87581; 87633; 87798; 94640; 94760; 94761; 97110; 97116; 97161; 97530; 99285; 99406; J0456

== ENCOUNTER → 2019-09-27 09:38 | Outpatient (CLI) | payer MEDICARE, OTHER, SELFPAY ==
--- NOTE | 2019-09-27 09:55 | CT_ITS ---
PROCEDURE: CT CHEST W CON CLINCAL INDICATION: LUNG CANCER Follow-up lung cancer COMPARISON: ABDWW CT abdomen wo/w con from 02/10/2018 LIVER US liver from 02/25/2018 CT CHEST W CON from 03/24/2019 TECHNIQUE: IV Contrast: 75ml Optiray 350 Axial images obtained with sagittal and coronal reformats. All CT scans at the facility use one or more dose reduction, viz: automated exposure control, ma/kV adjustment per patient size (including targeted exams where dose is matched to indication, i.e. head), or iterative reconstruction technique. FINDINGS: HEART AND MEDIASTINAL STRUCTURES: Atherosclerotic changes involve the aortic arch. No obvious aneurysm. No evidence of pulmonary embolus. Coronary artery calcifications are present with normal heart size noted. There is thickening of the pericardium posteriorly and inferiorly measuring up to 1 cm slightly greater than when compared to the previous exam. No mediastinal or hilar mass or adenopathy. There is mild thickening of the thoracic esophagus which is nonspecific.. LUNGS AND PLEURAL SPACES: Some changes of COPD with centrilobular emphysema with scattered areas of scarring. There is thickening of the left major fissure inferiorly with some mild atelectatic changes within the lingula and some scarring within the lingula anteriorly. BONY STRUCTURES: Prior cervical spine surgery. There is degenerative changes of the thoracic spine. There is mild wedging of L1 which has developed since the previous exam. No obvious retropulsion. Old left-sided rib fractures are once again noted. UPPER ABDOMEN: There is intense lobular enhancement involving the central aspect of the lateral segment of the left hepatic lobe. This area measures approximately 2 cm. There is mild diffuse enhancement of this segment of the liver is well. There is a hypodensity in the patent dome superiorly at 9 mm and may be due to small cyst. Bilateral adrenal enlargement is once again noted unchanged. Left renal cyst is noted. ADDITIONAL FINDINGS: No other significant abnormalities. IMPRESSION: 1. No evidence of recurring adenopathy. 2. Thickening of the inferior aspect of the pericardium posteriorly suggesting small effusion 3. COPD with centrilobular emphysema and chronic scarring of the lungs 4. No change in large bilateral adrenal glands 5. Intense enhancing lesion in the left hepatic lobe possibly due to a hemangioma with flash filling. MRI with hemangioma protocol may confirm Dictated by: Darian Quezada MD 09/28/2019 10:58 Electronically signed by Darian Quezada MD in [place] 09/28/2019 10:58
[2019-09-27 10:05] LABS: Basophils # 0.1 K/mm3 (0-0.2); Basophils % 1.1 % (0.1-2.0); Eosinophils # 0.1 K/mm3 (0.0-0.4); Eosinophils % 1.6 % (0.1-12.0); Hematocrit 33.3 % (37.0-47.0); Hemoglobin 10.5 g/dL (12.2-16.2); Lymphocytes # 0.8 K/mm3 (0.7-4.5); Lymphocytes % 13.1 % (10-50); Mean Corpuscular HGB Conc 31.6 g/dL (31.8-35.4); Mean Corpuscular Hemoglobin 31.5 pg (27.0-31.2); Mean Corpuscular Volume 99.9 fl (81-99); Mean Platelet Volume 8.2 fl (7.4-10.4); Monocytes # 0.4 K/mm3 (0.1-1.0); Monocytes % 6.9 % (1.7-9.3); Neutrophils # 4.7 K/mm3 (1.8-7.8); Neutrophils % 77.3 % (37.0-80.0); Platelet Count 194 K/mm3 (142-424); Red Blood Count 3.34 M/mm3 (4.20-5.40); Red Cell Distribution Width 15.1 % (11.5-17.5)
[2019-09-27 10:29] LABS: Chloride 98 mmol/L (98-107); Sodium 136 mmol/L (136-145)
[2019-09-27 10:31] LABS: Blood Urea Nitrogen 22 mg/dl (7-17); Estimated Glomerular Filt Rate 61 ml/min (>60); GFR (African American) 74 ML/MIN (>60)
[2019-09-27 10:32] LABS: Alanine Aminotransferase 17 U/L (12-78); Albumin Level 3.6 g/dl (3.5-5.0); Albumin/Globulin Ratio 1.6 (1.1-1.8); Alkaline Phosphatase 70 U/L (38-126); Aspartate Amino Transferase 21 U/L (14-36); Bilirubin,Total < 0.1 mg/dl (0.2-1.3); Calcium 9.1 mg/dl (8.4-10.2); Carbon Dioxide 26 mmol/L (22.0-30.0); Globulin 2.2 g/dL (1.3-3.2); Glucose 161 mg/dl (74-100); Total Protein,Serum 5.8 g/dl (6.3-8.2)
== END ==
PROVIDERS: PCP Family Medicine; Visit Provider Internal Medicine Medical Oncology
DX: C34.90 Malignant neoplasm of unspecified part of unspecified bronchus or lung (principal)
CPT/HCPCS: 36415; 71260; 80053; 85025; Q9967

== ENCOUNTER → 2019-10-10 09:31 | Outpatient (CLI) | payer MEDICARE, OTHER, SELFPAY ==
--- NOTE | 2019-10-10 09:54 | CT_ITS ---
PROCEDURE: CT ABDOMEN PELVIS W CON CLINICAL INDICATION: LUNG CA Follow-up lung cancer COMPARISON: ABDWW CT abdomen wo/w con from 02/10/2018 CT LUMBAR SPINE WO CON from 08/01/2019 CT CHEST W CON from 10/10/2019 TECHNIQUE: IV Contrast: 75ML OPTIRAY 350 Oral Contrast 450ml Redicat Axial images obtained with sagittal and coronal reformats. All CT scans at the facility use one or more dose reduction, viz: automated exposure control, ma/kV adjustment per patient size (including targeted exams where dose is matched to indication, i.e. head), or iterative reconstruction technique. FINDINGS: There is an area of contrast enhancement once again noted left lobe of the liver. The more intense area of enhancement measures approximately 17 mm having a similar appearance on 02/10/2018. There is some mild more diffuse enhancement in the left hepatic lobe nonspecific surrounding the more area of intense enhancement. There is a small cyst in the hepatic dome. There has been a prior cholecystectomy with mild biliary ectasia. The spleen and pancreas have an unremarkable appearance. Bilateral adrenal enlargement is once again noted not significantly changed. There is a 2.3 cm cyst along the upper pole of the left kidney and a 1 cm cyst in the mid polar region laterally as well as a 1.4 cm cyst in the lower pole. Small cortical 8 mm cyst is present in the right kidney laterally. No intestinal obstruction or free air. No evidence of appendicitis or diverticulitis. No pelvic mass or abnormal fluid collection. There is diverticulosis of the descending and sigmoid colon. Wedge compression fracture involves L1 with slight increase wedging compared to 08/01/[address] There is loss of height anteriorly of 30 percent with no retropulsion apparent. There is slight increased density of the femoral heads on both sides centrally nonspecific IMPRESSION: 1. No acute abdominal or pelvic findings. 2. No change in the enhancing lesion in the left hepatic lobe which may be due to a a hemangioma, hepatic adenoma/focal nodular hyperplasia. 3. No change in the bilateral adrenal enlargement Dictated by: Darian Quezada MD 10/11/2019 12:01 Electronically signed by Darian Quezada MD in [facility] 10/11/2019 12:01
--- NOTE | 2019-10-10 09:54 | CT_ITS ---
PROCEDURE: CT CHEST W CON CLINCAL INDICATION: LUNG CA Follow-up lung cancer COMPARISON: ABDWW CT abdomen wo/w con from 02/10/2018 LIVER US liver from 02/25/2018 CT CHEST W CON from 09/27/2019 CT ABDOMEN PELVIS W CON from 10/10/2019 TECHNIQUE: IV Contrast: 75ml Optiray 350 Axial images obtained with sagittal and coronal reformats. All CT scans at the facility use one or more dose reduction, viz: automated exposure control, ma/kV adjustment per patient size (including targeted exams where dose is matched to indication, i.e. head), or iterative reconstruction technique. FINDINGS: HEART AND MEDIASTINAL STRUCTURES: Atherosclerotic changes involve the aorta. There are coronary artery calcifications. No mediastinal or hilar mass is evident. There is thickening of the pericardium consistent with pericardial effusion which is slightly more prominent compared to the previous exam LUNGS AND PLEURAL SPACES: Diffuse centrilobular emphysema with COPD and scattered areas of scarring with evidence of old granulomatous disease. BONY STRUCTURES: Degenerative changes are present. There is mild wedging of the L1 vertebral body which is not significantly changed. UPPER ABDOMEN: No change in the area of enhancement involving the left hepatic lobe anteriorly as previously described. No change bilateral adrenal nodules and left renal cyst. There is mild thickening of these thoracic esophagus which is nonspecific and could be related to soft guidance. ADDITIONAL FINDINGS: No other significant abnormalities. IMPRESSION: 1. Centrilobular emphysema with COPD and scattered areas of scarring. No recurrence adenopathy evident. 2. No evidence of recurring adenopathy. 3. Enhancing lesion of the left hepatic lobe not significantly changed 4. Pericardial effusion appears slightly larger 5. Pericardial effusion is present and is slightly larger. Dictated by: Darian Quezada MD 10/11/2019 11:52 Electronically signed by Darian Quezada MD in [place] 10/11/2019 11:52
[2019-10-10 10:02] LABS: Basophils % 0.4 % (0.1-2.0); Eosinophils # 0.1 K/mm3 (0.0-0.4); Hematocrit 35.4 % (37.0-47.0); Hemoglobin 11.1 g/dL (12.2-16.2); Lymphocytes # 0.8 K/mm3 (0.7-4.5); Lymphocytes % 15.1 % (10-50); Mean Corpuscular HGB Conc 31.3 g/dL (31.8-35.4); Mean Corpuscular Hemoglobin 30.3 pg (27.0-31.2); Mean Corpuscular Volume 96.7 fl (81-99); Mean Platelet Volume 8.1 fl (7.4-10.4); Monocytes # 0.4 K/mm3 (0.1-1.0); Monocytes % 7.4 % (1.7-9.3); Neutrophils # 3.8 K/mm3 (1.8-7.8); Neutrophils % 76.1 % (37.0-80.0); Platelet Count 194 K/mm3 (142-424); Red Blood Count 3.66 M/mm3 (4.20-5.40); Red Cell Distribution Width 15.3 % (11.5-17.5)
[2019-10-10 10:05] LABS: Chloride 97 mmol/L (98-107); Potassium 3.8 mmoL/L (3.5-5.1); Sodium 137 mmol/L (136-145)
[2019-10-10 10:07] LABS: Blood Urea Nitrogen 17 mg/dl (7-17); Estimated Glomerular Filt Rate 61 ml/min (>60); GFR (African American) 74 ML/MIN (>60)
[2019-10-10 10:08] LABS: Alanine Aminotransferase 18 U/L (12-78); Albumin Level 4.4 g/dl (3.5-5.0); Albumin/Globulin Ratio 1.7 (1.1-1.8); Alkaline Phosphatase 73 U/L (38-126); Anion Gap 9.8 mEq/L (5-15); Aspartate Amino Transferase 23 U/L (14-36); Bilirubin,Total 0.2 mg/dl (0.2-1.3); Calcium 9.7 mg/dl (8.4-10.2); Carbon Dioxide 34 mmol/L (22.0-30.0); Globulin 2.6 g/dL (1.3-3.2); Glucose 112 mg/dl (74-100)
== END ==
PROVIDERS: PCP Family Medicine; Visit Provider Internal Medicine Medical Oncology
DX: Z85.118 Personal history of other malignant neoplasm of bronchus and lung (principal)
CPT/HCPCS: 36415; 71260; 74177; 80053; 85025; Q9967

== ENCOUNTER → 2019-11-09 12:59 | Outpatient (CLI) | payer MEDICARE, OTHER, SELFPAY ==
--- NOTE | 2019-11-09 13:00 | CA_ITS ---
APPROVED REPORT EXAM: Comprehensive 2D, Doppler, and color-flow Echocardiogram Leather Crafter: Marcia Nick RVT Ht: 5 ft 2 in Wt: 124lbs BSA: 1.56 BP: 149/64 mmHg Indications: PERICARDIAL EFFUSION SEEN ON CT SCAN,CP,COPD,SMOKER,FATIGUE,HLD,HTN,LUNG CA,GERD,HOME O2 2D Dimensions LVOT 1.67 cm (M/F) 1.5-2.5 M-Mode Dimensions RVDd 2.54 cm (0.9-2.6) LVDd 4.29 cm (3.5-5.7) LVDs 2.47 cm (3.5-5.7) IVSd 0.95 cm (0.6-1.1) PWd 0.80 cm (0.6-1.1) EF (Teich) 73.70% FS 42.40% EDV (Teich) 82.60 mL ESV (Teich) 21.70 mL LV Diastology E/A Ratio 0.58 Mitral Valve MV A Velocity 76.00 (40-130 cm/s) Left Ventricle Left atrium is mildly enlarged, left ventricle is normal size, mild concentric left ventricular hypertrophy, visually estimated ejection fraction 55% with no regional wall motion abnormality. Grade 1 diastolic dysfunction seen without tissue Doppler evidence of raise left atrial pressure. Right Ventricle Right atrium and right ventricle are mildly enlarged with normal contractility. Aortic Valve Aortic valve is minimally thickened and fibrosed, there is no aortic stenosis, there is mild aortic insufficiency. Mitral Valve Mitral valve is grossly normal, there is mild mitral regurgitation Tricuspid Valve Tricuspid valve is grossly normal, there is mild tricuspid regurgitation, tricuspid regurgitation jet velocity is inadequate for calculation of the right ventricular systolic pressure. Pulmonic Valve Pulmonic valve is poorly visualized. Great Vessels Aortic root is normal size. Pericardium Trivial pericardial effusion and anterior echo-free space seen Conclusion 1. Mild biatrial enlargement, normal left ventricular size, mild concentric left ventricular hypertrophy, visually estimated ejection fraction 55% with no regional wall motion abnormalities, grade 1 diastolic dysfunction seen without tissue Doppler evidence of raise left atrial pressure. 2. Mildly enlarged right ventricle with normal contractility. 3. Mild mitral, mild aortic and tricuspid regurgitation. 4. Trivial pericardial effusion and anterior echo-free space seen. Inferior vena cava is normal size with normal inspiratory collapse. Electronically signed by : Walt Mendoza, 11/10/2019 10:46:31
--- NOTE | 2019-11-09 13:00 | CA_ITS ---
APPROVED REPORT Foundation Drill Operator: Marcia Nick RVT Laterality: Bilateral Study Quality: Excellent Indications: dizziness Risk Factors Hypertension: Hyperlipidemia Smoking Doppler Spectral Velocity Analysis dICA (R) 94.10/15.50 cm/s ECA (L) 73.80/3.20 cm/s Mikie (R) 72.20/12.80 cm/s pICA (R) 48.30/9.40 cm/s dICA (L) 74.70/17.10 cm/s Mikie (L) 66.70/13.10 cm/s pICA (L) 61.10/11.80 cm/s dCCA (R) 51.30/6.40 cm/s pCCA (R) 55.20/7.30 cm/s dCCA (L) 54.00/8.30 cm/s Vert (R) 57.10/3.20 cm/s pCCA (L) 64.40/7.50 cm/s ICA/CCA 1.83 Vert (L) 75.80/9.60 cm/s ICA/CCA 1.38 Findings Study suggests less than 20% stenosis of the bilateral internal cartoid arteries. Antegrade flow seen bilateral vertebral arteries. Conclusion No increased velocities to suggest hemodynamically significant stenosis in either internal carotid artery. Electronically signed by : Darian Quezada MD 11/09/2019 16:15:09
== END ==
PROVIDERS: PCP Family Medicine; Visit Provider Urology
DX: F17.200 Nicotine dependence, unspecified, uncomplicated (principal); I10 Essential (primary) hypertension; I31.3 Pericardial effusion (noninflammatory); R06.00 Dyspnea, unspecified; R07.9 Chest pain, unspecified; R42 Dizziness and giddiness; Z85.118 Personal history of other malignant neoplasm of bronchus and lung; Z99.81 Dependence on supplemental oxygen
CPT/HCPCS: 93306; 93880

== ENCOUNTER → 2019-11-10 12:12 | Outpatient (CLI) | payer MEDICARE, OTHER, SELFPAY ==
--- NOTE | 2019-11-10 12:19 | XR_ITS ---
PROCEDURE: XR LUMBAR SPINE MIN 4V CLINICAL INDICATION: DDD, COMPRESSION FX OF L1, ACUTE RT SIDED BACK PAIN Low back pain COMPARISON: CT LUMBAR SPINE WO CON from 08/01/2019 CT ABDOMEN PELVIS W CON from 10/10/2019 FINDINGS: There is normal alignment. Multilevel degenerative disc disease is present from T12-L5. There is mild facet arthritic change at L4-5 and L5-S1. Ventral osteophytes are present at L4 and L3. There is compression change involving the L1 vertebral body with sclerosis along the superior endplate. This is not significantly changed compared to the abdomen CT on 10/10/2019. There is moderate amount of retained colonic feces. IMPRESSION: Degenerative changes with chronic wedge compression changes at L1. Dictated by: Darian Quezada MD 11/10/2019 13:21 Electronically signed by Darian Quezada MD in [facility] 11/10/2019 13:21
== END ==
PROVIDERS: PCP Family Medicine; Visit Provider Family Medicine
DX: M54.41 Lumbago with sciatica, right side (principal); M51.36 Other intervertebral disc degeneration, lumbar region; S32.010S Wedge compression fracture of first lumbar vertebra, sequela
CPT/HCPCS: 72110

== ENCOUNTER → 2019-12-07 14:14 | Outpatient (CLI) | payer MEDICARE, OTHER, SELFPAY ==
--- NOTE | 2019-12-07 14:22 | MR_ITS ---
PROCEDURE: MR HEAD/BRAIN WO CON CLINICAL INDICATION: NEUROLOGICAL ABNORMALITY, SMALL CELL LUNG CANCER Falling frequently. Hx lung cancer been in remission since jul. Blurred vision and dizziness [id number]. Preventative radiation to brain done. Prior CT 08-01-19 Prior MR 01-20-19 COMPARISON: MR HEAD/BRAIN WO/W CON from 01/20/2019 CT HEAD/BRAIN WO CON from 08/01/2019 TECHNIQUE: Routine multiplanar multi echo sequences are performed without gadolinium enhancement. FINDINGS: No midline shift, mass effect, intracranial hemorrhage, or hydrocephalus is evident. There is generalized atrophy with scattered periventricular and subcortical T2 white matter hyperintensities consistent with ischemic gliotic change from microvascular disease. No evidence of acute infarction. The white matter changes have progressed since the previous exam. There are some scattered T2 hyperintensities within the consuelo consistent with ischemic gliotic change which does not appear significantly changed. The cerebellopontine angle, cerebellum, and brainstem have an unremarkable appearance. The pituitary, optic chiasm, corpus callosum, and craniocervical junction are unremarkable. No mastoid effusion or sinus air-fluid level. IMPRESSION: 1. No acute intracranial findings. 2. Atrophy with chronic periventricular ischemic gliotic changes. The periventricular ischemic gliotic changes have slightly progressed compared to the previous exam 3. No convincing evidence of metastatic disease. Evaluation for metastatic disease however is somewhat limited without gadolinium enhancement. If symptoms persist, consider repeat exam with gadolinium enhancement. Dictated by: Darian Quezada MD 12/08/2019 12:35 Electronically signed by Darian Quezada MD in [facility] 12/08/2019 12:35
== END ==
PROVIDERS: PCP Family Medicine; Visit Provider Family Medicine
DX: R29.818 Other symptoms and signs involving the nervous system (principal); C34.90 Malignant neoplasm of unspecified part of unspecified bronchus or lung
CPT/HCPCS: 70551

== ENCOUNTER → 2019-12-20 13:47 | Outpatient (CLI) | payer MEDICARE, OTHER, SELFPAY ==
--- NOTE | 2019-12-20 13:54 | XR_ITS ---
PROCEDURE: XR RIBS RT MIN 3V W CXR1V CLINICAL INDICATION: PLEURODYNIA,BACK PAIN COMPARISON: XR CHEST 2V from 08/04/2019 XR CHEST 2V from 08/08/2019 XR CHEST 2V from 08/11/2019 CT CHEST W CON from 10/10/2019 FINDINGS: Frontal view of the chest shows COPD with chronic changes. No displaced rib fracture is evident. No evidence of pneumothorax. There is a bone plate along the lower cervical spine. Chronic changes are present in the lung bases. IMPRESSION: No acute findings. Dictated by: Darain Quezada MD 12/20/2019 15:05 Electronically signed by Darian Quezada MD in [facility] 12/20/2019 15:05
--- NOTE | 2019-12-20 13:54 | XR_ITS ---
PROCEDURE: XR LUMBAR SPINE MIN 4V CLINICAL INDICATION: PLEURODYNIA,BACK PAIN COMPARISON: XR LUMBAR SPINE MIN 4V from 11/10/2019 FINDINGS: There is normal alignment. Wedge compression changes involve L1 vertebral body with loss of height anteriorly and centrally of 30 percent not significantly changed. Multilevel degenerative disc disease is present from T12 to S1. There is mild retrolisthesis of L3 on L4 of 3 mm. Facet arthritic changes with hypertrophy noted at L3-L4 and L5. There is diffuse vascular calcification. There is mild thoracic curvature convex right. There are 2 oval opacities in the left upper quadrant consistent with ingested medication. IMPRESSION: Overall no change in the compression changes of L1 with multilevel lumbar spondylosis Dictated by: Darian Quezada MD 12/20/2019 15:03 Electronically signed by Darian Quezada MD in [facility] 12/20/2019 15:03
== END ==
PROVIDERS: PCP Family Medicine; Visit Provider Family Medicine
DX: R07.81 Pleurodynia (principal); M54.9 Dorsalgia, unspecified
CPT/HCPCS: 71101; 72110

== ENCOUNTER → 2020-01-05 14:22 | Outpatient (CLI) | payer MEDICARE, OTHER, SELFPAY ==
[2020-01-05 15:09] LABS: Basophils % 0.4 % (0.1-2.0); Eosinophils # 0.1 K/mm3 (0.0-0.4); Eosinophils % 1.2 % (0.1-12.0); Hematocrit 35.5 % (37.0-47.0); Hemoglobin 11.2 g/dL (12.2-16.2); Lymphocytes # 0.7 K/mm3 (0.7-4.5); Lymphocytes % 9.6 % (10-50); Mean Corpuscular HGB Conc 31.6 g/dL (31.8-35.4); Mean Corpuscular Hemoglobin 30.2 pg (27.0-31.2); Mean Corpuscular Volume 95.6 fl (81-99); Mean Platelet Volume 8.2 fl (7.4-10.4); Monocytes # 0.5 K/mm3 (0.1-1.0); Neutrophils % 81.9 % (37.0-80.0); Platelet Count 230 K/mm3 (142-424); Red Blood Count 3.71 M/mm3 (4.20-5.40); Red Cell Distribution Width 13.5 % (11.5-17.5); White Blood Count 7.4 K/mm3 (4.8-10.8)
[2020-01-05 15:25] LABS: Alanine Aminotransferase 23 U/L (12-78); Albumin Level 3.6 g/dl (3.5-5.0); Albumin/Globulin Ratio 1.3 (1.1-1.8); Alkaline Phosphatase 121 U/L (38-126); Anion Gap 16.5 mEq/L (5-15); Aspartate Amino Transferase 27 U/L (14-36); Bilirubin,Total 0.3 mg/dl (0.2-1.3); Blood Urea Nitrogen 31 mg/dl (7-17); Calcium 9.6 mg/dl (8.4-10.2); Carbon Dioxide 29 mmol/L (22.0-30.0); Chloride 97 mmol/L (98-107); Estimated Glomerular Filt Rate 40 ml/min (>60); GFR (African American) 48 ML/MIN (>60); Globulin 2.7 g/dL (1.3-3.2); Glucose 135 mg/dl (74-100); Potassium 4.5 mmoL/L (3.5-5.1); Sodium 138 mmol/L (136-145); Total Protein,Serum 6.3 g/dl (6.3-8.2)
== END ==
PROVIDERS: Visit Provider Internal Medicine Medical Oncology
DX: C34.90 Malignant neoplasm of unspecified part of unspecified bronchus or lung (principal)
CPT/HCPCS: 36415; 80053; 85025

== ENCOUNTER 2020-01-06 08:52 | Outpatient (CLI) | payer MEDICARE, OTHER, SELFPAY ==
--- NOTE | 2020-01-06 | CT_ITS ---
PROCEDURE: CT ABDOMEN PELVIS W CON CLINICAL INDICATION: LUNG CANCER Increasing weakness COMPARISON: CT CHESTWW CT chest wo/w con from 05/20/[address] ABDOMEN PELVIS W CON from 10/10/2019 TECHNIQUE: IV Contrast: 75ML OPTIRAY 350 Oral Contrast None Axial images obtained with sagittal and coronal reformats. All CT scans at the facility use one or more dose reduction, viz: automated exposure control, ma/kV adjustment per patient size (including targeted exams where dose is matched to indication, i.e. head), or iterative reconstruction technique. FINDINGS: Enhancing lesion of the left lobe of the liver once again noted. There is lobular enhancement on the portal phase images. This lesion measures 16 mm. This is not well delineated on the 7 minutes post enhanced images having similar density to the liver and the aorta. This may represent a hemangioma. In addition there is a 7 mm hypodense lesion of the left hepatic lobe consistent with a cyst. There is bilateral adrenal enlargement. The spleen has an unremarkable appearance. Atrophic changes noted of the pancreas. Left renal cysts are present. There has been a prior cholecystectomy with mild biliary ectasia. There is a moderate amount of retained colonic feces. There is a small umbilical hernia containing fat. The hernia is present also in the infraumbilical region containing fat. The hernia sac measures 4 cm transverse. No intestinal obstruction or free air. No pelvic mass or abnormal fluid collection. No evidence of appendicitis or diverticulitis. There are some fluid-filled loops of small bowel without distention with some enhancement noted possibly due to enteritis. There is diverticulosis of the sigmoid colon. No evidence of diverticulitis. There is mild wedging of L1. Atheromatous changes involve the aorta and its branches. IMPRESSION: 1. Possible enteritis. 2. No change in the enhancing liver lesion which may be due to a hemangioma. 3. No change in the bilateral adrenal enlargement 4. Other nonacute findings as described above. Dictated b Darian Quezada MD 01/06/2020 10:37 Darian Quezada MD in [place] 01/06/2020 10:37
--- NOTE | 2020-01-06 | CT_ITS ---
PROCEDURE: CT CHEST W CON CLINCAL INDICATION: LUNG CANCER Follow-up lung cancer, increasing weakness with falls and decreasing appetite COMPARISON: CT CT CHEST W CON from 10/10/[address] ABDOMEN PELVIS W CON from 01/06/2020 TECHNIQUE: IV Contrast: 75ml Optiray 350 Axial images obtained with sagittal and coronal reformats. All CT scans at the facility use one or more dose reduction, viz: automated exposure control, ma/kV adjustment per patient size (including targeted exams where dose is matched to indication, i.e. head), or iterative reconstruction technique. FINDINGS: Atheromatous calcification involves the thoracic aorta with calcific and soft plaque involving the descending thoracic aorta. There are several small penetrating ulcers of the descending thoracic aorta. There is pericardial thickening anteriorly toward the left measuring up to 12 mm in thickness. No mediastinal or hilar mass or adenopathy. There are coronary artery calcifications. The There is COPD with centrilobular emphysema and scattered areas of scarring with some interstitial thickening. A small subpleural opacity is present in the left upper lobe posteriorly image 15 series 4 at 5 mm and could be due to an area of scarring or atelectatic change. There is some thickening of the left major fissure inferiorly with subpleural volume loss of the lingula along the major fissure not significantly changed. There is a small bulla in the left lower lobe at 4.5 cm unchanged. No effusions or infiltrates. There is an old left 9th rib fracture and an old left 8th rib fracture. No bony destructive process evident. IMPRESSION: Overall no significant change in the appearance of the chest with COPD/centrilobular emphysema. There remains thickening of the pericardium not significantly changed. No change atheromatous changes of the thoracic aorta with penetrating ulcers of the descending thoracic aorta. Dictated b Darian Quezada MD 01/06/2020 10:24 Darian Quezada MD in [place] 01/06/2020 10:24
[2020-01-06 10:10] VITALS: BP 107/47; PULSE 68; RESP 20; TEMP 36.8; O2SAT 95
[2020-01-06 11:10] VITALS: BP 110/67; PULSE 68; RESP 20; TEMP 36.9; O2SAT 95
== END 2020-01-06 11:15 | disposition home or self-care (01) ==
PROVIDERS: PCP Family Medicine; Visit Provider Internal Medicine Medical Oncology
DX: C34.90 Malignant neoplasm of unspecified part of unspecified bronchus or lung (principal); Z72.0 Tobacco use
CPT/HCPCS: 71260; 74177; 96360; Q9967

== ENCOUNTER 2020-02-03 15:05 | Emergency (ER) | payer MEDICARE, OTHER, SELFPAY ==
--- NOTE | 2020-02-03 15:13 | XR_ITS ---
PROCEDURE: XR KNEE RT 3V CLINICAL INDICATION: FALL Posttraumatic pain with laceration COMPARISON: CR XR KNEE RT 2V from 08/04/2019 FINDINGS: No fracture or dislocation. No lytic or blastic change. There is normal mineralization. There are mild osteoarthritic changes. Other findings:None. IMPRESSION: Mild osteoarthritis otherwise negative Dictated by: Darian Quezada MD 02/03/2020 15:43 Darian Quezada MD in [place] 02/03/2020 15:43
--- NOTE | 2020-02-03 15:13 | XR_ITS ---
PROCEDURE: XR ELBOW RT MIN 3V CLINICAL INDICATION: FALL Fall with injury and pain COMPARISON: No exams were available for comparison FINDINGS: No fracture or dislocation. No lytic or blastic change. There is normal mineralization. The joint spaces are well-preserved. No significant degenerative/arthritic changes. No erosive changes evident. Other findings:None. IMPRESSION: No acute findings. Dictated by: Darian Quezada MD 02/03/2020 15:43 Darian Quezada MD in [place] 02/03/2020 15:43
[2020-02-03 15:18] VITALS: BP 102/61; PULSE 88; RESP 19; TEMP 36.6; O2SAT 96; BMI 20.6
--- NOTE | 2020-02-03 15:21 | HMH.EDUTC ---
[facility] Disposition Clinical Impression: Skin tear of elbow without complication Qualifiers: Encounter type: initial encounter Laterality: right Qualified Code(s): S51.011A - Laceration without foreign body of right elbow, initial encounter Knee contusion Qualifiers: Encounter type: initial encounter Laterality: right Qualified Code(s): S80.01XA - Contusion of right knee, initial encounter Disposition: Home, Self-Care Condition on Discharge: Good Instructions: Contusion, DI for Contusion, How To Perform RICE (Rest, Ice, Compress, Elevate), DI for Abrasion Additional Instructions: Keep wound area clean and dry Return if needed Straight to ER if any life threatening symptoms Use walker to ambulate and walk Master wrap to knee as advised Prescriptions: cephALEXin [Keflex 500mg Cap] 500 mg PO Q6H 5 Days #20 cap Transmission Status: Received by [id number] Referrals: Adrian Jones MD [Primary Care Provider] - As needed Time of Disposition: 16:50 Medical Decision Making - Domingo Inquiry Pt receiving controlled substance: No Domingo was queried for this patient: No Vital Signs: 02/03/20 15:18 02/03/20 16:53 Temperature 97.8 F 97.8 F Temperature Source Oral Pulse Rate 88 Pulse Rate [Right Brachial] 88 Respiratory Rate 19 19 Blood Pressure 102/61 L Blood Pressure [Right Arm] 102/61 L Blood Pressure Mean [Right Arm] 74 Blood Pressure Source [Right Arm] Automatic Cuff Blood Pressure Position [Right Arm] Sitting 02 Sat by Pulse Oximetry 96 Oxygen Delivery Method Room Air Orders (Tests/Meds): ED MEDICATIONS Discontinued Medications Generic Name Dose Route Start Last Admin Trade Name Freq PRN Reason Stop Dose Admin Tetanus/Reduced Diphtheria/Acell Pertussis 0.5 ml 02/03/20 16:42 02/03/20 16:50 Adacel Tdap 0.5ml Syringe IM 02/03/20 16:43 0.5 ml .ONCE ONE Administration - Radiology Data #1 Image(s): Elbow (right ) Image Reviewed: Yes I have reviewed radiologist's interpretation Preliminary Findings: No Fracture Seen #2 Image(s): Knee Image Reviewed: Yes I have reviewed radiologist's interpretation Mild osteoarthritis otherwise negative Medical Decision Narrative: patient states that she is allergic to PCN but has taken Cephosporins [facility] HPI - General Stated complaint: AO fall 02/02/20 injured R arm Time Seen by Provider: 02/03/20 15:21 Mode of Arrival: Ambulatory Source of Information: Patient, Relative Limitations: No Limitations Description of Symptoms (Recalled from Triage Doc. by RN): PATIENT C/O RIGHT KNEE AND ELBOW PAIN AFTER FALLING LAST NIGHT HEENT Symptoms (Recalled from RN notes): No Resp Symptoms (Recalled from RN notes): No Skin Symptoms (Recalled from RN notes): No MS Symptoms (Recalled from RN notes): Yes Functional Status (Recalled from RN notes): WNL - History of Present Illness Provider Complaint: Patient states that she tripped at home last night and fell and landed on her right elbow and knee State that she had a skin tear on her right elbow area and she applied a bandaid State that now the blood is dried and she cannot get the bandaid off States that she has some bruising to her left knee and hurts when she tries to bend it or walk on it Denies hitting her head or LOC - Related Data Home Medications Medication Instructions Recorded Confirmed aspirin 81 mg tablet,delayed 81 mg PO DAILY 07/27/17 01/11/20 release fluoxetine 40 mg capsule 40 mg PO DAILY 90 Days cap 07/27/17 01/11/20 furosemide 40 mg tablet 40 mg PO DAILY 07/27/17 01/11/20 levothyroxine 100 mcg tablet 100 mcg PO DAILY 90 Days tab 07/27/17 01/11/20 pravastatin 40 mg tablet 40 mg PO HS 07/27/17 01/11/20 Cholecalciferol (Vitamin D3) 5,000 unit PO DAILY 09/21/17 01/11/20 [Vitamin D3] Lactobacillus Acidophilus 1 cap PO DAILY 09/21/17 01/11/20 [Probiotic] Potassium Chloride [Klor-Con 10mEq 20 meq PO DAILY 09/21/17 01/11/20 tab] Biotin
[2020-02-03 16:53] VITALS: BP 102/61; PULSE 88; RESP 19; TEMP 36.6; O2SAT 96
== END 2020-02-03 17:00 | disposition home or self-care (01) ==
PROVIDERS: Emergency Provider Nurse Practitioner; PCP Family Medicine
DX: S80.01XA Contusion of right knee, initial encounter (principal); S51.011A Laceration without foreign body of right elbow, initial encounter; Z23 Encounter for immunization; J44.9 Chronic obstructive pulmonary disease, unspecified; K21.9 Gastro-esophageal reflux disease without esophagitis; E78.5 Hyperlipidemia, unspecified; I10 Essential (primary) hypertension; E03.9 Hypothyroidism, unspecified; F17.210 Nicotine dependence, cigarettes, uncomplicated; Z88.0 Allergy status to penicillin; Z88.5 Allergy status to narcotic agent
CPT/HCPCS: 12001; G0463; 73080; 73562; 90471; 90715; 99201

== ENCOUNTER → 2020-04-06 08:51 | Outpatient (CLI) | payer MEDICARE, OTHER, SELFPAY ==
--- NOTE | 2020-04-06 09:03 | CT_ITS ---
PROCEDURE: CT CHEST W CON CLINCAL INDICATION: LUNG CA Follow-up lung cancer COMPARISON: CT CT CHEST W CON from 09/27/[address] CHEST W CON from 01/06/2020 TECHNIQUE: IV Contrast: 75ml Isovue 370 Axial images obtained with sagittal and coronal reformats. All CT scans at the facility use one or more dose reduction, viz: automated exposure control, ma/kV adjustment per patient size (including targeted exams where dose is matched to indication, i.e. head), or iterative reconstruction technique. FINDINGS: HEART AND MEDIASTINAL STRUCTURES: No mediastinal or hilar mass or adenopathy. There are few small subcarinal lymph nodes which are not significantly changed. Atherosclerotic calcification noted of the aorta and coronary arteries. There is mild thickening of the esophagus throughout its length nonspecific. There is pericardial thickening anteriorly measuring up to 13 mm. LUNGS AND PLEURAL SPACES: COPD with interstitial prominence and scattered areas of scarring with evidence of old granulomatous disease. Scarring is present in the right upper lobe medially and in the lingula. No suspicious pulmonary nodules are identified. There is a 4.7 cm bulla in the left lung base medially. BONY STRUCTURES: Degenerative changes thoracic spine. Mild chronic wedging of L1. UPPER ABDOMEN: Please see abdomen report ADDITIONAL FINDINGS: Atheromatous changes of the thoracic aorta with scattered small ulcerating plaques with mild dilatation of the distal descending thoracic aorta at 2.7 cm. IMPRESSION: 1. COPD with centrilobular emphysema and chronic scarring as previously described. 2. No change pericardial thickening 3. Atheromatous changes of the thoracic aorta with scattered areas of ulceration and mild dilatation distally Dictated by: Darian Quezada MD 04/07/2020 10:15 Darian Quezada MD in [place] 04/07/2020 10:15
--- NOTE | 2020-04-06 09:03 | CT_ITS ---
PROCEDURE: CT ABDOMEN PELVIS W CON CLINICAL INDICATION: LUNG CA Follow-up lung cancer, liver lesion COMPARISON: CT ABDWW CT abdomen wo/w con from 02/10/[address] ABDOMEN PELVIS W CON from 10/10/[address] ABDOMEN PELVIS W CON from 01/06/2020 TECHNIQUE: IV Contrast: 75ML Isovue 370 Oral Contrast 450ml Redicat Axial images obtained with sagittal and coronal reformats. All CT scans at the facility use one or more dose reduction, viz: automated exposure control, ma/kV adjustment per patient size (including targeted exams where dose is matched to indication, i.e. head), or iterative reconstruction technique. FINDINGS: There remains a hypervascular area of immediate contrast enhancement involving the left hepatic lobe laterally segment 2 which does not appear significantly changed dating back to 02/10/2018 possibly due to a flash filling/atypical hemangioma. There is mild fatty liver. Focal fatty infiltration involves the left hepatic lobe at the falciform ligament region. There is a small cyst in the hepatic dome. There has been a prior cholecystectomy. There is mild biliary ectasia. The spleen is unremarkable. Bilateral adrenal enlargement is once again noted not significantly changed. There is an exophytic 2 cm cyst along the posterior aspect of the left kidney. A 1.3 cm cyst is present along the lower pole of the left kidney. A 7 mm cyst projects along the lateral aspect of the right kidney. There is a small umbilical hernia containing fat. There is mild thickening of the GE junction nonspecific. The pancreas has an unremarkable appearance. There is a mild amount of retained colonic feces. There is colonic diverticulosis. No evidence of diverticulitis or appendicitis. Atheromatous changes involve the aortoiliac vessels. There are degenerative changes of the lumbar spine with wedging of L1 which is chronic. There is sclerosis of the femoral heads posteriorly on both sides suggesting avascular necrosis not significantly changed. IMPRESSION: 1. Stable CT appearance of the abdomen and pelvis. No change in the bilateral adrenal enlargement and the enhancing lesion of the liver. 2. Moderate amount of retained colonic feces with colonic diverticulosis. 3. Chronic wedging of L1 and chronic sclerosis of the femoral heads which may be due to avascular necrosis Dictated by: Darian Quezada MD 04/07/2020 10:28 Darian Quezada MD in [place] 04/07/2020 10:28
[2020-04-06 09:13] LABS: Chloride 104 mmol/L (98-107); Sodium 141 mmol/L (136-145)
[2020-04-06 09:16] LABS: Alanine Aminotransferase 12 U/L (12-78); Albumin/Globulin Ratio 1.4 (1.1-1.8); Alkaline Phosphatase 94 U/L (38-126); Aspartate Amino Transferase 23 U/L (14-36); Bilirubin,Total 0.3 mg/dl (0.2-1.3); Blood Urea Nitrogen 23 mg/dl (7-17); Calcium 9.5 mg/dl (8.4-10.2); Carbon Dioxide 30 mmol/L (22.0-30.0); Estimated Glomerular Filt Rate 34 ml/min (>60); GFR (African American) 41 ML/MIN (>60); Globulin 2.9 g/dL (1.3-3.2); Glucose 103 mg/dl (74-100); Total Protein,Serum 6.9 g/dl (6.3-8.2)
[2020-04-06 09:34] LABS: Basophils % 0.6 % (0.1-2.0); Eosinophils # 0.1 K/mm3 (0.0-0.4); Eosinophils % 1.5 % (0.1-12.0); Hematocrit 38.2 % (37.0-47.0); Hemoglobin 12.3 g/dL (12.2-16.2); Lymphocytes # 1.1 K/mm3 (0.7-4.5); Mean Corpuscular HGB Conc 32.2 g/dL (31.8-35.4); Mean Corpuscular Hemoglobin 30.5 pg (27.0-31.2); Mean Corpuscular Volume 94.9 fl (81-99); Mean Platelet Volume 7.9 fl (7.4-10.4); Monocytes # 0.4 K/mm3 (0.1-1.0); Monocytes % 7.5 % (1.7-9.3); Neutrophils # 3.8 K/mm3 (1.8-7.8); Neutrophils % 70.3 % (37.0-80.0); Platelet Count 176 K/mm3 (142-424); Red Blood Count 4.03 M/mm3 (4.20-5.40); Red Cell Distribution Width 14.8 % (11.5-17.5); White Blood Count 5.5 K/mm3 (4.8-10.8)
== END ==
PROVIDERS: PCP Family Medicine; Visit Provider Internal Medicine Medical Oncology
DX: C34.90 Malignant neoplasm of unspecified part of unspecified bronchus or lung (principal)
CPT/HCPCS: 36415; 71260; 74177; 80053; 85025; Q9967

== ENCOUNTER 2020-05-24 14:56 | Inpatient (IN) | payer MEDICARE, OTHER, SELFPAY ==
[2020-05-24] VITALS (15 sets, daily range): BP systolic 128–185; BP diastolic 53–78; PULSE 83–102; RESP 16–23; TEMP 36.5–37.6; O2SAT 86–94; BMI 18.6; BMI 17.6
--- NOTE | 2020-05-24 15:09 | ECG_ITS ---
APPROVED REPORT Exam: Resting ECG HR:93 bpm ECG Measurements Heart Rate 93 AXES FL 162 P 86 QRSd 70 QRS 67 QT 374 T 79 QTc 465 Conclusion Normal sinus rhythm T wave abnormality, consider anterior ischemia Abnormal ECG Electronically signed by : Luis Diaz, 05/24/2020 19:12:52
--- NOTE | 2020-05-24 15:12 | HMH.EDGENADL ---
ED Disposition Clinical Impression: Iatrogenic hyperthyroidism, Dizziness, nonspecific, Weakness Pneumonia Qualifiers: Pneumonia type: due to unspecified organism Laterality: right Lung location: lower lobe of lung Qualified Code(s): J18.9 - Pneumonia, unspecified organism Disposition: Admitted as Observation Condition on Discharge: Fair - Critical Care Critical Care Time: No Attestation: On 05/24/20, the high probability of a clinically significant, sudden or life threatening deterioration of the following system(s) required my full and direct attention, intervention and personal management. The time I documented below is in addition to time spent performing reported procedures but includes the following listed in this critical care notation. Medical Decision Making - Medical Records Medical records reviewed: Yes: I reviewed the patient's medical records. MR Comment: Reviewed multiple cerebrovascular imaging studies done in the past 2 years with clinical history noted to be dizziness. Results below. - Domingo Inquiry Pt receiving controlled substance: No Vital Signs: 05/24/20 14:57 05/24/20 15:27 05/24/20 16:00 Temperature 98.6 F Temperature Source Oral Pulse Rate [Left Radial] 83 85 93 H Respiratory Rate 17 16 Blood Pressure [Right Arm] 150/53 H 147/64 H 156/73 H Blood Pressure Mean [Right Arm] 85 91 100 Blood Pressure Source [Right Arm] Automatic Cuff Automatic Cuff Automatic Cuff Blood Pressure Position [Right Arm] Sitting Sitting Sitting 02 Sat by Pulse Oximetry 94 L 93 L 90 L Oxygen Delivery Method Nasal Cannula Nasal Cannula Nasal Cannula Oxygen Flow Rate (LPM) 2 2 2 05/24/20 17:12 05/24/20 17:57 05/24/20 18:28 Temperature Temperature Source Pulse Rate [Left Radial] 95 H 98 H 101 H Respiratory Rate 16 Blood Pressure [Right Arm] 175/69 H 169/78 H 184/71 H Blood Pressure Mean [Right Arm] 104 108 108 Blood Pressure Source [Right Arm] Automatic Cuff Automatic Cuff Automatic Cuff Blood Pressure Position [Right Arm] Sitting Sitting Sitting 02 Sat by Pulse Oximetry 94 L 92 L 90 L Oxygen Delivery Method Nasal Cannula Nasal Cannula Nasal Cannula Oxygen Flow Rate (LPM) 2 2 2 05/24/20 18:47 Temperature Temperature Source Pulse Rate [Left Radial] 102 H Respiratory Rate Blood Pressure [Right Arm] 185/74 H Blood Pressure Mean [Right Arm] 111 Blood Pressure Source [Right Arm] Automatic Cuff Blood Pressure Position [Right Arm] Sitting 02 Sat by Pulse Oximetry 86 L Oxygen Delivery Method Nasal Cannula Oxygen Flow Rate (LPM) 3 - Lab Data Lab Results 05/24/20 15:57: WBC 10.2, RBC 3.80 L, Hgb 11.5 L, Hct 35.7 L, MCV 93.9, MCH 30.1, MCHC 32.1, RDW 14.6, Plt Count 197, MPV 8.2, Neut % (Auto) 86.1 H, Lymph % (Auto) 7.6 L, [place] % (Auto) 5.6, Eos % (Auto) 0.5, Baso % (Auto) 0.2, Neut # (Auto) 8.8 H, Lymph # (Auto) 0.8, [place] # (Auto) 0.6, Eos # (Auto) 0.1, Baso # (Auto) 0.0, Total Counted 100, Neutrophils % (Manual) 89 H, Band Neutrophils % 2.0, Lymphocytes % (Manual) 6 L, Monocytes % (Manual) 3, Platelet Estimate Normal, RBC Morphology Normal 05/24/20 15:57: Sodium 140, Potassium 4.2, Chloride 102, Carbon Dioxide 30, Anion Gap 12.2, BUN 44 H, Creatinine 1.40 H, Estimated Creat Clear 25, Estimated GFR 37 L, Est GFR ( Amer) 44 L, Glucose 110 H, Calcium 9.5, Total Bilirubin 0.4, AST 29, ALT 21, Alkaline Phosphatase 83, Troponin I < 0.01, Total Protein 7.4, Albumin 4.0, Globulin 3.4 H, Albumin/Globulin Ratio 1.2, TSH < 0.02 L 05/24/20 15:57: SARS-CoV-2 IgG Ab (Rapid) Negative, SARS-CoV-2 IgM Ab (Rapid) Negative 05/24/20 16:10: Urine Color Yellow, Urine Appearance Clear, Urine pH 6.0, Ur Specific [place] 1.015, Urine Protein Negative, Urine Glucose (UA) Negative, Urine Ketones Negative, Urine Blood Negative, Urine Nitrate Negative, Urine Bilirubin Negative, Urine Urobilinogen 0.2, Ur Leukocyte Esterase 1+ A, Urine RBC 3-5, Urine WBC 5-10, Ur Squamous Epith Cells 3-5, Urine Bacteria 2+, Hyaline Casts 3-5 12
--- NOTE | 2020-05-24 15:30 | XR_ITS ---
PROCEDURE: XR CHEST PORTABLE CLINICAL HISTORY: cough, weakness Smoker COMPARISON: CR XR CHEST 2V from 08/08/2019 DX XR CHEST 2V from 08/11/2019 CR XR RIBS RT MIN 3V W CXR1V from 12/20/[address] CHEST W CON from 04/06/2020 FINDINGS: The cardiomediastinal silhouette and pulmonary vascularity are within normal limits. COPD/emphysema. There is increased density in the right lung base which may be due to developing pneumonia or even mass. Patchy density in the lingula. Bone plate along the lower cervical spine. Mild osteoarthritis of the shoulders. IMPRESSION: COPD with developing density in the right lower lobe and lingula which may be due to areas of pneumonia. Cannot exclude underlying mass. Chest CT with contrast may provide further evaluation. Dictated by: Darian Quezada MD 05/25/2020 07:02 Darian Quezada MD in [place] 05/25/2020 07:02
--- NOTE | 2020-05-24 15:46 | PC.NURSE ---
rad at BS
--- NOTE | 2020-05-24 15:51 | CT_ITS ---
PROCEDURE: CT HEAD/BRAIN WO CON CLINICAL INDICATION: dizziness Increasing dizziness COMPARISON: CT CT HEAD/BRAIN WO CON from 08/01/2019 TECHNIQUE: Axial images obtained. All CT scans at the facility use one or more dose reduction, viz: automated exposure control, ma/kV adjustment per patient size (including targeted exams where dose is matched to indication, i.e. head), or iterative reconstruction technique. FINDINGS: No midline shift, mass effect, intracranial hemorrhage, hydrocephalus, or extra-axial fluid collection is evident. There is generalized atrophy with hypoattenuation of the periventricular white matter consistent with microangiopathic changes. The calvarium has an unremarkable appearance. No mastoid effusion. No sinus air-fluid level. IMPRESSION: No acute intracranial finding Dictated by: Darian Quezada MD 05/25/2020 08:35 Darian Quezada MD in [facility] 05/25/2020 08:35
[2020-05-24 16:13] LABS: Basophils % 0.2 % (0.1-2.0); Eosinophils # 0.1 K/mm3 (0.0-0.4); Eosinophils % 0.5 % (0.1-12.0); Hematocrit 35.7 % (37.0-47.0); Hemoglobin 11.5 g/dL (12.2-16.2); Lymphocytes # 0.8 K/mm3 (0.7-4.5); Lymphocytes % 7.6 % (10-50); Mean Corpuscular HGB Conc 32.1 g/dL (31.8-35.4); Mean Corpuscular Hemoglobin 30.1 pg (27.0-31.2); Mean Corpuscular Volume 93.9 fl (81-99); Mean Platelet Volume 8.2 fl (7.4-10.4); Monocytes # 0.6 K/mm3 (0.1-1.0); Monocytes % 5.6 % (1.7-9.3); Neutrophils # 8.8 K/mm3 (1.8-7.8); Neutrophils % 86.1 % (37.0-80.0); Platelet Count 197 K/mm3 (142-424); Red Cell Distribution Width 14.6 % (11.5-17.5); White Blood Count 10.2 K/mm3 (4.8-10.8)
[2020-05-24 16:15] LABS: Chloride 102 mmol/L (98-107)
[2020-05-24 16:16] LABS: Potassium 4.2 mmoL/L (3.5-5.1); Sodium 140 mmol/L (136-145)
[2020-05-24 16:17] LABS: Microscopic, Urine URINE MICROSCOPIC (MICROSCOPIC)
[2020-05-24 16:18] LABS: Alanine Aminotransferase 21 U/L (12-78); Alkaline Phosphatase 83 U/L (38-126); Aspartate Amino Transferase 29 U/L (14-36); Bilirubin,Total 0.4 mg/dl (0.2-1.3); Blood Urea Nitrogen 44 mg/dl (7-17); Creatinine Clearance Estimated 25 mL/min (50-200); Estimated Glomerular Filt Rate 37 ml/min (>60); GFR (African American) 44 ML/MIN (>60)
--- NOTE | 2020-05-24 16:18 | PC.NURSE ---
Pt to rad.
[2020-05-24 16:19] LABS: Albumin/Globulin Ratio 1.2 (1.1-1.8); Anion Gap 12.2 mEq/L (5-15); Calcium 9.5 mg/dl (8.4-10.2); Carbon Dioxide 30 mmol/L (22.0-30.0); Globulin 3.4 g/dL (1.3-3.2); Glucose 110 mg/dl (74-100); Total Protein,Serum 7.4 g/dl (6.3-8.2)
[2020-05-24 16:19] LABS: Appearance,Urine CLEAR (Clear); Bilirubin,Urine Negative (Negative); Blood, Urine Negative (Negative); Color,Urine YELLOW (Yellow); Glucose,Urine (UA) Negative (Negative); Ketones,Urine Negative (Negative); Leukocyte Esterase,Urine 1+ (Negative); Nitrate,Urine Negative (Negative); Protein,Urine Negative (Negative); Specific Gravity, Urine 1.015 (1.005-1.030); Urobilinogen,Urine 0.2 EU/dl (0.2)
[2020-05-24 16:25] LABS: MANUAL DIFFERENTIAL MANUAL DIFFERENTIAL (MANUAL DIFF)
[2020-05-24 16:32] LABS: Lymphocytes % 6 % (10-50); Monocytes % 3 % (2-9); Neutrophils % 89 % (42-76); Total Cells Counted 100; Troponin I < 0.01 ng/ml (0.00-0.034)
[2020-05-24 16:33] LABS: Platelet Estimate Normal; RBC Morphology Normal
[2020-05-24 16:39] LABS: Bacteria,Urine 2+ /lpf
[2020-05-24 16:40] LABS: Coronavirus 19 IgG Antibody Negative (Negative); Coronavirus 19 IgM Antibody Negative (Negative)
[2020-05-24 16:50] LABS: Thyroid Stimulating Hormone < 0.02 uIU/mL (0.465-4.68)
--- NOTE | 2020-05-24 16:54 | PC.NURSE ---
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 Andres who is conveyor monitor for Dr. Jones.
--- NOTE | 2020-05-24 17:12 | PC.NURSE ---
called house for pt admission
--- NOTE | 2020-05-24 17:25 | PC.NURSE ---
pt unable to remember her home meds. pt stated had her med list at home. called and spoke with pt to reconcile home medications and update him on pt condition and admission
--- NOTE | 2020-05-24 18:39 | PC.NURSE ---
Called lab about COVID swab and was told by Bhakti that there was still 73 minutes left.
--- NOTE | 2020-05-24 18:51 | PC.NURSE ---
aware of sats. Ordering additional tests at this time.
--- NOTE | 2020-05-24 19:15 | PC.NURSE ---
respiratory at bedside
--- NOTE | 2020-05-24 19:16 | PC.NURSE ---
report given to Mandy that pt is admitted and just waiting on COVID swab results
[2020-05-24 19:24] LABS: ABG Base Excess 2.3 mmol/L (-2.4-2.3); ABG HCO3 26.9 mmhg (22.0-26.0); ABG Oxygen Saturation 90 % (90-100); ABG PCO2 43.4 mmhg (35.0-45.0); ABG PH 7.41 mmol/L (7.35-7.45); ABG PO2 56.9 mmhg (80-100); ABG TCO2 28.2 mmhg (23-27)
[2020-05-24 19:26] LABS: Allen's Test Acceptable; Source Right Radial
--- NOTE | 2020-05-24 20:28 | PC.NURSE ---
PT ARRIVED TO THE FLOOR VIA W/V FROM ED W/ STAFF AT 2026
[2020-05-25] VITALS (11 sets, daily range): BP systolic 113–127; BP diastolic 44–62; PULSE 72–88; RESP 16–20; TEMP 36.5–36.9; O2SAT 90–97; BMI 17.6; BMI 17.8
--- NOTE | 2020-05-25 05:06 | PC.NURSE ---
Pt was a new admit this shift from the ER. Pt has been pleasant and cooperative. A&O X4. No complaints of pain. Pt is receiving O2 via NC @ 3 LPM with sats. >90%. Lung sounds are diminished. Skin is C/D/I. No edema noted. Pt ambulates with assistance X1 and uses the BSC to void clear, yellow urine without issue. Occasional stress incontinence/dribbling is noted and a brief is in place. No BM this shift. 20 G peripheral IV in the LT AC is patent and infusing NS @ 75 ML/HR. VSS. Call light within reach. Will continue to monitor.
[2020-05-25 05:56] LABS: Chloride 105 mmol/L (98-107); Sodium 140 mmol/L (136-145)
[2020-05-25 05:57] LABS: Potassium 4.3 mmoL/L (3.5-5.1)
[2020-05-25 06:00] LABS: Anion Gap 11.3 mEq/L (5-15); Blood Urea Nitrogen 39 mg/dl (7-17); Calcium 9.5 mg/dl (8.4-10.2); Carbon Dioxide 28 mmol/L (22.0-30.0); Creatinine Clearance Estimated 26 mL/min (50-200); Estimated Glomerular Filt Rate 40 ml/min (>60); GFR (African American) 48 ML/MIN (>60); Glucose 160 mg/dl (74-100)
--- NOTE | 2020-05-25 09:06 | HMH.HP ---
*Admission Date: 05/25/20 *Chief complaint: Weakness and dizziness *History of present illness: Funmi is a 75-year-old white female with a history of lung cancer, COPD, hypothyroidism, hypertension who presented to the emergency room yesterday complaining of weakness and dizziness. She has had complaints of dizziness with frequent falls for several months. She had an MRI of the brain in November which ruled out metastatic disease. She recently saw Dr. Frazier for ENT consultation and he found no otologic reason for her dizziness. On work-up in the ER yesterday, her chest x-ray showed possible early infiltrate and urinalysis showed 1+ leukocytes. TSH was also suppressed. White blood cell count normal. She has been admitted for further evaluation and treatment. At the time of my exam this morning she simply is feeling weak. She denies chest pain, increased shortness of breath, fever, nausea, or vomiting. She has had some constipation. Denies abdominal pain. She has had some cough that is occasionally productive. Her chief complaint is simply weakness and dizziness. She wonders if this could be related to her medication. She has had no recent changes in her medication. She does report a poor appetite and has lost weight. In reviewing recent [facility] visits, she has lost about 30 pounds in the past 6 months. She continues to follow with Dr. Spears. She had a surveillance CT scan of the chest last month which was unremarkable for recurring cancer. She is generally very sedentary at home and states she sleeps a lot through the day. She gets very little exercise. [facility] History Medical History: Reports:: Cancer (Lung), Chronic Obstructive Pulmonary Disease (COPD), Gastroesophageal Reflux Disease(GERD), Hyperlipidemia, Hypertension Denies:: Congestive Heart Failure, Diabetes Mellitus Type 1, Diabetes Mellitus Type 2, Migraine, MRSA, Renal Disease, Renal Insufficiency *Have you ever received a pneumonia vaccine?: No *Have you received a flu vaccine this season?: Yes Other Medical History: Reports: Arthritis, Cataracts, Chemotherapy, Hypothyroidism, Liver Disease, Radiation Therapy Laterality Cases: Bilateral: Tonsillectomy, Other Other Surgeries: Yes: Cardiac Catheterization, Cholecystectomy, Colonoscopy, Thyroidectomy, Tubal Ligation, Other (Bilateral Lasik eye sx) Amputation: No Fractures: No - *Social History Last grade of school completed: High school graduate Smoking Status: Current every day smoker Tobacco Type: cigarettes # Packs/Day (cigarettes): 1 #Yrs smoked (if former smoker): 60 Alcohol Intake: never Alcohol Intake Frequency:: other Substance Use Type: denies use *Occupational Status:: retired Housing: house Household Members: spouse *Travel in the last 8 weeks: None Family Hx:: Cancer, Diabetes, Hyperlipidemia, Hypertension, Stroke, Thyroid Disorder Review of Systems - Constitutional Reports anorexia, Reports daytime sleepiness, Reports fatigue, Reports weakness, Reports weight loss, Denies fever(s), Denies night sweats - Eyes Denies change in vision - ENT Reports poor balance, Reports dizziness, Denies difficulty swallowing, Denies hoarseness - *Cardiovascular Denies chest pain, Denies shortness of breath, Denies rapid, pounding, or irregular heartbeat - *Gastrointestinal Reports constipation, Denies abdominal pain, Denies black, tarry stools, Denies nausea - *Genitourinary Denies abnormal vaginal bleeding, Denies painful urination - *Musculoskeletal Reports muscle weakness, Denies joint pain - Integumentary/Breasts Denies change in skin color, Denies changing lesions - *Neurologic Reports unsteadiness, Denies localized weakness, Denies headache(s), Denies numbness - Psychiatric Reports lack of enjoyment, Reports depression - Hematologic/Lymphatic Reports easy bruising Meds Home Medications Medication Instructions Recorded Confirmed Type fluoxetine 40 mg capsule 40 mg PO DAILY 90 Days
--- NOTE | 2020-05-25 09:51 | P.CONPHA_ITS ---
[facility] Pharmacy VTE Monitoring - Patient Demographics Admission date: 05/25/20 Report Date: 05/25/20 Time: 09:51 Allergies/Adverse Reactions: Patient Allergies codeine [CODEINE] Allergy (Mild, Verified 05/24/20 21:18) penicillin G [PENICILLIN G] Allergy (Mild, Verified 05/24/20 21:18) povidone-iodine [From BETADINE] Allergy (Mild, Verified 05/24/20 21:18) Height: 1.57 m Weight: 43.602 kg Patient Problems: Current Active Problems Iatrogenic hyperthyroidism (Acute) Dizziness, nonspecific (Acute) Weakness (Acute) Pneumonia (Acute) - VTE Risk Labs: VTE Related Lab Results Hgb 11.5 g/dL (12.2-16.2) L 05/24/20 15:57 Hct 35.7 % (37.0-47.0) L 05/24/20 15:57 Plt Count 197 K/mm3 (142-424) 05/24/20 15:57 BUN 39 mg/dl (7-17) H 05/25/20 05:34 Creatinine 1.30 mg/dl (0.52-1.04) H 05/25/20 05:34 Estimated Creat Clear 26 mL/min (50-200) 05/25/20 05:34 Was VTE Risk Assessment Performed: Yes VTE Score: 6 VTE Risk Level: Moderate Risk - Prophylaxis VTE Prophylaxis Ordered?: Yes Types of VTE Prophylaxis: TEDS Knee High Location of Applied Device: Bilateral Lower Extremeties
--- NOTE | 2020-05-25 10:03 | HMH.PHAINT ---
HOME MEDICATIONS RECONCILED FROM RX FILL HISTORY AND SPOUSE.
--- NOTE | 2020-05-25 11:04 | PC.NURSE ---
SPOKE TO PT (BRENNA) FOR EVAL. HE STATED HE WOULD BE IN TOMORROW TO COMPLETE EVAL
--- NOTE | 2020-05-25 14:13 | PC.NURSE ---
Sputum cup given to Patient, she states she does have a productive cough and will call when she produces a sample.
--- NOTE | 2020-05-25 15:23 | PC.NURSE ---
A&OX4. PT HAS TOLERATED 3L NC WELL THROUGHOUT SHIFT. RESPIRATIONS REGULAR AND UNLABORED. DIMINISHED LUNG SOUNDS NOTED. OCCASIONAL PRODUCTIVE COUGH NOTED. HAND ACCOUNTS RECEIVABLE SPECIALIST EQUAL. +2 PULSES NOTED THROUGHOUT. NO EDEMA NOTED. NS INFUSING AT 75ML/HR. ACTIVE BOWEL SOUNDS HEARD IN ALL 4 QUADRANTS. SOFT AND NONTENDER ABDOMEN. NO BM THUS FAR. PT VOIDS PER BSC, BUT DOES HAVE STRESS INCONTINENCE. PT CHANGED NEEDED. CLEAR YELLOW URINE NOTED TO BSC. ASSIST X1 NOTED. PT IS WEAK AND DOESN'T HAVE MUCH ENERGY. SHE HAS SLEPT ON AND OFF THROUGHOUT SHIFT. SHE HAS HAD A POOR APPETITE. THIS NURSE HAS OFFERED TO HELP THE PT GET OUT OF BED AND SIT IN THE CHAIR SEVERAL TIMES THIS SHIFT AND SHE HAS REFUSED. NS INFUSING AT 75ML/HR. PT HASN'T REPORTED PAIN OR SOB THIS SHIFT. PT IS CURRENTLY ASLEEP W CALL LIGHT WITHIN REACH. BED IN LOWEST POSITION. VSS. WILL CONTINUE TO MONITOR.
--- NOTE | 2020-05-25 17:05 | PC.NURSE ---
Called Dr. Pozo route salesperson doctor about pt receiving levaquin yesterday in the ER and didn't have any levaquin ordered until tomorrow night at 1900. Asked if pt needed levaquin tonight thinking possibly the wrong start date was put in. Discussed labs including GFR, creatinine clearance, BUN, and creatinine. He stated pt would be ok to start antibiotic tomorrow.
[2020-05-26] VITALS (10 sets, daily range): BP systolic 122–136; BP diastolic 49–62; PULSE 75–92; RESP 16–20; TEMP 36.4–36.8; O2SAT 90–97; BMI 18.9
--- NOTE | 2020-05-26 05:54 | PC.NURSE ---
pt has rested well t/o shift, has been up to BSC x 2 with one assist, has remained on 3L NC with O2 sats 90 at beginning of shift to 97 % while sleeping, lungs are diminished on auscultation, no complaints of SOA, pt respirations are unlabored and spontaneous, with a respiratory rate of 18
--- NOTE | 2020-05-26 08:57 | P.PN_ITS ---
Internal Medicine - PN: Subj *Date: 05/26/20 *Time: 08:58 Interval history: She rested fairly well last night. Still has significant cough which is mostly nonproductive. Denies chest pain. States she feels a little stronger when she is up. Exam Vital signs and Labs for Last 24 Hours: Temp Pulse Resp BP Pulse Ox 98.1 F 92 H 20 123/49 L 91 L 05/26/20 08:00 05/26/20 08:00 05/26/20 08:00 05/26/20 08:00 05/26/20 08:00 I & O for Last 24 hours: Intake & Output 05/23/20 05/24/20 05/25/20 05/26/20 11:59 11:59 11:59 11:59 Intake Total 921 / 921 2331 / 2331 Output Total 0 / 0 600 / 600 Balance 921 / 921 1731 / 1731 Weight 96 lb 2 oz 103 lb 1 oz Microbiology Reports for the Last 24 Hours: Microbiology 05/24/20 16:10 Urine,Clean Catch Urine Culture - Final Multiple organisms, suggests contamination. 05/25/20 16:23 Sputum - Expectorated Sputum Gram Stain - Final Narrative: Sitting up in bed eating breakfast. Alert and in no distress. Color is good. Chest reveals generally diminished breath sounds. Occasional rhonchi in the r ight lung. No wheezes. Heart is regular. Abdomen is soft and nondistended with no tenderness. Extremities no edema. Assessment and Plan (1) Pneumonia Status: Acute Qualifiers: Pneumonia type: due to unspecified organism Laterality: right Lung location: lower lobe of lung Qualified Code(s): J18.9 - Pneumonia, unspecified organism Category: Medical Code(s): J18.9 - Pneumonia, unspecified organism (2) UTI (urinary tract infection) Status: Acute Category: Medical Code(s): N39.0 - Urinary tract infection, site not specified (3) Dizziness, nonspecific Status: Acute Category: Medical Code(s): R42 - Dizziness and giddiness (4) Iatrogenic hyperthyroidism Status: Acute Category: Medical Code(s): E05.80 - Other thyrotoxicosis without thyrotoxic crisis or storm (5) Depression with anxiety Status: Acute Category: Medical Code(s): F41.8 - Other specified anxiety disorders (6) Hypertension Status: Chronic Qualifiers: Hypertension type: essential hypertension Qualified Code(s): I10 - Essential (primary) hypertension Category: Medical Code(s): I10 - Essential (primary) hypertension (7) Hypothyroidism Status: Chronic Qualifiers: Hypothyroidism type: unspecified Qualified Code(s): E03.9 - Hypothyroidism, unspecified Category: Medical Code(s): E03.9 - Hypothyroidism, unspecified (8) Supplemental oxygen dependent Status: Chronic Category: Medical Code(s): Z99.81 - Dependence on sup plemental oxygen (9) COPD (chronic obstructive pulmonary disease) Status: Acute Category: Medical Code(s): J44.9 - Chronic obstructive pulmonary disease, unspecified (10) History of lung cancer Status: Chronic Category: Medical Code(s): Z85.118 - Personal history of other malignant neoplasm of bronchus and lung - Assessment and plan all Dx Assessment and Plan for all problems:: Continue current antibiotic regimen pending cultures. Her urine culture is showing mixed organisms, likely contaminant. Blood and sputum cultures are pending. Out of bed with assistance as tolerated.
--- NOTE | 2020-05-26 12:04 | HMH.PTEV ---
Physical Therapy Evaluation Rehab PT IP Evaluation Start: 05/25/20 10:55 Freq: ONCE Status: Active Protocol: Document 05/26/20 11:54 ELOY (Rec: 05/26/20 12:04 ELOY [id number]) Subjective/History History History This is the initial IP PT evaluation for Lashon Chu. Pt is a 75 y/o female who is well known to PT due to pt's long hx of cx and weakness from treatment and disease process. Pt was admitted to [facility] from ED for weakness, recent fall, and c/o SOA. Pt has hx of failed OPPT due to non-compliance w/ visits and difficulty w/ treatments due to weakness and breathing issues. Subjective Subjective Pt reports today she will participate w/ therapy and states she will try to participate while she is here but does not want OPPT. Rehab PT IP Eval Objective Appearance Patient Behavior Cooperative,Fatigued Patient Orientation Person,Place,Name,Birthday, Year,Situation Difficulty following instructions none Speech Pattern Appropriate,Soft-Spoken Ambulation Patient Able to Ambulate Yes Ambulation Observation IP General Gait Pattern Observation Shuffling Step Ambulation Distance (feet) 30 Ambulation Assistive Device Rolling Walker Ambulation Ability Supervision/Stand by,Contact Guard/Hand Hold Balance Ability to Arise Able, uses arms to help Sitting Balance Steady, safe Standing Balance Narrow stance w/o support Dynamic Sitting Balance Ability Good Dynamic Standing Balance Ability Fair Transfers Bed Transfer Ability Supervision/Stand by Chair Transfer Ability Supervision/Stand by Sit to Stand Bed Transfer Ability Contact Guard/Hand Hold Sit to Stand Chair Transfer Ability Contact Guard/Hand Hold Rehab PT IP prob,goals,plan Problems Date of Evaluation: 05/26/20 PT IP Problems Transfers,Gait,Self care, Safety Rehab Potential Rehab Potential Poor Equipment Needs Assistive Devices Rolling / Wheeled Walker Plan PT Intervention Plan Transfers,Gait,Therapeutic Exercise PT Plan Frequency BID Duration
--- NOTE | 2020-05-26 18:24 | PC.NURSE ---
Neurologically: Patient is slightly confused to the date. Is alert and oriented to name, and place. Slightly hesitant on date but does know ages of all of her grandsons. GI: Patient has had no n/v/d. No bm today. Eating well, roughly 75% of meals. : Patient has voided only once today in toilet. Unable to measure it as patient missed the collection device. Pulm: Patient has used her incentive spirometer very well and frequently today. Remains on 3l NC. Cough sounds very productive, however, patient has not been able to produce any phlegm today. Will continue encouraging the IS to assist in loosening the sputum. Skin is intact. No issues or concerns. Patient worked with physical therapy and did very well today. Patient is mainly a standby assist. Has used call mackenzie appropriately whenever she has needed anything. Patient set up in her chair for the majority of the day. IV intact, 20 l ac, with 75 ns infusing. Currently no issues or concerns. Will continue to monitor patient.
[2020-05-27] VITALS (11 sets, daily range): BP systolic 133–158; BP diastolic 54–76; PULSE 73–93; RESP 17–22; TEMP 36.3–36.6; O2SAT 90–99; BMI 195912.7
--- NOTE | 2020-05-27 05:53 | PC.NURSE ---
pt has rested well t/o shift, remains on 3L NC with sats 90-96%, lungs diminished on auscultation, no complaints of SOA or chest pain, has ambulated to the bathroom with one assist
--- NOTE | 2020-05-27 08:09 | HMH.ACPN2 ---
Internal Medicine - PN: Subj *Date: 05/27/20 *Time: 08:09 Interval history: States she did not sleep well last night because there were children running in the hallway . Staff noted some confusion during the night but she was easily reoriented. She denies increased shortness of breath. Cough has improved some. She sat up in the chair some yesterday. Legs still feel weak but improved. Appetite is improved Exam Vital signs and Labs for Last 24 Hours: Temp Pulse Resp BP Pulse Ox 97.8 F 73 20 137/59 L 95 05/27/20 07:39 05/27/20 07:39 05/27/20 07:39 05/27/20 07:39 05/27/20 07:39 I & O for Last 24 hours: Intake & Output 05/24/20 05/25/20 05/26/20 05/27/20 11:59 11:59 11:59 11:59 Intake Total 921 / 921 2331 / 2331 640 / 640 Output Total 0 / 0 600 / 600 Balance 921 / 921 1731 / 1731 640 / 640 Weight 96 lb 2 oz 103 lb 1 oz 107 lb 2 oz Microbiology Reports for the Last 24 Hours: Microbiology 05/25/20 16:23 Sputum - Expectorated Sputum Gram Stain - Final 05/25/20 16:23 Sputum - Expectorated Sputum Sputum Culture - Preliminary 05/24/20 17:24 Blood Blood Culture - Preliminary NO GROWTH AFTER 48 HOURS 05/24/20 17:24 Blood Blood Culture - Preliminary NO GROWTH AFTER 48 HOURS 05/24/20 16:10 Urine,Clean Catch Urine Culture - Final Multiple organisms, suggests contamination. Narrative: Alert and oriented. Mild dyspnea. Color is good. Chest with generally diminished breath sounds but no rales or wheezes. Abdomen is soft and nondistended with no tenderness. Extremities no edema. Assessment and Plan (1) Pneumonia Status: Acute Qualifiers: Pneumonia type: due to unspecified organism Laterality: right Lung location: lower lobe of lung Qualified Code(s): J18.9 - Pneumonia, unspecified organism Category: Medical Code(s): J18.9 - Pneumonia, unspecified organism (2) UTI (urinary tract infection) Status: Acute Category: Medical Code(s): N39.0 - Urinary tract infection, site not specified (3) Dizziness, nonspecific Status: Acute Category: Medical Code(s): R42 - Dizziness and giddiness (4) Iatrogenic hyperthyroidism Status: Acute Category: Medical Code(s): E05.80 - Other thyrotoxicosis without thyrotoxic crisis or storm (5) Depression with anxiety Status: Acute Category: Medical Code(s): F41.8 - Other specified anxiety disorders (6) Hypertension Status: Chronic Qualifiers: Hypertension type: essential hypertension Qualified Code(s): I10 - Essential (primary) hypertension Category: Medical Code(s): I10 - Essential (primary) hypertension (7) Hypothyroidism Status: Chronic Qualifiers: Hypothyroidism type: unspecified Qualified Code(s): E03.9 - Hypothyroidism, unspecified Category: Medical Code(s): E03.9 - Hypothyroidism, unspecified (8) Supplemental oxygen dependent Status: Chronic Category: Medical Code(s): Z99.81 - Dependence on supplemental oxygen (9) COPD (chronic obstructive pulmonary disease) Status: Acute Category: Medical Code(s): J44.9 - Chronic obstructive pulmonary disease, unspecified (10) History of lung cancer Status: Chronic Category: Medical Code(s): Z85.118 - Personal history of other malignant neoplasm of bronchus and lung - Assessment and plan all Dx Assessment and Plan for all problems:: Repeat chest x-ray today. Continue Levaquin. Encourage out of bed activity.
--- NOTE | 2020-05-27 08:11 | XR_ITS ---
PROCEDURE: XR CHEST 2V Referring Doctor: Adrian Jones Patient Age:75Y CLINICAL HISTORY: f/u pneumonia. History of cancer COMPARISON: DX XR CHEST 2V from 08/11/2019 CR XR RIBS RT MIN 3V W CXR1V from 12/20/[address] CHEST W CON from 04/06/2020 CR XR CHEST PORTABLE from 05/24/2020 FINDINGS: Today's PA and lateral chest is compared to AP portable upright CXR from May 24 Different technique today with less contrast. However appears to be a small persistent patchy infiltrate seen towards the Right Lung base on frontal projection. Difficult to localize on lateral view but I tend to favor it is more likely anteriorly towards the right middle lobe of although there is some minimal airspace disease at the right lower lobe on lateral view as well. Left lung. Slight coarsening markings left infrahilar region of question minimal atelectasis infiltrate here. However the left CP angle infiltrate is slightly clear but there is blunting at the left CP angle which may reflect a small pleural effusion but I would also note some scant density/airspace disease at the periphery of the left lung base on the PA film just medial anterior lateral 6th rib The heart is normal in size but normal pulmonary vascularity. The calcified aortic knob. Hilar regions appear satisfactory. The lateral film there is some blunting at the posterior sulcus, more so than july 2019 lateral view CXR-thus suspect for scant/trace pleural effusion Chest wall appears satisfactory T-spine intact with mild degenerative changes/mild marginal osteophytes. Previous anterior fusion and discectomy lower C-spine again noted (Would also note the patient had a CT chest in April 2020 which revealed emphysematous changes but no mass lesions) IMPRESSION: Right lung--persistent minimal patchy infiltrate towards right lung base. Similar since 05/24/2020 Left lung-slight improvement of subtle infiltrate just above the left hemidiaphragm since 05/24/2020. However would note scant new subtle opacity periphery of the left lung base superior to this, projected left anterior lateral 6th rib -Likely reflecting atelectasis and possible scant infiltrate peripherally Slight blunting both CP angles and posterior sulcus region-suspect for scant/trace bilateral pleural effusions Dictated by: Guille Maldonado MD 05/27/2020 10:48 Guille Maldonado MD in [facility] 05/27/2020 10:48
--- NOTE | 2020-05-27 15:28 | PC.NURSE ---
A&OX4. PT HAS TOLERATED 3L NC WELL THROUGHOUT SHIFT. RESPIRATIONS REGULAR AND UNLABORED, EXPIRATORY WHEEZES NOTED THROUGHOUT. OCCASIONAL COUGH NOTED. HAND HOTEL ATTENDANT EQUAL. +2 PULSES NOTED THROUGHOUT. NO EDEMA NOTED. NO PAIN REPORTED THUS FAR. TEDS IN PLACE. ACTIVE BOWEL SOUNDS HEARD IN ALL 4 QUADRANTS. SOFT AND NONTENDER ABDOMEN. NO BM THUS FAR. PT VOIDS PER BSC, BUT DOES HAVE STRESS INCONTINENCE. PT HAS BEEN CHANGED NEEDED. CLEAR YELLOW URINE NOTED IN BSC. PT RECEIVED LEVAQUIN THIS SHIFT AND TOLERATED WELL. NS INFUSING AT 25ML/HR. PT SAT UP ON THE SIDE OF THE BED SOME TODAY. SHE HAS HAD A LOT BETTER APPETITE SINCE ADMISSION. PT IS CURRENTLY ASLEEP W CALL LIGHT WITHIN REACH. BED IN LOWEST POSITION. VSS. WILL CONTINUE TO MONITOR.
[2020-05-28] VITALS (11 sets, daily range): BP systolic 128–141; BP diastolic 52–75; PULSE 81–102; RESP 18–22; TEMP 36.4–36.9; O2SAT 90–98; BMI 19.0
--- NOTE | 2020-05-28 08:45 | HMH.ACPN2 ---
<Brianna Mcleod - Last Filed: 05/28/20 08:45> Internal Medicine - PN: Subj *Date: 05/28/20 *Time: 08:45 Interval history: Patient states she is definitely better. She states her breathing is easier. She set up in the chair for about 4 to 5 hours yesterday. She is eating as usual. She denies chest pain. She states her cough has also improved. Exam Vital signs and Labs for Last 24 Hours: Temp Pulse Resp BP Pulse Ox 97.6 F 102 H 20 140/75 93 L 05/28/20 07:34 05/28/20 07:34 05/28/20 07:34 05/28/20 07:34 05/28/20 07:34 I & O for Last 24 hours: Intake & Output 05/25/20 05/26/20 05/27/20 05/28/20 11:59 11:59 11:59 11:59 Intake Total 921 / 921 2331 / 2331 640 / 640 3077 / 3077 Output Total 0 / 0 600 / 600 300 / 300 Balance 921 / 921 1731 / 1731 640 / 640 2777 / 2777 Weight 96 lb 2 oz 103 lb 1 oz 107 lb 2 oz 103 lb 6.349 oz Microbiology Reports for the Last 24 Hours: Microbiology 05/25/20 16:23 Sputum - Expectorated Sputum Gram Stain - Final 05/25/20 16:23 Sputum - Expectorated Sputum Sputum Culture - Preliminary - Constitutional no acute distress Comments: Sitting up in the bed and appears comfortable. Some dyspnea with talking - *Routine Respiratory Exam Present: diminished air movement Comments: Bladder scattered rhonchi. - *Routine Cardiovascular Exam Present: RRR - *Routine Extremities Exam Absent: edema, calf tenderness - *Routine Neurological Exam Present: alert, oriented X3 Assessment and Plan (1) Pneumonia Status: Acute Qualifiers: Pneumonia type: due to unspecified organism Laterality: right Lung location: lower lobe of lung Qualified Code(s): J18.9 - Pneumonia, unspecified organism Category: Medical Code(s): J18.9 - Pneumonia, unspecified organism (2) UTI (urinary tract infection) Status: Acute Category: Medical Code(s): N39.0 - Urinary tract infection, site not specified (3) Dizziness, nonspecific Status: Acute Category: Medical Code(s): R42 - Dizziness and giddiness (4) Iatrogenic hyperthyroidism Status: Acute Category: Medical Code(s): E05.80 - Other thyrotoxicosis without thyrotoxic crisis or storm (5) Depression with anxiety Status: Acute Category: Medical Code(s): F41.8 - Other specified anxiety disorders (6) Hypertension Status: Chronic Qualifiers: Hypertension type: essential hypertension Qualified Code(s): I10 - Essential (primary) hypertension Category: Medical Code(s): I10 - Essential (primary) hypertension (7) Hypothyroidism Status: Chronic Qualifiers: Hypothyroidism type: unspecified Qualified Code(s): E03.9 - Hypothyroidism, unspecified Category: Medical Code(s): E03.9 - Hypothyroidism, unspecified (8) Supplemental oxygen dependent Status: Chronic Category: Medical Code(s): Z99.81 - Dependence on supplemental oxygen (9) COPD (chronic obstructive pulmonary disease) Status: Acute Category: Medical Code(s): J44.9 - Chronic obstructive pulmonary disease, unspecified (10) History of lung cancer Status: Chronic Category: Medical Code(s): Z85.118 - Personal history of other malignant neoplasm of bronchus and lung <Adrian Jones - Last Filed: 05/28/20 13:37> Internal Medicine - PN: Subj *Date: 05/28/20 *Time: 13:35 Exam Vital signs and Labs for Last 24 Hours: Temp Pulse Resp BP Pulse Ox 97.8 F 91 H 20 134/64 92 L 05/28/20 11:37 05/28/20 11:37 05/28/20 11:37 05/28/20 11:37 05/28/20 11:37 I & O for Last 24 hours: Intake & Output 05/26/20 05/27/20 05/28/20 05/29/20 11:59 11:59 11:59 11:59 Intake Total 2331 / 2331 640 / 640 3077 / 3077 360 / 360 Output Total 600 / 600 450 / 450 200 / 200 Balance 1731 / 1731 640 / 640 2627 / 2627 160 / 160 Weight 103 lb 1 oz 107 lb 2 oz 103 lb 6.349 oz Microbiology Reports for the Last 24 Hours: Microbiology 05/25/20 16:23 Sputum - Expectorat
--- NOTE | 2020-05-28 19:55 | PC.NURSE ---
A&OX4. PT HAS TOLERATED 2L NC WELL THROUGHOUT SHIFT. RESPIRATIONS REGULAR AND UNLABORED. SCATTERED WHEEZES NOTED THROUGHOUT LUNGS. OCCASIONAL PRODUCTIVE COUGH NOTED. HAND PACKAGE SEALER EQUAL. +2 PULSES NOTED THROUGHOUT. NO EDEMA NOTED. NS INFUSING AT 25ML/HR. ACTIVE BOWEL SOUNDS HEARD IN ALL 4 QUADRANTS. SOFT AND NONTENDER ABDOMEN. NO BM THUS FAR. PT VOIDS PER BSC, BUT DOES HAVE STRESS INCONTINENCE. PT CHANGED NEEDED. CLEAR YELLOW URINE NOTED TO BSC. ASSIST X1 NOTED. PT HAS BEEN UP TO THE CHAIR ALL AFTERNOON. PT HASN'T REPORTED PAIN OR SOB THIS SHIFT. PT IS CURRENTLY SITTING IN BED W CALL LIGHT WITHIN REACH. BED IN LOWEST POSITION. VSS. WILL CONTINUE TO MONITOR.
[2020-05-29] VITALS: BP 145/62; PULSE 91; RESP 18; TEMP 36.7; O2SAT 94
[2020-05-29 04:00] VITALS: BP 133/53; PULSE 74; RESP 18; TEMP 36.6; O2SAT 94
[2020-05-29 05:00] VITALS: BMI 20.9
--- NOTE | 2020-05-29 06:01 | PC.NURSE ---
No acute changes. Pt has rested well this shift. Has remained on 2L O2 NC with sats remaining in mid 90s. No c/o soa. Pt lungs are diminished with scattered wheezing. VSS. Medications administered per jul. No other concerns at tis time. Will continue to monitor.
[2020-05-29 06:30] VITALS: PULSE 88; PULSE 90; O2SAT 94
[2020-05-29 07:54] VITALS: BP 153/64; PULSE 85; RESP 18; TEMP 37.3; O2SAT 92
--- NOTE | 2020-05-29 08:45 | HMH.ACPN2 ---
<Brianna Mcleod - Last Filed: 05/29/20 08:56> Internal Medicine - PN: Subj *Date: 05/29/20 *Time: 08:56 Interval history: States she is better today. She is set up in the chair most of the day yesterday and tolerated well. She is eating as usual. She has had some slight nausea. She is voiding QS. She denies chest pain and feels her breathing is at baseline. Exam Vital signs and Labs for Last 24 Hours: Temp Pulse Resp BP Pulse Ox 99.1 F 85 18 153/64 H 92 L 05/29/20 07:54 05/29/20 07:54 05/29/20 07:54 05/29/20 07:54 05/29/20 07:54 I & O for Last 24 hours: Intake & Output 05/26/20 05/27/20 05/28/20 05/29/20 11:59 11:59 11:59 11:59 Intake Total 2331 / 2331 640 / 640 3077 / 3077 2227 / 2227 Output Total 600 / 600 450 / 450 200 / 200 Balance 1731 / 1731 640 / 640 2627 / 2627 2026 / 2026 Weight 103 lb 1 oz 107 lb 2 oz 103 lb 6.349 oz 113 lb 12.8 oz Microbiology Reports for the Last 24 Hours: Microbiology 05/25/20 16:23 Sputum - Expectorated Sputum Gram Stain - Final 05/25/20 16:23 Sputum - Expectorated Sputum Sputum Culture - Preliminary - Constitutional no acute distress Comments: Sitting on the bedside eating her breakfast. Appears comfortable. - *Routine Respiratory Exam Present: diminished air movement (Posteriorly, bilaterally) - *Routine Cardiovascular Exam Present: RRR - *Routine Extremities Exam Present: MADDIE stockings. Absent: edema - *Routine Neurological Exam Present: alert, oriented X3 Assessment and Plan (1) Pneumonia Status: Acute Qualifiers: Pneumonia type: due to unspecified organism Laterality: right Lung location: lower lobe of lung Qualified Code(s): J18.9 - Pneumonia, unspecified organism Category: Medical Code(s): J18.9 - Pneumonia, unspecified organism (2) UTI (urinary tract infection) Status: Acute Category: Medical Code(s): N39.0 - Urinary tract infection, site not specified (3) Dizziness, nonspecific Status: Acute Category: Medical Code(s): R42 - Dizziness and giddiness (4) Iatrogenic hyperthyroidism Status: Acute Category: Medical Code(s): E05.80 - Other thyrotoxicosis without thyrotoxic crisis or storm (5) Depression with anxiety Status: Acute Category: Medical Code(s): F41.8 - Other specified anxiety disorders (6) Hypertension Status: Chronic Qualifiers: Hypertension type: essential hypertension Qualified Code(s): I10 - Essential (primary) hypertension Category: Medical Code(s): I10 - Essential (primary) hypertension (7) Hypothyroidism Status: Chronic Qualifiers: Hypothyroidism type: unspecified Qualified Code(s): E03.9 - Hypothyroidism, unspecified Category: Medical Code(s): E03.9 - Hypothyroidism, unspecified (8) Supplemental oxygen dependent Status: Chronic Category: Medical Code(s): Z99.81 - Dependence on supplemental oxygen (9) COPD (chronic obstructive pulmonary disease) Status: Acute Category: Medical Code(s): J44.9 - Chronic obstructive pulmonary disease, unspecified (10) History of lung cancer Status: Chronic Category: Medical Code(s): Z85.118 - Personal history of other malignant neoplasm of bronchus and lung - Assessment and plan all Dx Assessment and Plan for all problems:: Patient will be discharged home. Medication changes as per discharge medication reconciliation sheet. Benazepril, levothyroxine, and Valium decreased. Fluoxetine was discontinued <Adrian Jones - Last Filed: 06/02/20 09:26> Internal Medicine - PN: Subj *Date: 06/02/20 *Time: 09:26 Exam Vital signs and Labs for Last 24 Hours: Temp Pulse Resp BP Pulse Ox 99.1 F 85 18 153/64 H 92 L 05/29/20 07:54 05/29/20 07:54 05/29/20 07:54 05/29/20 07:54 05/29/20 07:54 Assessment and Plan (1) Pneumonia Status: Acute Qualifiers: Pneumonia type: due to unspecified organism Laterality: right Lung locati
--- NOTE | 2020-05-29 13:35 | HMH.DCSUM ---
General - General Admission date:: 05/24/20 <Adrian Jones - 06/03/20 22:23> 05/24/20 <LinkTalia - 05/29/20 13:40> Discharge date: 05/29/20 <LinkTalia - 05/29/20 13:40> HPI HPI: Funmi is a 75-year-old white female with a history of lung cancer, COPD, hypothyroidism, hypertension who presented to the emergency room yesterday complaining of weakness and dizziness. She has had complaints of dizziness with frequent falls for several months. She had an MRI of the brain in November which ruled out metastatic disease. She recently saw Dr. Frazier for ENT consultation and he found no otologic reason for her dizziness. On work-up in the ER yesterday, her chest x-ray showed possible early infiltrate and urinalysis showed 1+ leukocytes. TSH was also suppressed. White blood cell count normal. She has been admitted for further evaluation and treatment. At the time of my exam this morning she simply is feeling weak. She denies chest pain, increased shortness of breath, fever, nausea, or vomiting. She has had some constipation. Denies abdominal pain. She has had some cough that is occasionally productive. Her chief complaint is simply weakness and dizziness. She wonders if this could be related to her medication. She has had no recent changes in her medication. She does report a poor appetite and has lost weight. In reviewing recent [facility] visits, she has lost about 30 pounds in the past 6 months. She continues to follow with Dr. Spears. She had a surveillance CT scan of the chest last month which was unremarkable for recurring cancer. She is generally very sedentary at home and states she sleeps a lot through the day. She gets very little exercise. <LinkTalia - 05/29/20 13:40> Hospital Course Hospital Course: The patient's chest x-ray showed COPD with a developing density in the right lower lobe and lingula which may be due to areas of pneumonia. Her head CT showed nothing acute. She was started on antibiotics pending cultures. She did become confused on 05/27/2020 but was easily reoriented. Her cough improved and she was able to sit up in a chair. She still felt weak. Her urine culture showed mixed organisms suggesting contamination. Her blood culture showed no growth. She was continued on Levaquin and a repeat chest x-ray was ordered. It showed a right lung with persistent minimal patchy infiltrate towards the base and a left lung with slight improvement of subtle infiltrate just above the left hemidiaphragm. The patient did begin feeling better. Her shortness of breath improved as did her cough. She was able to sit up in a chair for approximately 4 to 5 hours. She began tolerating a diet well. She was switched from IV to oral steroids. By 05/29/2020 she was stable to be discharged home. Her sputum showed normal respiratory hannah. She was discharged home on Levaquin and steroids. <Talia Maza - 05/29/20 13:40> Objective Vital signs: Temp Pulse Resp BP Pulse Ox 99.1 F 85 18 153/64 H 92 L 05/29/20 07:54 05/29/20 07:54 05/29/20 07:54 05/29/20 07:54 05/29/20 07:54 <Adrian Jones - 06/03/20 22:23> Temp Pulse Resp BP Pulse Ox 99.1 F 85 18 153/64 H 92 L 05/29/20 07:54 05/29/20 07:54 05/29/20 07:54 05/29/20 07:54 05/29/20 07:54 <Talia Maza - 05/29/20 13:40> Narrative: - Constitutional no acute distress Comments: Sitting on the bedside eating her breakfast. Appears comfortable. - *Routine Respiratory Exam Present: diminished air movement (Posteriorly, bilaterally) - *Routine Cardiovascular Exam Present: RRR - *Routine Extremities Exam Present: MADDIE stockings. Absent: edema - *Routine Neurological Exam Present: alert, oriented X3 <Talia Maza - 05/29/20 13:40> Results Labs on day of discharge: Preliminary micro results at discharge 05/24/20 17:24 Blood Culture - Preliminary Blood NO GROWTH
== END 2020-05-29 10:43 | disposition home or self-care (01) | DRG 194 ==
LOC: ER 17:10 → 2ND 17:53
PROVIDERS: Admitting Provider Family Medicine; Emergency Provider Emergency Medicine; PCP Family Medicine; Visit Provider Family Medicine
DX: J18.9 Pneumonia, unspecified organism (principal); J44.1 Chronic obstructive pulmonary disease with (acute) exacerbation; N39.0 Urinary tract infection, site not specified; Z99.81 Dependence on supplemental oxygen; I10 Essential (primary) hypertension; Z72.0 Tobacco use; E05.80 Other thyrotoxicosis without thyrotoxic crisis or storm; E78.5 Hyperlipidemia, unspecified; F41.8 Other specified anxiety disorders; Z79.52 Long term (current) use of systemic steroids; Z88.0 Allergy status to penicillin; Z88.5 Allergy status to narcotic agent; Z88.8 Allergy status to other drugs, medicaments and biological substances; Z79.899 Other long term (current) drug therapy
CPT/HCPCS: 36415; 70450; 71045; 71046; 80048; 80053; 81001; 82803; 83605; 84443; 84484; 85007; 85025; 86328; 87040; 87070; 87086; 87205; 93005; 94640; 96365; 96375; 97110; 97116; 97162; 99285; G0378; J1956; U0003

== ENCOUNTER → 2020-07-24 09:18 | Outpatient (CLI) | payer MEDICARE, OTHER, SELFPAY ==
--- NOTE | 2020-07-24 | CT_ITS ---
PROCEDURE: CT CHEST W CON CLINCAL INDICATION: Follow-up lung cancer. Inc chest lung cancer Lung ca follow up New recent dizziness Having to use a walker COMPARISON: CT CT CHEST W CON from 04/06/2020 TECHNIQUE: IV Contrast: 75ml Isovue 370 Axial images obtained with sagittal and coronal reformats. All CT scans at the facility use one or more dose reduction, viz: automated exposure control, ma/kV adjustment per patient size (including targeted exams where dose is matched to indication, i.e. head), or iterative reconstruction technique. FINDINGS: No mediastinal or hilar mass or adenopathy. There is thickening of the pericardium anteriorly suggesting pericardial effusion measuring approximately 1 cm. Atherosclerotic calcification involves the thoracic aorta with some mural thrombus also noted involving the descending thoracic aorta. COPD with centrilobular emphysema. There is an irregular parenchymal opacity in the right lower lobe at 8 mm. An additional irregular parenchymal opacity is present in the right lower lobe superior segment at 8 mm. These areas were not present on the previous exam. There is some mild thickening of the left major fissure inferiorly. Atelectatic and/or fibrotic changes are present in the left lower lobe. Postsurgical changes are present along the lower cervical spine. There are old fractures of the left ribs. No lytic or blastic changes apparent. IMPRESSION: 1. COPD with centrilobular emphysema with chronic scarring as previously described. 2. There are 2 new parenchymal opacities in the right lower lobe. These may be inflammatory/infectious or neoplastic. Continued follow-up suggested. Dictated by: Darian Quezada MD 07/25/2020 14:48 Darian Quezada MD in [facility] 07/25/2020 14:48
--- NOTE | 2020-07-24 | CT_ITS ---
PROCEDURE: CT ABDOMEN PELVIS W CON CLINICAL INDICATION: inc chest lung cancer Lung ca follow up dizzy Having to use a walker COMPARISON: CT CT ABDOMEN PELVIS W CON from 04/06/2020 TECHNIQUE: IV Contrast: 75ML Isovue 370 Oral Contrast None Axial images obtained with sagittal and coronal reformats. All CT scans at the facility use one or more dose reduction, viz: automated exposure control, ma/kV adjustment per patient size (including targeted exams where dose is matched to indication, i.e. head), or iterative reconstruction technique. FINDINGS: A hypervascular lesion is once again noted involving the left hepatic lobe segment 2 measuring approximately 2 cm not significantly changed. There is a sub cm hypodensity in the hepatic dome which is unchanged. There has been a prior cholecystectomy with mild dilatation of the intra and extrahepatic biliary radicles. The spleen and pancreas have an unremarkable appearance. There is bilateral adrenal enlargement not significantly changed. Bilateral renal cysts are once again noted. There is a mild amount of retained colonic feces. No evidence of appendicitis or diverticulitis. Colonic diverticulosis is present. There is a tiny umbilical hernia containing fat. Just inferior to the tiny umbilical hernia there is Maria A additional hernia containing fat. There is chronic wedging of L1. IMPRESSION: Overall stable CT appearance of the abdomen as described above. No change with no acute finding Dictated by: Darian Quezada MD 07/25/2020 15:03 Darian Quezada MD in [facility] 07/25/2020 15:03
[2020-07-24 09:37] LABS: Basophils % 0.6 % (0.1-2.0); Eosinophils # 0.1 K/mm3 (0.0-0.4); Eosinophils % 2.3 % (0.1-12.0); Hematocrit 35.2 % (37.0-47.0); Hemoglobin 11.1 g/dL (12.2-16.2); Lymphocytes # 1.2 K/mm3 (0.7-4.5); Lymphocytes % 24.6 % (10-50); Mean Corpuscular HGB Conc 31.5 g/dL (31.8-35.4); Mean Corpuscular Hemoglobin 30.5 pg (27.0-31.2); Mean Corpuscular Volume 96.9 fl (81-99); Mean Platelet Volume 8.6 fl (7.4-10.4); Monocytes # 0.4 K/mm3 (0.1-1.0); Neutrophils # 3.1 K/mm3 (1.8-7.8); Neutrophils % 64.5 % (37.0-80.0); Platelet Count 206 K/mm3 (142-424); Red Blood Count 3.63 M/mm3 (4.20-5.40); Red Cell Distribution Width 14.6 % (11.5-17.5); White Blood Count 4.8 K/mm3 (4.8-10.8)
[2020-07-24 09:42] LABS: Chloride 102 mmol/L (98-107); Sodium 140 mmol/L (136-145)
[2020-07-24 09:43] LABS: Potassium 4.6 mmoL/L (3.5-5.1)
[2020-07-24 09:45] LABS: Alanine Aminotransferase 15 U/L (12-78); Albumin Level 4.3 g/dl (3.5-5.0); Albumin/Globulin Ratio 1.3 (1.1-1.8); Alkaline Phosphatase 80 U/L (38-126); Anion Gap 9.6 mEq/L (5-15); Aspartate Amino Transferase 27 U/L (14-36); Bilirubin,Total 0.4 mg/dl (0.2-1.3); Blood Urea Nitrogen 35 mg/dl (7-17); Carbon Dioxide 33 mmol/L (22.0-30.0); Estimated Glomerular Filt Rate 37 ml/min (>60); GFR (African American) 44 ML/MIN (>60); Globulin 3.2 g/dL (1.3-3.2); Glucose 96 mg/dl (74-100); Total Protein,Serum 7.5 g/dl (6.3-8.2)
[2020-07-24 09:46] LABS: Calcium 9.9 mg/dl (8.4-10.2)
== END ==
PROVIDERS: PCP Family Medicine; Visit Provider Internal Medicine Medical Oncology
DX: C34.90 Malignant neoplasm of unspecified part of unspecified bronchus or lung (principal); Z03.89 Encounter for observation for other suspected diseases and conditions ruled out
CPT/HCPCS: 36415; 71260; 74177; 80053; 85025

== ENCOUNTER → 2020-09-10 15:10 | Outpatient (CLI) | payer MEDICARE, OTHER, SELFPAY ==
[2020-09-10 16:07] LABS: Basophils % 0.6 % (0.1-2.0); Eosinophils # 0.1 K/mm3 (0.0-0.4); Hematocrit 36.7 % (37.0-47.0); Hemoglobin 11.7 g/dL (12.2-16.2); Lymphocytes # 1.5 K/mm3 (0.7-4.5); Lymphocytes % 22.3 % (10-50); Mean Corpuscular HGB Conc 31.7 g/dL (31.8-35.4); Mean Corpuscular Hemoglobin 30.6 pg (27.0-31.2); Mean Corpuscular Volume 96.3 fl (81-99); Monocytes # 0.4 K/mm3 (0.1-1.0); Monocytes % 6.4 % (1.7-9.3); Neutrophils # 4.8 K/mm3 (1.8-7.8); Neutrophils % 69.8 % (37.0-80.0); Platelet Count 188 K/mm3 (142-424); Red Blood Count 3.81 M/mm3 (4.20-5.40); Red Cell Distribution Width 13.8 % (11.5-17.5); White Blood Count 6.8 K/mm3 (4.8-10.8)
[2020-09-10 16:15] LABS: Chloride 98 mmol/L (98-107); Sodium 136 mmol/L (136-145)
[2020-09-10 16:17] LABS: Alanine Aminotransferase 31 U/L (12-78); Alkaline Phosphatase 79 U/L (38-126); Aspartate Amino Transferase 41 U/L (14-36); Bilirubin,Total 0.4 mg/dl (0.2-1.3); Blood Urea Nitrogen 32 mg/dl (7-17); Carbon Dioxide 33 mmol/L (22.0-30.0); Estimated Glomerular Filt Rate 48 ml/min (>60); GFR (African American) 59 ML/MIN (>60)
[2020-09-10 16:18] LABS: Albumin Level 3.9 g/dl (3.5-5.0); Albumin/Globulin Ratio 1.6 (1.1-1.8); Calcium 9.4 mg/dl (8.4-10.2); Globulin 2.4 g/dL (1.3-3.2); Glucose 107 mg/dl (74-100); Total Protein,Serum 6.3 g/dl (6.3-8.2)
== END ==
PROVIDERS: Visit Provider Internal Medicine Medical Oncology
DX: C34.90 Malignant neoplasm of unspecified part of unspecified bronchus or lung (principal); F17.210 Nicotine dependence, cigarettes, uncomplicated
CPT/HCPCS: 36415; 80053; 85025

== ENCOUNTER → 2020-09-11 13:27 | Outpatient (CLI) | payer MEDICARE, OTHER, SELFPAY ==
--- NOTE | 2020-09-11 13:31 | CT_ITS ---
PROCEDURE: CT CHEST W CON CLINCAL INDICATION: LUNG CANCER Follow up COMPARISON: CT ABDWW CT abdomen wo/w con from 02/10/[address] CHEST W CON from 07/24/2020 TECHNIQUE: IV Contrast: 75ml Isovue 370 Axial images obtained with sagittal and coronal reformats. All CT scans at the facility use one or more dose reduction, viz: automated exposure control, ma/kV adjustment per patient size (including targeted exams where dose is matched to indication, i.e. head), or iterative reconstruction technique. FINDINGS: HEART AND MEDIASTINAL STRUCTURES: No mediastinal or mass. No adenopathy. There is diffuse vascular calcification of the aorta. Coronary artery calcifications are also noted. There is thickening of the pericardium anteriorly measuring up to 10 mm. This is similar on the previous exam.. There is a small focal area of protrusion along the descending thoracic aorta containing mural thrombus. This area of protrusion measures approximately 8 mm AP and 5 mm transverse not significantly changed consistent with a small saccular aneurysm there is mild fusiform dilatation of the descending aorta just distal to this region at 2.8 cm. LUNGS AND PLEURAL SPACES: COPD with centrilobular emphysema. There is chronic collapse of the lingula. Parenchymal opacity once again noted in the right lower lobe laterally and superiorly not significantly changed. Previously noted parenchymal opacity in the right lung base posterior laterally is somewhat less prominent. No new nodular lesions are evident. BONY STRUCTURES: There is an old left 9th and 10th rib fracture. UPPER ABDOMEN: Irregular enhancing lesion of the left hepatic lobe is once again noted and does not appear significantly changed ADDITIONAL FINDINGS: No other significant abnormalities. IMPRESSION: 1. COPD with centrilobular emphysema. Right lower lobe small parenchymal opacities are once again noted 1 of which is unchanged in the other appears slightly less prominent possibly due to areas of scarring. 2. Chronic collapse of the lingula. 3. Other nonacute findings as described above not significantly changed. Dictated by: Darian Quezada MD 09/12/2020 12:37 Darian Quezada MD in [facility] 09/12/2020 12:37
== END ==
PROVIDERS: PCP Family Medicine; Visit Provider Internal Medicine Medical Oncology
DX: C34.90 Malignant neoplasm of unspecified part of unspecified bronchus or lung (principal)
CPT/HCPCS: 71260; Q9967

== ENCOUNTER 2021-01-30 19:37 | Emergency (ER) | payer MEDICARE, OTHER, SELFPAY ==
[2021-01-30 19:40] VITALS: BP 115/68; PULSE 94; RESP 21; TEMP 37; O2SAT 93; BMI 17.4
--- NOTE | 2021-01-30 20:13 | XR_ITS ---
PROCEDURE INFORMATION: Exam: XR Chest Exam date and time: 01/30/2021 8:13 PM Age: 75 years old Clinical indication: Cough and shortness of breath; Patient HX: Cough, SOA, known lung cancer-has finished treatments, no SX to lungs TECHNIQUE: Imaging protocol: XR of the chest. Views: 2 views. COMPARISON: CT CHEST W CON 09/11/2020 1:43 PM FINDINGS: Lungs: Hyperinflation/emphysema with diffuse interstitial coarsening. Linear opacities in the left suprahilar region probably represent scarring and potentially post therapeutic change. This may also relate to chronic atelectatic collapse of the lingula as seen on prior CT. No focal airspace consolidation. Pleural spaces: Chronic blunting of the bilateral costophrenic angles, with possible trace left pleural effusion. No pneumothorax. Heart/Mediastinum: Normal heart size. Vasculature: Aortic atherosclerosis. Bones/joints: Osteopenia. Old rib fractures. Spondylosis. Lower cervical ACDF noted. IMPRESSION: 1. COPD. Possible trace left pleural effusion. 2. Chronic scarring and potentially post therapeutic change in the left suprahilar region, with possible superimposed chronic atelectatic collapse of the lingula.
[2021-01-30 20:28] LABS: Chloride 97 mmol/L (98-107); Potassium 4.5 mmoL/L (3.5-5.1); Sodium 137 mmol/L (136-145)
[2021-01-30 20:31] LABS: Alanine Aminotransferase 32 U/L (12-78); Albumin Level 4.1 g/dl (3.5-5.0); Alkaline Phosphatase 85 U/L (38-126); Anion Gap 14.5 mEq/L (5-15); Aspartate Amino Transferase 41 U/L (14-36); Bilirubin,Unconjugated 0.1 mg/dL (0.0-1.1); Blood Urea Nitrogen 23 mg/dl (7-17); Calcium 8.9 mg/dl (8.4-10.2); Carbon Dioxide 30 mmol/L (22.0-30.0); Creatinine Clearance Estimated 30 mL/min (50-200); Estimated Glomerular Filt Rate 48 ml/min (>60); GFR (African American) 59 ML/MIN (>60); Glucose 136 mg/dl (74-100); Total Protein,Serum 6.7 g/dl (6.3-8.2)
[2021-01-30 20:40] LABS: Basophils % 0.3 % (0.1-2.0); Eosinophils # 0.1 K/mm3 (0.0-0.4); Eosinophils % 1.2 % (0.1-12.0); Hematocrit 32.7 % (37.0-47.0); Hemoglobin 10.6 g/dL (12.2-16.2); Lymphocytes # 1.1 K/mm3 (0.7-4.5); Lymphocytes % 17.6 % (10-50); Mean Corpuscular HGB Conc 32.5 g/dL (31.8-35.4); Mean Corpuscular Hemoglobin 32.4 pg (27.0-31.2); Mean Corpuscular Volume 99.8 fl (81-99); Monocytes # 0.4 K/mm3 (0.1-1.0); Monocytes % 6.4 % (1.7-9.3); Neutrophils # 4.6 K/mm3 (1.8-7.8); Neutrophils % 74.5 % (37.0-80.0); Platelet Count 191 K/mm3 (142-424); Red Blood Count 3.28 M/mm3 (4.20-5.40); Red Cell Distribution Width 13.4 % (11.5-17.5); White Blood Count 6.2 K/mm3 (4.8-10.8)
[2021-01-30 20:41] LABS: Bilirubin,Indirect 0.1 mg/dL (0.0-0.9); Bilirubin,Total 0.1 mg/dl (0.2-1.3)
[2021-01-30 20:44] LABS: Troponin I < 0.01 ng/ml (0.00-0.034)
[2021-01-30 21:29] LABS: Coronavirus 19, PCR Not Detected (NotDetected); Influenza A, PCR Not Detected (NotDetected); Influenza B, PCR Not Detected (NotDetected)
[2021-01-30 21:41] VITALS: PULSE 67; PULSE 80
--- NOTE | 2021-01-30 21:43 | HMH.EDGENADL ---
ED Disposition Clinical Impression: COPD exacerbation Disposition: Home, Self-Care Condition on Discharge: Good Instructions: DI for Chronic Obstructive Pulmonary Disease Additional Instructions: Use the medications as prescribed and return to the ED for any new or worsening symptoms. Prescriptions: Famotidine [Acid Controller] 20 mg PO DAILY 5 Days #5 tab Transmission Status: Pending to [facility] predniSONE [Deltasone 20mg tablet] 40 mg PO DAILY 4 Days #8 tab Transmission Status: Pending to [facility] Doxycycline Monohydrate 100 mg PO BID 10 Days #20 tab Transmission Status: Pending to [facility] Referrals: Adrian Jones MD [Primary Care Provider] - Time of Disposition: 21:51 - Critical Care Critical Care Time: No Attestation: On 01/30/21, the high probability of a clinically significant, sudden or life threatening deterioration of the following system(s) required my full and direct attention, intervention and personal management. The time I documented below is in addition to time spent performing reported procedures but includes the following listed in this critical care notation. Medical Decision Making - Medical Records Medical records reviewed: Yes: I reviewed the patient's medical records. - Domingo Inquiry Pt receiving controlled substance: No Vital Signs: 01/30/21 19:40 01/30/21 21:41 Temperature 98.6 F Temperature Source Oral Pulse Rate 80 Pulse Rate [Right Radial] 94 H Respiratory Rate 21 Blood Pressure [Right Arm] 115/68 Blood Pressure Mean [Right Arm] 83 Blood Pressure Source [Right Arm] Automatic Cuff Blood Pressure Position [Right Arm] Supine 02 Sat by Pulse Oximetry 93 L Oxygen Delivery Method Nasal Cannula Oxygen Flow Rate (LPM) 2 - Lab Data Lab Results 01/30/21 20:10: Sodium 137, Potassium 4.5, Chloride 97 L, Carbon Dioxide 30, Anion Gap 14.5, BUN 23 H, Creatinine 1.10 H, Estimated Creat Clear 30, Estimated GFR 48 L, Est GFR ( Amer) 59, Glucose 136 H, Calcium 8.9, Total Bilirubin 0.1 L, Direct Bilirubin 0.0, Conjugated Bilirubin 0.0, Indirect Bilirubin 0.1, Unconjugated Bilirubin 0.1, AST 41 H, ALT 32, Alkaline Phosphatase 85, Troponin I < 0.01, Total Protein 6.7, Albumin 4.1 01/30/21 20:35: WBC 6.2, RBC 3.28 L, Hgb 10.6 L, Hct 32.7 L, MCV 99.8 H, MCH 32.4 H, MCHC 32.5, RDW 13.4, Plt Count 191, MPV 8.0, Neut % (Auto) 74.5, Lymph % (Auto) 17.6, Da[place]hin % (Auto) 6.4, Eos % (Auto) 1.2, Baso % (Auto) 0.3, Neut # (Auto) 4.6, Lymph # (Auto) 1.1, Da[place]hin # (Auto) 0.4, Eos # (Auto) 0.1, Baso # (Auto) 0.0 01/30/21 20:53: SARS-CoV-2 (PCR) Not detected, Influenza A Untype (PCR) Not detected, Influenza Type B (PCR) Not detected Result diagrams: 01/30/21 20:35 01/30/21 20:10 Orders (Tests/Meds): ED MEDICATIONS Discontinued Medications Generic Name Dose Route Start Last Admin Trade Name Freq PRN Reason Stop Dose Admin Albuterol/Ipratropium 6 ml 01/30/21 20:45 01/30/21 21:40 Ipratropium/Albuterol 3 Ml Neb IH 01/30/21 20:46 6 ml ONCE ONE Administration Methylprednisolone Sodium Succinate 125 mg 01/30/21 20:44 01/30/21 21:12 Methylprednisolone Sod Succ 125mg Vial IM 01/30/21 20:45 Not Given ONCE ONE Methylprednisolone Sodium Succinate 125 mg 01/30/21 21:12 01/30/21 21:12 Methylprednisolone Sod Succ 125mg Vial IV 01/30/21 21:13 125 mg ONCE ONE Administration ORDERS Category Date Time Status Troponin I Q3H Lab 01/30/21 23:15 Ordered Troponin I Q3H Lab 01/31/21 02:15 Ordered - Radiology Data #1 Image(s): Chest Image Reviewed: Yes I reviewed the patient's radiology image, Yes I discussed the image results w/the radiologist Preliminary Findings: Abnormal COMPARISON: CT CHEST W CON 09/11/2020 1:43 PM FINDINGS: Lungs: Hyperinflation/emphysema with diffuse interstitial coarsening. Linear opacities in the left suprahilar region probably represent scarring and
[2021-01-30 22:07] VITALS: BP 127/82; PULSE 81; RESP 22; TEMP 37; O2SAT 94
== END 2021-01-30 22:08 | disposition home or self-care (01) ==
PROVIDERS: Emergency Provider Student in an Organized Health Care Education/Training Program; PCP Family Medicine
DX: J44.1 Chronic obstructive pulmonary disease with (acute) exacerbation (principal); Z85.118 Personal history of other malignant neoplasm of bronchus and lung; I10 Essential (primary) hypertension; E78.5 Hyperlipidemia, unspecified; K21.9 Gastro-esophageal reflux disease without esophagitis; Z88.0 Allergy status to penicillin; Z79.899 Other long term (current) drug therapy; Z20.822 Contact with and (suspected) exposure to COVID-19
CPT/HCPCS: 71046; 80048; 80076; 84484; 85025; 96375; 99283; U0003

== ENCOUNTER → 2021-02-05 09:26 | Outpatient (CLI) | payer MEDICARE, OTHER, SELFPAY ==
[2021-02-05 11:40] LABS: Chloride 101 mmol/L (98-107)
[2021-02-05 11:41] LABS: Potassium 4.4 mmoL/L (3.5-5.1); Sodium 140 mmol/L (136-145)
[2021-02-05 11:43] LABS: Alanine Aminotransferase 36 U/L (12-78); Aspartate Amino Transferase 28 U/L (14-36); Blood Urea Nitrogen 34 mg/dl (7-17); Estimated Glomerular Filt Rate 44 ml/min (>60); GFR (African American) 53 ML/MIN (>60)
[2021-02-05 11:44] LABS: Albumin Level 3.9 g/dl (3.5-5.0); Albumin/Globulin Ratio 1.8 (1.1-1.8); Alkaline Phosphatase 80 U/L (38-126); Anion Gap 12.4 mEq/L (5-15); Bilirubin,Total 0.2 mg/dl (0.2-1.3); Calcium 9.2 mg/dl (8.4-10.2); Carbon Dioxide 31 mmol/L (22.0-30.0); Globulin 2.2 g/dL (1.3-3.2); Glucose 102 mg/dl (74-100); Total Protein,Serum 6.1 g/dl (6.3-8.2)
[2021-02-05 11:45] LABS: Basophils % 0.4 % (0.1-2.0); Eosinophils # 0.1 K/mm3 (0.0-0.4); Eosinophils % 0.9 % (0.1-12.0); Hematocrit 39.8 % (37.0-47.0); Hemoglobin 12.6 g/dL (12.2-16.2); Lymphocytes # 1.4 K/mm3 (0.7-4.5); Lymphocytes % 18.3 % (10-50); Mean Corpuscular HGB Conc 31.6 g/dL (31.8-35.4); Mean Corpuscular Hemoglobin 31.9 pg (27.0-31.2); Mean Corpuscular Volume 100.9 fl (81-99); Mean Platelet Volume 7.8 fl (7.4-10.4); Monocytes # 0.5 K/mm3 (0.1-1.0); Monocytes % 7.4 % (1.7-9.3); Neutrophils # 5.4 K/mm3 (1.8-7.8); Neutrophils % 73.1 % (37.0-80.0); Platelet Count 291 K/mm3 (142-424); Red Blood Count 3.95 M/mm3 (4.20-5.40); Red Cell Distribution Width 13.6 % (11.5-17.5); White Blood Count 7.4 K/mm3 (4.8-10.8)
== END ==
PROVIDERS: Visit Provider Internal Medicine Medical Oncology
DX: C34.90 Malignant neoplasm of unspecified part of unspecified bronchus or lung (principal)
CPT/HCPCS: 36415; 80053; 85025

== ENCOUNTER → 2021-02-14 08:47 | Outpatient (CLI) | payer MEDICARE, OTHER, SELFPAY ==
--- NOTE | 2021-02-14 08:49 | CT_ITS ---
PROCEDURE: CT ABDOMEN PELVIS W CON CLINICAL INDICATION: LUNG CANCER COMPARISON: CT CT ABDOMEN PELVIS W CON from 07/24/[address] CHEST W CON from 02/14/2021 TECHNIQUE: IV Contrast: 75ML Isovue 370 Oral Contrast 450ml Redicat Axial images obtained with sagittal and coronal reformats. All CT scans at the facility use one or more dose reduction, viz: automated exposure control, ma/kV adjustment per patient size (including targeted exams where dose is matched to indication, i.e. head), or iterative reconstruction technique. FINDINGS: Hypervascular lesion once again noted in the left hepatic lobe segment 2 at approximately 2 cm. This lesion becomes almost imperceptible on the delayed images suggesting a flash filling hemangioma. 5 mm hypodense lesion in the hepatic dome unchanged. No other hepatic abnormalities apparent. There has been a prior cholecystectomy with mild biliary dilatation. The spleen and pancreas have an unremarkable appearance. Bilateral adrenal enlargement which appears stable. Bilateral renal cysts. No renal mass. No renal or ureteral calculi. No evidence of retroperitoneal adenopathy. No intestinal obstruction or free air. There is a moderate amount of retained colonic feces. No evidence of appendicitis or diverticulitis. There is colonic diverticulosis. There is a small umbilical hernia containing fat. Just inferior to the umbilicus is a additional ventral abdominal wall hernia containing fat unchanged no pelvic mass or abnormal fluid collection. Chronic wedge compression changes involves L1. IMPRESSION: Overall stable CT appearance of the abdomen and pelvis. Dictated by: Darian Quezada MD 02/15/2021 07:59 Darian Quezada MD in [place] 02/15/2021 07:59
--- NOTE | 2021-02-14 08:49 | CT_ITS ---
PROCEDURE: CT CHEST W CON CLINCAL INDICATION: LUNG CANCER COMPARISON: CT CT CHEST W CON from 09/11/2020 TECHNIQUE: IV Contrast: 75ml Isovue 370 Axial images obtained with sagittal and coronal reformats. All CT scans at the facility use one or more dose reduction, viz: automated exposure control, ma/kV adjustment per patient size (including targeted exams where dose is matched to indication, i.e. head), or iterative reconstruction technique. FINDINGS: HEART AND MEDIASTINAL STRUCTURES: No mediastinal or hilar mass or adenopathy. Small anterior mediastinal lymph node is present and stable. Remains thickening of the pericardium anteriorly slightly more prominent measuring 13 mm previously at 10 mm. Atherosclerotic changes involve the thoracic aorta with mild amount of mural thrombus and mild dilatation of the descending thoracic aorta measuring up to 2.8 cm similar to the previous exam with small saccular protrusions along the descending thoracic aorta unchanged. Atherosclerotic ulcers are present similar to the previous study. LUNGS AND PLEURAL SPACES: COPD with panlobular emphysema chronic volume loss once again noted of the lingula. No suspicious pulmonary nodules are evident. A bulla is present in the left lower lobe unchanged. No effusions or infiltrates. Previously noted parenchymal opacities in the right lower lobe have improved with small residual density in the right lower lobe inferiorly and laterally which may be due to an area of scarring BONY STRUCTURES: Degenerative changes thoracic spine with mild chronic wedge compression changes of L1. No bony destructive process apparent. UPPER ABDOMEN: See abdomen report ADDITIONAL FINDINGS: No other significant abnormalities. IMPRESSION: Stable CT appearance of the chest with no acute finding Dictated by: Darian Quezada MD 02/15/2021 07:51 Darian Quezada MD in [place] 02/15/2021 07:51
== END ==
PROVIDERS: PCP Family Medicine; Visit Provider Internal Medicine Medical Oncology
DX: C34.90 Malignant neoplasm of unspecified part of unspecified bronchus or lung (principal)
CPT/HCPCS: 71260; 74177; Q9967

== ENCOUNTER → 2021-08-16 09:35 | Outpatient (CLI) | payer MEDICARE, OTHER, SELFPAY ==
[2021-08-16 10:28] LABS: Basophils % 0.6 % (0.1-2.0); Eosinophils # 0.1 K/mm3 (0.0-0.4); Eosinophils % 1.7 % (0.1-12.0); Hematocrit 35.5 % (37.0-47.0); Hemoglobin 11.9 g/dL (12.2-16.2); Lymphocytes % 18.8 % (10-50); Mean Corpuscular HGB Conc 33.5 g/dL (31.8-35.4); Mean Corpuscular Hemoglobin 32.5 pg (27.0-31.2); Mean Corpuscular Volume 97.1 fl (81-99); Mean Platelet Volume 7.2 fl (7.4-10.4); Monocytes # 0.4 K/mm3 (0.1-1.0); Monocytes % 7.2 % (1.7-9.3); Neutrophils # 3.8 K/mm3 (1.8-7.8); Neutrophils % 71.8 % (37.0-80.0); Platelet Count 234 K/mm3 (142-424); Red Blood Count 3.65 M/mm3 (4.20-5.40); Red Cell Distribution Width 12.9 % (11.5-17.5); White Blood Count 5.3 K/mm3 (4.8-10.8)
[2021-08-16 10:54] LABS: Alanine Aminotransferase 15 U/L (12-78); Albumin Level 3.6 g/dl (3.5-5.0); Albumin/Globulin Ratio 1.6 (1.1-1.8); Alkaline Phosphatase 83 U/L (38-126); Anion Gap 8.7 mEq/L (5-15); Aspartate Amino Transferase 23 U/L (14-36); Bilirubin,Total 0.3 mg/dl (0.2-1.3); Blood Urea Nitrogen 22 mg/dl (7-17); Calcium 8.7 mg/dl (8.4-10.2); Carbon Dioxide 31 mmol/L (22.0-30.0); Chloride 101 mmol/L (98-107); Estimated Glomerular Filt Rate 48 ml/min (>60); GFR (African American) 58 ML/MIN (>60); Globulin 2.2 g/dL (1.3-3.2); Glucose 97 mg/dl (74-100); Potassium 4.7 mmoL/L (3.5-5.1); Sodium 136 mmol/L (136-145); Total Protein,Serum 5.8 g/dl (6.3-8.2)
== END ==
PROVIDERS: Visit Provider Internal Medicine Medical Oncology
DX: C34.90 Malignant neoplasm of unspecified part of unspecified bronchus or lung (principal)
CPT/HCPCS: 36415; 80053; 85025

== ENCOUNTER → 2021-08-19 08:49 | Outpatient (CLI) | payer MEDICARE, OTHER, SELFPAY ==
--- NOTE | 2021-08-19 08:55 | CT_ITS ---
FINAL REPORT TECHNIQUE: After the administration of intravenous contrast, axial images through the chest were performed by computed tomography. This study was performed with techniques to keep radiation doses as low as reasonably achievable, (ALARA). Individualized dose reduction techniques using automated exposure control or adjustment of mA and/or kV according to the patient's size were employed. CLINICAL HISTORY: LUNG CA/ followup COMPARISON: February 14, 2021 and September 11, 2020 FINDINGS: There is no axillary adenopathy. There is no hilar adenopathy. There is a lymph node in the anterior mediastinum measuring up to 1.2 cm on image 36 of series 4. The heart size is normal. There is dense calcification in the aortic arch. There are advanced changes of centrilobular emphysema. There is a new, somewhat spiculated density in the left upper lobe measuring 11 x 7 mm that can be seen well on image 17 of series 4. A large bulla is seen at the medial left lung base measuring up to 5.4 cm and similar to previous. There is no pericardial or pleural effusion. There is ectasia of the descending thoracic aorta measuring up to 2.8 x 2.7 cm. A small saccular protuberance is identified anterolaterally to the left seen, on image 52 of series 4. There is associated mural thrombus within the ectatic segment. These findings are stable IMPRESSION: Developing spiculated density in the left upper lobe which is of concern. Recommend 3 month follow-up CT. Stable ectasia of the descending thoracic aorta with a small saccular aneurysm component. Reviewed, Interpreted and Dictated by Haroldo Murphy MD Transcribed by Vivi Aguirre Authenticated by Haroldo Murphy MD on 08/19/2021 12:14:21 PM [facility]
--- NOTE | 2021-08-19 08:55 | CT_ITS ---
FINAL REPORT TECHNIQUE: After the administration of intravenous contrast, axial images were obtained through the abdomen and pelvis by computed tomography. This study was performed with technique to keep radiation doses as low as reasonably achievable, (ALARA). Individualized dose reduction techniques using automated exposure control or adjustment of the MA and/or KV according to the patient's size were employed. CLINICAL HISTORY: LUNG CA COMPARISON: 02/14/2021 FINDINGS: Abdomen: There is mild intra-and extrahepatic biliary ductal dilatation. Again seen is a hypervascular focus in the left hepatic lobe measuring 2.3 cm, similar to prior exam presumably representing hemangioma or vascular malformation. The liver is normal in size and attenuation. The spleen is unremarkable. The adrenals are enlarged and nodular bilaterally, left greater than right which is unchanged from prior exam. The pancreas is unremarkable. The kidneys enhance appropriately. There are benign appearing bilateral renal cysts measuring up to 2.6 cm in diameter. Dense vascular calcifications are seen of the abdominal aorta and iliac vessels. There is a fat-containing ventral hernia. There is no free fluid or adenopathy. Pelvis: The appendix is not identified. There is a large amount of stool throughout the colon. There is mild sigmoid diverticulosis without evidence of diverticulitis. The urinary bladder is unremarkable. There is no free fluid or adenopathy. IMPRESSION: No acute intra-abdominal process. Stable bilateral adrenal enlargement and nodularity. Stable hypervascular left hepatic lobe focus presumably representing hemangioma or vascular malformation. Reviewed, Interpreted and Dictated by Haroldo Murphy MD Transcribed by Harmony Suarez Authenticated by Haroldo Murphy MD on 08/19/2021 10:42:41 AM [facility]
== END ==
PROVIDERS: PCP Family Medicine; Visit Provider Internal Medicine Medical Oncology
DX: C34.90 Malignant neoplasm of unspecified part of unspecified bronchus or lung (principal)
CPT/HCPCS: 71260; 74177; Q9967

== ENCOUNTER 2021-10-10 11:29 | Emergency (ER) | payer MEDICARE, OTHER, SELFPAY ==
[2021-10-10] VITALS (9 sets, daily range): BP systolic 122–154; BP diastolic 49–65; PULSE 69–99; RESP 14–22; TEMP 36.7–36.8; O2SAT 92–98; BMI 16.9; BMI 20.5
--- NOTE | 2021-10-10 11:28 | ECG_ITS ---
APPROVED REPORT Exam: Resting ECG HR:80 bpm ECG Measurements Heart Rate 80 AXES FL 171 P 91 QRSd 69 QRS 51 QT 352 T 89 QTc 388 Conclusion SINUS RHYTHM INDETERMINATE AXIS NORMAL ECG UNCONFIRMED REPORT Electronically signed by : Luis Diaz MD 10/10/2021 21:08:50
--- NOTE | 2021-10-10 11:31 | PC.NURSE ---
JESSICA Garcia at BS
--- NOTE | 2021-10-10 11:33 | XR_ITS ---
FINAL REPORT CLINICAL HISTORY: SOA COMPARISON: January 30, 2021 FINDINGS: The heart size is normal. The mediastinum is normal. The lungs are hyperinflated consistent with COPD. There is mild but worsening pulmonary opacity worrisome for bilateral pneumonia. There are no pleural effusions. There is no pneumothorax. Postoperative changes are seen in the lower cervical spine. IMPRESSION: Mild but worsening pulmonary opacity worrisome for bilateral pneumonia. Reviewed, Interpreted and Dictated by Fidel Lara III, MD Transcribed by Raghu Murray Authenticated by Fidel Lara III, MD on 10/10/2021 12:26:[address] [facility]
[2021-10-10 11:48] LABS: Coronavirus 19, PCR Not Detected (NotDetected); Influenza A, PCR Not Detected (NotDetected); Influenza B, PCR Not Detected (NotDetected)
--- NOTE | 2021-10-10 12:06 | PC.NURSE ---
Respiratory at BS
[2021-10-10 12:25] LABS: Basophils % 0.3 % (0.1-2.0); Eosinophils % 0.4 % (0.1-12.0); Hematocrit 35.4 % (37.0-47.0); Hemoglobin 11.7 g/dL (12.2-16.2); Lymphocytes # 0.4 K/mm3 (0.7-4.5); Lymphocytes % 3.6 % (10-50); Mean Corpuscular HGB Conc 32.9 g/dL (31.8-35.4); Mean Corpuscular Hemoglobin 31.7 pg (27.0-31.2); Mean Corpuscular Volume 96.5 fl (81-99); Mean Platelet Volume 7.8 fl (7.4-10.4); Monocytes # 0.5 K/mm3 (0.1-1.0); Monocytes % 4.4 % (1.7-9.3); Neutrophils # 10.2 K/mm3 (1.8-7.8); Neutrophils % 91.3 % (37.0-80.0); Platelet Count 232 K/mm3 (142-424); Red Blood Count 3.67 M/mm3 (4.20-5.40); Red Cell Distribution Width 13.4 % (11.5-17.5); White Blood Count 11.2 K/mm3 (4.8-10.8)
[2021-10-10 12:26] LABS: Anion Gap 12.2 mEq/L (5-15); Blood Urea Nitrogen 25 mg/dl (7-17); Calcium 9.1 mg/dl (8.4-10.2); Carbon Dioxide 34 mmol/L (22.0-30.0); Chloride 93 mmol/L (98-107); Creatinine Clearance Estimated 32 mL/min (50-200); Estimated Glomerular Filt Rate 54 ml/min (>60); GFR (African American) 65 ML/MIN (>60); Glucose 152 mg/dl (74-100); Potassium 4.2 mmoL/L (3.5-5.1); Sodium 135 mmol/L (136-145)
[2021-10-10 12:27] LABS: Lactic Acid 1.6 mmol/L (0.7-2.1)
[2021-10-10 12:33] LABS: MANUAL DIFFERENTIAL MANUAL DIFFERENTIAL (MANUAL DIFF)
[2021-10-10 12:44] LABS: Troponin I < 0.01 ng/ml (0.00-0.034)
[2021-10-10 12:46] LABS: Lymphocytes % 8 % (10-50); Monocytes % 3 % (2-9); Neutrophils % 89 % (42-76); Platelet Estimate Normal; RBC Morphology Normal; Total Cells Counted 100
--- NOTE | 2021-10-10 13:26 | HMH.EDSOB ---
ED Disposition Clinical Impression: Community acquired pneumonia Qualifiers: Laterality: unspecified laterality Qualified Code(s): J18.9 - Pneumonia, unspecified organism COPD (chronic obstructive pulmonary disease) Qualifiers: COPD type: COPD with acute exacerbation Qualified Code(s): J44.1 - Chronic obstructive pulmonary disease with (acute) exacerbation Disposition: Home, Self-Care Condition on Discharge: Good Instructions: Pneumonia-Adult Prescriptions: Doxycycline Monohydrate [Doxycycline Dorado 100mg Tab] 100 mg PO Q12 #20 tab Transmission Status: [facility] methylPREDNISolone [Medrol 4mg tab] 4 mg PO DIRECTED #21 tab Transmission Status: Pending to [facility] Referrals: Adrian Jones MD [Primary Care Provider] - - Critical Care Critical Care Time: No Attestation: On 10/10/21, the high probability of a clinically significant, sudden or life threatening deterioration of the following system(s) required my full and direct attention, intervention and personal management. The time I documented below is in addition to time spent performing reported procedures but includes the following listed in this critical care notation. Medical Decision Making - Medical Records Medical records reviewed: Yes: I reviewed the patient's medical records. - Domingo Inquiry Pt receiving controlled substance: No Vital Signs: 10/10/21 11:30 10/10/21 11:31 10/10/21 12:00 Temperature 98.1 F Temperature Source Oral Pulse Rate 99 H 81 Pulse Rate [Left Radial] 91 H Respiratory Rate 22 22 Blood Pressure 145/65 H 123/49 L Blood Pressure [Left Arm] 128/52 L Blood Pressure Mean [Left Arm] 77 Blood Pressure Source Automatic Cuff Automatic Cuff Blood Pressure Source [Left Arm] Automatic Cuff Blood Pressure Position Sitting Sitting Blood Pressure Position [Left Arm] Sitting 02 Sat by Pulse Oximetry 95 92 L 95 Oxygen Delivery Method Nasal Cannula Nasal Cannula Nasal Cannula Oxygen Flow Rate (LPM) 3 3 3 10/10/21 12:10 10/10/21 12:30 10/10/21 13:00 Temperature Temperature Source Pulse Rate 69 77 81 Pulse Rate [Left Radial] Respiratory Rate 15 17 Blood Pressure 122/53 L 144/62 H Blood Pressure [Left Arm] Blood Pressure Mean [Left Arm] Blood Pressure Source Automatic Cuff Automatic Cuff Blood Pressure Source [Left Arm] Blood Pressure Position Sitting Sitting Blood Pressure Position [Left Arm] 02 Sat by Pulse Oximetry 98 97 Oxygen Delivery Method Nasal Cannula Nasal Cannula Oxygen Flow Rate (LPM) 3 3 10/10/21 13:31 Temperature Temperature Source Pulse Rate 81 Pulse Rate [Left Radial] Respiratory Rate 15 Blood Pressure 154/59 H Blood Pressure [Left Arm] Blood Pressure Mean [Left Arm] Blood Pressure Source Automatic Cuff Blood Pressure Source [Left Arm] Blood Pressure Position Sitting Blood Pressure Position [Left Arm] 02 Sat by Pulse Oximetry 97 Oxygen Delivery Method Nasal Cannula Oxygen Flow Rate (LPM) 3 - Lab Data Lab Results 10/10/21 11:40: SARS-CoV-2 (PCR) Not detected, Influenza A Untype (PCR) Not detected, Influenza Type B (PCR) Not detected 10/10/21 12:00: WBC 11.2 H, RBC 3.67 L, Hgb 11.7 L, Hct 35.4 L, MCV 96.5, MCH 31.7 H, MCHC 32.9, RDW 13.4, Plt Count 232, MPV 7.8, Neut % (Auto) 91.3 H, Lymph % (Auto) 3.6 L, Dorado % (Auto) 4.4, Eos % (Auto) 0.4, Baso % (Auto) 0.3, Neut # (Auto) 10.2 H, Lymph # (Auto) 0.4 L, Dorado # (Auto) 0.5, Eos # (Auto) 0.0, Baso # (Auto) 0.0, Total Counted 100, Neutrophils % (Manual) 89 H, Lymphocytes % (Manual) 8 L, Monocytes % (Manual) 3, Platelet Estimate Normal, RBC Morphology Normal 10/10/21 12:00: Sodium 135 L, Potassium 4.2, Chloride 93 L, Carbon Dioxide 34 H, Anion Gap 12.2, BUN 25 H, Creatinine 1.00, Estimated Creat Clear 32, Estimated GFR 54 L, Est GFR ( Amer) 65, Glucose 152 H, Calcium 9.1, Troponin I < 0.01 10/10/21 12:00: Lactate 1.6 Result diagrams: 10/10/21 12:0
--- NOTE | 2021-10-10 13:43 | PC.NURSE ---
JESSICA Gusman at BS
--- NOTE | 2021-10-10 14:07 | PC.NURSE ---
ED MD at for update on POC
== END 2021-10-10 16:00 | disposition home or self-care (01) ==
PROVIDERS: Emergency Provider Emergency Medicine; PCP Family Medicine
DX: J18.9 Pneumonia, unspecified organism (principal); J44.1 Chronic obstructive pulmonary disease with (acute) exacerbation; R07.9 Chest pain, unspecified; Z20.822 Contact with and (suspected) exposure to COVID-19; I10 Essential (primary) hypertension; K21.9 Gastro-esophageal reflux disease without esophagitis; E78.5 Hyperlipidemia, unspecified; E03.9 Hypothyroidism, unspecified; M19.90 Unspecified osteoarthritis, unspecified site; K76.9 Liver disease, unspecified; H26.9 Unspecified cataract; F17.210 Nicotine dependence, cigarettes, uncomplicated; Z79.52 Long term (current) use of systemic steroids; Z79.899 Other long term (current) drug therapy; Z88.0 Allergy status to penicillin; Z88.5 Allergy status to narcotic agent; Z88.8 Allergy status to other drugs, medicaments and biological substances; Z92.21 Personal history of antineoplastic chemotherapy; Z92.3 Personal history of irradiation; Z85.9 Personal history of malignant neoplasm, unspecified; Z82.49 Family history of ischemic heart disease and other diseases of the circulatory system; Z83.438 Family history of other disorder of lipoprotein metabolism and other lipidemia; Z83.49 Family history of other endocrine, nutritional and metabolic diseases; Z80.9 Family history of malignant neoplasm, unspecified; Z83.3 Family history of diabetes mellitus; Z99.81 Dependence on supplemental oxygen
CPT/HCPCS: 71045; 80048; 83605; 84484; 85007; 85025; 87040; 87077; 87186; 93005; 96374; 96375; 99285; C9803; U0003; U0005

== ENCOUNTER → 2021-11-26 12:49 | Outpatient (CLI) | payer MEDICARE, OTHER, SELFPAY ==
--- NOTE | 2021-11-26 13:04 | CT_ITS ---
FINAL REPORT CLINICAL HISTORY: LUNG CANCER 3 month followup COMPARISON: 08/19/2021 FINDINGS: Axial CT images of the chest were obtained with contrast. Coronal reformatted images were also obtained. This study was performed with techniques to keep radiation doses as low as reasonably achievable, (ALARA). Individualized dose reduction techniques using automated exposure control or adjustment of mA and/or KV according to the patient's size were employed. There is a 12 mm anterior mediastinal node which is stable, likely represents a mildly enlarged lymph node. Finding is nonspecific. No axillary mass or adenopathy is identified. There is a small pericardial effusion. Note is made of moderate emphysema. There is a partially improved left upper lobe opacity, favor inflammatory or scar. There is a new opacity in the posterior left upper lobe measuring 11 mm, nonspecific. There also other worsening several left upper lobe opacities. Limited images of the upper abdomen reveal several left renal cysts. There is bilateral adrenal gland enlargement, may represent hyperplasia or adenomas. There is an area of contrast enhancement in left hepatic lobe with prominent vessels of uncertain etiology, could possibly represent an AVM or other possible vascular malformation. IMPRESSION: Partially improved lung left upper lobe opacity, favor inflammatory. New opacities in the left upper lobe, favor inflammatory but recommend additional follow-up CT in 6 months. Reviewed, Interpreted and Dictated by Fidel Lara III, MD Transcribed by Brianna Haas Authenticated and [facility]
[2021-11-26 13:16] LABS: Basophils # 0.1 K/mm3 (0-0.2); Basophils % 1.2 % (0.1-2.0); Eosinophils # 0.1 K/mm3 (0.0-0.4); Hemoglobin 10.8 g/dL (12.2-16.2); Lymphocytes % 12.1 % (10-50); Mean Corpuscular HGB Conc 30.1 g/dL (31.8-35.4); Mean Corpuscular Hemoglobin 29.2 pg (27.0-31.2); Mean Corpuscular Volume 97.2 fl (81-99); Monocytes # 0.5 K/mm3 (0.1-1.0); Monocytes % 5.7 % (1.7-9.3); Neutrophils # 6.4 K/mm3 (1.8-7.8); Neutrophils % 80.1 % (37.0-80.0); Platelet Count 341 K/mm3 (142-424); Red Blood Count 3.71 M/mm3 (4.20-5.40); Red Cell Distribution Width 13.7 % (11.5-17.5)
[2021-11-26 13:21] LABS: Chloride 98 mmol/L (98-107); Potassium 4.2 mmoL/L (3.5-5.1); Sodium 134 mmol/L (136-145)
[2021-11-26 13:23] LABS: Blood Urea Nitrogen 23 mg/dl (7-17); Estimated Glomerular Filt Rate 61 ml/min (>60); GFR (African American) 74 ML/MIN (>60)
[2021-11-26 13:24] LABS: Alanine Aminotransferase 17 U/L (12-78); Albumin Level 3.7 g/dl (3.5-5.0); Albumin/Globulin Ratio 1.3 (1.1-1.8); Alkaline Phosphatase 77 U/L (38-126); Anion Gap 7.2 mEq/L (5-15); Aspartate Amino Transferase 26 U/L (14-36); Bilirubin,Total 0.2 mg/dl (0.2-1.3); Carbon Dioxide 33 mmol/L (22.0-30.0); Globulin 2.8 g/dL (1.3-3.2); Total Protein,Serum 6.5 g/dl (6.3-8.2)
[2021-11-26 13:25] LABS: Calcium 8.9 mg/dl (8.4-10.2); Glucose 109 mg/dl (74-100)
== END ==
PROVIDERS: PCP Family Medicine; Visit Provider Internal Medicine Medical Oncology
DX: C34.90 Malignant neoplasm of unspecified part of unspecified bronchus or lung (principal)
CPT/HCPCS: 36415; 71260; 80053; 85025; Q9967

== ENCOUNTER → 2022-03-04 12:04 | Outpatient (CLI) | payer MEDICARE, OTHER, SELFPAY ==
--- NOTE | 2022-03-04 12:30 | CT_ITS ---
FINAL REPORT CLINICAL HISTORY: LUNG CA COMPARISON: 11/26/2021 FINDINGS: Axial CT images of the chest were obtained with contrast. Coronal reformatted images were also obtained. This study was performed with techniques to keep radiation doses as low as reasonably achievable, (ALARA). Individualized dose reduction techniques using automated exposure control or adjustment of mA and/or KV according to the patient's size were employed. There are small mediastinal nodes without evidence of adenopathy. No axillary mass or adenopathy is identified. There is moderate plaque of the thoracic aorta. A mild stenosis is seen involving the proximal left subclavian artery. There is moderate emphysema. There is interval improvement in left upper lobe opacities. There is a sizable bulla in the medial left lower lobe. Small pericardial effusion is identified measuring 12 mm in thickness. The patient is status post cholecystectomy. There are bilateral renal cysts. Again identified is an unusual contrast enhancing area in the lateral segment of the left hepatic lobe measuring 20 mm, could represent avascular necrosis or hypervascular mass. There is bilateral adrenal gland enlargement, favor hyperplasia or adenoma. IMPRESSION: Improved left upper lobe opacity. Other findings are stable. Reviewed, Interpreted and Dictated by Fidel Lara III, MD Transcribed by Brianna Haas Authenticated and [facility]
[2022-03-04 12:33] LABS: Basophils # 0.2 K/mm3 (0-0.2); Basophils % 2.6 % (0.1-2.0); Eosinophils # 0.1 K/mm3 (0.0-0.4); Eosinophils % 1.1 % (0.1-12.0); Hematocrit 36.9 % (37.0-47.0); Hemoglobin 12.1 g/dL (12.2-16.2); Lymphocytes # 1.3 K/mm3 (0.7-4.5); Lymphocytes % 18.8 % (10-50); Mean Corpuscular HGB Conc 32.7 g/dL (31.8-35.4); Mean Corpuscular Hemoglobin 31.6 pg (27.0-31.2); Mean Corpuscular Volume 96.5 fl (81-99); Mean Platelet Volume 8.1 fl (7.4-10.4); Monocytes # 0.4 K/mm3 (0.1-1.0); Monocytes % 6.3 % (1.7-9.3); Neutrophils # 4.9 K/mm3 (1.8-7.8); Neutrophils % 71.2 % (37.0-80.0); Platelet Count 227 K/mm3 (142-424); Red Blood Count 3.82 M/mm3 (4.20-5.40); Red Cell Distribution Width 13.7 % (11.5-17.5); White Blood Count 6.9 K/mm3 (4.8-10.8)
[2022-03-04 13:05] LABS: Alanine Aminotransferase 16 U/L (12-78); Albumin Level 3.8 g/dl (3.5-5.0); Albumin/Globulin Ratio 1.7 (1.1-1.8); Alkaline Phosphatase 80 U/L (38-126); Anion Gap 12.2 mEq/L (5-15); Aspartate Amino Transferase 23 U/L (14-36); Bilirubin,Total < 0.1 mg/dl (0.2-1.3); Blood Urea Nitrogen 27 mg/dl (7-17); Calcium 8.8 mg/dl (8.4-10.2); Carbon Dioxide 35 mmol/L (22.0-30.0); Chloride 90 mmol/L (98-107); Estimated Glomerular Filt Rate 54 ml/min (>60); GFR (African American) 65 ML/MIN (>60); Globulin 2.2 g/dL (1.3-3.2); Glucose 93 mg/dl (74-100); Potassium 4.2 mmoL/L (3.5-5.1); Sodium 133 mmol/L (136-145)
== END ==
PROVIDERS: PCP Family Medicine; Visit Provider Internal Medicine Medical Oncology
DX: C34.92 Malignant neoplasm of unspecified part of left bronchus or lung (principal)
CPT/HCPCS: 36415; 71260; 80053; 85025; Q9967

== ENCOUNTER → 2022-09-08 07:46 | Outpatient (CLI) | payer MEDICARE, OTHER, SELFPAY ==
--- NOTE | 2022-09-08 08:23 | CT_ITS ---
FINAL REPORT CLINICAL HISTORY: LUNG CANCER COMPARISON: March 2022 FINDINGS: Axial images were obtained from the lung apex to the mid abdomen by computed tomography after the administration of IV contrast. Coronal reformatted images were obtained. This study was performed with techniques to keep radiation doses as low as reasonably achievable, (ALARA). Individualized dose reduction techniques using automated exposure control or adjustment of mA and/or kV according to the patient's size were employed. There is no axillary adenopathy. Several small mediastinal lymph nodes are stable. Heart size is normal. There is a moderate to large amount of plaque in the descending thoracic aorta. There is no pleural effusion. Again seen is a small pericardial effusion. There are moderate to severe changes of emphysema. There is mild scarring. There is no suspicious pulmonary nodule or mass. Several old rib fractures are present. IMPRESSION: No suspicious pulmonary nodule or mass. Reviewed, Interpreted and Dictated by Fidel Lara III, MD Transcribed by Raghu Murray Authenticated and [facility]
[2022-09-08 08:27] LABS: Basophils % 0.3 % (0.1-2.0); Eosinophils # 0.1 K/mm3 (0.0-0.4); Eosinophils % 1.6 % (0.1-12.0); Hemoglobin 12.1 g/dL (12.2-16.2); Lymphocytes # 1.2 K/mm3 (0.7-4.5); Lymphocytes % 20.5 % (10-50); Mean Corpuscular HGB Conc 31.8 g/dL (31.8-35.4); Mean Corpuscular Hemoglobin 29.8 pg (27.0-31.2); Mean Corpuscular Volume 93.8 fl (81-99); Mean Platelet Volume 7.6 fl (7.4-10.4); Monocytes # 0.4 K/mm3 (0.1-1.0); Monocytes % 7.7 % (1.7-9.3); Neutrophils % 69.9 % (37.0-80.0); Platelet Count 209 K/mm3 (142-424); Red Blood Count 4.05 M/mm3 (4.20-5.40); Red Cell Distribution Width 13.8 % (11.5-17.5); White Blood Count 5.8 K/mm3 (4.8-10.8)
--- NOTE | 2022-09-08 08:42 | CT_ITS ---
FINAL REPORT TECHNIQUE: Axial CT images of the abdomen were obtained with IV contrast only. Coronal reformatted images were also obtained. This study was performed with techniques to keep radiation doses as low as reasonably achievable (ALARA). Individualized dose reduction techniques using automated exposure control or adjustment of mA and/or kV according to the patient''s size were employed. CLINICAL HISTORY: LUNG CANCER COMPARISON: January FINDINGS: There is a contrast enhancing lobular mass in the left liver dome measuring 2.3 cm and is visually stable favoring a hemangioma versus less likely vascular malformation. There has been cholecystectomy. Mild biliary duct dilatation is favored to represent post cholecystectomy change. The pancreas appears normal. The spleen size is within normal limits. There is bilateral adrenal gland enlargement is stable and favors adenoma over metastasis. There are bilateral renal cysts. There is no evidence of adenopathy. No abnormal fluid collection is seen. No localized inflammatory processes identified. There is an umbilical hernia containing fat. IMPRESSION: Lobular mass in the left liver dome is stable and likely represents a hemangioma versus less likely vascular malformation. Reviewed, Interpreted and Dictated by Fidel Lara III, MD Transcribed by Raghu Murray Authenticated and [facility]
[2022-09-08 08:53] LABS: Chol/HDL Ratio 2.6 (1-3.5); Cholesterol 179 mg/dl (140-200); HDL Cholesterol 70 mg/dl (40-60); Triglycerides 60 mg/dl (30-150); VLDL Cholesterol 12 mg/dL (0-40)
[2022-09-08 08:55] LABS: Chloride 100 mmol/L (98-107)
[2022-09-08 08:56] LABS: Potassium 4.1 mmoL/L (3.5-5.1); Sodium 136 mmol/L (136-145)
[2022-09-08 08:58] LABS: Alanine Aminotransferase 11 U/L (12-78); Albumin Level 3.9 g/dl (3.5-5.0); Alkaline Phosphatase 97 U/L (38-126); Aspartate Amino Transferase 21 U/L (14-36); Bilirubin,Total 0.3 mg/dl (0.2-1.3); Blood Urea Nitrogen 24 mg/dl (7-17); Estimated Glomerular Filt Rate 61 ml/min (>60); GFR (African American) 73 ML/MIN (>60)
[2022-09-08 08:59] LABS: Albumin/Globulin Ratio 1.8 (1.1-1.8); Anion Gap 7.1 mEq/L (5-15); Calcium 8.7 mg/dl (8.4-10.2); Carbon Dioxide 33 mmol/L (22.0-30.0); Globulin 2.2 g/dL (1.3-3.2); Glucose 89 mg/dl (74-100); Total Protein,Serum 6.1 g/dl (6.3-8.2)
[2022-09-08 09:04] LABS: Direct LDL Cholesterol 93.49 mg/dL (100-129)
[2022-09-08 09:10] LABS: T4 (Thyroxine) 11.1 ug/dl (5.53-11.0)
[2022-09-08 09:24] LABS: Thyroid Stimulating Hormone 0.02 uIU/mL (0.465-4.68)
[2022-09-08 09:25] LABS: 25-OH Vitamin D, Total 113 ng/mL (30-100)
== END ==
PROVIDERS: PCP Family Medicine; Visit Provider Internal Medicine Medical Oncology
DX: C34.92 Malignant neoplasm of unspecified part of left bronchus or lung (principal); E03.9 Hypothyroidism, unspecified; I10 Essential (primary) hypertension; E55.9 Vitamin D deficiency, unspecified; E78.5 Hyperlipidemia, unspecified
CPT/HCPCS: 36415; 71260; 74160; 80053; 80061; 82306; 84436; 84443; 85025; Q9967

== ENCOUNTER → 2022-12-04 08:42 | Outpatient (CLI) | payer MEDICARE, OTHER, SELFPAY ==
[2022-12-04 09:22] LABS: Basophils % 0.3 % (0.1-2.0); Eosinophils # 0.1 K/mm3 (0.0-0.4); Hematocrit 36.8 % (37.0-47.0); Hemoglobin 11.8 g/dL (12.2-16.2); Lymphocytes # 0.9 K/mm3 (0.7-4.5); Mean Corpuscular Hemoglobin 30.3 pg (27.0-31.2); Mean Corpuscular Volume 94.5 fl (81-99); Mean Platelet Volume 8.3 fl (7.4-10.4); Monocytes # 0.4 K/mm3 (0.1-1.0); Monocytes % 7.3 % (1.7-9.3); Neutrophils # 3.5 K/mm3 (1.8-7.8); Neutrophils % 71.5 % (37.0-80.0); Platelet Count 207 K/mm3 (142-424); Red Cell Distribution Width 14.2 % (11.5-17.5); White Blood Count 4.9 K/mm3 (4.8-10.8)
[2022-12-04 09:46] LABS: Alanine Aminotransferase 16 U/L (12-78); Albumin Level 3.8 g/dl (3.5-5.0); Albumin/Globulin Ratio 1.7 (1.1-1.8); Alkaline Phosphatase 79 U/L (38-126); Aspartate Amino Transferase 25 U/L (14-36); Bilirubin,Total 0.2 mg/dl (0.2-1.3); Blood Urea Nitrogen 23 mg/dl (7-17); Calcium 8.5 mg/dl (8.4-10.2); Carbon Dioxide 33 mmol/L (22.0-30.0); Chloride 99 mmol/L (98-107); Estimated Glomerular Filt Rate 54 ml/min (>60); GFR (African American) 65 ML/MIN (>60); Globulin 2.2 g/dL (1.3-3.2); Glucose 109 mg/dl (74-100); Sodium 138 mmol/L (136-145)
== END ==
PROVIDERS: PCP Family Medicine; Visit Provider Internal Medicine Medical Oncology
DX: C34.91 Malignant neoplasm of unspecified part of right bronchus or lung (principal)
CPT/HCPCS: 36415; 80053; 85025

== ENCOUNTER → 2022-12-05 08:42 | Outpatient (CLI) | payer MEDICARE, OTHER, SELFPAY ==
--- NOTE | 2022-12-05 08:48 | CT_ITS ---
FINAL REPORT CLINICAL HISTORY: LUNG CANCER COMPARISON: 09/08/2022 FINDINGS: Axial CT images of the chest were obtained with contrast. Coronal and sagittal reformatted images were also obtained. This study was performed with techniques to keep radiation doses as low as reasonably achievable, (ALARA). Individualized dose reduction techniques using automated exposure control or adjustment of mA and/or KV according to the patient's size were employed. There are several small and borderline mediastinal nodes which are unchanged in appearance since the prior CT of August. There is a small pericardial effusion which is stable since the prior CT. Severe changes of emphysema as well as mild scarring also remain present. There is a chronic L1 endplate compression fracture unchanged. Chronic left 8th and 9th rib fractures remain present, and there is evidence of previous anterior fusion of the lower cervical spine. No axillary mass or adenopathy is identified. On lung window images, no pulmonary mass or dominant pulmonary nodule is identified. No localized pulmonary inflammatory process is identified. Limited images of the upper abdomen reveal no mass or localized inflammatory process. IMPRESSION: No significant change in appearance of chest CT since the prior CT of August 2022. Specifically, no new masses or nodules are seen in the chest. Reviewed, Interpreted and Dictated by Fidel Lara III, MD Transcribed by Alycia Chu Authenticated and . [facility]
--- NOTE | 2022-12-05 08:49 | CT_ITS ---
FINAL REPORT CLINICAL HISTORY: LUNG CANCER COMPARISON: 09/08/2022 FINDINGS: CT OF THE ABDOMEN AND PELVIS WITH CONTRAST Axial CT images of the abdomen and pelvis were obtained after the administration of oral and iv contrast. Coronal and sagittal reformatted images were also obtained and reviewed.This study was performed with techniques to keep radiation doses as low as reasonably achievable (ALARA). Individualized dose reduction techniques using automated exposure control or adjustment of mA and/or kV according to the patient's size were employed. Abdomen: The lung bases are clear. The heart is normal in size. Examination of the liver reveals a contrast enhancing mass in the dome of the left lobe of the liver, noted on previous CT examinations, and unchanged in appearance. There is a hypervascular segment in the left lobe of the liver laterally, favor avascular perfusion variant. There is bilateral enlargement of the adrenal glands also stable since the prior CT, favor adrenal adenomas. The spleen reveals several small new splenic masses, not present on the prior exam, that may represent granulomas of the spleen although metastases can not be completely excluded. Continued follow-up is suggested. The pancreas has an unremarkable appearance. There is an umbilical hernia containing fat, stable. Multiple bilateral renal cysts remain present and are stable since the prior exam. Diffuse vascular calcification remains present. There is no free fluid or adenopathy. No mass or abnormal fluid collection is seen. Pelvis: The appendix is unremarkable in appearance. The urinary bladder is unremarkable. No inflammatory process is seen. There is no evidence of mass or adenopathy. There is no evidence of bowel obstruction. IMPRESSION: New multiple small splenic masses, which may represent granulomas although metastases can not be excluded. These are new since the prior CT. Would recommend continued follow-up for further evaluation. Contrast enhancing mass in the dome of the liver seen on multiple prior exams remains present and is unchanged. There is a hypervascular area seen on today's exam in the lateral segment of the left lobe of the liver, favor a vascular perfusion variant. Multiple bilateral renal cysts, unchanged. Reviewed, Interpreted and Dictated by Fidel Lara III, MD Transcribed by Alycia Chu Authenticated and [facility]
== END ==
PROVIDERS: PCP Family Medicine; Visit Provider Internal Medicine Medical Oncology
DX: C34.90 Malignant neoplasm of unspecified part of unspecified bronchus or lung (principal)
CPT/HCPCS: 71260; 74177; Q9967

== ENCOUNTER 2023-07-08 09:03 | Outpatient (CLI) | payer MEDICARE, OTHER, SELFPAY ==
[2023-07-08 09:50] LABS: Basophils % 0.6 % (0.1-2.0); Eosinophils # 0.1 K/mm3 (0.0-0.4); Eosinophils % 1.7 % (0.1-12.0); Hematocrit 37.6 % (37.0-47.0); Hemoglobin 12.3 g/dL (12.2-16.2); Lymphocytes # 0.8 K/mm3 (0.7-4.5); Lymphocytes % 19.4 % (10-50); Mean Corpuscular HGB Conc 32.8 g/dL (31.8-35.4); Mean Corpuscular Hemoglobin 31.5 pg (27.0-31.2); Mean Corpuscular Volume 96.3 fl (81-99); Mean Platelet Volume 7.8 fl (7.4-10.4); Monocytes # 0.4 K/mm3 (0.1-1.0); Neutrophils % 69.3 % (37.0-80.0); Platelet Count 213 K/mm3 (142-424); Red Cell Distribution Width 13.9 % (11.5-17.5); White Blood Count 4.3 K/mm3 (4.8-10.8)
[2023-07-08 10:01] LABS: Chloride 102 mmol/L (98-107)
[2023-07-08 10:02] LABS: Potassium 4.2 mmoL/L (3.5-5.1); Sodium 139 mmol/L (136-145)
[2023-07-08 10:04] LABS: Alanine Aminotransferase 13 U/L (12-78); Albumin Level 3.9 g/dl (3.5-5.0); Albumin/Globulin Ratio 1.6 (1.1-1.8); Alkaline Phosphatase 97 U/L (38-126); Anion Gap 6.2 mEq/L (5-15); Aspartate Amino Transferase 24 U/L (14-36); Bilirubin,Total 0.4 mg/dl (0.2-1.3); Blood Urea Nitrogen 27 mg/dl (7-17); Carbon Dioxide 35 mmol/L (22.0-30.0); Estimated Glomerular Filt Rate 48 ml/min (>60); GFR (African American) 58 ML/MIN (>60); Globulin 2.4 g/dL (1.3-3.2); Total Protein,Serum 6.3 g/dl (6.3-8.2)
[2023-07-08 10:05] LABS: Calcium 8.7 mg/dl (8.4-10.2); Glucose 92 mg/dl (74-100)
== END 2023-07-08 23:59 ==
LOC: LAB 09:05
PROVIDERS: PCP Physician Assistant; Visit Provider Internal Medicine Medical Oncology
DX: C34.91 Malignant neoplasm of unspecified part of right bronchus or lung (principal); D72.819 Decreased white blood cell count, unspecified; R71.8 Other abnormality of red blood cells
CPT/HCPCS: 36415; 80053; 85025

== ENCOUNTER 2023-07-09 07:59 | Outpatient (CLI) | payer MEDICARE, OTHER, SELFPAY ==
--- NOTE | 2023-07-09 08:02 | CT_ITS ---
FINAL REPORT TECHNIQUE: Axial CT images of the abdomen and pelvis were obtained before and after the administration of IV contrast. Oral contrast was administered.This study was performed with techniques to keep radiation doses as low as reasonably achievable (ALARA). Individualized dose reduction techniques using automated exposure control or adjustment of mA and/or kV according to the patient''s size were employed. CLINICAL HISTORY: LUNG CANCER COMPARISON: 12/05/2022 FINDINGS: Abdomen: The heart is normal in size. Again seen is a lobular, contrast-enhancing mass in the left liver dome measuring 20 mm, stable from prior exam, favor benign. There is no new hepatic mass. Patient is status postcholecystectomy. There is mild, biliary ductal dilatation favored represent postcholecystectomy change. There is stable adrenal enlargement, favor adenomas. There are multiple small low-attenuation foci in the spleen favored to represent granulomas. The pancreas has an unremarkable appearance. There are bilateral renal cysts. The kidneys otherwise enhance normally. The aorta is normal in caliber. There is no free fluid or adenopathy. No mass or abnormal fluid collection is seen. There are diffuse vascular calcifications. There is umbilical hernia containing fat, stable from prior exam. Precontrast images demonstrate no evidence of nephrolithiasis. Pelvis: The appendix is not well visualized. There are multiple sigmoid diverticula. The urinary bladder is unremarkable. No inflammatory process is seen. There is no evidence of mass or adenopathy. There is no evidence of bowel obstruction. There is a mild, chronic L1 compression fracture which is stable. Mild heterogeneity is seen of the bony structures which is stable. No well-defined bony mass is seen. IMPRESSION: No evidence of acute intra-abdominal process. Stable exam. Reviewed, Interpreted and Dictated by Fidel Lara III, MD Transcribed by Harmony Suarez Authenticated and [facility]
--- NOTE | 2023-07-09 08:02 | CT_ITS ---
FINAL REPORT TECHNIQUE: Axial imaging of the chest was obtained with and without contrast. This study was performed with techniques to keep radiation doses as low as reasonably achievable (ALARA). Individualized dose reduction techniques using automated exposure control or adjustment of mA and/or kV according to the patient's size were employed. CLINICAL HISTORY: LUNG CANCER COMPARISON: 12/05/2022 FINDINGS: There are small mediastinal and hilar lymph nodes. Moderate to severe plaque is seen in thoracic aorta with irregularity of the lumen, stable from prior exam. There is mild stenosis of the proximal left common carotid artery and proximal left subclavian artery. There is no pleural or pericardial effusion. There is severe emphysema and mild scarring. The lungs are otherwise clear. There is no pulmonary mass or nodule. There are several chronic left lateral rib fractures. Postoperative changes are noted of the lower cervical spine. IMPRESSION: No new pulmonary mass or nodule. Stable exam. Reviewed, Interpreted and Dictated by Fidel Lara III, MD Transcribed by Harmony Suarez Authenticated and [facility]
[2023-07-09] MEDS: IOPAMIDOL-370 (76%);100ML BOTTLE 75 ML IV (08:44)
[2023-07-09] MEDS: BARIUM SULFATE(READI-CAT2);450ML BOTTLE 450 ML PO (08:44)
[2023-07-09] MEDS: SODIUM CHLORIDE 0.9% 10ML SYR (RAD ONLY) 10 ML IV (08:44)
== END 2023-07-09 23:59 ==
LOC: RAD 08:00
PROVIDERS: PCP Physician Assistant; Visit Provider Internal Medicine Medical Oncology
DX: C34.90 Malignant neoplasm of unspecified part of unspecified bronchus or lung (principal)
CPT/HCPCS: 71270; 74178; Q9967

== ENCOUNTER 2023-09-09 14:16 | Outpatient (CLI) | payer MEDICARE, OTHER, SELFPAY ==
--- NOTE | 2023-09-09 14:17 | MR_ITS ---
FINAL REPORT CLINICAL HISTORY: decreased mobility, pain down LUE COMPARISON: None FINDINGS: Multiplanar MR imaging of the cervical spine was performed without contrast. On the sagittal T2-weighted images, disc degeneration is seen at multiple levels. The patient has been fused from C5-C7. There is no evidence of fracture. The vertebral alignment is normal. The cervical spinal cord has an unremarkable appearance without evidence of mass, edema or syrinx. The cervicomedullary junction is normal. C2-3: An annular bulge is present. There is no significant canal stenosis or neural foraminal narrowing. C3-4: An annular bulge is present with uncovertebral osteophytes. There is moderate right neural foraminal narrowing. C4-5: Disc osteophyte complex is present with severe bilateral neural foraminal narrowing and mild canal stenosis with an AP canal diameter of 9 mm. C5-6: The patient has been fused at this level. There is severe right and moderate left neural foraminal narrowing. C6-7: The patient has been fused at this level. There is severe bilateral neural foraminal narrowing at this level. C7-T1: Disc osteophyte complex is present with severe right and moderate left neural foraminal narrowing. There is a left paracentral disc protrusion which mildly indents the thecal sac. T1-2: There is no evidence of central canal stenosis or neural foraminal narrowing. IMPRESSION: Multilevel cervical degenerative changes present, most severe at the C4-5 through C7-T1 levels. Reviewed, Interpreted and Dictated by Fidel Lara III, MD Transcribed by Alycia Chu Authenticated and [facility]
--- NOTE | 2023-09-09 14:17 | MR_ITS ---
FINAL REPORT CLINICAL HISTORY: low back pain, ? compression fracture COMPARISON: None FINDINGS: Multiplanar MR imaging of the lumbar spine was performed without contrast. On the sagittal T2-weighted images, disc degeneration is seen throughout. There is mild retrolisthesis of L1 on L2, L2 on L3, and L3 on L4. There is a mild chronic L1 compression fracture present, without evidence of an acute compression fracture. No bony mass is identified. The conus has an unremarkable appearance. L1-2: An annular bulge is present with facet osteoarthropathy and osteophytes. There is mild bilateral neural foraminal narrowing. L2-3: An annular bulge is present with facet osteoarthropathy and osteophytes. There is mild bilateral neural foraminal narrowing. L3-4: An annular bulge is present with facet osteoarthropathy and osteophytes. There is moderate bilateral neural foraminal narrowing. L4-5: An annular bulge is present with facet osteoarthropathy and osteophytes. There is bilateral lateral recess stenosis and mild canal stenosis with an AP canal diameter of 8 mm. There is severe right and moderate left neural foraminal narrowing. L5-S1: An annular bulge is present with facet osteoarthropathy. There is a central disc protrusion which contacts the S1 nerve roots bilaterally, and produces severe right and moderate left neural foraminal narrowing. IMPRESSION: Multilevel degenerative disc disease and spondylosis as described most severe at the L4-5 and L5-S1 levels. Reviewed, Interpreted and Dictated by Fidel Lara III, MD Transcribed by Alycia Chu Authenticated and [facility]
== END 2023-09-09 23:59 | disposition home or self-care (01) ==
LOC: RAD 14:17
PROVIDERS: PCP Physician Assistant; Visit Provider Physician Assistant
DX: M54.2 Cervicalgia (principal); M54.50 Low back pain, unspecified
CPT/HCPCS: 72141; 72148; 76376

== ENCOUNTER 2023-10-07 12:56 | Emergency (ER) | payer MEDICARE, OTHER, SELFPAY ==
[2023-10-07 12:57] VITALS: BP 141/75; PULSE 71; RESP 15; TEMP 36.5; O2SAT 93; BMI 16.5
[2023-10-07 13:30] VITALS: BP 148/52; PULSE 68; O2SAT 97
--- NOTE | 2023-10-07 13:42 | XR_ITS ---
FINAL REPORT CLINICAL HISTORY: fall; c/o right hip pain FINDINGS: Right hip Two views were obtained. There is deformity of the proximal femoral neck which is worse since prior CT dated 07/09/2023 consistent with a femoral neck fracture which may be acute or subacute. Mild degenerative changes are present. There is vascular calcification. IMPRESSION: Acute or subacute femoral neck fracture. If indicated, CT or MRI could further evaluate. Reviewed, Interpreted and Dictated by Fidel Lara III, MD Transcribed by Brianna Haas Authenticated and [facility]
[2023-10-07 13:45] VITALS: BP 148/52; PULSE 68; O2SAT 100
--- NOTE | 2023-10-07 13:50 | CT_ITS ---
FINAL REPORT CLINICAL HISTORY: fall COMPARISON: 05/24/2020 FINDINGS: Axial images of the head were obtained without contrast. Coronal reformatted images were also obtained. This study was performed with techniques to keep radiation doses as low as reasonably achievable (ALARA). Individualized dose reduction techniques using automated exposure control or adjustment of mA and/or kV according to the patient's size were employed. There is generalized age-appropriate atrophy. Periventricular low-attenuation areas are seen consistent with moderate chronic ischemic changes. There is a new high attenuation focus in the right posterior temporal cortex at the posterior aspect of the sylvian fissure measuring 6 mm worrisome for focal hemorrhage. There is no evidence of acute infarct. There is no evidence of shift of the midline structures. No skull abnormality is seen on the bone window images. IMPRESSION: Findings worrisome for hemorrhage in the right posterior temporal cortex. Recommend follow-up CT in 24-48 hours. Atrophy and moderate periventricular chronic ischemic changes. Ordering physician was notified of findings on 10/07/2023 at 3:23 p.m. Reviewed, Interpreted and Dictated by Fidel Lara III, MD Transcribed by Brianna Haas Authenticated and [facility]
--- NOTE | 2023-10-07 13:50 | XR_ITS ---
FINAL REPORT CLINICAL HISTORY: fall ttp; right shoulder pain FINDINGS: Right shoulder Two views were obtained. There is no acute fracture or dislocation. There are mild degenerative changes. No soft tissue abnormality is identified. IMPRESSION: No acute process. Reviewed, Interpreted and Dictated by Fidel Lara III, MD Transcribed by Brianna Haas Authenticated and [facility]
--- NOTE | 2023-10-07 13:50 | XR_ITS ---
FINAL REPORT CLINICAL HISTORY: fall ttp FINDINGS: Right femur Two views were obtained. There is no acute fracture or dislocation. There are mild degenerative changes. Vascular calcification is noted. IMPRESSION: No acute process. Reviewed, Interpreted and Dictated by Fidel Lara III, MD Transcribed by Brianna Haas Authenticated and [facility]
--- NOTE | 2023-10-07 13:50 | XR_ITS ---
FINAL REPORT CLINICAL HISTORY: fall; right upper arm pain FINDINGS: Right humerus Two views were obtained. There is no acute fracture or dislocation. There are mild degenerative changes. No soft tissue abnormality is identified. IMPRESSION: No acute process. Reviewed, Interpreted and Dictated by Fidel Lara III, MD Transcribed by Brianna Haas Authenticated and [facility]
--- NOTE | 2023-10-07 13:50 | CT_ITS ---
FINAL REPORT CLINICAL HISTORY: fall FINDINGS: Axial CT images of the cervical spine were obtained without contrast. Sagittal and coronal reformatted images were also obtained. This study was performed with techniques to keep radiation doses as low as reasonably achievable (ALARA). Individualized dose reduction techniques using automated exposure control or adjustment of mA and/or kV according to the patient's size were employed. There is no evidence of fracture or dislocation. The bony alignment is normal. There is fusion from C5-C7. Moderate degenerative changes with multilevel osteophytes are identified. There is mild central canal stenosis at C5-6 and C6-7. There is multilevel neural foraminal narrowing. No paraspinous soft tissue abnormality is seen. Limited images of the upper thorax are unremarkable. IMPRESSION: Multilevel degenerative change without acute bony abnormality. Reviewed, Interpreted and Dictated by Fidel Lara III, MD Transcribed by Brianna Haas Authenticated and [facility]
--- NOTE | 2023-10-07 14:14 | HMH.EDGENADL ---
Discharge Plan Disposition Patient Disposition: Xfer Short-Term Hosp Chief Complaint: Fall Prescriptions Prescriptions: No Action erythromycin 5 mg/gram (0.5 %) ointment 1 applic Eye-Both HS Patient Comments: APPLY TO LIDS AT BEDTIME urea 20 % cream 1 applic topical TID PRN (Reason: skin irritation) Qty: 85 0RF prednisone 20 mg tablet 20 mg PO BID Qty: 10 0RF Rx Instructions: administer with food or milk potassium chloride 10 mEq tablet extended release 20 meq PO DAILY Zamzee 3 billion cell capsule 1 cap PO meclizine 25 mg tablet 25 mg PO TID PRN (Reason: dizziness) Qty: 60 3RF Boost High Protein 0.06 gram- 1 kcal/mL liquid 1 ea PO BID Qty: 5688 12RF nitroglycerin 0.4 mg tablet, sublingual 0.4 mg SUBLINGUAL NEEDED PRN (Reason: Chest Pain) Qty: 30 3RF Trelegy Ellipta 100-62.5-25 mcg blister with device 1 inh inhalation DAILY Qty: 30 12RF ipratropium-albuterol 0.5 mg-3 mg(2.5 mg base)/3 mL solution for nebulization 3 ml IH TIDP PRN (Reason: COPD) 90 Days Qty: 810 2RF furosemide 40 mg tablet See Rx Instructions .ROUTE .COMPLEX Qty: 90 0RF Dose Instruction: TAKE 1 TABLET BY MOUTH ONCE DAILY FOR HIGH BLOOD PRESSURE Rx Instructions: TAKE 1 TABLET BY MOUTH ONCE DAILY FOR HIGH BLOOD PRESSURE levothyroxine 88 mcg tablet See Rx Instructions .ROUTE .COMPLEX Qty: 90 0RF Dose Instruction: Take 1 tablet by mouth once daily Rx Instructions: Take 1 tablet by mouth once daily benazepril 20 mg tablet See Rx Instructions .ROUTE .COMPLEX Qty: 90 0RF Dose Instruction: Take 1 tablet by mouth once daily Rx Instructions: Take 1 tablet by mouth once daily bisoprolol fumarate 5 mg tablet See Rx Instructions .ROUTE .COMPLEX Qty: 90 0RF Dose Instruction: Take 1 tablet by mouth once daily for blood pressure Rx Instructions: Take 1 tablet by mouth once daily for blood pressure fluoxetine 20 mg capsule See Rx Instructions .ROUTE .COMPLEX Qty: 90 0RF Dose Instruction: Take 1 capsule by mouth once daily Rx Instructions: Take 1 capsule by mouth once daily diazepam 5 mg tablet 5 mg PO BID PRN (Reason: anxiety) Qty: 60 0RF pravastatin 40 mg tablet 40 mg PO HS Qty: 90 0RF potassium chloride 20 mEq tablet,ER particles/crystals 20 meq PO DAILY Qty: 90 0RF tramadol 50 mg tablet 50 mg PO BID PRN (Reason: pain) Qty: 60 0RF cholecalciferol (vitamin D3) 1,000 UNIT capsule 5,000 unit PO DAILY biotin 5,000 MCG tablet,disintegrating 10,000 mcg PO DAILY Referrals Follow up/Referrals: June Paiz PA [Primary Care Provider] - See instructions Clinical Impressions Clinical Impression: Closed fracture of right hip Discharge ED Provider: Stephen Tamayo General Adult HPI General Chief complaint: Fall Stated complaint: fall Time Seen by Provider: 10/07/23 13:42 Mode of Arrival: EMS Source of Information: Patient and EMS Limitations: No Limitations Description of Symptoms (Recalled from ER Triage Doc. by RN): EMS brings pt to ED for fall. pt reports this am she was sitting at her kitchen table and went to get up and grab her walker. pt reports that the walker was unsteady and has had a fall landing on her right hip. pt reports pain in right hip. 03/10 History of Present Illness HPI narrative: 78-year-old female with history of cervical stenosis, degenerative disc disease, COPD on 2.5 L nasal cannula at home, history of lung cancer, hypertension presents to the ER with concerns of fall. Patient was reportedly sitting at her kitchen table and got up to get her walker but she and the walker were unsteady and she fell landing on her right side. Patient is complaining of right hip pain, she states that the pain radiates down to her knee. She is also complaining of right shoulder and humerus pain. She denies hitting her head or losing consciousness but is a poor historian overall. She states she has chronic neck pain, nothing new today. No new numbness, tingling, or weakness. Related Data Home Medications Medication Instructions Recorded Confirmed biotin 5,000 mcg disintegrating 10,000 mcg PO DAILY Supplement 04/08/18 08/06/23 tablet cholecalciferol (vitamin D3) 25 5,000 unit PO DAILY Supplement 05/25/20 08/06/23 mcg (1,000 unit) capsule Lactobacillus rhamnosus-Bifidobac. 1 cap PO 02/09/23 08/06/23 animalis 3 billion cell capsule ([employer] [facility]) potassium chloride 10 mEq 20 meq PO DAILY 02/09/23 08/06/23 tablet,extended release erythromycin 5 mg/gram (0.5 %) eye 1 applic Eye-Both HS 07/30/23 08/06/23 ointment Previous Rx's Medication Instructions Recorded food supplemt, lactose-reduced 1 ea PO BID #5,688 mL 02/09/23 0.06 gram-1 kcal/mL oral liquid (Boost High Protein) meclizine 25 mg tablet 25 mg PO TID PRN dizziness #60 tabs 02/09/23 nitroglycerin 0.4 mg sublingual 0.4 mg sublingual NEEDED PRN 04/08/23 tablet Chest Pain #30 tabs fluticasone fur. 100 mcg-umeclid 1 inh inhalation DAILY #30 ea 04/28/23 62.5 mcg-vilant 25 mcg inhalat.powder (Trelegy Ellipta) ipratropium 0.5 mg-albuterol 3 mg 3 ml inhalation TIDP PRN COPD 90 06/25/23 (2.5 mg base)/3 mL nebulization days #810 mL soln prednisone 20 mg tablet 20 mg PO BID #10 tabs 07/30/23 urea 20 % topical cream 1 applic topical TID PRN skin 07/30/23 irritation #85 grams benazepril 20 mg tablet See Rx Instructions .Route 08/07/23 .COMPLEX #90 tabs bisoprolol fumarate 5 mg tablet See Rx Instructions .Route 08/07/23 .COMPLEX #90 tabs fluoxetine 20 mg capsule See Rx Instructions .Route 08/07/23 .COMPLEX #90 caps furosemide 40 mg tablet See Rx Instructions .Route 08/07/23 .COMPLEX #90 tabs levothyroxine 88 mcg tablet See Rx Instructions .Route 08/07/23 .COMPLEX #90 tabs diazepam 5 mg tablet 5 mg PO BID PRN anxiety #60 tabs 08/20/23 pravastatin 40 mg tablet 40 mg PO HS High cholesterol #90 08/20/23 tabs potassium chloride 20 mEq 20 meq PO DAILY hypokalemia #90 08/24/23 tablet,extended release(part/cryst) tabs tramadol 50 mg tablet 50 mg PO BID PRN pain #60 tabs 08/24/23 Allergies Allergy/AdvReac Type Severity Reaction Status Date / Time codeine [CODEINE] Allergy Mild Verified 08/06/23 11:34 penicillin G [PENICILLIN G] Allergy Mild Verified 08/06/23 11:34 povidone-iodine Allergy Mild Verified 08/06/23 11:34 [From BETADINE] [facility] Disclaimer: The information contained in this section may have been updated after the patient was seen, as this information can be updated by other users. Medical History History of hypertension Lung cancer COPD (chronic obstructive pulmonary disease) Iatrogenic hyperthyroidism Depression with anxiety Surgical History Hx of LASIK H/O removal of neck cyst Tubal ligation status Hx of cholecystectomy H/O neck surgery Social History Smoking Status: Never smoker second hand exposure: No alcohol intake: never substance use type: denies use current occupational status: retired Travel in the last 8 weeks: None household members: spouse housing: house current occupational exposures/hazards: No caffeine: Yes ROS Obtained: Yes All systems reviewed & no additional complaints except as documented Constitutional Constitutional: Denies chills, Denies fever(s), Denies headache(s) and Denies weakness Eyes Eyes: Denies change in vision ENT Ears, Nose, Mouth, and Throat: Denies dizziness, Denies headache(s), Denies nasal congestion and Denies sore throat Cardiovascular Cardiovascular: Denies chest pain, Denies dyspnea and Denies leg edema Respiratory Respiratory: Denies cough and Denies dyspnea Gastrointestinal Gastrointestingal: Denies abdominal pain, constipation, diarrhea, nausea or vomiting Genitourinary Female Genitourinary: Denies dysuria Musculoskeletal Musculoskeletal: Reports arthralgias (R hip, R shoulder), Denies myalgias, Denies numbness and Denies tingling Integumentary/Breasts Skin/Breast: Denies change in pigmentation Neurologic Neurologic: Denies dizziness, Denies headache(s), Denies numbness, Denies tingling and Denies weakness Physical Exam General General appearance: alert and in no apparent distress Head Head exam: atraumatic and normocephalic Eye Eye exam: Present PERRL and EOMI ENT ENT exam: Present mucous membranes moist Neck Neck exam: Present normal inspection and other (Cervical collar in place, no tracheal deviation or midline tenderness); Absent tenderness Chest Chest inspection: Present symmetric chest wall rise; Absent tenderness Respiratory Respiratory exam: Present other (Breath sounds diminished throughout, consistent with known underlying COPD); Absent respiratory distress, wheezes or stridor Cardiovascular Cardiovascular exam: Present regular rate and normal rhythm Abdominal Exam Abdominal exam: Present soft; Absent distention, tenderness, guarding or rebound Extremities Exam Extremities exam: Present full ROM (Pain in the right hip but able to flex and extend.) and tenderness (Tenderness to palpation of right hip, femur, shoulder, humerus, no deformity, swelling, or other signs of injury. Patient has old bruising on the right arm) Back Exam Back exam: Absent tenderness Neurological Exam Neurological exam: Present alert and oriented X3; Absent motor sensory deficit Psychiatric Psychiatric exam: Present normal affect and normal mood Skin Skin exam: Present warm and dry Medical Decision Making Medical Records Medical records reviewed: Yes I reviewed the patient's medical records. [place] Inquiry Pt receiving controlled substance: No Vital Signs: 10/07/23 12:57 10/07/23 13:30 10/07/23 13:45 Temperature 97.7 F Temperature Source Oral Pulse Rate 68 68 Pulse Rate [Left Radial] 71 Respiratory Rate 15 Blood Pressure 148/52 H 148/52 H Blood Pressure [Right Arm] 141/75 H Blood Pressure Mean [Right Arm] 97 02 Sat by Pulse Oximetry 93 L 97 100 Oxygen Delivery Method Nasal Cannula Room Air Oxygen Flow Rate (LPM) 3 10/07/23 14:31 Temperature Temperature Source Pulse Rate 67 Pulse Rate [Left Radial] Respiratory Rate Blood Pressure 166/61 H Blood Pressure [Right Arm] Blood Pressure Mean [Right Arm] 02 Sat by Pulse Oximetry 97 Oxygen Delivery Method Room Air Oxygen Flow Rate (LPM) Orders (Tests/Meds): ED MEDICATIONS Discontinued Medications Generic Name Dose Route Start Last Admin Trade Name Freq PRN Reason Stop Dose Admin Hydrocodone Bitart/Acetaminophen 1 tab 10/07/23 15:24 10/07/23 15:29 Hydrocodone/Apap 5/325 Mg Tablet PO 10/07/23 15:25 1 tab ONCE ONE Administration Morphine Sulfate 4 mg 10/07/23 15:09 10/07/23 15:26 Morphine 4mg/Ml Syringe IV 10/07/23 15:10 Not Given ONCE ONE ORDERS Category Date Time Status CT cervical spine wo con Stat Cat Scan 10/07/23 13:[address] head/brain wo con Stat Cat Scan 10/07/23 13:50 Completed Femur XR right 2 views [XR femur RT 2V] Stat Exams 10/07/23 13:50 Completed Humerus XR right [XR humerus RT] Stat Exams 10/07/23 13:50 Completed Shoulder XR right miminum 2 views [XR shoulder RT min Exams 10/07/23 13:50 Completed 2V] Stat XR hip RT 2-3V w/pelvis Stat Exams 10/07/23 13:42 Completed Medical Decision Narrative: In summary, this 78year old female presents to the emergency department today with concerns of possible injuries after fall. On initial evaluation patient is hemodynamically stable, afebrile, GCS 15, no focal neurologic deficits, no tenderness to palpation of the cervical spine however cervical collar is in place, atraumatic head, tenderness of her right shoulder and hip without obvious deformity or other signs of injury to the extremities. Differential diagnosis includes but is not limited to intracranial bleed, cervical spine injury, cannot exclude patient from CT imaging of the head or neck so these will be ordered, also considered possibility of fracture, dislocation, other musculoskeletal injury. Based on these concerns, I ordered CT imaging and x-rays. Patient received [place] for pain management. CT head personally interpreted does not demonstrate any acute intracranial abnormality. X-rays of the right upper extremity personally interpreted do not demonstrate any acute osseous abnormality on my personal interpretation. X-ray of the right hip on my personal interpretation seems to demonstrate slight shortening of the right femoral neck compared to the left, concerning for femoral neck fracture. Radiology read pending. I received a phone call from radiology regarding concerns of small area of parenchymal hemorrhage in the right temporal region of the brain. Given patient's history of fall, I called for consultation with neurosurgery. Awaiting a callback. Currently patient is not having any new neurologic deficits. CT cervical spine read by radiology as negative for acute traumatic injury. C-collar was cleared. Radiology read was finalized while awaiting a callback from neurosurgery. Patient has a confirmed impacted right femoral neck fracture. This is consistent with her physical exam findings. She has probably traumatic injuries and requires transfer. I discussed this with Dr. Soriano at transfer center and he accepted the patient for ED to ED transfer. She and family are amenable to this plan. Patient is being transferred via ALS. Critical Care Critical Care Time Critical Care Time: No
[2023-10-07 14:31] VITALS: BP 166/61; PULSE 67; O2SAT 97
--- NOTE | 2023-10-07 15:23 | PC.NURSE ---
Radiology called and wanted to speak with Dr Oliveros about this pt
--- NOTE | 2023-10-07 15:27 | PC.NURSE ---
Patient states she has taken Hydrocodone in the past, with no adverse reaction per daughter and patient.
--- NOTE | 2023-10-07 15:28 | PC.NURSE ---
Called Radiology and had images power sheard to [facility]. Also called [facility] per Dr Oliveros to see about getting this pt transferred for a small intra cranial bleed
[2023-10-07] MEDS: HYDROCODONE/APAP 5/325 MG TABLET 1 TAB PO (15:29)
--- NOTE | 2023-10-07 15:57 | PC.NURSE ---
Called [facility] again to speak with [facility] about this pt for a hip fx also. [facility] advised the Trauma team was finishing a call up and would call us back
--- NOTE | 2023-10-07 15:58 | PC.NURSE ---
called [employer] for weather check from [facility] to ER.
--- NOTE | 2023-10-07 16:07 | PC.NURSE ---
Called [facility] to see about pt being flown to [facility]. Due to [employer] [facility] declining due to the weather forecast. [employer] [facility] has me on hold while there checking the weather. [facility] [address] declined due to the weather forecast in [place]
--- NOTE | 2023-10-07 16:17 | PC.NURSE ---
EMS called for transport of this pt who was accepted to that Dr Oliveros is speaking with now.
--- NOTE | 2023-10-07 16:20 | PC.NURSE ---
Dr Angeles has accepted pt to [facility] ED,
[2023-10-07 16:30] VITALS: BP 176/79; PULSE 76; RESP 22; TEMP 36.6; O2SAT 96
== END 2023-10-07 16:40 | disposition short-term general hospital (02) ==
PROVIDERS: Emergency Provider Emergency Medicine; PCP Physician Assistant
DX: S72.041A Displaced fracture of base of neck of right femur, initial encounter for closed fracture (principal); M25.551 Pain in right hip; W18.39XA Other fall on same level, initial encounter; J44.9 Chronic obstructive pulmonary disease, unspecified; E05.80 Other thyrotoxicosis without thyrotoxic crisis or storm; I10 Essential (primary) hypertension; Z87.891 Personal history of nicotine dependence; Z85.118 Personal history of other malignant neoplasm of bronchus and lung
CPT/HCPCS: 70450; 72125; 73030; 73060; 73502; 73552; 96374; 99285

== ENCOUNTER 2023-11-20 07:52 | Inpatient (IN) | payer MEDICARE, OTHER, SELFPAY ==
[2023-11-20] VITALS (27 sets, daily range): BP systolic 98–150; BP diastolic 45–85; PULSE 56–138; RESP 17–44; TEMP 36.4–38.6; O2SAT 71–100; BMI 13.7; BMI 14.2
--- NOTE | 2023-11-20 08:02 | ECG_ITS ---
APPROVED REPORT Exam: Resting ECG HR:127 bpm ECG Measurements Heart Rate 127 AXES IA 157 P 86 QRSd 66 QRS 266 QT 296 T 90 QTc 371 Conclusion SINUS TACHYCARDIA RIGHT AXIS DEVIATION [QRS AXIS > 100] POSSIBLE ANTERIOR MYOCARDIAL INFARCTION , OF INDETERMINATE AGE [30 ms Q WAVE IN V3/V4, OR R < 0.2 mV IN V4] ABNORMAL ECG UNCONFIRMED REPORT Electronically signed by : EVANS SAUCEDO, 11/22/2023 06:19:40
--- NOTE | 2023-11-20 08:02 | PC.NURSE ---
staff at [facility]
[2023-11-20 08:13] LABS: ABG Base Excess -2.9 mmol/L (-2.4-2.3); ABG HCO3 22.8 mmhg (22.0-26.0); ABG Oxygen Saturation 71 % (90-100); ABG PCO2 42.9 mmhg (35.0-45.0); ABG PH 7.34 mmol/L (7.35-7.45); ABG TCO2 24.1 mmhg (23-27); Allen's Test Acceptable; Oxygen 10L %; Source Left Brachial
[2023-11-20 08:14] LABS: ABG PO2 39.1 mmhg (80-100)
--- NOTE | 2023-11-20 08:19 | PC.NURSE ---
DR LEWIS AT BEDSIDE
--- NOTE | 2023-11-20 08:27 | XR_ITS ---
FINAL REPORT CLINICAL HISTORY: soa COMPARISON: 10/10/2021 FINDINGS: There are increasing markings in the bilateral lung bases and perihilar regions suspicious for pneumonia. Note is made of emphysema. There is no evidence of effusion or pneumothorax. Mediastinum is unremarkable. Heart size is normal. IMPRESSION: Findings suspicious for pneumonia. Reviewed, Interpreted and Dictated by Ayse Craven MD Transcribed by Brianna Haas Authenticated and [facility]
[2023-11-20] MEDS: IPRATROPIUM/ALBUTEROL 3 ML NEB 9 ML IH (08:30)
[2023-11-20 08:34] LABS: Basophils # 0.1 K/mm3 (0-0.2); Basophils % 0.4 % (0.1-2.0); Eosinophils % 0.2 % (0.1-12.0); Hematocrit 44.5 % (37.0-47.0); Hemoglobin 13.1 g/dL (12.2-16.2); Lymphocytes # 0.5 K/mm3 (0.7-4.5); Lymphocytes % 2.1 % (10-50); Mean Corpuscular HGB Conc 29.5 g/dL (31.8-35.4); Mean Corpuscular Hemoglobin 29.2 pg (27.0-31.2); Mean Corpuscular Volume 99.2 fl (81-99); Monocytes # 0.6 K/mm3 (0.1-1.0); Monocytes % 2.4 % (1.7-9.3); Neutrophils # 24.2 K/mm3 (1.8-7.8); Neutrophils % 94.9 % (37.0-80.0); Platelet Count 614 K/mm3 (142-424); Red Blood Count 4.48 M/mm3 (4.20-5.40); Red Cell Distribution Width 15.8 % (11.5-17.5); White Blood Count 25.5 K/mm3 (4.8-10.8)
[2023-11-20] MEDS: LACTATED RINGERS 545 ML IV (08:37)
--- NOTE | 2023-11-20 08:40 | PC.NURSE ---
PHARMACY CONSULTED FOR IV ABX
[2023-11-20 08:42] LABS: MANUAL DIFFERENTIAL MANUAL DIFFERENTIAL (MANUAL DIFF)
[2023-11-20 08:42] LABS: Microscopic, Urine URINE MICROSCOPIC (MICROSCOPIC)
[2023-11-20 08:43] LABS: Chloride 103 mmol/L (98-107); Potassium 5.1 mmoL/L (3.5-5.1); Sodium 139 mmol/L (136-145)
--- NOTE | 2023-11-20 08:43 | HMH.PHAINT1 ---
Pharmacy Intervention Comments: MEDICATION RECONCILIATION COMPLETED ON PATIENT USING EXTERNAL FILL HISTORY FROM PHARMACY AND ROSEANN REPORT. -IMAN CHARLES, LUIS CARLOSD
[2023-11-20 08:45] LABS: Alanine Aminotransferase 26 U/L (12-78); Aspartate Amino Transferase 30 U/L (14-36); Blood Urea Nitrogen 48 mg/dl (7-17); Creatinine Clearance Estimated 15 mL/min (50-200); Estimated Glomerular Filt Rate 27 ml/min (>60); GFR (African American) 33 ML/MIN (>60)
[2023-11-20 08:46] LABS: Albumin Level 3.7 g/dl (3.5-5.0); Alkaline Phosphatase 253 U/L (38-126); Anion Gap 14.1 mEq/L (5-15); Bilirubin,Total 0.3 mg/dl (0.2-1.3); Calcium 9.2 mg/dl (8.4-10.2); Carbon Dioxide 27 mmol/L (22.0-30.0); Globulin 3.6 g/dL (1.3-3.2); Glucose 155 mg/dl (74-100); Total Protein,Serum 7.3 g/dl (6.3-8.2)
[2023-11-20] MEDS: VANCOMYCIN HCL 500 MG in 0.9 % SODIUM CHLORIDE 250 ML 125 MG IV (08:50)
[2023-11-20] MEDS: CEFEPIME HCL 2 GM in 0.9 % SODIUM CHLORIDE 100 ML IV (08:50)
--- NOTE | 2023-11-20 08:56 | ED_ITS ---
Discharge Plan Disposition Patient Disposition: Admitted Clinical Impressions Clinical Impression: Acute hypoxemic respiratory failure, Acute exacerbation of chronic obstructive pulmonary disease, Acute pyelonephritis, Septic shock Discharge ED Provider: Stephen Tamayo HPI General Chief Complaint: Shortness of Breath/Dyspnea Stated Complaint: SHORTNESS OF BREATH Time Seen by Provider: 11/20/23 08:06 Mode of Arrival: EMS Source of Information: Patient and EMS Limitations: No Limitations Description of Symptoms (Recalled from ER Triage Doc. by RN): pt presents to ED via [facility] from [facility] for shortness of air and chest pain. pt very tachypnic upon arrival, pt unable to answer most questions. EMS provides most of triage. nurse reports pt become short of air and having chest pain approx 0630 this morning. pt wears oxygen at baseline. History of Present Illness HPI narrative: Please note that above description of symptoms, in this electronic medical record under categorization of recalled from ER triage doctor by RN are reflective of an initial nursing assessment, however, is not reflective of my full history and physical exam that was personally taken and clarified. Consequentially, this preceding description of symptoms, which may include the patient's categorized chief complaint in the EMR, do not reflect my personal clinical impression, and the ultimate description of history of present illness and patient stated complaints should be deferred to this section of the note. Unless stated otherwise or congruent with this section of the note, additional signs, symptoms, or incongruence should be interpreted as inaccurate with my clinical impression. Related Data Home Medications Medication Instructions Recorded Confirmed erythromycin 5 mg/gram (0.5 %) eye 1 applic Eye-Both HS 07/30/23 11/20/23 ointment acetaminophen 500 mg tablet 500 mg PO Q4HP PRN Mild Pain 11/20/23 11/20/23 (Scale Score 1-4) benazepril 20 mg tablet 20 mg PO DAILY 11/20/23 11/20/23 bisoprolol fumarate 5 mg tablet 5 mg PO DAILY 11/20/23 11/20/23 diazepam 5 mg tablet 5 mg PO BIDP PRN anxiety 11/20/23 11/20/23 fluoxetine 20 mg capsule 20 mg PO DAILY 11/20/23 11/20/23 furosemide 40 mg tablet 40 mg PO DAILY 11/20/23 11/20/23 ipratropium 0.5 mg-albuterol 3 mg 3 ml inhalation TIDP PRN Shortness 11/20/23 11/20/23 (2.5 mg base)/3 mL nebulization Of Breath soln levothyroxine 88 mcg tablet 88 mcg PO DAILY 11/20/23 11/20/23 nitroglycerin 0.4 mg sublingual 0.4 mg sublingual Q5MINP PRN Chest 11/20/23 11/20/23 tablet Pain potassium chloride 20 mEq 20 meq PO DAILY 11/20/23 11/20/23 tablet,extended release(part/cryst) pravastatin 40 mg tablet 40 mg PO HS 11/20/23 11/20/23 tramadol 50 mg tablet 50 mg PO BIDP PRN Moderate Pain 11/20/23 11/20/23 (Scale Score 5-6) Previous Rx's Medication Instructions Recorded fluticasone fur. 100 mcg-umeclid 1 inh inhalation DAILY #30 ea 04/28/23 62.5 mcg-vilant 25 mcg inhalat.powder (Trelegy Ellipta) Allergies Allergy/AdvReac Type Severity Reaction Status Date / Time codeine [CODEINE] Allergy Mild Verified 11/20/23 08:22 penicillin G [PENICILLIN G] Allergy Mild Verified 11/20/23 08:22 povidone-iodine Allergy Mild Verified 11/20/23 08:22 [From BETADINE] [facility] Disclaimer: The information contained in this section may have been updated after the patient was seen, as this information can be updated by other users. Medical History History of hypertension Lung cancer COPD (chronic obstructive pulmonary disease) Iatrogenic hyperthyroidism Depression with anxiety Surgical History Hx of LASIK H/O removal of neck cyst Tubal ligation status Hx of cholecystectomy H/O neck surgery Social History Smoking Status: Former smoker tobacco type: cigarettes packs per day: 0 second hand exposure: No alcohol intake: never substance use type: denies use current occupational status: retired Travel in the last 8 weeks: None household members: spouse housing: house current occupational exposures/hazards: No caffeine: Yes ROS Obtained: Yes All systems reviewed & no additional complaints except as documented Physical Exam General General appearance: alert, in distress (Respiratory distress) and cachectic (Acute) ENT ENT exam: Present mucous membranes dry Neck Neck exam: Present trachea midline Chest Chest inspection: Present normal inspection and symmetric chest wall rise Respiratory Respiratory exam: Present wheezes (Primarily left lower lobe), accessory muscle use and prolonged expiratory phase; Absent respiratory distress or stridor Cardiovascular Cardiovascular exam: Present normal rhythm and tachycardia Extremities Exam Extremities exam: Absent edema Neurological Exam Neurological exam: Present oriented X3, CN II-XII intact and other (GCS 14) Skin Skin exam: Present warm and dry; Absent cyanosis, diaphoresis or pallor HEART Score HEART Score HEART Score assessment performed?: Yes History (anamnesis): Slightly suspicious ECG: Non-specific disturbance Age: >65 years Risk factors: 3 or more risk factors Troponin: </= normal limit HEART Score: 5 Critical Care Critical Care Time Critical Care Time: Yes (CV) Attestation: On 11/20/23, the high probability of a clinically significant, sudden or life threatening deterioration of the following system(s) required my full and direct attention, intervention and personal management. The time I documented below is in addition to time spent performing reported procedures but includes the following listed in this critical care notation. Total Time Total Critical Care Time: 60 Medical Decision Making Medical Records Medical records reviewed: Yes I reviewed the patient's medical records. Domingo Inquiry Pt receiving controlled substance: No Domingo was queried for this patient: No Vital Signs Vital Signs: 11/20/23 07:52 11/20/23 08:13 11/20/23 08:15 Temperature Temperature Source Pulse Rate 138 H 56 L Pulse Rate [Left Radial] 130 H Respiratory Rate 26 H 25 H Blood Pressure 112/47 L 112/47 L Blood Pressure [Right Arm] 102/49 L Blood Pressure Mean [Right Arm] 66 02 Sat by Pulse Oximetry 71 L 93 L 91 L 11/20/23 08:30 11/20/23 08:34 11/20/23 09:00 Temperature 101.4 F H Temperature Source Rectal Pulse Rate 56 L Pulse Rate [Left Radial] Respiratory Rate 22 24 Blood Pressure 110/45 L 120/47 L Blood Pressure [Right Arm] Blood Pressure Mean [Right Arm] 02 Sat by Pulse Oximetry 90 L Lab Data Labs: Lab Results 11/20/23 08:11: Specimen Source Left brachial, O2 % 10l, ABG pH 7.34 L, ABG pCO2 42.9, ABG pO2 39.1 L, ABG HCO3 22.8, ABG Total CO2 24.1, ABG O2 Saturation 71 L* , ABG Base Excess -2.9 L, Darian Test Acceptable 11/20/23 08:15: WBC 25.5 H*, RBC 4.48, Hgb 13.1, Hct 44.5, MCV 99.2 H, MCH 29.2, MCHC 29.5 L, RDW 15.8, Plt Count 614 H, MPV 9.0, Neut % (Auto) 94.9 H, Lymph % (Auto) 2.1 L, [place] % (Auto) 2.4, Eos % (Auto) 0.2, Baso % (Auto) 0.4, Neut # (Auto) 24.2 H, Lymph # (Auto) 0.5 L, [place] # (Auto) 0.6, Eos # (Auto) 0.0, Baso # (Auto) 0.1, Total Counted 100, Neutrophils % (Manual) 97 H, Lymphocytes % (Manual) 3 L, Platelet Estimate Moderate increase, RBC Morphology Not Reportable, Macrocytosis 1+, PT 10.8, INR 1.00, APTT 21.9 L, Sodium 139, Potassium 5.1, Chloride 103, Carbon Dioxide 27, Anion Gap 14.1, BUN 48 H, C reatinine 1.80 H, Estimated Creat Clear 15, Estimated GFR 27 L, Est GFR ( Amer) 33 L, Glucose 155 H, Lactate 2.7 H, Calcium 9.2, Total Bilirubin 0.3, AST 30, ALT 26, Alkaline Phosphatase 253 H, Troponin I < 0.01, NT-Pro-B Natriuret Pep 1240 H, Total Protein 7.3, Albumin 3.7, Globulin 3.6 H, Albumin/Globulin Ratio 1.0 L 11/20/23 08:34: Urine Color Yellow, Urine Appearance Turbid, Urine pH 6.0, Ur Specific [place] >= 1.030, Urine Protein 2+, Urine Glucose (UA) Negative, Urine Ketones Trace, Urine Blood 2+, Urine Nitrate Positive, Urine Bilirubin 1+ A, Urine Urobilinogen 1.0, Ur Leukocyte Esterase 2+ A, Urine WBC Tntc, Urine Bacteria 1+ 11/20/23 08:15 11/20/23 08:15 Response Orders (Tests/Meds): ED MEDICATIONS Generic Name Dose Route Start Last Admin Trade Name Marloq PRN Reason Stop Dose Admin Heparin Sodium (Porcine) 5,000 unit 11/20/23 10:45 Heparin Sodium 5,000 Unit/Ml Vial SQ 12/20/23 10:44 Q8H LUZ Norepinephrine/Dextrose 8 mg in 250 mls @ 3.75 mls/hr 11/20/23 10:16 11/20/23 10:39 Norepinephrine 8mg/250ml-D5w Premix IV 12/20/23 10:15 2 mcg/min .Q24H LUZ 3.75 mls/hr Administration Protocol 2 MCG/MIN Vancomycin HCl 500 mg/ Sodium 250 mls @ 125 mls/hr 11/21/23 21:00 Chloride IV 12/01/23 20:59 Q36H LUZ Cefepime HCl 1 gm/ Sodium 50 mls @ 100 mls/hr 11/20/23 20:00 Chloride IV 11/30/23 19:59 Q12H LUZ Discontinued Medications Generic Name Dose Route Start Last Admin Trade Name Maria E PRN Reason Stop Dose Admin Acetaminophen 1,000 mg 11/20/23 10:21 11/20/23 10:59 Acetaminophen 1,000mg/100ml Vial IV 11/20/23 10:22 1,000 mg ONCE ONE Administration Albuterol/Ipratropium 9 ml 11/20/23 08:27 11/20/23 08:30 Ipratropium/Albuterol 3 Ml Neb IH 11/20/23 08:28 9 ml ONCE ONE Administration Lactated Ringer's 1,090 mls @ 545 mls/hr 11/20/23 08:25 11/20/23 08:37 Lactated Ringer's 1000 Ml Bag 30 ml/kg infuse over 2 hr (1090 ml) 11/20/23 10:24 545 mls/hr IV Administration .Q2H ONE Protocol Cefepime HCl 2 gm/ Sodium 100 mls @ 200 mls/hr 11/20/23 08:25 11/20/23 08:50 Chloride IV 11/20/23 08:54 200 mls/hr ONCE ONE Administration Vancomycin HCl 500 mg/ Sodium 250 mls @ 125 mls/hr 11/20/23 08:45 11/20/23 08:50 Chloride IV 11/20/23 10:44 125 mls/hr ONCE ONE Administration Miscellaneous 1 each 11/20/23 08:30 Vancomycin Consult Request NOTAPPLIC 12/20/23 08:29 CONSULT PHARMACY LUZ ORDERS Category Date Time Status CT chest wo con Stat Cat Scan 11/20/23 09:08 Taken CXR --portable [XR chest portable] Stat Exams 11/20/23 08:27 Taken Activated Partial Thrombo Time Stat Lab 11/20/23 08:15 Completed Complete Blood Count Auto Diff Stat Lab 11/20/23 08:15 Completed Comprehensive Metabolic Panel Stat Lab 11/20/23 08:15 Completed Lactic Acid Stat Lab 11/20/23 08:15 Completed NT Pro Brain Natriuretic Pep. Stat Lab 11/20/23 08:15 Completed Prothrombin Time INR Stat Lab 11/20/23 08:15 Completed Trop I [Troponin I] Stat Lab 11/20/23 08:15 Completed Troponin I Q3H Lab 11/20/23 11:40 Received Troponin I Q3H Lab 11/20/23 14:30 Ordered Urinalysis and Microscopic Stat Lab 11/20/23 08:34 Completed Blood Culture Stat Micro 11/20/23 08:15 Received Urine Culture Stat Micro 11/20/23 08:34 Received Arterial Blood Gas Routine RT 11/20/23 08:11 Results MDM Narrative Medical Decision Narrative: 78-year-old female history of COPD on home oxygen, CAD, hypothyroidism, subacute physical decline presenting with shortness of breath, weakness. Patient is from nursing facility and, per them patient started acting short of breath, having chest pain around 6:30 AM today, 11/19. Patient states that she has been feeling generally unwell, miserable for weeks to months. Has had large weight loss per family as well. Patient has a cough, feels like she is too weak to produce any sputum but feels it needs to come out. Denies abdominal pain, fevers or chills, vomiting, edema, chest pain, but has been markedly short of breath. History was obtained via conversation with patient, EMS, family. On arrival, patient hypotensive and tachycardic with shock index greater than 1, lethargic, oriented x4, appropriate, GCS 14, moving all extremities spontaneously, pupils equal and reactive to light. Full physical exam performed and significant for acute on chronically ill-appearing patient. Tachypneic, tachycardic, hypotensive, febrile. Oxygen saturation 85% on nasal cannula. Placed on nonrebreather at 15 L/min. States she feels miserable. Speaking in single word sentences. Perioral cyanosis. No lower extremity edema. Patient does have minimal breath sounds with minimal air movement, has isolated wheezing in the left lower lobe which is end expiratory. Differential includes COPD exacerbation, pneumonia, bronchitis, pneumothorax, ACS, OR, CHF, sepsis, among others. Patient was given sepsis bolus, cefepime, vancomycin, 3 DuoNebs, as well as Solu-Medrol with EMS for symptomatic management and correction of underlying abnormalities. Workup independently interpreted and significant for leukocytosis, lactic acidosis. Patient also hypoxemic on VBG. STEPHANIE with creatinine nearly doubled baseline. Urinalysis with concern for purulent UTI. Chest x-ray with bilateral pleural effusions, left greater than right and concern for airspace disease. CT chest was ordered and demonstrated bilateral pleural effusions, pulmonary scarring without obvious airspace disease. See radiology read for full review of final results. Independent interpretation of EKG shows sinus tachycardia [address] or T wave changes concerning for acute schema. [place] 157, QRS 66, QTc 371, rightward axis.. Patient placed on continuous cardiac monitoring and continuous pulse ox with initial blood pressure 1 over 2/49 with wide pulse pressure, heart rate 130, saturation 71% on 6 L nasal cannula. 90% on 15 L nonrebreather. Heart score 5. CT PE was considered, but deemed unnecessary due to better explained source of patient's symptoms being likely related to septic shock, COPD exacerbation. Also factored into this decision was patient's GFR which was acutely low with an STEPHANIE. CT chest without contrast was obtained given large improvement of blood pressure and heart rate with fluids. On reevaluation, patient states she is feeling much better, but still requiring 15 L nonrebreather to saturate appropriately in the high 80s. Due to wide pulse pressure 100s over 40s, norepinephrine was initiated here in the emergency department. Patient still mentating without issue, and has no complaints at the time of norepinephrine being initiated. Hospital medicine was contacted and case was discussed at length, patient to be admitted for further evaluation and management. Long conversation was had with patient and family regarding palliative care versus hospice care, I feel she would be appropriate for hospice care at this time, but recommended discussion with case management and family prior to making this decision. They voiced their understanding. Because patient high risk for clinical decompensation, deemed appropriate for inpatient admission. Results were relayed to patient family who voiced understanding and patient was agreeable to inpatient admission and management. Patient was admitted to the hospital for further definitive management. Extrusion Press Operator disclaimer Much of this encounter note is an electronic five roll refiner batch mixer spoken language to printed text. Electronic five roll refiner batch mixer of the spoken language may permit errors. Although I have reviewed the note, some errors may still exist.
[2023-11-20 08:57] LABS: Blood, Urine 2+ (Negative); Color,Urine YELLOW (Yellow); Glucose,Urine (UA) Negative (Negative); Ketones,Urine TRACE (Negative); Leukocyte Esterase,Urine 2+ (Negative); Nitrate,Urine POSITIVE (Negative); Protein,Urine 2+ (Negative); Specific Gravity, Urine >= 1.030 (1.005-1.030)
[2023-11-20 08:57] LABS: Lactic Acid 2.7 mmol/L (0.7-2.1)
--- NOTE | 2023-11-20 08:58 | PC.NURSE ---
PT MEDICATED PER EMAR, PT REPORTS FEELING BETTER, NO NEEDS AT THIS TIME
--- NOTE | 2023-11-20 08:59 | P.CONPHA_ITS ---
Pharmacy Consult Date: 11/20/23 Time: 08:59 Referring provider: DR. LEWIS Reason for Consult:: VANCOMYCIN DOSING Allergies Allergy/AdvReac Type Severity Reaction Status Date / Time codeine [CODEINE] Allergy Mild Verified 11/20/23 08:22 penicillin G [PENICILLIN G] Allergy Mild Verified 11/20/23 08:22 povidone-iodine Allergy Mild Verified 11/20/23 08:22 [From BETADINE] Home Medications Medication Instructions Recorded Confirmed Type fluticasone fur. 100 mcg-umeclid 1 inh inhalation DAILY #30 ea 04/28/23 11/20/23 Rx 62.5 mcg-vilant 25 mcg inhalat.powder (Trelegy Ellipta) erythromycin 5 mg/gram (0.5 %) eye 1 applic Eye-Both HS 07/30/23 11/20/23 History ointment acetaminophen 500 mg tablet 500 mg PO Q4HP PRN Mild Pain 11/20/23 11/20/23 History (Scale Score 1-4) benazepril 20 mg tablet 20 mg PO DAILY 11/20/23 11/20/23 History bisoprolol fumarate 5 mg tablet 5 mg PO DAILY 11/20/23 11/20/23 History diazepam 5 mg tablet 5 mg PO BIDP PRN anxiety 11/20/23 11/20/23 History fluoxetine 20 mg capsule 20 mg PO DAILY 11/20/23 11/20/23 History furosemide 40 mg tablet 40 mg PO DAILY 11/20/23 11/20/23 History ipratropium 0.5 mg-albuterol 3 mg 3 ml inhalation TIDP PRN Shortness 11/20/23 11/20/23 History (2.5 mg base)/3 mL nebulization Of Breath soln levothyroxine 88 mcg tablet 88 mcg PO DAILY 11/20/23 11/20/23 History nitroglycerin 0.4 mg sublingual 0.4 mg sublingual Q5MINP PRN Chest 11/20/23 11/20/23 History tablet Pain potassium chloride 20 mEq 20 meq PO DAILY 11/20/23 11/20/23 History tablet,extended release(part/cryst) pravastatin 40 mg tablet 40 mg PO HS 11/20/23 11/20/23 History tramadol 50 mg tablet 50 mg PO BIDP PRN Moderate Pain 11/20/23 11/20/23 History (Scale Score 5-6) New Prescriptions to Start Prescriptions: Height: 1.63 m Weight: 36.287 kg Laboratory Results:: Laboratory Results - last 24 hr 11/20/23 08:11: Specimen Source Left brachial, O2 % 10l, ABG pH 7.34 L, ABG pCO2 42.9, ABG pO2 39.1 L, ABG HCO3 22.8, ABG Total CO2 24.1, ABG O2 Saturation 71 L* , ABG Base Excess -2.9 L, Darian Test Acceptable 11/20/23 08:15: WBC 25.5 H*, RBC 4.48, Hgb 13.1, Hct 44.5, MCV 99.2 H, MCH 29.2, MCHC 29.5 L, RDW 15.8, Plt Count 614 H, MPV 9.0, Neut % (Auto) 94.9 H, Lymph % (Auto) 2.1 L, [place] % (Auto) 2.4, Eos % (Auto) 0.2, Baso % (Auto) 0.4, Neut # (Auto) 24.2 H, Lymph # (Auto) 0.5 L, [place] # (Auto) 0.6, Eos # (Auto) 0.0, Baso # (Auto) 0.1, Lactate 2.7 H Medical History: Medical History (Updated 10/07/23 @ 16:26 by Jaylin Oliveros MD) History of hypertension Lung cancer COPD (chronic obstructive pulmonary disease) Iatrogenic hyperthyroidism Depression with anxiety Assessment and Plan Assessment and plan all Dx Assessment and Plan for all problems:: Pharmacokinetic dosing service Objective: Patient: Floor: Age: 78 yo Serum creatinine: 1.3 mg/dL Height: 64.2 Inches Weight (kg): 36 Assessment: IBW (kg): 55.16 Dosing wt(kg): 36 Estimated Creatinine clearance (ml/min): 20.3 CRCL method: Cockcroft and Gault using ibw(default). Drug selected: Vancomycin Loading dose (mg): 0 Vd (liters): 28.8 (factor used: 0.8 L/kg) Harshal (hr-1): 0.021 Half life (hrs): 33.01 Recommended dose: 500 mg Interval: 36 hrs Infusion time (hrs): 2.0 Predicted peak (mcg/mL): 32.1 Predicted trough (mcg/mL): 15.72 Total body weight is being used for vancomycin dosing. Recommendations: Recommend Vancomycin 500 mg q 36 hrs with an expected Cpeak of 32.1 mcg/ml and an expected Ctrough of 15.72 mcg/ml. ----Vanco only - ignore for aminoglycosides----- CLvanco= 0.60 L/hr AUC 0-24 /EZEQUIEL Data: EZEQUIEL 0.5 mcg/mL: AUC/EZEQUIEL: 1111.1 EZEQUIEL 1.0 mcg/mL: AUC/EZEQUIEL: 555.6 --------- EZEQUIEL 1.5 mcg/mL: AUC/EZEQUIEL: 370.4 EZEQUIEL 2.0 mcg/mL: AUC/EZEQUIEL: 277.8
[2023-11-20 09:00] LABS: Troponin I < 0.01 ng/ml (0.00-0.034)
[2023-11-20 09:03] LABS: Activated Partial Thrombo Time 21.9 seconds (22.8-30.6); Prothrombin Time 10.8 seconds (10.1-12.5)
[2023-11-20 09:05] LABS: Bilirubin,Urine 1+ (Negative)
--- NOTE | 2023-11-20 09:05 | PC.NURSE ---
ER ON PHONE WITH HOSPITALIST
[2023-11-20 09:06] LABS: NT Pro Brain Natriuretic Pep. 1240 pg/mL (0-450)
[2023-11-20 09:06] LABS: Appearance,Urine Turbid (Clear); Bacteria,Urine 1+ /lpf; WBC,Urine TNTC #/hpf (0-3)
--- NOTE | 2023-11-20 09:08 | CT_ITS ---
FINAL REPORT TECHNIQUE: Axial images through the chest were performed by computed tomography. This study was performed with techniques to keep radiation doses as low as reasonably achievable, (ALARA). Individualized dose reduction techniques using automated exposure control or adjustment of mA and/or kV according to the patient's size were employed. CLINICAL HISTORY: cocnern for LLL pna COMPARISON: 07/09/2023 FINDINGS: CT CHEST without contrast COMPARISON: 07/09/2023. TECHNIQUE: Axial CT without IV contrast administration. FINDINGS: Mild left upper lobe scarring is present. There are advanced changes of emphysema. Bibasilar infiltrates are present, larger on the left than on the right, consistent with pneumonia. No evidence of cavitation is seen.. Small bilateral pleural effusions are present. No adenopathy or mass lesion is present . There is mild bilateral adrenal enlargement, similar to the prior exam of July. The left adrenal mass measures 7 Hounsfield units without contrast, consistent with an adenoma. No further follow-up is necessary. IMPRESSION: Bibasilar infiltrates greater on the left than on the right are present, consistent with pneumonia. No cavitation is present, and tiny bilateral pleural effusions are present. Reviewed, Interpreted and Dictated by Ayse Craven MD Transcribed by Alycia Chu Authenticated and [facility]
[2023-11-20 09:17] LABS: Lymphocytes % 3 % (10-50); Macrocytosis 1+; Neutrophils % 97 % (42-76); Platelet Estimate Moderate Increase; Total Cells Counted 100
--- NOTE | 2023-11-20 09:42 | PC.NURSE ---
patient gone to CT at this time.
--- NOTE | 2023-11-20 09:53 | PC.NURSE ---
patient back in room at this time.
--- NOTE | 2023-11-20 10:17 | PC.NURSE ---
DUPLICATE MAKER NOTIFIED OF ADMISSION
[2023-11-20] MEDS: NOREPINEPHRINE BITARTRATE/D5W 8 MG/250 ML PLAST..BAG 3.75 MG IV (10:39)
[2023-11-20] MEDS: ACETAMINOPHEN 1,000MG/100ML VIAL 1000 MG IV (10:59)
--- NOTE | 2023-11-20 11:15 | PC.NURSE ---
arrived by stretcher from ED
--- NOTE | 2023-11-20 11:16 | EXP.HP ---
History of Present Illness *Admission Date: 11/20/23 *Reason for visit:: Septic shock *History of present illness: Ms. Chu is a 78-year-old female with history of COPD on chronic oxygen therapy of 3 L, CAD, hypothyroidism, physical decline and weight loss. She presented from [facility] where she has been having worsening shortness of breath over the past few days. Was brought to the ER for evaluation. Weight loss over several months. Patient reports that she has had a cough, has been very weak, has not been able to cough anything up. Denies any abdominal pain, nausea or vomiting. Found to be markedly short of breath on arrival and febrile. Meeting sepsis criteria. Workup initiated along with fluid bolus and antibiotics. Received cefepime, vancomycin, 3 DuoNebs and a dose of Solu-Medrol. After sepsis bolus, patient's blood pressure remained low with maps less than 60. Meeting septic shock criteria and was initiated on norepinephrine. Necessitating nonrebreather initially due to her hypoxia in the 80s on nasal cannula. Medicine was consulted for admission and further management. Patient admitted to the ICU given severity of illness. Is alert to self and place but very weak to respond. Family at bedside helps give history. They want to try and treat patient's condition but understand that she has grown more more weak and is losing weight. They do not want to be aggressive with life-saving measures and would like to transition to hospice style care if patient does not show response or has continued decline. Patient was additionally found to have grossly abnormal urine concerning for pyelonephritis. White cell count elevated at 25,000. Lactate at 2.7. Has not had any urine output since arrival. Fever responded to Tylenol, improved by the time she arrived to the floor. [facility] Disclaimer: The information contained in this section may have been updated after the patient was seen, as this information can be updated by other users. Medical History History of hypertension Lung cancer COPD (chronic obstructive pulmonary disease) Iatrogenic hyperthyroidism Depression with anxiety Surgical History Hx of LASIK H/O removal of neck cyst Tubal ligation status Hx of cholecystectomy H/O neck surgery Social History Smoking Status: Former smoker tobacco type: cigarettes packs per day: 0 second hand exposure: No alcohol intake: never substance use type: denies use current occupational status: retired Travel in the last 8 weeks: None household members: spouse housing: house current occupational exposures/hazards: No caffeine: Yes Review of Systems Review of Systems Review of systems (narrative): 14 point review of systems performed, pertinent positives and negatives as per HPI; obtained from family. Minimal history from patient Meds Home Medications and Allergies Home Medications Medication Instructions Recorded Confirmed Type fluticasone fur. 100 mcg-umeclid 1 inh inhalation DAILY #30 ea 04/28/23 11/20/23 Rx 62.5 mcg-vilant 25 mcg inhalat.powder (Trelegy Ellipta) erythromycin 5 mg/gram (0.5 %) eye 1 applic Eye-Both HS 07/30/23 11/20/23 History ointment acetaminophen 500 mg tablet 500 mg PO Q4HP PRN Mild Pain 11/20/23 11/20/23 History (Scale Score 1-4) benazepril 20 mg tablet 20 mg PO DAILY 11/20/23 11/20/23 History bisoprolol fumarate 5 mg tablet 5 mg PO DAILY 11/20/23 11/20/23 History diazepam 5 mg tablet 5 mg PO BIDP PRN anxiety 11/20/23 11/20/23 History fluoxetine 20 mg capsule 20 mg PO DAILY 11/20/23 11/20/23 History furosemide 40 mg tablet 40 mg PO DAILY 11/20/23 11/20/23 History ipratropium 0.5 mg-albuterol 3 mg 3 ml inhalation TIDP PRN Shortness 11/20/23 11/20/23 History (2.5 mg base)/3 mL nebulization Of Breath soln levothyroxine 88 mcg tablet 88 mcg PO DAILY 11/20/23 11/20/23 History nitroglycerin 0.4 mg sublingual 0.4 mg sublingual Q5MINP PRN Chest 11/20/23 11/20/23 History tablet Pain potassium chloride 20 mEq 20 meq PO DAILY 11/20/23 11/20/23 History tablet,extended release(part/cryst) pravastatin 40 mg tablet 40 mg PO HS 11/20/23 11/20/23 History tramadol 50 mg tablet 50 mg PO BIDP PRN Moderate Pain 11/20/23 11/20/23 History (Scale Score 5-6) New Prescriptions to Start Prescriptions: Allergies Allergy/AdvReac Type Severity Reaction Status Date / Time codeine [CODEINE] Allergy Mild Verified 11/20/23 08:22 penicillin G [PENICILLIN G] Allergy Mild Verified 11/20/23 08:22 povidone-iodine Allergy Mild Verified 11/20/23 08:22 [From BETADINE] Exam Data for Last 24 hours Vital signs and Labs for Last 24 Hours: Temp Pulse Resp BP Pulse Ox O2 Del Method O2 Flow Rate 98.3 F 104 H 26 H 107/51 L 90 L Non-Rebreather 15 11/20/23 11:00 11/20/23 11:00 11/20/23 11:00 11/20/23 11:00 11/20/23 09:00 11/20/23 11:00 11/20/23 11:00 Laboratory Results - last 24 hr 11/20/23 08:11: Specimen Source Left brachial, O2 % 10l, ABG pH 7.34 L, ABG pCO2 42.9, ABG pO2 39.1 L, ABG HCO3 22.8, ABG Total CO2 24.1, ABG O2 Saturation 71 L*, ABG Base Excess -2.9 L, Darian Test Acceptable 11/20/23 08:15: WBC 25.5 H*, RBC 4.48, Hgb 13.1, Hct 44.5, MCV 99.2 H, MCH 29.2, MCHC 29.5 L, RDW 15.8, Plt Count 614 H, MPV 9.0, Neut % (Auto) 94.9 H, Lymph % (Auto) 2.1 L, [place]nn % (Auto) 2.4, Eos % (Auto) 0.2, Baso % (Auto) 0.4, Neut # (Auto) 24.2 H, Lymph # (Auto) 0.5 L, Glynn # (Auto) 0.6, Eos # (Auto) 0.0, Baso # (Auto) 0.1, Total Counted 100, Neutrophils % (Manual) 97 H, Lymphocytes % (Manual) 3 L, Platelet Estimate Moderate increase, RBC Morphology Not Reportable, Macrocytosis 1+, PT 10.8, INR 1.00, APTT 21.9 L, Sodium 139, Potassium 5.1, Chloride 103, Carbon Dioxide 27, Anion Gap 14.1, BUN 48 H, Creatinine 1.80 H, Estimated Creat Clear 15, Estimated GFR 27 L, Est GFR ( Amer) 33 L, Glucose 155 H, Lactate 2.7 H, Calcium 9.2, Total Bilirubin 0.3, AST 30, ALT 26, Alkaline Phosphatase 253 H, Troponin I < 0.01, NT-Pro-B Natriuret Pep 1240 H, Total Protein 7.3, Albumin 3.7, Globulin 3.6 H, Albumin/Globulin Ratio 1.0 L 11/20/23 08:34: Urine Color Yellow, Urine Appearance Turbid, Urine pH 6.0, Ur Specific [place] >= 1.030, Urine Protein 2+, Urine Glucose (UA) Negative, Urine Ketones Trace, Urine Blood 2+, Urine Nitrate Positive, Urine Bilirubin 1+ A, Urine Urobilinogen 1.0, Ur Leukocyte Esterase 2+ A, Urine WBC Tntc, Urine Bacteria 1+ I & O for Last 24 hours: Intake & Output 11/17/23 11/18/23 11/19/23 11/20/23 23:59 23:59 23:59 23:59 Weight 36.287 kg Constitutional Constitutional: moderate distress, cachectic, chronically ill appearing and somnolent *Routine HEENT Exam Head: Present normocephalic Eye: Present EOMI and PERRL ENT: Present mucous membranes dry Comments: Bitemporal wasting, *Routine Neck Exam Neck: Present supple; Absent lymphadenopathy Routine Chest/Breast/Axilla Exam Comments: Prominent ribs *Routine Respiratory Exam Respiratory: Present prolonged expiratory phase, wheezes, crackles (Bases) and diminished air movement; Absent rhonchi *Routine Cardiovascular Exam Cardiovascular: Present tachycardia Comments: Regular rhythm *Routine Abdominal Exam Abdominal: Present soft and normoactive bowel sounds; Absent tenderness Comments: Scaphoid *Routine Rectal Exam Rectal:: deferred *Routine Genitalia Exam Genitalia:: deferred *Routine Extremities Exam Extremities: Absent cyanosis, clubbing or edema *Routine Skin Exam Skin: Present intact and warm; Absent cyanosis, erythema or rash *Routine Neurological Exam Neurological: Present alert, altered mental status and moving all extremities Comments: Oriented to self and place, dozes easily. Globally weak Assessment and Plan *Assessment and plan (1) Septic shock: Status: Acute Category: Medical Code(s): A41.9 - Sepsis, unspecified organism; R65.21 - Severe sepsis with septic shock (2) Acute pyelonephritis: Status: Acute Category: Medical Code(s): N10 - Acute pyelonephritis (3) Acute exacerbation of chronic obstructive pulmonary disease: Status: Acute Category: Medical Code(s): J44.1 - Chronic obstructive pulmonary disease with (acute) exacerbation (4) Acute hypoxemic respiratory failure: Status: Acute Category: Medical Code(s): J96.01 - Acute respiratory failure with hypoxia (5) Hypothyroidism: Status: Chronic Qualifiers: Hypothyroidism type: unspecified Qualified Code(s): E03.9 - Hypothyroidism, unspecified Category: Medical Code(s): E03.9 - Hypothyroidism, unspecified (6) Hypertension: Status: Chronic Qualifiers: Hypertension type: essential hypertension Qualified Code(s): I10 - Essential (primary) hypertension Category: Medical Code(s): I10 - Essential (primary) hypertension (7) History of lung cancer: Status: Chronic Category: Medical Code(s): Z85.118 - Personal history of other malignant neoplasm of bronchus and lung (8) Cachexia: Status: Acute Category: Medical Code(s): R64 - Cachexia (9) Severe protein-calorie malnutrition: Status: Acute Category: Medical Code(s): E43 - Unspecified severe protein-calorie malnutrition Plan Ms. Chu is a 78-year-old female who has been at a nursing facility for rehab. Worsening weakness and fever over the past 4 to 5 days. Presented to the ER due to hypoxia. Found to be in septic shock. Started on broad-spectrum antibiotics. After fluid bolus, still hypotensive necessitating norepinephrine. Admitted to ICU for further management. Discussed case with ER, request admission for further treatment of septic shock and goals of care discussions. I agreed to admit. Family at bedside. Patient critically ill. Discussion with family, we will not escalate beyond nonrebreather, norepinephrine, antibiotics. If patient further decompensates, they do not want to intubate or proceed with ACLS. Would want to transition to comfort/hospice care at that time. Problems addressed as follows: Septic shock Pneumonia Pyelonephritis - Patient febrile to 101.4 on arrival, tachycardic in the 130s, became hypotensive after fluid resuscitation with maps in the 50s, white cell count of 25,000, concern for pneumonia on chest CT in the left lower lobe along with grossly abnormal urine concerning for pyelonephritis. -Initiated on norepinephrine, goal maps greater than 65. -Nonrebreather, goal saturation greater 90%. Will attempt to wean to 50% Venti if tolerated -Continue DuoNebs every 4 hours - Broad spectrum antibiotics with cefepime 1 g every 12 hours renally dosed and vancomycin 500 mg IV every 36 hours. -Blood cultures and urine cultures pending -Endorgan dysfunction with respiratory failure and kidney injury -Urine grossly abnormal with nitrate positive, 2+ leuk esterase, too numerous to count white cells, 1+ bacteria -Budesonide twice daily -Personally reviewed CT, shows consolidation of left lower lung with scant effusions bilaterally STEPHANIE: BUN 48, creatinine 1.8. I have ordered CBC, CMP, magnesium for the morning Patient is cachectic and has severe protein calorie malnutrition. BMI of 13 on presentation. Has lost significant weight over the past 12 months. Concern for secondary to her history of lung cancer with possible recurrence versus end-stage emphysema with COPD cachexia. Hypothyroid: Continue levothyroxine 88 mcg daily, TSH pending History of hypertension, holding blood pressure medication DNR Mechanical soft diet Heparin 5000 units SQ 3 times daily
--- NOTE | 2023-11-20 11:16 | EXP.SEPSISRE ---
[facility] Tissue Perfusion Eval Sepsis Re-Evaluation Performed: Yes Date Performed: 11/20/23 Time Performed: 11:45
[2023-11-20 12:22] LABS: Troponin I < 0.01 ng/ml (0.00-0.034)
[2023-11-20 12:28] LABS: Reflex Lactic Add Lactic Reflex
[2023-11-20 13:04] LABS: Lactic Acid Follow Up (RFLX 1) 2.5 mmol/L (0.7-2.1)
[2023-11-20 14:48] LABS: Reflex Lactic (2 hrs) Add Lactic Reflex
--- NOTE | 2023-11-20 16:21 | PC.NURSE ---
Since arrival to unit pt has appeared to rest well. pt has had numerous family members at bedside. pt is a/o x 3. pt is able to interact with family. pt mouth wet with swabs upon request of pt, chapstick applied as well. pt lung sounds still contain scattered crackles and rhonchi. no motteling noted on pt extremeties. pt remains on 2mcg of levophed.
--- NOTE | 2023-11-20 17:09 | PC.NURSE ---
1650 pt o2 changed from NRB to 50% venti mask r/t sats 100% 1508 pt 02 decreased to 40% venti r/t sats of 100% 1510 notified RT of changes to pt o2.
[2023-11-20] MEDS: HEPARIN SODIUM 5,000 UNIT/ML VIAL 5000 UNIT SQ (18:08)
[2023-11-20] MEDS: IPRATROPIUM/ALBUTEROL 3 ML NEB IH ×2 (18:30→22:44)
[2023-11-20] MEDS: BUDESONIDE 0.5MG/2ML NEB 0.5 MG IH (18:31)
[2023-11-20] MEDS: CEFEPIME HCL 1 GM in 0.9 % SODIUM CHLORIDE 50 ML IV (19:41)
[2023-11-21] VITALS (41 sets, daily range): BP systolic 96–147; BP diastolic 39–74; PULSE 73–106; RESP 15–34; TEMP 36.4–36.7; O2SAT 90–100; BMI 14.2
[2023-11-21] MEDS: HEPARIN SODIUM 5,000 UNIT/ML VIAL 5000 UNIT SQ ×3 (02:26→18:37)
[2023-11-21] MEDS: IPRATROPIUM/ALBUTEROL 3 ML NEB IH ×6 (02:34→22:03)
--- NOTE | 2023-11-21 06:25 | PC.NURSE ---
Patient has maintained adequate oxygen saturation via Venturi mask 6L/30%. Still transiently requiring Norepi at 2mcg/min. Trials without the Norepi result in hypotensive blood pressures SBP <90, MAP <60. She has over the course of the night began to refuse medications and interventions that she was not doing at the beginning of the shift. She has yet to void for the shift. Bladder scan at 22:00 shows a burden of 230mL. Repeat bladder scan this morning at 06:00 shows a burden of 425mL.
[2023-11-21] MEDS: BUDESONIDE 0.5MG/2ML NEB 0.5 MG IH ×2 (06:50→18:40)
[2023-11-21] MEDS: LEVOTHYROXINE 88MCG (0.088MG) TAB 88 MCG PO (07:52)
[2023-11-21 09:12] LABS: Basophils # 0.1 K/mm3 (0-0.2); Basophils % 0.2 % (0.1-2.0); Eosinophils % 0.1 % (0.1-12.0); Hematocrit 33.5 % (37.0-47.0); Hemoglobin 9.9 g/dL (12.2-16.2); Lymphocytes # 0.4 K/mm3 (0.7-4.5); Lymphocytes % 1.2 % (10-50); Mean Corpuscular HGB Conc 29.6 g/dL (31.8-35.4); Mean Corpuscular Hemoglobin 29.4 pg (27.0-31.2); Mean Corpuscular Volume 99.2 fl (81-99); Mean Platelet Volume 8.4 fl (7.4-10.4); Monocytes # 0.5 K/mm3 (0.1-1.0); Monocytes % 1.7 % (1.7-9.3); Neutrophils # 29.8 K/mm3 (1.8-7.8); Neutrophils % 96.9 % (37.0-80.0); Platelet Count 346 K/mm3 (142-424); Red Blood Count 3.38 M/mm3 (4.20-5.40); White Blood Count 30.7 K/mm3 (4.8-10.8)
[2023-11-21 09:20] LABS: Chloride 109 mmol/L (98-107); Potassium 4.9 mmoL/L (3.5-5.1); Sodium 139 mmol/L (136-145)
[2023-11-21 09:22] LABS: Blood Urea Nitrogen 50 mg/dl (7-17); Creatinine Clearance Estimated 17 mL/min (50-200); Estimated Glomerular Filt Rate 31 ml/min (>60); GFR (African American) 38 ML/MIN (>60)
[2023-11-21 09:23] LABS: Alanine Aminotransferase 15 U/L (12-78); Albumin Level 2.8 g/dl (3.5-5.0); Albumin/Globulin Ratio 0.9 (1.1-1.8); Alkaline Phosphatase 176 U/L (38-126); Anion Gap 10.9 mEq/L (5-15); Aspartate Amino Transferase 20 U/L (14-36); Bilirubin,Total 0.3 mg/dl (0.2-1.3); Calcium 8.4 mg/dl (8.4-10.2); Carbon Dioxide 24 mmol/L (22.0-30.0); Glucose 140 mg/dl (74-100); Magnesium 2.2 mg/dl (1.6-2.3); Total Protein,Serum 5.8 g/dl (6.3-8.2)
[2023-11-21 09:29] LABS: MANUAL DIFFERENTIAL MANUAL DIFFERENTIAL (MANUAL DIFF)
[2023-11-21 09:54] LABS: Thyroid Stimulating Hormone 0.02 uIU/mL (0.465-4.68)
[2023-11-21] MEDS: CEFEPIME HCL 1 GM in 0.9 % SODIUM CHLORIDE 50 ML IV ×2 (10:01→20:59)
[2023-11-21] MEDS: LACTATED RINGERS 1000ML 1,000 ML 250 ML IV (11:41)
[2023-11-21 14:36] LABS: Lymphocytes % 1 % (10-50); Monocytes % 3 % (2-9); Neutrophils % 96 % (42-76); Platelet Estimate Normal; RBC Morphology Normal; Total Cells Counted 100
--- NOTE | 2023-11-21 17:35 | EXP.ACUTE.PN ---
Subjective *Date: 11/21/23 *Time: 18:05 Interval history: Patient's symptoms effervescing. Stable on 2 mcg/min of norepinephrine overnight. Somewhat more alert today. Knows who she is and where she is. Answers questions appropriately on exam but very slow and sounds weak with her voice. Weaned to 3 L nasal cannula overnight. Afebrile this morning. Tolerating small amounts of p.o. intake. Family at bedside. Discussed progression of case and patient's promising response so far to treatment. Medical Exam Vital signs and Labs for Last 24 Hours: Vital Signs Temp Pulse Pulse Resp BP BP Pulse Ox 11/21/23 17:00 11/21/23 17:00 93 H 97 11/21/23 16:29 98.1 F 11/21/23 16:00 93 H 19 131/52 L 100 11/21/23 15:35 94 L 11/21/23 15:05 11/21/23 15:00 96 H 18 118/50 L 100 11/21/23 14:00 92 H 22 129/48 L 100 11/21/23 13:00 11/21/23 13:00 97 H 18 132/53 L 98 11/21/23 12:34 98 F 11/21/23 12:00 90 11/21/23 12:00 91 H 20 140/54 L 100 11/21/23 11:49 93 H 98 11/21/23 11:14 11/21/23 11:12 93 H 16 145/63 H 99 11/21/23 11:00 88 16 109/61 L 96 11/21/23 10:12 87 11/21/23 10:12 86 11/21/23 10:12 96 11/21/23 10:00 91 H 20 136/58 L 95 11/21/23 09:00 82 18 133/39 L 99 11/21/23 09:00 11/21/23 08:49 97.6 F 11/21/23 08:15 96 11/21/23 08:00 85 11/21/23 08:00 83 21 138/60 97 11/21/23 07:53 83 98 11/21/23 07:35 96 11/21/23 07:00 81 15 143/69 H 99 11/21/23 06:50 82 11/21/23 06:50 79 11/21/23 06:50 100 11/21/23 06:00 88 19 136/67 92 L 11/21/23 05:00 73 15 125/57 L 90 L 11/21/23 04:00 76 11/21/23 04:00 95 11/21/23 04:00 97.9 F 11/21/23 04:00 86 18 99/46 L 95 11/21/23 03:00 80 18 96/46 L 97 11/21/23 02:38 83 11/21/23 02:38 74 11/21/23 02:00 84 18 147/52 H 94 L 11/21/23 01:17 80 11/21/23 01:00 75 15 106/51 L 93 L 11/21/23 00:00 83 11/21/23 00:00 95 11/21/23 00:00 83 34 H 142/74 H 99 11/20/23 23:00 76 17 126/63 100 11/20/23 22:52 82 11/20/23 22:52 72 11/20/23 22:52 11/20/23 22:00 78 18 132/65 99 11/20/23 21:00 75 22 143/63 H 100 11/20/23 20:00 19 95 11/20/23 20:00 80 19 130/63 97 11/20/23 18:56 82 21 124/62 100 11/20/23 18:56 11/20/23 18:40 79 11/20/23 18:40 77 11/20/23 18:40 100 11/20/23 18:00 88 39 H 139/63 100 O2 Del Method O2 Flow Rate FiO2 11/21/23 17:00 Nasal Cannula 2 11/21/23 17:00 Nasal Cannula 2 11/21/23 16:29 11/21/23 16:00 Nasal Cannula 2 11/21/23 15:35 Nasal Cannula 2 11/21/23 15:05 Nasal Cannula 2 11/21/23 15:00 Nasal Cannula 2 11/21/23 14:00 Nasal Cannula 2 11/21/23 13:00 Nasal Cannula 2 11/21/23 13:00 Nasal Cannula 2 11/21/23 12:34 11/21/23 12:00 11/21/23 12:00 Nasal Cannula 2 11/21/23 11:49 Nasal Cannula 2 11/21/23 11:14 Nasal Cannula 2 11/21/23 11:12 Nasal Cannula 2 11/21/23 11:00 Nasal Cannula 2 11/21/23 10:12 11/21/23 10:12 11/21/23 10:12 Nasal Cannula 2 11/21/23 10:00 Nasal Cannula 2 11/21/23 09:00 Nasal Cannula 3 11/21/23 09:00 Nasal Cannula 3 11/21/23 08:49 11/21/23 08:15 Nasal Cannula 3 11/21/23 08:00 11/21/23 08:00 Nasal Cannula 3 11/21/23 07:53 Nasal Cannula 4 11/21/23 07:35 Nasal Cannula 4 11/21/23 07:00 Venturi Mask 6 30 11/21/23 06:50 11/21/23 06:50 11/21/23 06:50 Venturi Mask 30 11/21/23 06:00 Venturi Mask 6 30 11/21/23 05:00 Venturi Mask 6 30 11/21/23 04:00 11/21/23 04:00 Venturi Mask 6 30 11/21/23 04:00 11/21/23 04:00 Venturi Mask 6 30 11/21/23 03:00 Venturi Mask 6 30 11/21/23 02:38 11/21/23 02:38 11/21/23 02:00 Venturi Mask 6 30 11/21/23 01:17 11/21/23 01:00 Venturi Mask 30 11/21/23 00:00 11/21/23 00:00 Venturi Mask 6 30 11/21/23 00:00 Venturi Mask 30 11/20/23 23:00 Venturi Mask 11/20/23 22:52 11/20/23 22:52 11/20/23 22:52 Venturi Mask 6 30 11/20/23 22:00 Venturi Mask 11/20/23 21:00 Venturi Mask 11/20/23 20:00 Venturi Mask 11/20/23 20:00 Venturi Mask 11/20/23 18:56 Non-Rebreather 11/20/23 18:56 Non-Rebreather 11/20/23 18:40 11/20/23 18:40 11/20/23 18:40 Venturi Mask 12 40 11/20/23 18:00 Non-Rebreather Intake and Output 11/21/23 11/21/23 11/21/23 07:59 15:59 23:59 Intake Total 470 / 1475 1005 / 1475 Output Total 300 / 300 Balance 170 / 1175 1005 / 1175 Intake: Intake, Oral Amount 420 / 420 Intake, Other Amount 1000 / 1000 Intake, Total IV Amount 50 / 55 5 / 55 Cefepime HCl 1 gm In 0.9 % 50 / 50 Sodium Chloride 50 ml @ 100 mls /hr IV Q12H [facility] Rx#:[id number] Norepinephrine Bitartrate/D5w 8 5 / 5 mg In 250 ml @ 2 MCG/MIN 3.75 mls/hr IV .Q24H [facility] Rx#: [id number] Output: Output, Urine Amount 300 / 300 Other: Weight 37.903 kg Patient Weight 11/21/23 23:59 Weight 37.903 kg Laboratory Results - last 24 hr 11/20/23 08:34: Urine Color Yellow, Urine Appearance Turbid, Urine pH 6.0, Ur Specific [place] >= 1.030, Urine Protein 2+, Urine Glucose (UA) Negative, Urine Ketones Trace, Urine Blood 2+, Urine Nitrate Positive, Urine Bilirubin 1+ A, Urine Urobilinogen 1.0, Ur Leukocyte Esterase 2+ A, Urine WBC Tntc, Urine Bacteria 1+ 11/21/23 09:00: WBC 30.7 H*, RBC 3.38 L, Hgb 9.9 L, Hct 33.5 L, MCV 99.2 H, MCH 29.4, MCHC 29.6 L, RDW 16.0, Plt Count 346 D, MPV 8.4, Neut % (Auto) 96.9 H, Lymph % (Auto) 1.2 L, Desha % (Auto) 1.7, Eos % (Auto) 0.1, Baso % (Auto) 0.2, Neut # (Auto) 29.8 H, Lymph # (Auto) 0.4 L, Desha # (Auto) 0.5, Eos # (Auto) 0.0, Baso # (Auto) 0.1, Total Counted 100, Neutrophils % (Manual) 96 H, Lymphocytes % (Manual) 1 L, Monocytes % (Manual) 3, Platelet Estimate Normal, RBC Morphology Normal, Sodium 139, Potassium 4.9, Chloride 109 H, Carbon Dioxide 24, Anion Gap 10.9, BUN 50 H, Creatinine 1.60 H, Estimated Creat Clear 17, Estimated GFR 31 L, Est GFR ( Amer) 38 L, Glucose 140 H, Calcium 8.4, Magnesium 2.2, Total Bilirubin 0.3, AST 20 D, ALT 15 D, Alkaline Phosphatase 176 H, Total Protein 5.8 L, Albumin 2.8 L D, Globulin 3.0, Albumin/Globulin Ratio 0.9 L, TSH 0.02 L I & O for Labs for Last 24 Hours: Intake & Output 11/18/23 11/19/23 11/20/23 11/21/23 23:59 23:59 23:59 23:59 Intake Total 1626 / 1626 1475 / 1475 Output Total 300 / 300 Balance 1626 / 1626 1175 / 1175 Weight 37.903 kg 37.903 kg Microbiology Reports for the Last 24 Hours: Microbiology 11/20/23 08:15 Blood Blood Culture - Preliminary Gram Positive Cocci 11/20/23 08:25 Blood Blood Culture - Preliminary NO GROWTH AFTER 24 HOURS Constitutional: Present mild distress, cachectic, chronically ill appearing and cooperative Head: Present atraumatic ENT: Present normal exam Comment:: Bitemporal wasting Respiratory: Present normal respiratory effort; Absent rhonchi, wheezes or crackles Cardiac: Present Reg Rate and Rhythm GI: Present soft and normal bowel sounds; Absent distention or tenderness Extremities: Present normal inspection and full ROM Comment:: Thin, sarcopenia, loss of muscle mass Skin: Present intact; Absent erythema Neuro: Present Grossly Intact, alert, awake, oriented x 3 and moves all extremities Comment:: Globally weak Assessment and Plan *Assessment and plan (1) Septic shock: Status: Acute Category: Medical Code(s): A41.9 - Sepsis, unspecified organism; R65.21 - Severe sepsis with septic shock (2) Acute pyelonephritis: Status: Acute Category: Medical Code(s): N10 - Acute pyelonephritis (3) Acute exacerbation of chronic obstructive pulmonary disease: Status: Acute Category: Medical Code(s): J44.1 - Chronic obstructive pulmonary disease with (acute) exacerbation (4) Acute hypoxemic respiratory failure: Status: Acute Category: Medical Code(s): J96.01 - Acute respiratory failure with hypoxia (5) Hypothyroidism: Status: Chronic Qualifiers: Hypothyroidism type: unspecified Qualified Code(s): E03.9 - Hypothyroidism, unspecified Category: Medical Code(s): E03.9 - Hypothyroidism, unspecified (6) Hypertension: Status: Chronic Qualifiers: Hypertension type: essential hypertension Qualified Code(s): I10 - Essential (primary) hypertension Category: Medical Code(s): I10 - Essential (primary) hypertension (7) History of lung cancer: Status: Chronic Category: Medical Code(s): Z85.118 - Personal history of other malignant neoplasm of bronchus and lung (8) Cachexia: Status: Acute Category: Medical Code(s): R64 - Cachexia (9) Severe protein-calorie malnutrition: Status: Acute Category: Medical Code(s): E43 - Unspecified severe protein-calorie malnutrition Plan Ms. Chu is a 78-year-old female who has been at a nursing facility for rehab. Worsening weakness and fever over the past 4 to 5 days. Presented to the ER due to hypoxia. Found to be in septic shock. Started on broad-spectrum antibiotics. After fluid bolus, still hypotensive necessitating norepinephrine. Admitted to ICU for further management. Discussed case with ER, request admission for further treatment of septic shock and goals of care discussions. I agreed to admit. Family at bedside. Patient critically ill. Discussion with family, we will not escalate beyond nonrebreather, norepinephrine, antibiotics. Patient's symptoms appear to have stabilized overnight. Weaned to nasal cannula oxygen. Continues to require ICU level care. Problems addressed as follows: Septic shock Pneumonia Pyelonephritis -Wean norepinephrine if possible, goal MAP greater than 65. Will administer 1 L LR 250 cc an hour for 4 hours. -White cell count increased to 30,000. Patient afebrile overnight. -Goal saturations greater than 90%. Currently on 3 L -Continue DuoNebs every 4 hours - Broad spectrum antibiotics with cefepime 1 g every 12 hours renally dosed and vancomycin 500 mg IV every 36 hours. -Blood cultures and urine cultures pending -Endorgan dysfunction with respiratory failure and kidney injury -Urine grossly abnormal with nitrate positive, 2+ leuk esterase, too numerous to count white cells, 1+ bacteria -Budesonide twice daily STEPHANIE: BUN 50, creatinine 1.6. I have ordered CBC, CMP, magnesium for the morning Patient is cachectic and has severe protein calorie malnutrition. BMI of 13 on presentation. Has lost significant weight over the past 12 months. Concern for secondary to her history of lung cancer with possible recurrence versus end-stage emphysema with COPD cachexia. Hypothyroid: Continue levothyroxine 88 mcg daily, TSH 0.02 History of hypertension, holding blood pressure medication DNR Mechanical soft diet Heparin 5000 units SQ 3 times daily ICU/Critical care attestation This patient is critically ill with 45 minutes devoted solely to this patient managing life/organ supporting interventions that required physician assessment. This includes time spent making adjustments in respiratory support, IV fluid administration, titration of pressors, adjustments of medications, discussion of patient with consultants and other care providers as well as updating patient and/or family (if patient by virtue of his/her condition is unable to participate in decision making). This does not include time spent performing separately billed procedures. Time is not concurrent with that of other providers.
--- NOTE | 2023-11-21 17:37 | PC.NURSE ---
pt has been awake and alert more this shift than previous day shift. pt is a/o x 3. pt currently has appetite and has eaten well this shift with the help of her family. nad noted. pt voice is soft spoken and weak in quality. pt states that she is tired . denies any distress, pain or discomfort when asked. pt family has been at bedside throughout the day. pt has voided very little urine via purwick this shift, but denies any pain or urgency. urine that pt voided earlier in the shift was dark yellow and clear. nad noted.
--- NOTE | 2023-11-21 20:50 | EXP.PN ---
Subjective *Date: 11/22/23 *Time: 18:03 Interval history: Patient has asked for something to help her sleep. She says she takes Valium 5 at [place]. She also noted that she takes sometimes two. Patient has caregiver and family in the room at this time and they both acknowledge that she has had Valium without any problems in the past. Exam Data for Last 24 hours Vital signs and Labs for Last 24 Hours: Temp Pulse Resp BP Pulse Ox O2 Del Method O2 Flow Rate 97.9 F 83 21 128/56 L 98 Nasal Cannula 2 11/21/23 20:00 11/21/23 19:40 11/21/23 19:00 11/21/23 19:00 11/21/23 19:00 11/21/23 19:40 11/21/23 19:40 FiO2 28 11/21/23 19:40 Laboratory Results - last 24 hr 11/20/23 08:34: Urine Color Yellow, Urine Appearance Turbid, Urine pH 6.0, Ur Specific [place] >= 1.030, Urine Protein 2+, Urine Glucose (UA) Negative, Urine Ketones Trace, Urine Blood 2+, Urine Nitrate Positive, Urine Bilirubin 1+ A, Urine Urobilinogen 1.0, Ur Leukocyte Esterase 2+ A, Urine WBC Tntc, Urine Bacteria 1+ 11/21/23 09:00: WBC 30.7 H*, RBC 3.38 L, Hgb 9.9 L, Hct 33.5 L, MCV 99.2 H, MCH 29.4, MCHC 29.6 L, RDW 16.0, Plt Count 346 D, MPV 8.4, Neut % (Auto) 96.9 H, Lymph % (Auto) 1.2 L, [place] % (Auto) 1.7, Eos % (Auto) 0.1, Baso % (Auto) 0.2, Neut # (Auto) 29.8 H, Lymph # (Auto) 0.4 L, [place] # (Auto) 0.5, Eos # (Auto) 0.0, Baso # (Auto) 0.1, Total Counted 100, Neutrophils % (Manual) 96 H, Lymphocytes % (Manual) 1 L, Monocytes % (Manual) 3, Platelet Estimate Normal, RBC Morphology Normal, Sodium 139, Potassium 4.9, Chloride 109 H, Carbon Dioxide 24, Anion Gap 10.9, BUN 50 H, Creatinine 1.60 H, Estimated Creat Clear 17, Estimated GFR 31 L, Est GFR ( Amer) 38 L, Glucose 140 H, Calcium 8.4, Magnesium 2.2, Total Bilirubin 0.3, AST 20 D, ALT 15 D, Alkaline Phosphatase 176 H, Total Protein 5.8 L, Albumin 2.8 L D, Globulin 3.0, Albumin/Globulin Ratio 0.9 L, TSH 0.02 L I & O for Last 24 hours: Intake & Output 11/18/23 11/19/23 11/20/23 11/21/23 23:59 23:59 23:59 23:59 Intake Total 1626 / 1626 1715 / 1715 Output Total 500 / 500 Balance 1626 / 1626 1215 / 1215 Weight 37.903 kg 37.903 kg Microbiology Reports for the Last 24 Hours: Microbiology 11/20/23 08:15 Blood Blood Culture - Preliminary Gram Positive Cocci 11/20/23 08:25 Blood Blood Culture - Preliminary NO GROWTH AFTER 24 HOURS Constitutional Constitutional: no acute distress Comments: Alert oriented good speaker giving a clear past medical history *Routine Respiratory Exam Respiratory: Present normal respiratory effort Comments: It no distress at this time wearing normal levels of oxygen per nasal cannula Assessment and Plan *Assessment and plan (1) Sleep disturbance, unspecified: Status: Acute Category: Medical Code(s): G47.9 - Sleep disorder, unspecified Plan 1. Sleep disturbance: After talking with the patient reviewing her history feel comfortable giving Valium 5 1 time to help her sleep. And to relieve any of her anxiety. Family member and caregiver also verifies she has never had any side effects due to this medication. Will give Valium 5 p.o. 1 time to see how this works as a result and will continue it as needed if beneficial
[2023-11-21] MEDS: diazePAM 5MG TABLET 5 MG PO (20:59)
[2023-11-21] MEDS: VANCOMYCIN HCL 500 MG in 0.9 % SODIUM CHLORIDE 250 ML 125 MG IV (21:51)
[2023-11-22] VITALS (20 sets, daily range): BP systolic 113–148; BP diastolic 36–67; PULSE 70–100; RESP 16–24; TEMP 36.5–36.8; O2SAT 90–100; BMI 14.2
[2023-11-22] MEDS: IPRATROPIUM/ALBUTEROL 3 ML NEB IH ×6 (01:35→21:44)
[2023-11-22] MEDS: MELATONIN 5MG TABLET 10 MG PO ×2 (01:44→21:44)
[2023-11-22] MEDS: HEPARIN SODIUM 5,000 UNIT/ML VIAL 5000 UNIT SQ (01:45)
[2023-11-22] MEDS: LEVOTHYROXINE 88MCG (0.088MG) TAB 88 MCG PO (06:28)
[2023-11-22] MEDS: BUDESONIDE 0.5MG/2ML NEB 0.5 MG IH ×2 (06:36→18:11)
[2023-11-22 08:44] LABS: Basophils % 0.1 % (0.1-2.0); Hematocrit 31.6 % (37.0-47.0); Hemoglobin 9.5 g/dL (12.2-16.2); Lymphocytes # 0.6 K/mm3 (0.7-4.5); MANUAL DIFFERENTIAL MANUAL DIFFERENTIAL (MANUAL DIFF); Mean Corpuscular HGB Conc 30.1 g/dL (31.8-35.4); Mean Corpuscular Hemoglobin 29.7 pg (27.0-31.2); Mean Corpuscular Volume 98.6 fl (81-99); Mean Platelet Volume 8.6 fl (7.4-10.4); Monocytes # 0.5 K/mm3 (0.1-1.0); Monocytes % 3.4 % (1.7-9.3); Neutrophils # 12.7 K/mm3 (1.8-7.8); Neutrophils % 92.4 % (37.0-80.0); Platelet Count 295 K/mm3 (142-424); Red Cell Distribution Width 16.2 % (11.5-17.5); White Blood Count 13.8 K/mm3 (4.8-10.8)
[2023-11-22 08:46] LABS: Chloride 112 mmol/L (98-107); Potassium 4.1 mmoL/L (3.5-5.1); Sodium 141 mmol/L (136-145)
[2023-11-22 08:48] LABS: Blood Urea Nitrogen 40 mg/dl (7-17)
[2023-11-22 08:49] LABS: Alanine Aminotransferase 14 U/L (12-78); Albumin Level 2.8 g/dl (3.5-5.0); Alkaline Phosphatase 173 U/L (38-126); Anion Gap 9.1 mEq/L (5-15); Aspartate Amino Transferase 26 U/L (14-36); Bilirubin,Total 0.2 mg/dl (0.2-1.3); Calcium 8.4 mg/dl (8.4-10.2); Carbon Dioxide 24 mmol/L (22.0-30.0); Creatinine Clearance Estimated 20 mL/min (50-200); Estimated Glomerular Filt Rate 36 ml/min (>60); GFR (African American) 44 ML/MIN (>60); Globulin 2.9 g/dL (1.3-3.2); Glucose 98 mg/dl (74-100); Total Protein,Serum 5.7 g/dl (6.3-8.2)
[2023-11-22 08:50] LABS: Magnesium 2.3 mg/dl (1.6-2.3)
[2023-11-22] MEDS: LEVOFLOXACIN/D5W 750 MG/150 ML 750 MG/150 ML PIGGYBACK 100 MG IV (09:43)
[2023-11-22 10:10] LABS: Eosinophils % 1 % (0-3); Lymphocytes % 7 % (10-50); Monocytes % 5 % (2-9); Neutrophils % 87 % (42-76); Total Cells Counted 100
[2023-11-22 10:11] LABS: Platelet Estimate Normal; RBC Morphology Normal
--- OUTSIDE RECORDS SUMMARY | 2023-11-22 10:35 | XMS_ITS ---
Author Name Juan David Cramer Address [address] [place] [id number] Organization Unknown Address [address] [place] [id number] ALLERGIES AND ADVERSE REACTIONS No information ASSESSMENT No information CHIEF COMPLAINT No information MEDICATIONS No information OBJECTIVE DATA No information PHYSICAL EXAMINATION No information TREATMENT PLAN Planned Care Start Date Provider Encounter for Check-up [phone] [facility] PROBLEMS No information RESULTS No information REVIEW OF SYSTEMS No information SUBJECTIVE DATA No information VITAL SIGNS No information
[2023-11-22] MEDS: ENOXAPARIN 30MG/0.3ML SYRINGE 30 MG SQ (14:05)
[2023-11-22] MEDS: NYSTATIN SUSP 500,000 UNITS/5ML UDC 500000 UNIT PO ×2 (14:05→20:11)
--- NOTE | 2023-11-22 16:27 | PC.NURSE ---
pt has remained in bed this shift with family present at bedside. pt is a/ox4. pt voids per purwick. urine is noted to be clear and yellow. pt lung sounds contain scattered rhonchi and crackles posteriorly. pt has wet non productive cough. pt has refused to be turned multiple times this shift. pt was finally agreeable to be turned onto right side at 1625. pressure relieving pad in place on r knee and coccyx. no open areas noted under those dressings. 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
--- NOTE | 2023-11-22 18:03 | P.PN_ITS ---
Subjective *Date: 11/22/23 *Time: 18:14 Interval history: Patient did not sleep overnight. He required Valium. Is somewhat sleepy and confused this morning. Concern for sundowning overnight. Has been getting irritable in the evenings. On 2 L oxygen. Afebrile. Blood pressures made st able for 24 hours. Tolerating p.o. intake. No bowel movement since admission. Medical Exam Vital signs and Labs for Last 24 Hours: Vital Signs Temp Pulse Pulse Resp BP Pulse Ox O2 Del Method 11/22/23 17:23 Nasal Cannula 11/22/23 16:00 97.7 F 95 H 18 126/36 L 94 L Nasal Cannula 11/22/23 16:00 95 H 11/22/23 16:00 97 Nasal Cannula 11/22/23 14:59 Nasal Cannula 11/22/23 14:21 87 11/22/23 14:21 94 H 11/22/23 14:21 96 Nasal Cannula 11/22/23 13:00 Nasal Cannula 11/22/23 12:00 90 11/22/23 12:00 98 F 95 H 20 147/65 H 90 L Nasal Cannula 11/22/23 11:15 Nasal Cannula 11/22/23 10:52 70 11/22/23 10:52 86 11/22/23 10:52 100 Nasal Cannula 11/22/23 10:00 89 20 136/65 99 Nasal Cannula 11/22/23 09:00 Nasal Cannula 11/22/23 08:00 96 H 20 148/63 H 96 Nasal Cannula 11/22/23 08:00 90 11/22/23 07:31 95 H 98 Nasal Cannula 11/22/23 07:31 98 Nasal Cannula 11/22/23 07:00 98.3 F 11/22/23 06:35 84 11/22/23 06:35 95 H 11/22/23 06:35 100 Nasal Cannula 11/22/23 06:00 86 19 117/63 100 Nasal Cannula 11/22/23 05:00 80 20 113/63 100 Nasal Cannula 11/22/23 05:00 Nasal Cannula 11/22/23 04:00 81 11/22/23 04:00 84 20 120/47 L 100 Nasal Cannula 11/22/23 04:00 Nasal Cannula 11/22/23 03:00 84 20 133/57 L 100 Nasal Cannula 11/22/23 03:00 Nasal Cannula 11/22/23 02:00 85 18 133/57 L 100 Nasal Cannula 11/22/23 01:50 84 11/22/23 01:50 83 11/22/23 01:00 98 F 81 16 145/67 H 100 Nasal Cannula 11/22/23 01:00 Nasal Cannula 11/22/23 00:00 100 Nasal Cannula 11/22/23 00:00 98.0 F 11/22/23 00:00 83 11/21/23 23:00 95 H 16 109/42 L 100 Nasal Cannula 11/21/23 23:00 Nasal Cannula 11/21/23 22:21 88 11/21/23 22:20 87 11/21/23 22:00 98 H 18 132/58 L 99 Nasal Cannula 11/21/23 21:00 Nasal Cannula 11/21/23 21:00 100 Nasal Cannula 11/21/23 20:00 Nasal Cannula 11/21/23 20:00 106 H 11/21/23 20:00 97.9 F 11/21/23 19:40 Nasal Cannula 11/21/23 19:40 83 11/21/23 19:39 88 11/21/23 19:00 93 H 21 128/56 L 98 Nasal Cannula 11/21/23 19:00 Nasal Cannula O2 Flow Rate FiO2 11/22/23 17:23 2 11/22/23 16:00 2 11/22/23 16:00 11/22/23 16:00 2 11/22/23 14:59 2 11/22/23 14:21 11/22/23 14:21 11/22/23 14:21 2 11/22/23 13:00 2 11/22/23 12:00 11/22/23 12:00 2 11/22/23 11:15 2 11/22/23 10:52 11/22/23 10:52 11/22/23 10:52 2 11/22/23 10:00 2 11/22/23 09:00 2 11/22/23 08:00 2 11/22/23 08:00 11/22/23 07:31 2 11/22/23 07:31 2 11/22/23 07:00 11/22/23 06:35 11/22/23 06:35 11/22/23 06:35 2 11/22/23 06:00 2 11/22/23 05:00 2 11/22/23 05:00 2 11/22/23 04:00 11/22/23 04:00 2 11/22/23 04:00 2 11/22/23 03:00 2 11/22/23 03:00 2 11/22/23 02:00 2 11/22/23 01:50 11/22/23 01:50 11/22/23 01:00 2 11/22/23 01:00 2 11/22/23 00:00 2 11/22/23 00:00 11/22/23 00:00 11/21/23 23:00 2 11/21/23 23:00 2 11/21/23 22:21 11/21/23 22:20 11/21/23 22:00 2 11/21/23 21:00 2 11/21/23 21:00 2 11/21/23 20:00 2 11/21/23 20:00 11/21/23 20:00 11/21/23 19:40 2 28 11/21/23 19:40 11/21/23 19:39 11/21/23 19:00 2 11/21/23 19:00 2 Intake and Output 11/22/23 11/22/23 11/22/23 07:59 15:59 23:59 Intake Total 300 / 870 420 / 870 150 / 870 Output Total 850 / 1050 200 / 1050 Balance -550 / -180 420 / -180 -50 / -180 Intake: Intake, Oral Amount 420 / 420 Intake, Total IV Amount 300 / 450 150 / 450 Cefepime HCl 1 gm In 0.9 % 50 / 50 Sodium Chloride 50 ml @ 100 mls /hr IV Q12H [facility] Rx#:[id number] Levofloxacin/D5w 750 mg/150 ml 150 / 150 750 mg In 150 ml @ 100 mls/hr IV Q48H [facility] Rx#:[id number] Vancomycin HCl 500 mg In 0.9 % 250 / 250 Sodium Chloride 250 ml @ 125 mls/hr IV Q36H [facility] Rx#:[id number] Output: Output, Urine Amount 850 / 1050 200 / 1050 Other: Number of Unmeasured Voids 0 Weight 37.903 kg 37.9 kg Patient Weight 11/22/23 23:59 Weight 37.9 kg Laboratory Results - last 24 hr 11/20/23 08:34: Urine Color Yellow, Urine Appearance Turbid, Urine pH 6.0, Ur Specific [place] >= 1.030, Urine Protein 2+, Urine Glucose (UA) Negative, Urine Ketones Trace, Urine Blood 2+, Urine Nitrate Positive, Urine Bilirubin 1+ A, Urine Urobilinogen 1.0, Ur Leukocyte Esterase 2+ A, Urine WBC Tntc, Urine Bacteria 1+ 11/22/23 07:54: WBC 13.8 H D, RBC 3.20 L, Hgb 9.5 L, Hct 31.6 L, MCV 98.6, MCH 29.7, MCHC 30.1 L, RDW 16.2, Plt Count 295, MPV 8.6, Neut % (Auto) 92.4 H, Lymph % (Auto) 4.0 L, [place] % (Auto) 3.4, Eos % (Auto) 0.0 L, Baso % (Auto) 0.1, Neut # (Auto) 12.7 H, Lymph # (Auto) 0.6 L, [place] # (Auto) 0.5, Eos # (Auto) 0.0, Baso # (Auto) 0.0, Total Counted 100, Neutrophils % (Manual) 87 H, Lymphocytes % (Manual) 7 L, Monocytes % (Manual) 5, Eosinophils % (Manual) 1, Platelet Estimate Normal, RBC Morphology Normal, Sodium 141, Potassium 4.1, Chloride 112 H, Carbon Dioxide 24, Anion Gap 9.1, BUN 40 H, Creatinine 1.40 H, Estimated Creat Clear 20, Estimated GFR 36 L, Est GFR ( Amer) 44 L, Glucose 98 D, Calcium 8.4, Magnesium 2.3, Total Bilirubin 0.2, AST 26 D, ALT 14, Alkaline Phosphatase 173 H, Total Protein 5.7 L, Albumin 2.8 L, Globulin 2.9, Albumin/Globulin Ratio 1.0 L I & O for Labs for Last 24 Hours: Intake & Output 11/19/23 11/20/23 11/21/23 11/22/23 23:59 23:59 23:59 23:59 Intake Total 1626 / 1626 1714 870 / 870 Output Total 500 / 700 1050 / 1050 Balance 1626 / 1626 1215 / 1315 -180 / -180 Weight 37.903 kg 37.903 kg 37.9 kg Microbiology Reports for the Last 24 Hours: Microbiology 11/20/23 08:34 Urine,Clean Catch Urine Culture - Preliminary 11/20/23 08:25 Blood Blood Culture - Preliminary NO GROWTH AFTER 48 HOURS 11/20/23 08:15 Blood Blood Culture - Final Streptococcus pneumoniae Constitutional: Present no acute distress, cachectic, chronically ill appearing and cooperative Head: Present atraumatic Comment:: Thrush in mouth. Bitemporal wasting Respiratory: Present prolonged expiratory phase, wheezes and normal respiratory effort; Absent rhonchi or crackles Cardiac: Present Reg Rate and Rhythm GI: Present soft and normal bowel sounds; Absent distention or tenderness Extremities: Present normal inspection and full ROM Comment:: Thin, sarcopenia, loss of muscle mass Skin: Present intact; Absent erythema Neuro: Present Grossly Intact, alert, awake and moves all extremities Comment:: Globally weak Assessment and Plan *Assessment and plan (1) Septic shock: Status: Acute Category: Medical Code(s): A41.9 - Sepsis, unspecified organism; R65.21 - Severe sepsis with septic shock (2) Acute pyelonephritis: Status: Acute Category: Medical Code(s): N10 - Acute pyelonephritis (3) Acute exacerbation of chronic obstructive pulmonary disease: Status: Acute Category: Medical Code(s): J44.1 - Chronic obstructive pulmonary disease with (acute) exacerbation (4) Acute hypoxemic respiratory failure: Status: Acute Category: Medical Code(s): J96.01 - Acute respiratory failure with hypoxia (5) Hypothyroidism: Status: Chronic Qualifiers: Hypothyroidism type: unspecified Qualified Code(s): E03.9 - Hypothyroidism, unspecified Category: Medical Code(s): E03.9 - Hypothyroidism, unspecified (6) Hypertension: Status: Chronic Qualifiers: Hypertension type: essential hypertension Qualified Code(s): I10 - Essential (primary) hypertension Category: Medical Code(s): I10 - Essential (primary) hypertension (7) History of lung cancer: Status: Chronic Category: Medical Code(s): Z85.118 - Personal history of other malignant neoplasm of bronchus and lung (8) Cachexia: Status: Acute Category: Medical Code(s): R64 - Cachexia (9) Severe protein-calorie malnutrition: Status: Acute Category: Medical Code(s): E43 - Unspecified severe protein-calorie malnutrition Plan Ms. Chu is a 78-year-old female who has been at a nursing facility for rehab. Worsening weakness and fever over the past 4 to 5 days. Presented to the ER due to hypoxia. Found to be in septic shock. Started on broad-spectrum antibiotics. After fluid bolus, still hypotensive necessitating norepinephrine. Admitted to ICU for further management. Discussed case with ER, request admission for further treatment of septic shock and goals of care discussions. I agreed to admit. Family at bedside. Patient critically ill. Patient showing gradual improvement. Off of norepinephrine for 24 hours. Antibiotics transition to Levaquin. On baseline oxygen of 2 to 3 L. Patient's condition improving. De-escalating care to acute today. Continues to require inpatient management. Problems addressed as follows: Septic shock Pneumonia Pyelonephritis -1 blood culture grew positive for strep pneumonia. Awaiting other blood cultures, sputum result, urine culture. -White count improved to 13.8. -Goal saturations greater than 90%. Currently on 2 L -Continue DuoNebs every 4 hours, except at night. -Broad spectrum antibiotics continued, transition to levofloxacin 750 mg every 48 hours for renal dosing and to discontinue cefepime due to risk for confusion. Continue vancomycin 500 mg every 36 hours - Endorgan dysfunction with respiratory failure and kidney injury -Urine grossly abnormal with nitrate positive, 2+ leuk esterase, too numerous to count white cells, 1+ bacteria -Budesonide twice daily STEPHANIE: BUN 40, creatinine 1.4. Showing some improvement. Still not back to baseline. I have ordered CBC, CMP, magnesium for the morning Sleep disturbance: Initiate melatonin scheduled 10 mg nightly. Takes Valium intermittently at the custodial. Concern for daytime sleepiness and confusion. Will provide 2.5 mg Zyprexa if melatonin does not promote sleep. Also encourage day night routine, will minimize interaction/disturbances this evening. Turn monitor on to nighttime load. No nebs after bedtime. Goal to minimize interruptions Thrush: Initiate oral nystatin. Patient is cachectic and has severe protein calorie malnutrition. BMI of 13 on presentation. Has lost significant weight over the past 12 months. Concern for secondary to her history of lung cancer with possible recurrence [facility] end-stage emphysema with COPD cachexia. Hypothyroid: Continue levothyroxine 88 mcg daily, TSH 0.02 Mood disorder: Resume home fluoxetine 20 mg daily History of hypertension, holding blood pressure medication DNR Mechanical soft diet Transition to prophylactic Lovenox renally dosed to decrease interruptions and injections PT and OT consulted to evaluate patient in the morning.
[2023-11-23] VITALS (8 sets, daily range): BP systolic 126–149; BP diastolic 45–70; PULSE 80–93; RESP 20–22; TEMP 36.8–37; O2SAT 98–100; BMI 14.2
--- NOTE | 2023-11-23 05:42 | PC.NURSE ---
Patient has slept well this shift. Family requested no vitals at 00:00 to let patient rest. Received 04:00 vitals at 05:30 per family request as well. Family declined q2h turns this shift. Patient remains on 2L O2 with O2 sats >90%. Purewick output 350mL total for shift. Daughter remains at bedside, call light within reach.
[2023-11-23] MEDS: LEVOTHYROXINE 88MCG (0.088MG) TAB 88 MCG PO (06:47)
[2023-11-23 07:04] LABS: Chloride 110 mmol/L (98-107); Potassium 4.2 mmoL/L (3.5-5.1); Sodium 141 mmol/L (136-145)
[2023-11-23 07:06] LABS: Basophils % 0.1 % (0.1-2.0); Eosinophils % 0.2 % (0.1-12.0); Hematocrit 28.8 % (37.0-47.0); Hemoglobin 8.8 g/dL (12.2-16.2); Lymphocytes # 0.5 K/mm3 (0.7-4.5); Lymphocytes % 5.3 % (10-50); Mean Corpuscular HGB Conc 30.6 g/dL (31.8-35.4); Mean Corpuscular Volume 98.2 fl (81-99); Mean Platelet Volume 8.7 fl (7.4-10.4); Monocytes # 0.3 K/mm3 (0.1-1.0); Monocytes % 3.7 % (1.7-9.3); Neutrophils # 7.9 K/mm3 (1.8-7.8); Neutrophils % 90.7 % (37.0-80.0); Platelet Count 278 K/mm3 (142-424); Red Blood Count 2.94 M/mm3 (4.20-5.40); Red Cell Distribution Width 16.4 % (11.5-17.5); White Blood Count 8.7 K/mm3 (4.8-10.8)
[2023-11-23 07:07] LABS: Alanine Aminotransferase 11 U/L (12-78); Albumin Level 2.5 g/dl (3.5-5.0); Alkaline Phosphatase 174 U/L (38-126); Anion Gap 9.2 mEq/L (5-15); Aspartate Amino Transferase 30 U/L (14-36); Bilirubin,Total 0.3 mg/dl (0.2-1.3); Blood Urea Nitrogen 28 mg/dl (7-17); Calcium 8.3 mg/dl (8.4-10.2); Carbon Dioxide 26 mmol/L (22.0-30.0); Creatinine Clearance Estimated 25 mL/min (50-200); Estimated Glomerular Filt Rate 48 ml/min (>60); GFR (African American) 58 ML/MIN (>60); Globulin 2.6 g/dL (1.3-3.2); Glucose 80 mg/dl (74-100); Total Protein,Serum 5.1 g/dl (6.3-8.2)
[2023-11-23 07:23] LABS: Magnesium 2.1 mg/dl (1.6-2.3); Phosphorous 2.6 mg/dl (2.5-4.5)
[2023-11-23 07:31] LABS: MANUAL DIFFERENTIAL MANUAL DIFFERENTIAL (MANUAL DIFF)
--- NOTE | 2023-11-23 07:37 | HMH.PTEV ---
Physical Therapy Evaluation Rehab PT IP Evaluation Start: 11/22/23 10:54 Freq: ONCE Status: Active Protocol: Document 11/23/23 07:31 ALFRED (Rec: 11/23/23 07:36 ALFRED [id number]) Subjective/History History History Per H&P: Ms. Chu is a 78-year-old female with history of COPD on chronic oxygen therapy of 3 L , CAD, hypothyroidism, physical decline and weight loss. She presented from [facility] where she has been having worsening shortness of breath over the past few days. Was brought to the ER for evaluation. Subjective Subjective Pt was at [facility] prior to admission. Per family report, pt was non-ambulatory prior to [facility] admission. Pt required assistance with bed mobility and transfers. Before [facility], pt IND with mobility and living with . Pt able to transfer supine>sit EOB with Mod A. Pt with poor sitting endurance and required returning to supine d/t dizziness complaints. New diagnosis of cancer in past 12 No months? Rehab PT IP Eval Objective Appearance Patient Behavior Appropriate,Cooperative Patient Orientation Person Difficulty following instructions none Speech Pattern Soft-Spoken Ambulation Patient Able to Ambulate No Balance Ability to Arise Able, uses arms to help Sitting Balance Steady, safe Transfers Bed Transfer Ability Moderate x 1 (50% assist) Rehab PT IP prob,goals,plan Problems Date of Evaluation: 11/23/23 PT IP Problems Bed Mobility,Transfers,Gait, Balance,Safety Rehab Potential Rehab Potential Good Equipment Needs Assistive Devices Wheelchair Plan PT Intervention Plan Bed Mobility,Transfers,Gait, Balance,Safety,Therapeutic Exercise Other Intervention Plan 1-2 times PT Plan Frequency Daily Duration LOS Discharge Goals Bed Transfer Ability Minimal x 1 (25% assist) Sit to Stand Chair Transfer Ability Moderate x 2 (50% assist) Discharge Plan PT Discharge Plan Initial physical therapy evaluation performed. Patient presents below baseline at this time in functional mobility, transfers, and strength. Pt not safe to return home at this time d/t current level of functional mobility. Pt most approriate to continue rehabilitation. PT recommending pt return to short-term rehabilitation stay upon d/c from [facility]. Pt would benefit from skilled PT while at [facility] to prevent further functional decline and maximize safety with mobility. Eval Complexity Eval Charge Codes 10637 - Moderate Complexity PHYSICIAN CERTIFICATION: I certify the specified therapy services for Lashon Chu are required, authorized, and reviewed every 30 days.
[2023-11-23] MEDS: BUDESONIDE 0.5MG/2ML NEB 0.5 MG IH (07:39)
[2023-11-23] MEDS: IPRATROPIUM/ALBUTEROL 3 ML NEB IH ×3 (07:41→13:22)
[2023-11-23 08:15] LABS: Lymphocytes % 4 % (10-50); Monocytes % 2 % (2-9); Neutrophils % 94 % (42-76); Total Cells Counted 100
[2023-11-23 08:16] LABS: RBC Morphology Normal
[2023-11-23 08:17] LABS: Platelet Estimate Normal
[2023-11-23] MEDS: FLUOXETINE 20MG CAPSULE 20 MG PO (08:28)
[2023-11-23] MEDS: NYSTATIN SUSP 500,000 UNITS/5ML UDC 500000 UNIT PO ×2 (08:28→12:46)
[2023-11-23] MEDS: BISOPROLOL 5MG TABLET 5 MG PO (08:29)
[2023-11-23 09:04] LABS: Vancomycin,Trough 6.8 ug/mL (5.0-10.0)
--- NOTE | 2023-11-23 09:13 | SW/DCPLANNER ---
Addendum entered by Sabrina Betts RN 11/23/23 14:51: Jakob came this afternoon and patient will return to [place] today. Addendum entered by Naz Kincaid 11/23/23 12:32: Patient's is agreeable for patient to return to [place]. Jakob Willams will be on campus today to evaluate patient. Patient is medically stable for discharge. Original Note: Patient is currently SNF level of care at [place]. I have faxed updated patient information to Jakob Willams. Discharge date is unknown at this time. I will continue to follow up.
--- NOTE | 2023-11-23 09:21 | EXP.PHA.CONS ---
Pharmacy Consult Date: 11/23/23 Time: 09:21 Referring provider: DR PHILIPPE Reason for Consult:: VANCOMYCIN TROUGH LEVEL OBTAINED Allergies Allergy/AdvReac Type Severity Reaction Status Date / Time codeine [CODEINE] Allergy Mild Verified 11/20/23 08:22 penicillin G [PENICILLIN G] Allergy Mild Verified 11/20/23 08:22 povidone-iodine Allergy Mild Verified 11/20/23 08:22 [From BETADINE] Home Medications Medication Instructions Recorded Confirmed Type fluticasone fur. 100 mcg-umeclid 1 inh inhalation DAILY #30 ea 04/28/23 11/20/23 Rx 62.5 mcg-vilant 25 mcg inhalat.powder (Trelegy Ellipta) erythromycin 5 mg/gram (0.5 %) eye 1 applic Eye-Both HS 07/30/23 11/20/23 History ointment acetaminophen 500 mg tablet 500 mg PO Q4HP PRN Mild Pain 11/20/23 11/20/23 History (Scale Score 1-4) benazepril 20 mg tablet 20 mg PO DAILY 11/20/23 11/20/23 History bisoprolol fumarate 5 mg tablet 5 mg PO DAILY 11/20/23 11/20/23 History diazepam 5 mg tablet 5 mg PO BIDP PRN anxiety 11/20/23 11/20/23 History fluoxetine 20 mg capsule 20 mg PO DAILY 11/20/23 11/20/23 History furosemide 40 mg tablet 40 mg PO DAILY 11/20/23 11/20/23 History ipratropium 0.5 mg-albuterol 3 mg 3 ml inhalation TIDP PRN Shortness 11/20/23 11/20/23 History (2.5 mg base)/3 mL nebulization Of Breath soln levothyroxine 88 mcg tablet 88 mcg PO DAILY 11/20/23 11/20/23 History nitroglycerin 0.4 mg sublingual 0.4 mg sublingual Q5MINP PRN Chest 11/20/23 11/20/23 History tablet Pain potassium chloride 20 mEq 20 meq PO DAILY 11/20/23 11/20/23 History tablet,extended release(part/cryst) pravastatin 40 mg tablet 40 mg PO HS 11/20/23 11/20/23 History tramadol 50 mg tablet 50 mg PO BIDP PRN Moderate Pain 11/20/23 11/20/23 History (Scale Score 5-6) New Prescriptions to Start Prescriptions: Height: 1.63 m Weight: 37.9 kg Laboratory Results:: Laboratory Results - last 24 hr 11/20/23 08:34: Urine Color Yellow, Urine Appearance Turbid, Urine pH 6.0, Ur Specific [place] >= 1.030, Urine Protein 2+, Urine Glucose (UA) Negative, Urine Ketones Trace, Urine Blood 2+, Urine Nitrate Positive, Urine Bilirubin 1+ A, Urine Urobilinogen 1.0, Ur Leukocyte Esterase 2+ A, Urine WBC Tntc, Urine Bacteria 1+ 11/22/23 07:54: Total Counted 100, Neutrophils % (Manual) 87 H, Lymphocytes % (Manual) 7 L, Monocytes % (Manual) 5, Eosinophils % (Manual) 1, Platelet Estimate Normal, RBC Morphology Normal 11/23/23 05:38: WBC 8.7 D, RBC 2.94 L, Hgb 8.8 L, Hct 28.8 L, MCV 98.2, MCH 30.0, MCHC 30.6 L, RDW 16.4, Plt Count 278, MPV 8.7, Neut % (Auto) 90.7 H, Lymph % (Auto) 5.3 L, [place] % (Auto) 3.7, Eos % (Auto) 0.2, Baso % (Auto) 0.1, Neut # (Auto) 7.9 H, Lymph # (Auto) 0.5 L, [place] # (Auto) 0.3, Eos # (Auto) 0.0, Baso # (Auto) 0.0, Total Counted 100, Neutrophils % (Manual) 94 H, Lymphocytes % (Manual) 4 L, Monocytes % (Manual) 2, Platelet Estimate Normal, RBC Morphology Normal, Sodium 141, Potassium 4.2, Chloride 110 H, Carbon Dioxide 26, Anion Gap 9.2, BUN 28 H D, Creatinine 1.10 H D, Estimated Creat Clear 25, Estimated GFR 48 L, Est GFR ( Amer) 58 L D, Glucose 80, Calcium 8.3 L, Phosphorus 2.6, Magnesium 2.1, Total Bilirubin 0.3, AST 30, ALT 11 L, Alkaline Phosphatase 174 H, Total Protein 5.1 L, Albumin 2.5 L D, Globulin 2.6, Albumin/Globulin Ratio 1.0 L 11/23/23 08:20: Vancomycin Trough 6.8 Medical History: Medical History (Updated 11/21/23 @ 20:54 by David Winkler APRN) History of hypertension Lung cancer COPD (chronic obstructive pulmonary disease) Iatrogenic hyperthyroidism Depression with anxiety Assessment and Plan Assessment and plan all Dx Assessment and Plan for all problems:: Pharmacokinetic dosing service Weight: 37.9 Kilograms Vancomycin single level analysis: Current dose being given: 500 mg Current dosing interval: 36 hrs Current infusion time (hrs): 2 Single level Trough Data: Trough level obtained: 6.8 mcg/ml Timing of trough - # of hrs before next dose: 0.5 Hrs Desired peak: 35 mcg/ml Desired trough: 12.5 mcg/ml Diagnosis: SEPSIS Estimated PK Parameters: New rate constant (david): 0.037 hr-1 Half-life: 18.73 Hours Vd from levels: 26.53 Liters (0.7 L/kg) CLvanco=?? 0.982 L/hr Estimated New Dose and Interval Recommended dose: 643.5 mg Recommended interval: 29.8 Hrs Recommendations: Give Vancomycin 500 mg q 24 hrs. Infuse over 2 hrs Expected Cpeak: 30.9 mcg/mL Expected Ctrough: 13.7 mcg/mL AUC 0-24 /EZEQUIEL Data: EZEQUIEL 0.5 mcg/mL:?? AUC/EZEQUIEL:? 1018.3 EZEQUIEL 1.0 mcg/mL:?? AUC/EZEQUIEL:? 509.2 Thank you for the consult
[2023-11-23] MEDS: FLUTICASONE/UMECLIDIN/VILANTER 100/62.5/25MCG INHALER 1 PUFF IH (09:45)
[2023-11-23] MEDS: SENNOSIDES 8.6MG/DOCUSATE 50MG TABLET 1 TAB PO (11:33)
--- NOTE | 2023-11-23 12:01 | EXP.DC.SUM ---
General Admission date:: 11/20/23 Discharge date: 11/23/23 HPI HPI HPI: Ms. Chu is a 78-year-old female with history of COPD on chronic oxygen therapy of 3 L, CAD, hypothyroidism, physical decline and weight loss. She presented from [facility] where she has been having worsening shortness of breath over the past few days. Was brought to the ER for evaluation. Weight loss over several months. Patient reports that she has had a cough, has been very weak, has not been able to cough anything up. Denies any abdominal pain, nausea or vomiting. Found to be markedly short of breath on arrival and febrile. Meeting sepsis criteria. Workup initiated along with fluid bolus and antibiotics. Received cefepime, vancomycin, 3 DuoNebs and a dose of Solu-Medrol. After sepsis bolus, patient's blood pressure remained low with maps less than 60. Meeting septic shock criteria and was initiated on norepinephrine. Necessitating nonrebreather initially due to her hypoxia in the 80s on nasal cannula. Medicine was consulted for admission and further management. Patient admitted to the ICU given severity of illness. Is alert to self and place but very weak to respond. Family at bedside helps give history. They want to try and treat patient's condition but understand that she has grown more more weak and is losing weight. They do not want to be aggressive with life-saving measures and would like to transition to hospice style care if patient does not show response or has continued decline. Patient was additionally found to have grossly abnormal urine concerning for pyelonephritis. White cell count elevated at 25,000. Lactate at 2.7. Has not had any urine output since arrival. Fever responded to Tylenol, improved by the time she arrived to the floor. Hospital Course Hospital Course Hospital Course: Ms. Chu is a 78-year-old female who has been at a nursing facility for rehab. Worsening weakness and fever over the past 4 to 5 days. Presented to the ER due to hypoxia. Found to be in septic shock. Started on broad-spectrum antibiotics. After fluid bolus, still hypotensive necessitating norepinephrine. Admitted to ICU for further management. Discussed case with ER, request admission for further treatment of septic shock and goals of care discussions. I agreed to admit. Patient in septic shock on admission. Monitored closely over the first 48 hours, necessitated Levophed for hypotension. Showed improvement clinically and stabilization. Able to wean off Ventimask to her baseline nasal cannula by day 2 of admission. Weaned off vasopressors after approximately 36 hours. Has been stable with normal blood pressure for over 48 hours. On her baseline 2 L oxygen over 48 hours. Infectious source is concerning for pyelonephritis and pneumonia. Found to have 1 blood culture positive for strep pneumonia, will treat based on this culture and sensitivity. Will continue need antibiotics for total of 10 days however clinically stable meeting criteria to transfer back to skilled care for further management. Problems addressed as follows: Septic shock, resolved Pneumonia Pyelonephritis - presented in septic shock, hypotensive and hypoxic. Started on broad spectrum antibiotics with vancomycin and cefepime. Cultures including blood and urine were obtained. Chest imaging concerning for left lower lobe pneumonia on CT and urine grossly abnormal with pyuria. Cultures returned positive with single blood culture positive for strep pneumonia. Urine culture with mixed hannah. White cell count elevated on admission, peaked at 30,000, improved to 8.7 by day of discharge. Antibiotics were de-escalated to Levaquin for ease of transitioning to oral dose. Oxygen support weaned to nasal cannula. Requiring 2 L at rest. Would recommend increasing to 4 L with activity and while participating with physical therapy to maintain sats at an appropriate level. Continue nebulizers 4 times a day. Currently hemodynamically stable, at baseline oxygen, transitioning antibiotics to oral therapy. Meeting criteria for discharge back to retirement. -Due to severity of illness on arrival, had goals of care discussion with family. Patient was made DNR during admission. Recommend reevaluating CODE STATUS while at retirement. If patient shows further decline however, discussed the potential for hospice, family open to this if patient's condition does not improve. Would encourage [place] to continue to facilitate goals of care discussion with patient and family given her significant comorbidities and progressive decline over the past few months. STEPHANIE: Secondary to her septic shock, creatinine peaked at 1.8. Showing improvement. BUN 28, creatinine 1.1 on day of discharge. Needs repeat labs including CBC, CMP, magnesium in 3 to 4 days Sleep disturbance: Initiated melatonin scheduled 10 mg nightly. Achieved good benefit. Has been on Valium intermittently at the retirement. Recommend discontinuing due to it being contraindicated with Beers criteria. If still having difficulty with sleep once returning back to retirement, may benefit from consideration of Orexin antagonist class of medication Thrush: Initiate oral nystatin, complete 10 days of therapy Patient is cachectic and has severe protein calorie malnutrition. BMI of 13 on presentation. Has lost significant weight over the past 12 months. Concern for secondary to her history of lung cancer with possible recurrence versus end-stage emphysema with COPD cachexia. Continue dietary supplementation Hypothyroid: Continue levothyroxine 88 mcg daily, TSH 0.02 Mood disorder: Continue home fluoxetine 20 mg daily History of hypertension. Discontinue benazepril. Resumed beta-marce. Holding diuretic. Reevaluate need upon return. DNR during admission Regular diet with ground meats due to weakness and difficulty chewing Total time spent on discharge 40 minutes in counseling, documentation, chart review, and direct care with patient. Exam Data for Last 24 hours Vital signs and Labs for Last 24 Hours: Temp Pulse Resp BP Pulse Ox O2 Del Method O2 Flow Rate 98.6 F 90 22 126/45 L 99 Nasal Cannula 2 11/23/23 09:36 11/23/23 09:46 11/23/23 08:00 11/23/23 08:00 11/23/23 08:00 11/23/23 10:49 11/23/23 10:49 FiO2 28 11/22/23 18:46 Laboratory Results - last 24 hr 11/23/23 05:38: WBC 8.7 D, RBC 2.94 L, Hgb 8.8 L, Hct 28.8 L, MCV 98.2, MCH 30.0, MCHC 30.6 L, RDW 16.4, Plt Count 278, MPV 8.7, Neut % (Auto) 90.7 H, Lymph % (Auto) 5.3 L, [place] % (Auto) 3.7, Eos % (Auto) 0.2, Baso % (Auto) 0.1, Neut # (Auto) 7.9 H, Lymph # (Auto) 0.5 L, [place] # (Auto) 0.3, Eos # (Auto) 0.0, Baso # (Auto) 0.0, Total Counted 100, Neutrophils % (Manual) 94 H, Lymphocytes % (Manual) 4 L, Monocytes % (Manual) 2, Platelet Estimate Normal, RBC Morphology Normal, Sodium 141, Potassium 4.2, Chloride 110 H, Carbon Dioxide 26, Anion Gap 9.2, BUN 28 H D, Creatinine 1.10 H D, Estimated Creat Clear 25, Estimated GFR 48 L, Est GFR ( Amer) 58 L D, Glucose 80, Calcium 8.3 L, Phosphorus 2.6, Magnesium 2.1, Total Bilirubin 0.3, AST 30, ALT 11 L, Alkaline Phosphatase 174 H, Total Protein 5.1 L, Albumin 2.5 L D, Globulin 2.6, Albumin/Globulin Ratio 1.0 L 11/23/23 08:20: Vancomycin Trough 6.8 I & O for Last 24 hours: Intake & Output 11/20/23 11/21/23 11/22/23 11/23/23 23:59 23:59 23:59 23:59 Intake Total 162 / 1626 1714 870 / 870 360 / 360 Output Total 500 / 700 1200 / 1200 400 / 400 Balance 1626 / 1626 1215 / 1315 -330 / -330 -40 / -40 Weight 37.903 kg 37.903 kg 37.9 kg 37.9 kg Microbiology Reports for the Last 24 Hours: Microbiology 11/20/23 08:34 Urine,Clean Catch Urine Culture - Final 11/20/23 08:25 Blood Blood Culture - Preliminary NO GROWTH AFTER 48 HOURS Constitutional Constitutional: no acute distress, cachectic and chronically ill appearing *Routine HEENT Exam Head: Present normocephalic Eye: Present EOMI and PERRL ENT: Present mucous membranes moist Comments: Bitemporal wasting *Routine Neck Exam Neck: Present supple and trachea midline; Absent lymphadenopathy Comments: Thin *Routine Respiratory Exam Respiratory: Present prolonged expiratory phase, rhonchi and diminished air movement; Absent wheezes or crackles *Routine Cardiovascular Exam Cardiovascular: Present RRR *Routine Abdominal Exam Abdominal: Present soft and normoactive bowel sounds; Absent tenderness Comments: Scaphoid *Routine Rectal Exam Patient deferred: visual exam *Routine Exam Patient deferred: external exam *Routine Extremities Exam Extremities: Absent cyanosis, clubbing or edema Comments: Sarcopenia *Routine Skin Exam Skin: Present intact and warm; Absent rash *Routine Neurological Exam Neurological: Present alert, oriented X3 and moving all extremities; Absent altered mental status Comments: Globally weak Results Data Completed and Pending Labs on day of discharge: Labs from last 24 hours 11/23/23 11/23/23 08:20 05:38 WBC 8.7 D RBC 2.94 L Hgb 8.8 L Hct 28.8 L MCV 98.2 MCH 30.0 MCHC 30.6 L RDW 16.4 Plt Count 278 MPV 8.7 Neut % (Auto) 90.7 H Lymph % (Auto) 5.3 L [place] % (Auto) 3.7 Eos % (Auto) 0.2 Baso % (Auto) 0.1 Neut # (Auto) 7.9 H Lymph # (Auto) 0.5 L [place] # (Auto) 0.3 Eos # (Auto) 0.0 Baso # (Auto) 0.0 Total Counted 100 Neutrophils % (Manual) 94 H Lymphocytes % (Manual) 4 L Monocytes % (Manual) 2 Platelet Estimate Normal RBC Morphology Normal Sodium 141 Potassium 4.2 Chloride 110 H Carbon Dioxide 26 Anion Gap 9.2 BUN 28 H D Creatinine 1.10 H D Estimated Creat Clear 25 Estimated GFR 48 L Est GFR ( Amer) 58 L D Glucose 80 Calcium 8.3 L Phosphorus 2.6 Magnesium 2.1 Total Bilirubin 0.3 AST 30 ALT 11 L Alkaline Phosphatase 174 H Total Protein 5.1 L Albumin 2.5 L D Globulin 2.6 Albumin/Globulin Ratio 1.0 L Vancomycin Trough 6.8 Preliminary micro results at discharge 11/20/23 08:25 Blood Culture - Preliminary Blood NO GROWTH AFTER 48 HOURS DS: Diagnosis Discharge Diagnosis (1) Septic shock: Status: Acute Code(s): A41.9 - Sepsis, unspecified organism; R65.21 - Severe sepsis with septic shock (2) Acute pyelonephritis: Status: Acute Code(s): N10 - Acute pyelonephritis (3) Acute exacerbation of chronic obstructive pulmonary disease: Status: Acute Code(s): J44.1 - Chronic obstructive pulmonary disease with (acute) exacerbation (4) Acute hypoxemic respiratory failure: Status: Acute Code(s): J96.01 - Acute respiratory failure with hypoxia (5) Hypothyroidism: Status: Chronic Code(s): E03.9 - Hypothyroidism, unspecified Qualifiers: Hypothyroidism type: unspecified Qualified Code(s): E03.9 - Hypothyroidism, unspecified (6) Hypertension: Status: Chronic Code(s): I10 - Essential (primary) hypertension Qualifiers: Hypertension type: essential hypertension Qualified Code(s): I10 - Essential (primary) hypertension (7) History of lung cancer: Status: Chronic Code(s): Z85.118 - Personal history of other malignant neoplasm of bronchus and lung (8) Cachexia: Status: Acute Code(s): R64 - Cachexia (9) Severe protein-calorie malnutrition: Status: Acute Code(s): E43 - Unspecified severe protein-calorie malnutrition Meds Home Medications and Allergies Home Medications Medication Instructions Recorded Confirmed Type fluticasone fur. 100 mcg-umeclid 1 inh inhalation DAILY #30 ea 04/28/23 11/20/23 Rx 62.5 mcg-vilant 25 mcg inhalat.powder (Trelegy Ellipta) erythromycin 5 mg/gram (0.5 %) eye 1 applic Eye-Both HS 07/30/23 11/20/23 History ointment acetaminophen 500 mg tablet 500 mg PO Q4HP PRN Mild Pain 11/20/23 11/20/23 History (Scale Score 1-4) bisoprolol fumarate 5 mg tablet 5 mg PO DAILY 11/20/23 11/20/23 History fluoxetine 20 mg capsule 20 mg PO DAILY 11/20/23 11/20/23 History furosemide 40 mg tablet 40 mg PO DAILY 11/20/23 11/20/23 History levothyroxine 88 mcg tablet 88 mcg PO DAILY 11/20/23 11/20/23 History nitroglycerin 0.4 mg sublingual 0.4 mg sublingual Q5MINP PRN Chest 11/20/23 11/20/23 History tablet Pain potassium chloride 20 mEq 20 meq PO DAILY 11/20/23 11/20/23 History tablet,extended release(part/cryst) pravastatin 40 mg tablet 40 mg PO HS 11/20/23 11/20/23 History tramadol 50 mg tablet 50 mg PO BIDP PRN Moderate Pain 11/20/23 11/20/23 History (Scale Score 5-6) ipratropium 0.5 mg-albuterol 3 mg 3 ml inhalation QID 30 days #0 mL 11/23/23 11/20/23 Rx (2.5 mg base)/3 mL nebulization soln levofloxacin 750 mg tablet 750 mg PO Q48H 6 days #3 tabs 11/23/23 Rx melatonin 5 mg tablet 10 mg (2 x 5 mg) PO HS 30 days #60 11/23/23 Rx tabs nystatin 100,000 unit/mL oral 500,000 unit (5 mL) PO QID 8 days 11/23/23 Rx suspension #160 mL sennosides 8.6 mg-docusate sodium 1 tab PO DAILY PRN constipation 11/23/23 Rx 50 mg tablet (Stimulant Laxative #30 tabs Plus) New Prescriptions to Start Prescriptions: levoMehul Doll melatonin Mehul Chopra nystatin Mehul Chopra sennosides-docusate sodium [Stimulant Laxative Plus] Mehul Chopra Allergies Allergy/AdvReac Type Severity Reaction Status Date / Time codeine [CODEINE] Allergy Mild Verified 11/20/23 08:22 penicillin G [PENICILLIN G] Allergy Mild Verified 11/20/23 08:22 povidone-iodine Allergy Mild Verified 11/20/23 08:22 [From BETADINE] Discharge Plan Disposition Patient Disposition: er [facility] Condition: Fair Discharge Order Discharge Orders: Discharge Order (Routine); Ordered 11/23/23 Ordered By: Mehul Chopra Follow up Plan Prescriptions/Medication Reconciliation: New melatonin 5 mg Tablet 10 mg PO HS 30 Days Qty: 60 0RF nystatin 100,000 unit/mL Suspension 500,000 unit PO QID 8 Days Qty: 160 0RF sennosides-docusate sodium [Stimulant Laxative Plus] 8.6-50 mg Tablet 1 tab PO DAILY PRN (Reason: constipation) Qty: 30 0RF levofloxacin 750 mg tablet 750 mg PO Q48H 6 Days Qty: 3 0RF Rx Instructions: first dose due 11/24/23 Continued erythromycin 5 mg/gram (0.5 %) ointment 1 applic Eye-Both HS Patient Comments: APPLY TO LIDS AT BEDTIME Trelegy Ellipta 100-62.5-25 mcg blister with device 1 inh inhalation DAILY Qty: 30 12RF acetaminophen 500 mg Tablet 500 mg PO Q4HP PRN (Reason: Mild Pain (Scale Score 1-4)) pravastatin 40 mg tablet 40 mg PO HS tramadol 50 mg tablet 50 mg PO BIDP PRN (Reason: Moderate Pain (Scale Score 5-6)) bisoprolol fumarate 5 mg tablet 5 mg PO DAILY levothyroxine 88 mcg tablet 88 mcg PO DAILY potassium chloride 20 mEq tablet,ER particles/crystals 20 meq PO DAILY nitroglycerin 0.4 mg tablet, sublingual 0.4 mg SUBLINGUAL Q5MINP PRN (Reason: Chest Pain) fluoxetine 20 mg capsule 20 mg PO DAILY Changed ipratropium-albuterol 0.5 mg-3 mg(2.5 mg base)/3 mL solution for nebulization 3 ml IH QID 30 Days Qty: 0 0RF Held furosemide 40 mg tablet 40 mg PO DAILY Hold Instructions: Reevaluate use if patient becomes volume overloaded. Discontinued benazepril 20 mg tablet 20 mg PO DAILY diazepam 5 mg tablet 5 mg PO BIDP PRN (Reason: anxiety) Problem Reconciliation Problems Reviewed?: Yes Patient Discharge Instructions ACTIVITY: Continue current activity and Up with assistance DIET: continue same diet and advance to your usual diet Patient Instructions: Septic Shock, DI for Pneumonia -- Adult, DI for Urinary Tract Infection (UTI) Providers Primary Care Provider: Adrian Jones Admit Provider: Mehul Chopra Attending Provider: Mehul Chopra
--- NOTE | 2023-11-23 13:42 | HMH.OTEV ---
OT Inpatient Evaluation Rehab OT IP Evaluation Start: 11/22/23 10:54 Freq: ONCE Status: Active Protocol: Document 11/23/23 13:37 [facility] (Rec: 11/23/23 13:42 [facility] [id number]) Rehab OT IP Assessment Subjective History Pt oriented x 3 on arrival. Pt agreeable to engage in therapy evaluation. Pt admitted to [facility] on 11/20/23 due to COPD, PNA, and UTI. History and Physical: Ms. Chu is a 78-year-old female with history of COPD on chronic oxygen therapy of 3 L , CAD, hypothyroidism, physical decline and weight loss. She presented from [facility] where she has been having worsening shortness of breath over the past few days. Was brought to the ER for evaluation. Weight loss over several months. Patient reports that she has had a cough, has been very weak, has not been able to cough anything up. Denies any abdominal pain, nausea or vomiting. Found to be markedly short of breath on arrival and febrile. Meeting sepsis criteria. Workup initiated along with fluid bolus and antibiotics. Received cefepime, vancomycin, 3 DuoNebs and a dose of Solu- Medrol. After sepsis bolus, patient's blood pressure remained low with maps less than 60. Meeting septic shock criteria and was initiated on norepinephrine. Necessitating nonrebreather initially due to her hypoxia in the 80s on nasal cannula. Medicine was consulted for admission and further management. Subjective I am very weak. Pt reports prior to being in the hospital, she was staying short term for rehab at [place]. Pt claims normally she is able to dress herself, but has been requiring assistance with bathing. She also transfers using a rolling walker. Pt has been dependent upon staff for completion of all IADLs. Objective Patient Orientation Person,Place,Birthday Right Upper Extremity Gross ROM Min Limitation <25% Left Upper Extremity Gross ROM Min Limitation <25% Shoulder ROM Limitations Muscle Weakness Elbow ROM Limitations Muscle Weakness Wrist Limitations of Range of Motion Muscle Weakness Bed Mobility bed mobility-scooting,bed mobility - supine/sit Assist Level Moderate x 1 (50% assist) Rehab OT IP prob,goals,plan Problems Date of Evaluation: 11/23/23 OT IP Problems Bed Mobility,Transfers,Balance ,Self care,Safety Rehab Potential Rehab Potential Good Equipment Needs Assistive Devices Rolling / Wheeled Walker Plan OT intervention Plan Bed Mobility,Transfers,Balance ,Self care,Safety,Therapeutic Exercise OT Plan Frequency Daily Duration LOS Discharge Goals Bed Mobility Ability Assistance x1 Sit to Stand Chair Transfer Ability Moderate x 1 (50% assist) Chair Transfer Ability Moderate x 1 (50% assist) Chair Transfer Technique Sit to/from Ambulatory Chair Transfer Assistive Devices Rolling Walker Feeding Ability Assist with Tray Set Up Lower Body Dressing Ability Moderate Assistance Upper Body Dressing Ability Minimal Assistance Bathing Ability Moderate Assistance Performing Toilet Hygiene Ability Moderate Assistance Overall Commode/Toilet Transfer Ability Moderate Assistance Commode/Toilet Transfer Technique Sit to/from Ambulatory Commode/Toilet Transfer Assistive Grab Bars Devices Oral Care Assist Minimal Assistance Decrease in Endurance Yes Discharge Plan OT Discharge Plan Pt will continue to be seen for OT services while at [facility]. Pt would benefit most from returning back to [facility] to continue with short term rehab. Continued skilled therapy is important in order to improve strength, safety, endurance, ADL independence, and functional transfers to reach [facility]. Eval Complexity Eval Charge Codes 53539 - Moderate Complexity PHYSICIAN CERTIFICATION: I certify the specified therapy services for Lashon Chu are required, authorized, and reviewed every 30 days.
== END 2023-11-23 15:01 | DRG 871 ==
LOC: ER 09:21 → 2ND 10:50
PROVIDERS: Admitting Provider Internal Medicine Adolescent Medicine; Emergency Provider Emergency Medicine; PCP Family Medicine; Visit Provider Internal Medicine Adolescent Medicine
DX: A41.9 Sepsis, unspecified organism (principal); E43 Unspecified severe protein-calorie malnutrition; R65.21 Severe sepsis with septic shock; J18.9 Pneumonia, unspecified organism; J96.01 Acute respiratory failure with hypoxia; N10 Acute pyelonephritis; N17.9 Acute kidney failure, unspecified; Z68.1 Body mass index [BMI] 19.9 or less, adult; J44.0 Chronic obstructive pulmonary disease with (acute) lower respiratory infection; E03.9 Hypothyroidism, unspecified; Z66 Do not resuscitate; F39 Unspecified mood [affective] disorder; B37.9 Candidiasis, unspecified; J44.9 Chronic obstructive pulmonary disease, unspecified; Z99.81 Dependence on supplemental oxygen; I25.10 Atherosclerotic heart disease of native coronary artery without angina pectoris; F32.A Depression, unspecified; F41.9 Anxiety disorder, unspecified; G47.9 Sleep disorder, unspecified; I10 Essential (primary) hypertension
CPT/HCPCS: 36415; 71045; 71250; 80053; 80202; 81001; 82803; 83605; 83735; 83880; 84100; 84443; 84484; 85007; 85025; 85610; 85730; 87040; 87077; 87086; 87088; 87186; 93005; 94640; 94761; 97162; 97166; 99291; J0131; J0692; J1644; J1650; J1956; J3370; J7120; J7620

== ENCOUNTER 2023-11-25 07:54 | Inpatient (IN) | payer MEDICARE, OTHER, SELFPAY ==
[2023-11-25] VITALS (13 sets, daily range): BP systolic 129–154; BP diastolic 53–73; PULSE 79–104; RESP 16–24; TEMP 36.4–36.6; O2SAT 89–98; BMI 16.2; BMI 15.7
--- NOTE | 2023-11-25 07:55 | PC.NURSE ---
DR BRENNER AT BEDSIDE
--- NOTE | 2023-11-25 07:56 | PC.NURSE ---
Dr. Licona at BS for pt eval
--- NOTE | 2023-11-25 08:03 | ECG_ITS ---
APPROVED REPORT Exam: Resting ECG HR:87 bpm ECG Measurements Heart Rate 87 AXES WV 149 P 77 QRSd 78 QRS -10 QT 345 T 48 QTc 390 Conclusion SINUS RHYTHM NORMAL ECG UNCONFIRMED REPORT Electronically signed by : Mehul Licona, 11/25/2023 15:27:04
--- NOTE | 2023-11-25 08:04 | XR_ITS ---
FINAL REPORT CLINICAL HISTORY: dyspnea COMPARISON: 11/20/2023 FINDINGS: There are worsening opacities in the right lung base raising question of pneumonia. There is persistent density in the left lung base. Small bilateral pleural effusions are identified. There is no evidence of pneumothorax. Mediastinum is unremarkable. Heart size is normal. IMPRESSION: New density in the right lung base raising question for pneumonia. Persistent density left lung base, may represent more chronic pneumonia. Small pleural effusions. Reviewed, Interpreted and Dictated by Ayse Craven MD Transcribed by Brianna Haas Authenticated and [facility]
--- NOTE | 2023-11-25 08:05 | PC.NURSE ---
DAUGHTER AT BEDSIDE
--- NOTE | 2023-11-25 08:06 | ED_ITS ---
Discharge Plan Disposition Patient Disposition: Admitted Chief Complaint: Shortness of Breath/Dyspnea Prescriptions Prescriptions: No Action erythromycin 5 mg/gram (0.5 %) ointment 1 applic Eye-Both HS Patient Comments: APPLY TO LIDS AT BEDTIME Shalonda Sanchezta 100-62.5-25 mcg blister with device 1 inh inhalation DAILY Qty: 30 12RF acetaminophen 500 mg Tablet 500 mg PO Q4HP PRN (Reason: Mild Pain (Scale Score 1-4)) furosemide 40 mg tablet 40 mg PO DAILY Hold Instructions: Reevaluate use if patient becomes volume overloaded. pravastatin 40 mg tablet 40 mg PO HS tramadol 50 mg tablet 50 mg PO BIDP PRN (Reason: Moderate Pain (Scale Score 5-6)) bisoprolol fumarate 5 mg tablet 5 mg PO DAILY levothyroxine 88 mcg tablet 88 mcg PO DAILY potassium chloride 20 mEq tablet,ER particles/crystals 20 meq PO DAILY nitroglycerin 0.4 mg tablet, sublingual 0.4 mg SUBLINGUAL Q5MINP PRN (Reason: Chest Pain) fluoxetine 20 mg capsule 20 mg PO DAILY melatonin 5 mg Tablet 10 mg PO HS 30 Days Qty: 60 0RF nystatin 100,000 unit/mL Suspension 500,000 unit PO QID 8 Days Qty: 160 0RF sennosides-docusate sodium [Stimulant Laxative Plus] 8.6-50 mg Tablet 1 tab PO DAILY PRN (Reason: constipation) Qty: 30 0RF levofloxacin 750 mg tablet 750 mg PO Q48H 6 Days Qty: 3 0RF Rx Instructions: first dose due 11/24/23 ipratropium-albuterol 0.5 mg-3 mg(2.5 mg base)/3 mL solution for nebulization 3 ml IH QID 30 Days Qty: 0 0RF Referrals Follow up/Referrals: Provider,Referral, [Referring] - See instructions Clinical Impressions Clinical Impression: Acute hypoxic respiratory failure, Acute exacerbation of chronic obstructive pulmonary disease Discharge ED Provider: Angélica Licona General Adult HPI General Chief complaint: Shortness of Breath/Dyspnea Stated complaint: SHORTNESS OF BREATH Time Seen by Provider: 11/25/23 08:01 History of Present Illness HPI narrative: Patient is a 78-year-old female presents today in respiratory distress. She is on noninvasive positive pressure ventilation history is limited from her but primarily obtained from recent hospitalization records and physician notes. She was admitted on for septic shock was found to have pneumonia pyelonephritis and strep pneumonia bacteremia. She was on broad-spectrum antibiotics requiring vasopressors but had improvement in her clinical status and was discharged back to retirement. However during her hospitalization family were considering hospice if she did not have any significant improvement in her symptoms. Family not at the bedside at the moment. No further history able to be obtained from the patient but EMS states that they were called due to hypoxemia and respiratory distress; o2 sats were in the 70s on 4L with distress, patient placed on NIPPV. Related Data Home Medications Medication Instructions Recorded Confirmed erythromycin 5 mg/gram (0.5 %) eye 1 applic Eye-Both HS 07/30/23 11/20/23 ointment acetaminophen 500 mg tablet 500 mg PO Q4HP PRN Mild Pain 11/20/23 11/20/23 (Scale Score 1-4) bisoprolol fumarate 5 mg tablet 5 mg PO DAILY 11/20/23 11/20/23 fluoxetine 20 mg capsule 20 mg PO DAILY 11/20/23 11/20/23 furosemide 40 mg tablet 40 mg PO DAILY 11/20/23 11/20/23 levothyroxine 88 mcg tablet 88 mcg PO DAILY 11/20/23 11/20/23 nitroglycerin 0.4 mg sublingual 0.4 mg sublingual Q5MINP PRN Chest 11/20/23 11/20/23 tablet Pain potassium chloride 20 mEq 20 meq PO DAILY 11/20/23 11/20/23 tablet,extended release(part/cryst) pravastatin 40 mg tablet 40 mg PO HS 11/20/23 11/20/23 tramadol 50 mg tablet 50 mg PO BIDP PRN Moderate Pain 11/20/23 11/20/23 (Scale Score 5-6) Previous Rx's Medication Instructions Recorded fluticasone fur. 100 mcg-umeclid 1 inh inhalation DAILY #30 ea 04/28/23 62.5 mcg-vilant 25 mcg inhalat.powder (Trelegy Ellipta) ipratropium 0.5 mg-albuterol 3 mg 3 ml inhalation QID 30 days #0 mL 11/23/23 (2.5 mg base)/3 mL nebulization soln levofloxacin 750 mg tablet 750 mg PO Q48H 6 days #3 tabs 06/24/24 melatonin 5 mg tablet 10 mg (2 x 5 mg) PO HS 30 days #60 11/23/23 tabs nystatin 100,000 unit/mL oral 500,000 unit (5 mL) PO QID 8 days 11/23/23 suspension #160 mL sennosides 8.6 mg-docusate sodium 1 tab PO DAILY PRN constipation 11/23/23 50 mg tablet (Stimulant Laxative #30 tabs Plus) Allergies Allergy/AdvReac Type Severity Reaction Status Date / Time codeine [CODEINE] Allergy Mild Verified 11/20/23 08:22 penicillin G [PENICILLIN G] Allergy Mild Verified 11/20/23 08:22 povidone-iodine Allergy Mild Verified 11/20/23 08:22 [From BETADINE] [facility] Disclaimer: The information contained in this section may have been updated after the patient was seen, as this information can be updated by other users. Medical History History of hypertension Lung cancer COPD (chronic obstructive pulmonary disease) Iatrogenic hyperthyroidism Depression with anxiety Surgical History Hx of LASIK H/O removal of neck cyst Tubal ligation status Hx of cholecystectomy H/O neck surgery Social History Smoking Status: Former smoker tobacco type: cigarettes packs per day: 0 second hand exposure: No alcohol intake: never substance use type: denies use current occupational status: retired Travel in the last 8 weeks: None household members: spouse housing: house current occupational exposures/hazards: No caffeine: Yes ROS Obtained: Yes All systems reviewed & no additional complaints except as documented Physical Exam General General appearance: alert and in no apparent distress Respiratory Respiratory exam: Present other (Respiratory distress on CPAP from EMS oxygen saturations in the low 90s very prolonged expiratory phase otherwise nonfocal) Cardiovascular Cardiovascular exam: Present regular rate and normal rhythm Abdominal Exam Abdominal exam: Present soft; Absent distention or tenderness Neurological Exam Neurological exam: Present alert and oriented X3 Medical Decision Making Domingo Inquiry Pt receiving controlled substance: No Vital Signs: 11/25/23 07:54 Temperature 97.7 F Temperature Source Axillary Pulse Rate [Right] 95 H Respiratory Rate 24 Blood Pressure [Left Arm] 144/61 H Blood Pressure Mean [Left Arm] 88 Blood Pressure Source [Left Arm] Automatic Cuff 02 Sat by Pulse Oximetry 93 L Oxygen Delivery Method CPAP Oxygen Flow Rate (LPM) 15 Lab Data Lab results reviewed: Yes I reviewed the patient's lab results. Lab Results 11/25/23 07:50: WBC 12.2 H D, RBC 3.58 L, Hgb 10.6 L, Hct 34.2 L, MCV 95.6, MCH 29.8, MCHC 31.1 L, RDW 16.2, Plt Count 306, MPV 8.7, Neut % (Auto) 88.3 H, Lymph % (Auto) 5.9 L, [place] % (Auto) 4.6, Eos % (Auto) 0.7, Baso % (Auto) 0.5, Neut # (Auto) 10.8 H, Lymph # (Auto) 0.7, [place] # (Auto) 0.6, Eos # (Auto) 0.1, Baso # (Auto) 0.1, Sodium 137, Potassium 4.3, Chloride 107, Carbon Dioxide 23, Anion Gap 11.3, BUN 18 H D, Creatinine 1.00, Estimated GFR 54 L, Est GFR ( Amer) 65, Glucose 86, Calcium 8.5, Total Bilirubin 0.5, AST 28, ALT 19 D, A lkaline Phosphatase 146 H, Troponin I < 0.01, Total Protein 6.4 D, Albumin 3.2 L, Globulin 3.2, Albumin/Globulin Ratio 1.0 L 11/25/23 08:09: VBG pH 7.38, VBG pCO2 33.2 L, VBG pO2 102.8 H, VBG HCO3 19.3 L, VBG Total CO2 20.3 L, VBG O2 Saturation 97.8 H, VBG Base Excess -5.8 L, VBG Lactic Acid 1.9 11/25/23 07:50 11/25/23 07:50 Orders (Tests/Meds): ED MEDICATIONS Generic Name Dose Route Start Last Admin Trade Name Freq PRN Reason Stop Dose Admin Lactated Ringer's 1,000 mls @ 999 mls/hr 11/25/23 08:15 11/25/23 08:33 Lactated Ringer's 1000 Ml Bag IV 11/25/23 09:15 999 mls/hr .Q1H1M LUZ Administration Magnesium Sulfate 2 gm in 50 mls @ 50 mls/hr 11/25/23 08:04 11/25/23 08:34 Magnesium Sulfate 2gm/50ml Premix IV 11/25/23 09:03 50 mls/hr ONCE ONE Administration Discontinued Medications Generic Name Dose Route Start Last Admin Trade Name Freq PRN Reason Stop Dose Admin Albuterol/Ipratropium 3 ml 11/25/23 08:04 Ipratropium/Albuterol 3 Ml Neb IH 11/25/23 08:05 ONCE ONE Methylprednisolone Sodium Succinate 125 mg 11/25/23 08:04 11/25/23 08:33 Methylprednisolone Sod Succ 125mg Vial IV 11/25/23 08:05 125 mg ONCE ONE Administration ORDERS Category Date Time Status CXR --portable [XR chest portable] Stat Exams 11/25/23 08:04 Taken CBC w/Auto Diff [Complete Blood Count Auto Diff] Stat Lab 11/25/23 07:50 Results CMP [Comprehensive Metabolic Panel] Stat Lab 11/25/23 07:50 Completed Lactate Venous Stat Lab 11/25/23 08:09 Ordered Rapid PCR Covid and Flu A/B Stat Lab 11/25/23 08:21 Received Trop I [Troponin I] Stat Lab 11/25/23 07:50 Completed Troponin I Q3H Lab 11/25/23 11:15 Ordered Troponin I Q3H Lab 11/25/23 14:15 Ordered UA [Urinalysis and Microscopic] Stat Lab 11/25/23 08:05 Ordered Blood Culture Stat Micro 11/25/23 08:10 Received Venous Blood Gas Stat RT 11/25/23 08:09 Completed Medical Decision Narrative: 78-year-old presenting today critically ill with respiratory failure. As stated above she was recently admitted for septic shock with strep pneumonia bacteremia, pneumonia, pyelonephritis requiring pressors. Will transition her to BiPAP and administer DuoNeb Solu-Medrol magnesium and will discuss goals of care with family once they arrive. Reassessment I was able to speak to her daughter who is at the bedside and she confirmed that the patient is full support but DNR/DNI they have not had any further hospice discussions. Therefore we will continue the noninvasive positive pressure ventilation in addition to other medications. On discharge she was on Levaquin with her pyelonephritis and pneumonia. I will hold at the moment on escalating antibiotic therapy. Reassessment 835 patient remained stable. Chest x-ray performed on first interpreted shows bibasilar consolidations consistent with old imaging. Again will not escalate antibiotics at the moment. This does not seem to be radiographically different. She is not septic at this point and labs seem very similar to recent hospitalization. Working diagnosis is acute hypoxic respiratory failure in the setting of COPD exacerbation. I spoke with Dr. Wall with hospital medicine who agreed to admit the patient for further management. Critical Care Critical Care Time Critical Care Time: Yes Attestation: On 11/25/23, the high probability of a clinically significant, sudden or life threatening deterioration of the following system(s) required my full and direct attention, intervention and personal management. The time I documented below is in addition to time spent performing reported procedures but includes the following listed in this critical care notation. Total Time Total Critical Care Time: 35
--- NOTE | 2023-11-25 08:07 | PC.NURSE ---
Respiratory at bs placing pt on Bipap
[2023-11-25 08:11] LABS: Basophils # 0.1 K/mm3 (0-0.2); Basophils % 0.5 % (0.1-2.0); Eosinophils # 0.1 K/mm3 (0.0-0.4); Eosinophils % 0.7 % (0.1-12.0); Hematocrit 34.2 % (37.0-47.0); Hemoglobin 10.6 g/dL (12.2-16.2); Lymphocytes # 0.7 K/mm3 (0.7-4.5); Lymphocytes % 5.9 % (10-50); Mean Corpuscular HGB Conc 31.1 g/dL (31.8-35.4); Mean Corpuscular Hemoglobin 29.8 pg (27.0-31.2); Mean Corpuscular Volume 95.6 fl (81-99); Mean Platelet Volume 8.7 fl (7.4-10.4); Monocytes # 0.6 K/mm3 (0.1-1.0); Monocytes % 4.6 % (1.7-9.3); Neutrophils # 10.8 K/mm3 (1.8-7.8); Neutrophils % 88.3 % (37.0-80.0); Platelet Count 306 K/mm3 (142-424); Red Blood Count 3.58 M/mm3 (4.20-5.40); Red Cell Distribution Width 16.2 % (11.5-17.5); White Blood Count 12.2 K/mm3 (4.8-10.8)
[2023-11-25 08:15] LABS: Chloride 107 mmol/L (98-107); Potassium 4.3 mmoL/L (3.5-5.1); Sodium 137 mmol/L (136-145)
[2023-11-25 08:16] LABS: Lactate Venous 1.9 mmol/L (0.4-2.0); VBG Base Excess -5.8 mmol/L (-2.4-2.3); VBG HCO3 19.3 mmol/L (23-30); VBG Oxygen Saturation 97.8 % (50-70); VBG PCO2 33.2 mmol/L (35-51); VBG PH 7.38 mmol/L (7.31-7.41); VBG PO2 102.8 mmol/L (28-40); VBG Total CO2 20.3 mmol/L (23-27)
[2023-11-25 08:17] LABS: Alanine Aminotransferase 19 U/L (12-78); Aspartate Amino Transferase 28 U/L (14-36); Bilirubin,Total 0.5 mg/dl (0.2-1.3); Blood Urea Nitrogen 18 mg/dl (7-17); Estimated Glomerular Filt Rate 54 ml/min (>60); GFR (African American) 65 ML/MIN (>60)
[2023-11-25 08:18] LABS: Albumin Level 3.2 g/dl (3.5-5.0); Alkaline Phosphatase 146 U/L (38-126); Anion Gap 11.3 mEq/L (5-15); Calcium 8.5 mg/dl (8.4-10.2); Carbon Dioxide 23 mmol/L (22.0-30.0); Globulin 3.2 g/dL (1.3-3.2); Glucose 86 mg/dl (74-100); Total Protein,Serum 6.4 g/dl (6.3-8.2)
[2023-11-25 08:20] LABS: MANUAL DIFFERENTIAL MANUAL DIFFERENTIAL (MANUAL DIFF)
--- NOTE | 2023-11-25 08:21 | PC.NURSE ---
XR AT BEDSIDE
[2023-11-25 08:28] LABS: Coronavirus 19, PCR Not Detected (NotDetected); Influenza A, PCR Not Detected (NotDetected); Influenza B, PCR Not Detected (NotDetected)
[2023-11-25] MEDS: METHYLPREDNISOLONE SOD SUCC 125MG VIAL 125 MG IV (08:33)
[2023-11-25] MEDS: LACTATED RINGERS 1000ML 1,000 ML 999 ML IV (08:33)
[2023-11-25 08:34] LABS: Troponin I < 0.01 ng/ml (0.00-0.034)
[2023-11-25] MEDS: MAGNESIUM SULFATE IN WATER 2 GM/50 ML PIGGYBACK IV (08:34)
--- NOTE | 2023-11-25 08:34 | PC.NURSE ---
DR BRENNER SPEAKING WITH DR ZAYAS
--- NOTE | 2023-11-25 08:34 | PC.NURSE ---
Pt resting in bed. Daughter & pt's at bedside, no needs at this time. Pt medicated per MAR and still receiving neb treatment.
--- NOTE | 2023-11-25 08:36 | PC.NURSE ---
MACHINE MAINTENANCE NOTIFIED OF ADMISSION
--- NOTE | 2023-11-25 08:52 | PC.NURSE ---
DR BRENNER AT BEDSIDE TO UPDATE FAMILY
--- NOTE | 2023-11-25 09:09 | PC.NURSE ---
arrived by stretcher from ED
--- NOTE | 2023-11-25 10:34 | SW/DCPLANNER ---
Addendum entered by Naz Stewart 11/26/23 14:21: Per A.D. all equipment will be set up in patient's home at 4PM today/ Addendum entered by Naz Stewart 11/26/23 13:03: Patient/family have decided to return home w/ Hospice services. Andres stated that she will order all appropriate equipment for home and follow up w/ me regarding a set up time. I have updated patient's nurse and MD. Patient will discharge home today. Addendum entered by Naz Stewart 11/26/23 11:22: Per patient's son and they will need additional time to discuss a discharge plan w/ each other. Son stated they are not sure if they want to pursue Hospice at this time and may take her home w/ sitters. did collect patient's belongings from [facility] today. Andres w/ Hospice plans to follow up w/ patient and family today around noon. I will follow up w/ patient, family and Hospice. Addendum entered by Naz Stewart 11/26/23 07:53: Andres spoke w/ patient and family yesterday. Family requested additional time to discuss and make a decision for discharge plan: home w/ hospice vs LTC w/ Hospice. Original Note: Per patient's nurse (Mei) family has requested a Hospice consult. I have faxed patient information to [facility]. Hospice will be onsite at 3:30 (per families request) to speak w/ family and evaluate patient. I will follow up w/ Hospice once the team is onsite.
[2023-11-25] MEDS: IPRATROPIUM/ALBUTEROL 3 ML NEB IH ×3 (11:05→23:23)
[2023-11-25 11:45] LABS: Troponin I < 0.01 ng/ml (0.00-0.034)
[2023-11-25] MEDS: ENOXAPARIN 30MG/0.3ML SYRINGE 30 MG SQ (11:50)
[2023-11-25] MEDS: METHYLPREDNISOLONE SOD SUCC 40MG VIAL 40 MG IV ×2 (11:50→17:58)
[2023-11-25 12:45] LABS: Lymphocytes % 14 % (10-50); Monocytes % 2 % (2-9); Neutrophils % 84 % (42-76); Total Cells Counted 100
[2023-11-25 12:46] LABS: Platelet Estimate Normal; RBC Morphology Normal
[2023-11-25 14:58] LABS: Troponin I < 0.01 ng/ml (0.00-0.034)
--- NOTE | 2023-11-25 15:09 | PC.NURSE ---
1455 pt o2 sats (84) noted to be low on 5lpm. RT called and pt placed on cpap 30%. o2% increased to 40%.
--- NOTE | 2023-11-25 18:04 | EXP.HP ---
History of Present Illness *Admission Date: 11/25/23 *Reason for visit:: SOB *History of present illness: Patient is a 78-year-old female with past medical history of COPD on 3 L nasal cannula, CAD, hypothyroidism, generalized weakness who presented to hospital due to shortness of breath. [facility] a [facility]. Patient was noted to have hypoxia in the emergency department and was admitted for COPD exacerbation. Patient was recently discharged from the hospital where patient was offered hospice and at that time patient and family declined however patient's family was interested in hospice care today at time of my evaluation and nursing assessment. [facility] Disclaimer: The information contained in this section may have been updated after the patient was seen, as this information can be updated by other users. Medical History History of hypertension Lung cancer COPD (chronic obstructive pulmonary disease) Iatrogenic hyperthyroidism Depression with anxiety Surgical History Hx of LASIK H/O removal of neck cyst Tubal ligation status Hx of cholecystectomy H/O neck surgery Family History (Updated 11/25/23 @ 10:24 by Elena Martinez RN) Other No significant family history Social History (Updated 11/25/23 @ 10:24 by Elena Martinez RN) Smoking Status: Former smoker tobacco type: cigarettes packs per day: 0 second hand exposure: No alcohol intake: never substance use type: denies use current occupational status: retired Travel in the last 8 weeks: None household members: spouse housing: house current occupational exposures/hazards: No caffeine: Yes Review of Systems Review of Systems Review of systems:: pertinent systems reviewed and negative unless documented below Meds Home Medications and Allergies Home Medications Medication Instructions Recorded Confirmed Type fluticasone fur. 100 mcg-umeclid 1 inh inhalation DAILY #30 ea 04/28/23 11/25/23 Rx 62.5 mcg-vilant 25 mcg inhalat.powder (Trelegy Ellipta) erythromycin 5 mg/gram (0.5 %) eye 1 applic Eye-Both HS 07/30/23 11/25/23 History ointment acetaminophen 500 mg tablet 500 mg PO Q4HP PRN Mild Pain 11/20/23 11/25/23 History (Scale Score 1-4) bisoprolol fumarate 5 mg tablet 5 mg PO DAILY 11/20/23 11/25/23 History fluoxetine 20 mg capsule 20 mg PO DAILY 11/20/23 11/25/23 History levothyroxine 88 mcg tablet 88 mcg PO DAILY 11/20/23 11/25/23 History nitroglycerin 0.4 mg sublingual 0.4 mg sublingual Q5MINP PRN Chest 11/20/23 11/25/23 History tablet Pain potassium chloride 20 mEq 20 meq PO DAILY 11/20/23 11/25/23 History tablet,extended release(part/cryst) pravastatin 40 mg tablet 40 mg PO HS 11/20/23 11/25/23 History tramadol 50 mg tablet 50 mg PO BIDP PRN Moderate Pain 11/20/23 11/25/23 History (Scale Score 5-6) ipratropium 0.5 mg-albuterol 3 mg 3 ml inhalation QID 30 days #0 mL 11/23/23 11/25/23 Rx (2.5 mg base)/3 mL nebulization soln levofloxacin 750 mg tablet 750 mg PO Q48H 6 days #3 tabs 11/23/23 11/25/23 Rx melatonin 5 mg tablet 10 mg (2 x 5 mg) PO HS 30 days #60 11/23/23 11/25/23 Rx tabs sennosides 8.6 mg-docusate sodium 1 tab PO DAILY PRN constipation 11/23/23 11/25/23 Rx 50 mg tablet (Stimulant Laxative #30 tabs Plus) clotrimazole 10 mg nell 10 mg mucous membrane 5XDAY 11/25/23 11/25/23 History New Prescriptions to Start Prescriptions: Allergies Allergy/AdvReac Type Severity Reaction Status Date / Time codeine [CODEINE] Allergy Mild Verified 11/20/23 08:22 penicillin G [PENICILLIN G] Allergy Mild Verified 11/20/23 08:22 povidone-iodine Allergy Mild Verified 11/20/23 08:22 [From BETADINE] Exam Data for Last 24 hours Vital signs and Labs for Last 24 Hours: Temp Pulse Resp BP Pulse Ox O2 Del Method O2 Flow Rate 97.7 F 94 H 23 129/73 89 L CPAP 5 11/25/23 12:00 11/25/23 16:40 11/25/23 12:00 11/25/23 16:00 11/25/23 16:40 11/25/23 17:00 11/25/23 12:00 FiO2 40 11/25/23 16:40 Laboratory Results - last 24 hr 11/25/23 07:50: WBC 12.2 H D, RBC 3.58 L, Hgb 10.6 L, Hct 34.2 L, MCV 95.6, MCH 29.8, MCHC 31.1 L, RDW 16.2, Plt Count 306, MPV 8.7, Neut % (Auto) 88.3 H, Lymph % (Auto) 5.9 L, [place] % (Auto) 4.6, Eos % (Auto) 0.7, Baso % (Auto) 0.5, Neut # (Auto) 10.8 H, Lymph # (Auto) 0.7, [place] # (Auto) 0.6, Eos # (Auto) 0.1, Baso # (Auto) 0.1, Total Counted 100, Neutrophils % (Manual) 84 H, Lymphocytes % (Manual) 14, Monocytes % (Manual) 2, Platelet Estimate Normal, RBC Morphology Normal, Sodium 137, Potassium 4.3, Chloride 107, Carbon Dioxide 23, Anion Gap 11.3, BUN 18 H D, Creatinine 1.00, Estimated GFR 54 L, Est GFR ( Amer) 65, Glucose 86, Calcium 8.5, Total Bilirubin 0.5, AST 28, ALT 19 D, Alkaline Phosphatase 146 H, Troponin I < 0.01, Total Protein 6.4 D, Albumin 3.2 L, Globulin 3.2, Albumin/Globulin Ratio 1.0 L 11/25/23 08:09: VBG pH 7.38, VBG pCO2 33.2 L, VBG pO2 102.8 H, VBG HCO3 19.3 L, VBG Total CO2 20.3 L, VBG O2 Saturation 97.8 H, VBG Base Excess -5.8 L, VBG Lactic Acid 1.9 11/25/23 08:21: SARS-CoV-2 (PCR) Not detected, Influenza A Untype (PCR) Not detected, Influenza Type B (PCR) Not detected 11/25/23 11:10: Troponin I < 0.01 11/25/23 14:16: Troponin I < 0.01 I & O for Last 24 hours: Intake & Output 11/22/23 11/23/23 11/24/23 11/25/23 23:59 23:59 23:59 23:59 Intake Total 1050 / 1050 Balance 1050 / 1050 Weight 39.179 kg Constitutional Constitutional: no acute distress *Routine HEENT Exam Head: Present normocephalic Eye: Present EOMI and PERRL ENT: Present mucous membranes moist *Routine Neck Exam Neck: Present supple; Absent lymphadenopathy *Routine Respiratory Exam Respiratory: Present decreased breath sounds *Routine Cardiovascular Exam Cardiovascular: Present RRR *Routine Abdominal Exam Abdominal: Present soft and normoactive bowel sounds; Absent tenderness *Routine Rectal Exam Rectal:: deferred *Routine Genitalia Exam Genitalia:: deferred *Routine Extremities Exam Extremities: Absent cyanosis, clubbing or edema *Routine Skin Exam Skin: Present warm; Absent rash *Routine Neurological Exam Neurological: Present alert and oriented X3 Assessment and Plan *Assessment and plan (1) Acute exacerbation of chronic obstructive pulmonary disease: Status: Acute Category: Medical Code(s): J44.1 - Chronic obstructive pulmonary disease with (acute) exacerbation (2) Acute hypoxic respiratory failure: Status: Acute Category: Medical Code(s): J96.01 - Acute respiratory failure with hypoxia (3) Severe protein-calorie malnutrition: Status: Acute Category: Medical Code(s): E43 - Unspecified severe protein-calorie malnutrition (4) Pneumonia: Status: Acute Category: Medical Code(s): J18.9 - Pneumonia, unspecified organism Plan Patient is a 78-year-old female with past medical history of COPD on 3 L nasal cannula, CAD, hypothyroidism, generalized weakness who presented to hospital due to shortness of breath. Patient currently lives at a prison facility. Patient was noted to have hypoxia in the emergency department and was admitted for COPD exacerbation. Patient was recently discharged from the hospital where patient was offered hospice and at that time patient and family declined however patient's family was interested in hospice care today at time of my evaluation and nursing assessment. Assessment and plan Acute on chronic hypoxic respiratory failure satting less than 90% on room air COPD exacerbation Start Solu-Medrol Start DuoNebs scheduled Continue oxygen supplementation, currently patient is requiring 6 L nasal cannula, wean as tolerated, uses 3 L nasal cannula at home Chest x-ray reviewed does show right lung base density concerning for pneumonia- Start antibiotics with vancomycin, cefepime Check procalcitonin Check MRSA Generalized weakness Debility Consult hospice per family request Hypothyroidism-continue levothyroxine Hypertension Resume home bisoprolol 5 Mg daily DVT prophylaxis-Lovenox
[2023-11-25] MEDS: VANCOMYCIN CONSULT REQUEST 1 EACH NOTAPPLIC (18:39)
[2023-11-25] MEDS: CEFEPIME HCL 2 GM in 0.9 % SODIUM CHLORIDE 100 ML IV (18:48)
[2023-11-25] MEDS: VANCOMYCIN HCL 1,000 MG in 0.9 % SODIUM CHLORIDE 250 ML 125 MG IV (20:07)
[2023-11-25] MEDS: MELATONIN 5MG TABLET 10 MG PO (21:05)
[2023-11-25] MEDS: PRAVASTATIN 40MG TAB 40 MG PO (21:05)
[2023-11-26] VITALS (9 sets, daily range): BP systolic 106–137; BP diastolic 44–67; PULSE 70–83; RESP 16–20; TEMP 36.4–36.6; O2SAT 90–100; BMI 15.9
[2023-11-26] MEDS: CEFEPIME HCL 2 GM in 0.9 % SODIUM CHLORIDE 100 ML IV (02:19)
[2023-11-26] MEDS: METHYLPREDNISOLONE SOD SUCC 40MG VIAL 40 MG IV ×2 (03:04→09:48)
--- NOTE | 2023-11-26 04:04 | PC.NURSE ---
Patient alert and oriented x4 throughout shift. Tolerating CPAP well with O2 stats >90%. Patient has not expressed any needs throughout shift and has rested well. Tolerated PO meds well. Patient has not urinated so far this shift. VSS. Call light within reach.
[2023-11-26] MEDS: IPRATROPIUM/ALBUTEROL 3 ML NEB IH ×3 (05:59→18:28)
[2023-11-26 06:38] LABS: Basophils % 0.2 % (0.1-2.0); Eosinophils % 0.2 % (0.1-12.0); Hematocrit 29.1 % (37.0-47.0); Lymphocytes # 0.3 K/mm3 (0.7-4.5); Lymphocytes % 3.7 % (10-50); Mean Corpuscular HGB Conc 30.7 g/dL (31.8-35.4); Mean Corpuscular Hemoglobin 29.6 pg (27.0-31.2); Mean Corpuscular Volume 96.4 fl (81-99); Mean Platelet Volume 7.5 fl (7.4-10.4); Monocytes # 0.2 K/mm3 (0.1-1.0); Monocytes % 2.6 % (1.7-9.3); Neutrophils # 6.6 K/mm3 (1.8-7.8); Neutrophils % 93.4 % (37.0-80.0); Platelet Count 227 K/mm3 (142-424); Red Blood Count 3.02 M/mm3 (4.20-5.40); White Blood Count 7.1 K/mm3 (4.8-10.8)
[2023-11-26 06:40] LABS: Chloride 110 mmol/L (98-107); Potassium 4.6 mmoL/L (3.5-5.1); Sodium 136 mmol/L (136-145)
[2023-11-26 06:43] LABS: Anion Gap 8.6 mEq/L (5-15); Blood Urea Nitrogen 25 mg/dl (7-17); Carbon Dioxide 22 mmol/L (22.0-30.0); Creatinine Clearance Estimated 29 mL/min (50-200); Estimated Glomerular Filt Rate 54 ml/min (>60); GFR (African American) 65 ML/MIN (>60)
[2023-11-26 06:44] LABS: Glucose 116 mg/dl (74-100)
[2023-11-26 07:16] LABS: Hemoglobin 8.9 g/dL (12.2-16.2)
[2023-11-26 07:17] LABS: MANUAL DIFFERENTIAL MANUAL DIFFERENTIAL (MANUAL DIFF)
--- NOTE | 2023-11-26 07:49 | P.CONPHA_ITS ---
Pharmacy Consult Date: 11/26/23 Time: 07:49 Referring provider: DR ZAYAS Reason for Consult:: VANCOMYCIN DOSING CONSULT Allergies Allergy/AdvReac Type Severity Reaction Status Date / Time codeine [CODEINE] Allergy Mild Verified 11/20/23 08:22 penicillin G [PENICILLIN G] Allergy Mild Verified 11/20/23 08:22 povidone-iodine Allergy Mild Verified 11/20/23 08:22 [From BETADINE] Home Medications Medication Instructions Recorded Confirmed Type fluticasone fur. 100 mcg-umeclid 1 inh inhalation DAILY #30 ea 04/28/23 11/25/23 Rx 62.5 mcg-vilant 25 mcg inhalat.powder (Trelegy Ellipta) erythromycin 5 mg/gram (0.5 %) eye 1 applic Eye-Both HS 07/30/23 11/25/23 History ointment acetaminophen 500 mg tablet 500 mg PO Q4HP PRN Mild Pain 11/20/23 11/25/23 His tory (Scale Score 1-4) bisoprolol fumarate 5 mg tablet 5 mg PO DAILY 11/20/23 11/25/23 History fluoxetine 20 mg capsule 20 mg PO DAILY 11/20/23 11/25/23 History levothyroxine 88 mcg tablet 88 mcg PO DAILY 11/20/23 11/25/23 History nitroglycerin 0.4 mg sublingual 0.4 mg sublingual Q5MINP PRN Chest 11/20/23 11/25/23 History tablet Pain potassium chloride 20 mEq 20 meq PO DAILY 11/20/23 11/25/23 History tablet,extended release(part/cryst) pravastatin 40 mg tablet 40 mg PO HS 11/20/23 11/25/23 History tramadol 50 mg tablet 50 mg PO BIDP PRN Moderate Pain 11/20/23 11/25/23 History (Scale Score 5-6) ipratropium 0.5 mg-albuterol 3 mg 3 ml inhalation QID 30 days #0 mL 11/23/23 11/25/23 Rx (2.5 mg base)/3 mL nebulization soln levofloxacin 750 mg tablet 750 mg PO Q48H 6 days #3 tabs 11/23/23 11/25/23 Rx melatonin 5 mg tablet 10 mg (2 x 5 mg) PO HS 30 days #60 11/23/23 11/25/23 Rx tabs sennosides 8.6 mg-docusate sodium 1 tab PO DAILY PRN constipation 11/23/23 11/25/23 Rx 50 mg tablet (Stimulant Laxative #30 tabs Plus) clotrimazole 10 mg nell 10 mg mucous membrane 5XDAY 11/25/23 11/25/23 History New Prescriptions to Start Prescriptions: Height: 1.57 m Weight: 39.179 kg Laboratory Results:: Laboratory Results - last 24 hr 11/25/23 07:50: WBC 12.2 H D, RBC 3.58 L, Hgb 10.6 L, Hct 34.2 L, MCV 95.6, MCH 29.8, MCHC 31.1 L, RDW 16.2, Plt Count 306, MPV 8.7, Neut % (Auto) 88.3 H, Lymph % (Auto) 5.9 L, [place] % (Auto) 4.6, Eos % (Auto) 0.7, Baso % (Auto) 0.5, Neut # (Auto) 10.8 H, Lymph # (Auto) 0.7, [place] # (Auto) 0.6, Eos # (Auto) 0.1, Baso # (Auto) 0.1, Total Counted 100, Neutrophils % (Manual) 84 H, Lymphocytes % (Manual) 14, Monocytes % (Manual) 2, Platelet Estimate Normal, RBC Morphology Normal, Sodium 137, Potassium 4.3, Chloride 107, Carbon Dioxide 23, Anion Gap 11.3, BUN 18 H D, Creatinine 1.00, Estimated GFR 54 L, Est GFR ( Amer) 65, Glucose 86, Calcium 8.5, Total Bilirubin 0.5, AST 28, ALT 19 D, Alkaline Phosphatase 146 H, Troponin I < 0.01, Total Protein 6.4 D, Albumin 3.2 L, Globulin 3.2, Albumin/Globulin Ratio 1.0 L 11/25/23 08:09: VBG pH 7.38, VBG pCO2 33.2 L, VBG pO2 102.8 H, VBG HCO3 19.3 L, VBG Total CO2 20.3 L, VBG O2 Saturation 97.8 H, VBG Base Excess -5.8 L, VBG Lactic Acid 1.9 11/25/23 08:21: SARS-CoV-2 (PCR) Not detected, Influenza A Untype (PCR) Not detected, Influenza Type B (PCR) Not detected 11/25/23 11:10: Troponin I < 0.01 11/25/23 14:16: Troponin I < 0.01 11/26/23 05:16: WBC 7.1 D, RBC 3.02 L, Hgb 8.9 L D, Hct 29.1 L, MCV 96.4, MCH 29.6, MCHC 30.7 L, RDW 16.0, Plt Count 227 D, MPV 7.5, Neut % (Auto) 93.4 H, Lymph % (Auto) 3.7 L, [place] % (Auto) 2.6, Eos % (Auto) 0.2, Baso % (Auto) 0.2, Neut # (Auto) 6.6, Lymph # (Auto) 0.3 L, [place] # (Auto) 0.2, Eos # (Auto) 0.0, Baso # (Auto) 0.0, Sodium 136, Potassium 4.6, Chloride 110 H, Carbon Dioxide 22, Anion Gap 8.6, BUN 25 H D, Creatinine 1.00, Estimated Creat Clear 29, Estimated GFR 54 L, Est GFR ( Amer) 65, Glucose 116 H D, Calcium 8.0 L Medical History: Medical History (Updated 11/25/23 @ 18:06 by Eddie Zayas MD) History of hypertension Lung cancer COPD (chronic obstructive pulmonary disease) Iatrogenic hyperthyroidism Depression with anxiety Assessment and Plan Assessment and plan all Dx Assessment and Plan for all problems:: Pharmacokinetic dosing service Objective: Age: 78 yo Serum creatinine: 1 mg/dL Height: 61.8 Inches Weight (kg): 39.179 Diagnosis: SEPSIS Assessment: IBW (kg): 49.64 Dosing wt(kg): 39.179 Estimated Creatinine clearance (ml/min): 28.7 CRCL method: Cockcroft and Gault using ibw(default). Drug selected: Vancomycin Loading dose (mg): 1000 MG Vd (liters): 31.3 (factor used: 0.8 L/kg) Harshal (hr-1): 0.028 Half life (hrs): 24.76 CLvanco=?? 0.876 L/hr Recommended dose: 750 mg Interval: 36 hrs Infusion time (hrs): 2.0 Predicted peak (mcg/mL): 36.7 Predicted trough (mcg/mL): 14.17 Total body weight is being used for vancomycin dosing. Recommendations: Give Vancomycin 750 mg q 36 hrs with an expected Cpeak of 36.7 mcg/ml and an expected Ctrough of 14.17 mcg/ml TO START 11/27/23 AT 08:00, LOADING DOSE OF IV VANCOMYCIN 1000 MG GIVEN 11/25/23 AT 20:07. AUC 0-24 /EZEQUIEL Data: EZEQUIEL 0.5 mcg/mL:?? AUC/EZEQUIEL:? 1141.6 EZEQUIEL 1.0 mcg/mL:?? AUC/EZEQUIEL:? 570.8 --------- EZEQUIEL 1.5 mcg/mL:?? AUC/EZEQUIEL:? 380.5 EZEQUIEL 2.0 mcg/mL:?? AUC/EZEQUIEL:? 285.4 Thank you for the consult
[2023-11-26 08:08] LABS: Lymphocytes % 3 % (10-50); Monocytes % 1 % (2-9); Neutrophils % 96 % (42-76); Total Cells Counted 100
[2023-11-26 08:09] LABS: Hypochromasia 1+; Platelet Estimate Normal
[2023-11-26] MEDS: FLUTICASONE/UMECLIDIN/VILANTER 100/62.5/25MCG INHALER 1 PUFF IH (08:48)
[2023-11-26] MEDS: ENOXAPARIN 30MG/0.3ML SYRINGE 30 MG SQ (08:52)
[2023-11-26] MEDS: CLOTRIMAZOLE 10MG TROCHE 10 MG MM ×3 (08:52→18:07)
[2023-11-26] MEDS: LEVOTHYROXINE 88MCG (0.088MG) TAB 88 MCG PO (08:53)
[2023-11-26] MEDS: FLUOXETINE 20MG CAPSULE 20 MG PO (08:53)
[2023-11-26] MEDS: BISOPROLOL 5MG TABLET 5 MG PO (08:53)
--- NOTE | 2023-11-26 10:15 | DIET.NUTRFU ---
Last admit patient was tolerating MSOFT with ground meat and ensure with meals. Updated current order. Patient triggers for severe PCM again this admit, will notify provider. Possible hospice discharge this admit
--- NOTE | 2023-11-26 14:49 | EXP.DC.SUM ---
General Admission date:: 11/25/23 Discharge date: 11/26/23 HPI HPI HPI: Patient is a 78-year-old female with past medical history of COPD on 3 L nasal cannula, CAD, hypothyroidism, generalized weakness who presented to hospital due to shortness of breath. Patient currently lives at a correction facility. Patient was noted to have hypoxia in the emergency department and was admitted for COPD exacerbation. Patient was recently discharged from the hospital where patient was offered hospice and at that time patient and family declined however patient's family was interested in hospice care today at time of my evaluation and nursing assessment. Hospital Course Hospital Course Hospital Course: Patient is a 78-year-old female with past medical history of COPD on 3 L nasal cannula, CAD, hypothyroidism, generalized weakness who presented to hospital due to shortness of breath. Patient currently lives at a correction facility. Patient was noted to have hypoxia in the emergency department and was admitted for COPD exacerbation. Patient was recently discharged from the hospital where patient was offered hospice and at that time patient and family declined however patient's family was interested in hospice care today at time of my evaluation and nursing assessment. Assessment and plan Acute on chronic hypoxic respiratory failure satting less than 90% on room air COPD exacerbation patient and family requested for hospice care, security incident response specialist was consulted, patient and family requested home hospice and wanted to be discharged, patient will be discharged with script of andrea, patient was discharged under hospice care Exam Data for Last 24 hours Vital signs and Labs for Last 24 Hours: Temp Pulse Resp BP Pulse Ox O2 Del Method O2 Flow Rate 97.8 F 75 16 128/44 L 94 L Room Air 6 11/26/23 12:00 11/26/23 12:00 11/26/23 12:00 11/26/23 12:00 11/26/23 12:00 11/26/23 13:00 11/26/23 12:00 FiO2 40 11/25/23 16:40 Laboratory Results - last 24 hr 11/25/23 14:16: Troponin I < 0.01 11/26/23 05:16: WBC 7.1 D, RBC 3.02 L, Hgb 8.9 L D, Hct 29.1 L, MCV 96.4, MCH 29.6, MCHC 30.7 L, RDW 16.0, Plt Count 227 D, MPV 7.5, Neut % (Auto) 93.4 H, Lymph % (Auto) 3.7 L, [place] % (Auto) 2.6, Eos % (Auto) 0.2, Baso % (Auto) 0.2, Neut # (Auto) 6.6, Lymph # (Auto) 0.3 L, [place] # (Auto) 0.2, Eos # (Auto) 0.0, Baso # (Auto) 0.0, Total Counted 100, Neutrophils % (Manual) 96 H, Lymphocytes % (Manual) 3 L, Monocytes % (Manual) 1 L, Platelet Estimate Normal, Hypochromasia 1+, Sodium 136, Potassium 4.6, Chloride 110 H, Carbon Dioxide 22, Anion Gap 8.6, BUN 25 H D, Creatinine 1.00, Estimated Creat Clear 29, Estimated GFR 54 L, Est GFR ( Amer) 65, Glucose 116 H D, Calcium 8.0 L I & O for Last 24 hours: Intake & Output 11/23/23 11/24/23 11/25/23 11/26/23 23:59 23:59 23:59 23:59 Intake Total 1050 / 1050 605 / 605 Balance 1050 / 1050 605 / 605 Weight 39.179 kg 39.179 kg Microbiology Reports for the Last 24 Hours: Microbiology 11/25/23 08:31 Blood Blood Culture - Preliminary NO GROWTH AFTER 24 HOURS 11/25/23 08:19 Blood Blood Culture - Preliminary NO GROWTH AFTER 24 HOURS Constitutional Constitutional: no acute distress *Routine HEENT Exam Head: Present normocephalic Eye: Present EOMI and PERRL ENT: Present mucous membranes moist *Routine Neck Exam Neck: Present supple; Absent lymphadenopathy *Routine Respiratory Exam Respiratory: Present prolonged expiratory phase, distant breath sounds and diminished air movement *Routine Cardiovascular Exam Cardiovascular: Present RRR *Routine Abdominal Exam Abdominal: Present soft and normoactive bowel sounds; Absent tenderness *Routine Extremities Exam Extremities: Absent cyanosis, clubbing or edema *Routine Skin Exam Skin: Present warm; Absent rash *Routine Neurological Exam Neurological: Present alert and oriented X3 Results Data Completed and Pending Labs on day of discharge: Labs from last 24 hours 11/26/23 11/25/23 05:16 14:16 WBC 7.1 D RBC 3.02 L Hgb 8.9 L D Hct 29.1 L MCV 96.4 MCH 29.6 MCHC 30.7 L RDW 16.0 Plt Count 227 D MPV 7.5 Neut % (Auto) 93.4 H Lymph % (Auto) 3.7 L [place] % (Auto) 2.6 Eos % (Auto) 0.2 Baso % (Auto) 0.2 Neut # (Auto) 6.6 Lymph # (Auto) 0.3 L [place] # (Auto) 0.2 Eos # (Auto) 0.0 Baso # (Auto) 0.0 Total Counted 100 Neutrophils % (Manual) 96 H Lymphocytes % (Manual) 3 L Monocytes % (Manual) 1 L Platelet Estimate Normal Hypochromasia 1+ Sodium 136 Potassium 4.6 Chloride 110 H Carbon Dioxide 22 Anion Gap 8.6 BUN 25 H D Creatinine 1.00 Estimated Creat Clear 29 Estimated GFR 54 L Est GFR ( Amer) 65 Glucose 116 H D Calcium 8.0 L Troponin I < 0.01 Preliminary micro results at discharge 11/25/23 08:31 Blood Culture - Preliminary Blood NO GROWTH AFTER 24 HOURS 11/25/23 08:19 Blood Culture - Preliminary Blood NO GROWTH AFTER 24 HOURS DS: Diagnosis Discharge Diagnosis (1) Acute exacerbation of chronic obstructive pulmonary disease: Status: Acute Code(s): J44.1 - Chronic obstructive pulmonary disease with (acute) exacerbation (2) Acute hypoxic respiratory failure: Status: Acute Code(s): J96.01 - Acute respiratory failure with hypoxia (3) Severe protein-calorie malnutrition: Status: Acute Code(s): E43 - Unspecified severe protein-calorie malnutrition (4) Pneumonia: Status: Acute Code(s): J18.9 - Pneumonia, unspecified organism Meds Home Medications and Allergies Home Medications Medication Instructions Recorded Confirmed Type fluticasone fur. 100 mcg-umeclid 1 inh inhalation DAILY #30 ea 04/28/23 11/25/23 Rx 62.5 mcg-vilant 25 mcg inhalat.powder (Trelegy Ellipta) erythromycin 5 mg/gram (0.5 %) eye 1 applic Eye-Both HS 07/30/23 11/25/23 History ointment acetaminophen 500 mg tablet 500 mg PO Q4HP PRN Mild Pain 11/20/23 11/25/23 History (Scale Score 1-4) bisoprolol fumarate 5 mg tablet 5 mg PO DAILY 11/20/23 11/25/23 History fluoxetine 20 mg capsule 20 mg PO DAILY 11/20/23 11/25/23 History levothyroxine 88 mcg tablet 88 mcg PO DAILY 11/20/23 11/25/23 History nitroglycerin 0.4 mg sublingual 0.4 mg sublingual Q5MINP PRN Chest 11/20/23 11/25/23 History tablet Pain potassium chloride 20 mEq 20 meq PO DAILY 11/20/23 11/25/23 History tablet,extended release(part/cryst) pravastatin 40 mg tablet 40 mg PO HS 11/20/23 11/25/23 History tramadol 50 mg tablet 50 mg PO BIDP PRN Moderate Pain 11/20/23 11/25/23 History (Scale Score 5-6) ipratropium 0.5 mg-albuterol 3 mg 3 ml inhalation QID 30 days #0 mL 11/23/23 11/25/23 Rx (2.5 mg base)/3 mL nebulization soln levofloxacin 750 mg tablet 750 mg PO Q48H 6 days #3 tabs 11/23/23 11/25/23 Rx melatonin 5 mg tablet 10 mg (2 x 5 mg) PO HS 30 days #60 11/23/23 11/25/23 Rx tabs sennosides 8.6 mg-docusate sodium 1 tab PO DAILY PRN constipation 11/23/23 11/25/23 Rx 50 mg tablet (Stimulant Laxative #30 tabs Plus) clotrimazole 10 mg nell 10 mg mucous membrane 5XDAY 11/25/23 11/25/23 History levofloxacin 750 mg tablet 750 mg PO DAILY 7 days #7 tabs 11/26/23 Rx New Prescriptions to Start Prescriptions: Eddie Tatum Allergies Allergy/AdvReac Type Severity Reaction Status Date / Time codeine [CODEINE] Allergy Mild Verified 11/20/23 08:22 penicillin G [PENICILLIN G] Allergy Mild Verified 11/20/23 08:22 povidone-iodine Allergy Mild Verified 11/20/23 08:22 [From BETADINE] Discharge Plan Disposition Patient Disposition: Hospice - Home Condition: Fair Discharge Order Discharge Orders: Discharge Order (Routine); Ordered 11/26/23 Ordered By: Eddie Wall Follow up Plan Follow up with: June Paiz PA [Primary Care Provider] - 1 week Prescriptions/Medication Reconciliation: New levofloxacin 750 mg tablet 750 mg PO DAILY 7 Days Qty: 7 0RF Continued erythromycin 5 mg/gram (0.5 %) ointment 1 applic Eye-Both HS Patient Comments: APPLY TO LIDS AT BEDTIME Trelejuan Ellipta 100-62.5-25 mcg blister with device 1 inh inhalation DAILY Qty: 30 12RF acetaminophen 500 mg Tablet 500 mg PO Q4HP PRN (Reason: Mild Pain (Scale Score 1-4)) pravastatin 40 mg tablet 40 mg PO HS tramadol 50 mg tablet 50 mg PO BIDP PRN (Reason: Moderate Pain (Scale Score 5-6)) bisoprolol fumarate 5 mg tablet 5 mg PO DAILY levothyroxine 88 mcg tablet 88 mcg PO DAILY potassium chloride 20 mEq tablet,ER particles/crystals 20 meq PO DAILY nitroglycerin 0.4 mg tablet, sublingual 0.4 mg SUBLINGUAL Q5MINP PRN (Reason: Chest Pain) fluoxetine 20 mg capsule 20 mg PO DAILY melatonin 5 mg Tablet 10 mg PO HS 30 Days Qty: 60 0RF sennosides-docusate sodium [Stimulant Laxative Plus] 8.6-50 mg Tablet 1 tab PO DAILY PRN (Reason: constipation) Qty: 30 0RF levofloxacin 750 mg tablet 750 mg PO Q48H 6 Days Qty: 3 0RF Rx Instructions: first dose due 11/24/23 ipratropium-albuterol 0.5 mg-3 mg(2.5 mg base)/3 mL solution for nebulization 3 ml IH QID 30 Days Qty: 0 0RF clotrimazole 10 mg Nell 10 mg MUCOUS MEMBRANE 5XDAY Problem Reconciliation Problems Reviewed?: Yes Patient Discharge Instructions ACTIVITY: Ambulate as tolerated DIET: continue same diet Patient Instructions: DI for Shortness of Breath, DI for Respiratory Failure, How to Manage Shortness of Breath Providers Primary Care Provider: June Paiz Admit Provider: Eddie Wall Attending Provider: Eddie Wall
--- NOTE | 2023-11-26 18:14 | PC.NURSE ---
pt has ate well today stating her supper was good. currently on 6l nc with sats anywhere from 85%-95% depending on patients activity. waiting on ems for transport. due to limited staff it would be late tonight. spoke with pts daughter and son and hospice nurse,MARTINA, over the phone multiple times t/o the shift keeping them informed on what is going on. daughter wants EMS to pull up in the yard and back up to the front porch so they can bring patient in through the front door.
--- NOTE | 2023-11-26 20:51 | PC.NURSE ---
Patient left with EMS at 20:51.
== END 2023-11-26 20:30 | disposition hospice, home (50) | DRG 189 ==
LOC: ER 08:36 → 2ND 08:42
PROVIDERS: Admitting Provider Internal Medicine; Emergency Provider Student in an Organized Health Care Education/Training Program; PCP Physician Assistant; Visit Provider Internal Medicine
DX: J96.01 Acute respiratory failure with hypoxia (principal); E43 Unspecified severe protein-calorie malnutrition; J44.1 Chronic obstructive pulmonary disease with (acute) exacerbation; Z68.1 Body mass index [BMI] 19.9 or less, adult; F32.A Depression, unspecified; F41.9 Anxiety disorder, unspecified; I10 Essential (primary) hypertension; Z87.891 Personal history of nicotine dependence; Z99.81 Dependence on supplemental oxygen; E03.9 Hypothyroidism, unspecified
CPT/HCPCS: 36415; 71045; 80048; 80053; 82803; 84484; 85007; 85025; 87040; 87636; 93005; 94640; 94761; 99291; J1650; J2920; J2930; J3370; J3475; J7030; J7120; J7620